=== PATIENT | female | born 1950 | race Caucasian/White ===

== ENCOUNTER 2022-01-14 11:41 | Observation (INO) | payer OTHER ==
--- OUTSIDE RECORDS SUMMARY | 2022-01-14 11:43 | XMS REPORT | Continuity of Care Document ---
:1950 Author Organization [facility] t Address [address] [place] [address] [address]. [address] [place] [address] Care Team Providers Name Role Phone Unavailable Unavailable Unavailable Payers Payer Name Policy Type Policy Number Effective Date Expiration Date S ource Problems This patient has no known problems. Allergies, Adverse Reactions, Alerts This patient has no known allergies or adverse reactions. Medications This patient has no known medications. Procedures This patient has no known procedures. Results This patient has no known results.
[2022-01-14 12:41] LABS: Absolute Lymphocytes (CBC) 2.2 K/uL (0.7-4.9); Hematocrit 35.9 % (36.0-45.0); Lymphocytes % 20.9 % (15.3-44.8); MCV 82.7 fL (80-100); MPV 7.6 fL (7.6-11.3); RBC Red Blood Cell Count 4.34 M/uL (3.86-4.86)
--- NOTE | 2022-01-14 13:06 | RAD REPORT ---
EXAM DESCRIPTION: RAD - Chest Single View - 01/14/2022 12:19 pm CLINICAL HISTORY: syncope COMPARISON: Portable 12/11/2008 TECHNIQUE: AP portable chest image was obtained 01/14/2022 12:19 pm . FINDINGS: Lung volumes are low. Mildly prominent interstitial pattern is present believed to be base line. This is not substantially different when adjusting for differences in lung volume and imaging t echnique. No peripheral mass or consolidation. No failure or volume overload findings. Trachea is in the midlin e. Heart and vasculature are normal. No hilar mass or lymphadenopathy suspected. No measurable pleural effusion and no pneumothorax. No acute bony abnormality seen. No acute aortic f indings suspected. IMPRESSION: No acute cardiopulmonary process. No worrisome change from the remote 2008 study.
--- NOTE | 2022-01-14 13:46 | EDPHYS ---
Physician Documentation [facility] Name: Lupe Anaya Age: 71 yrs Sex: Female : 1950 Arrival Date: 01/14/2022 Time: 11:45 Bed 5 Private MD: ED Physician Abiel Allen HPI: 01/14 14:58 This 71 yrs old Female presents to ER via EMS with complaints of Unresponsive. kdr 15:00 Patient's states that he found her unresponsive on the toilet. She had not been kdr there very long but nonetheless was unresponsive and diaphoretic. EMS was called and when they arrived the patient was still unresponsive. Once he laid her down on the stretcher she then regained consciousness. Currently she complains of generalized weakness but otherwise has no focal complaint. Initially in the ED she was hypotensive but slowly improved over time with fluid. Onset: The symptoms/episode began/occurred suddenly, just prior to arrival. Severity of symptoms: At their worst the symptoms were incapacitating in the emergency department the symptoms. The patient has not experienced similar symptoms in the past. It is unknown whether or not the patient has recently seen a physician. - Immunization history:: Adult Immunizations up to date. - Social history:: Smoking status: Patient denies any tobacco usage or history of. ROS: 15:00 Constitutional: Negative for fever, chills, and weight loss, Eyes: Negative for injury, kdr pain, redness, and discharge, Neck: Negative for injury, pain, and swelling, Cardiovascular: Negative for chest pain, palpitations, and edema, Respiratory: Negative for shortness of breath, cough, wheezing, and pleuritic chest pain, Abdomen/GI: Negative for abdominal pain, nausea, vomiting, diarrhea, and constipation, Back: Negative for injury and pain, : Negative for injury, bleeding, discharge, and swelling, MS/Extremity: Negative for injury and deformity, Skin: Negative for injury, rash, and discoloration, Psych: Negative for depression, anxiety, suicide ideation, homicidal ideation, and hallucinations, Allergy/Immunology: Negative for hives, rash, and allergies, Endocrine: Negative for neck swelling, polydipsia, polyuria, polyphagia, and marked weight changes, Hematologic/Lymphatic: Negative for swollen nodes, abnormal bleeding, and unusual bruising. 15:00 Neuro: Positive for loss of consciousness, syncope, weakness. Exam: 11:57 ECG was reviewed by the Attending Physician. kdr 15:00 Constitutional: This is a well developed, well nourished patient who is awake, alert, kdr and in no acute distress. Head/Face: Normocephalic, atraumatic. Eyes: Pupils equal round and reactive to light, extra-ocular motions intact. Lids and lashes normal. Conjunctiva and sclera are non-icteric and not injected. Cornea within normal limits. Periorbital areas with no swelling, redness, or edema. Neck: Trachea midline, no thyromegaly or masses palpated, and no cervical lymphadenopathy. Supple, full range of motion without nuchal rigidity, or vertebral point tenderness. No Meningismus. Chest/axilla: Normal chest wall appearance and motion. Nontender with no deformity. No lesions are appreciated. Cardiovascular: Regular rate and rhythm with a normal S1 and S2. No gallops, murmurs, or rubs. Normal PMI, no JVD. No pulse deficits. Respiratory: Lungs have equal breath sounds bilaterally, clear to auscultation and percussion. No rales, rhonchi or wheezes noted. No increased work of breathing, no retractions or nasal flaring. Abdomen/GI: Soft, non-tender, with normal bowel sounds. No distension or tympany. No guarding or rebound. No evidence of tenderness throughout. Back: No spinal tenderness. No costovertebral tenderness. Full range of motion. Skin: Warm, dry with normal turgor. Normal color with no rashes, no lesions, and no evidence of cellulitis. MS/ Extremity: Pulses equal, no cyanosis. Neurovascular intact. Full, normal range of motion. Neuro: Awake and alert, GCS 15, oriented to person, place, time, and situation. Cranial nerves II-XII grossly intact. Motor strength 5/5 in all extremities. Sensory grossly intact. Cerebellar exam normal. Normal gait. Psych: Awake, alert, with orientation to person, place and time. Behavior, mood, and affect are within normal limits. 15:00 Respiratory: the patient does not display signs of respiratory distress, Respirations: normal, Breath sounds: rales, that are mild, are located in both bases. 15:00 Abdomen/GI: Inspection: obese Palpation: soft, nontender. Vital Signs: 12:30 BP 91 / 48; Pulse 68; Resp 16; Temp 97.6(O); Pulse Ox 98% on R/A; Weight 107.05 kg; 6 Height 5 ft. 5 in. (165.10 cm); Pain 4/10; 12:45 BP 94 / 41; Pulse 68; Resp 20; Pulse Ox 98% on R/A; 6 13:00 BP 100 / 38; Pulse 67; Resp 17; Pulse Ox 98% ; [facility] 13:15 BP 90 / 46; Pulse 67; Resp 19; Pulse Ox 97% ; 6 13:30 BP 101 / 54; Pulse 68; Resp 17; Pulse Ox 97% ; 6 13:45 BP 100 / 48; Pulse 70; Resp 16; Pulse Ox 96% ; 6 14:30 BP 101 / 47; Pulse 66; Resp 17; Pulse Ox 98% ; 6 15:30 BP 115 / 43; Pulse 70; Resp 17; Pulse Ox 99% ; Pain 0/10; 6 17:00 BP 104 / 46; Pulse 69; Resp 17; Pulse Ox 98% ; Pain 2/10; 6 18:00 BP 124 / 63; Pulse 72; Resp 17; Pulse Ox 98% ; Pain 0/10; 6 19:30 BP 140 / 71; Pulse 75; Resp 18; Pulse Ox 90% ; jb4 20:30 BP 145 / 52; Pulse 79; Resp 16; Pulse Ox 92% ; 4 21:00 BP 151 / 59; Pulse 74; Resp 18; Pulse Ox 93% on R/A; jb4 12:30 Body Mass Index 39.27 (107.05 kg, 165.10 cm) [facility] MDM: 13:45 Patient medically screened. kdr 15:00 Data reviewed: vital signs, nurses notes, lab test result(s), radiologic studies. kdr Counseling: I had a detailed discussion with the patient and/or guardian regarding: the historical points, exam findings, and any diagnostic results supporting the discharge/admit diagnosis, lab results, radiology results, the need for further work-up and treatment in the hospital. 01/14 12:05 Order name: Basic Metabolic Panel; Complete Time: 15:57 iw 01/14 12:05 Order name: CBC with Diff; Complete Time: 13:44 iw 01/14 12:05 Order name: PT-INR; Complete Time: 13:44 iw 01/14 12:05 Order name: Troponin HS; Complete Time: 15:57 iw 01/14 12:05 Order name: XRAY Chest (1 view); Complete Time: 13:44 iw 01/14 14:29 Order name: SARS RAPID; Complete Time: 15:57 em1 01/14 12:05 Order name: EKG; Complete Time: 12:06 iw 01/14 12:05 Order name: Cardiac monitoring; Complete Time: 12:14 iw 01/14 12:05 Order name: EKG - Nurse/Tech; Complete Time: 12:14 iw 01/14 12:05 Order name: IV Saline Lock; Complete Time: 12:14 iw 01/14 16:26 Order name: CT Head Brain wo Cont; Complete Time: 18:05 [facility] 01/14 12:05 Order name: Labs collected and sent; Complete Time: 12:14 iw 01/14 12:05 Order name: O2 Per Protocol; Complete Time: 12:14 01/14 12:05 Order name: O2 Sat Monitoring; Complete Time: 12:14 EC:57 Rate is 70 beats/min. Rhythm is regular, Sinus Rhythm with No ectopy. QRS [place] is kdr Normal. ME interval is normal. QRS interval is normal. QT interval is normal. Clinical impression: NSR w/ Non-specific ST/T Changes. Administered Medications: 12:14 Drug: NS 0.9% 1000 ml Route: IV; Rate: 1 bolus; Site: right antecubital; 6 16:48 Drug: ZyrTEC - Cetirizine 10 mg Route: PO; 6 18:59 Follow up: Response: Pain is decreased jh6 16:48 Drug: Tylenol 650 mg Route: PO; jh6 18:59 Follow up: Response: Pain is decreased 6 Disposition Summary: 01/14/22 13:45 Hospitalization Ordered Hospitalization Status: Observation kdr Provider: Jim Noland Location: Telemetry/MedSurg (observation) kdr Condition: Fair kdr Problem: new kdr Symptoms: have improved kdr Bed/Room Type: Standard kdr Room Assignment: 426(01/14/22 20:53) cg Diagnosis - Syncope kdr Forms: - Medication Reconciliation Form kdr - SBAR form kdr Signatures: Dispatcher [employer] EDAbiel Israel MD MD kdr Williams, Lauren, RN RN iw Aneudy Mcmahan, LABORER MINE-C LABORER MINE-Cla1 Sisi Robison RN RN Kayleigh Alfonso RN RN jh6 Corrections: (The following items were deleted from the chart) 20:53 13:[address] [facility]
[2022-01-14 15:39] LABS: SARS-CoV-2 Antigen Rapid Res Negative (Negative)
[2022-01-14 15:43] LABS: Potassium 4.7 mmol/L (3.5-5.1); Troponin High Sensitivity 5.9 pg/mL (<58.9)
[2022-01-14] MEDS ORDERED: CETIRIZINE HCL 5 MG TABLET ONE (16:56)
[2022-01-14] MEDS ORDERED: ACETAMINOPHEN 325 MG TABLET ONE (16:57)
--- NOTE | 2022-01-14 17:13 | RAD REPORT ---
EXAM DESCRIPTION: CT - Head Brain Wo Cont - 01/14/2022 4:57 pm CLINICAL HISTORY: Syncope, simple, normal neuro exam COMPARISON: No comparisons TECHNIQUE: All CT scans are performed using dose optimization technique as appropriate and may inclu de automated exposure control or mA/KV adjustment according to patient size. FINDINGS: No intracranial hemorrhage, hydrocephalus or extra-axial fluid collection.No areas of brai n edema or evidence of midline shift. Mild chronic small vessel ischemic changes. The paranasal sinuses and mastoids are clear. The calvarium is intact. IMPRESSION: No acute intracranial abnormality.
--- NOTE | 2022-01-14 18:57 | P.HP ---
Certification for Inpatient Patient admitted to: Observation With expected LOS: <2 Midnights Patient will require the following post-hospital care: None Practitioner: I am a practitioner with admitting privileges, knowledge of patient current condition, hospital course, and medical plan of care. Services: Services provided to patient in accordance with Admission requirements found in Title 42 Section 412.3 of the Code of Federal Regulations Patient History Date of Service: 01/14/22 Primary Care Provider: Dr. Me[facility] Reason for admission: sycnope History of Present Illness: 71-year-old female with history of hypertension, hyperlipidemia, diabetes mellitus type [id number] presents to the emergency department after having a syncopal episode. She reports she was on the toilet earlier today having a bowel movement which she reports was loose and then woke up in the hospital. Patient was found to be hypotensive, diaphoretic by EMS at home but blood pressure did respond to IV fluids her work-up in the emergency department revealed labs significant for mild hyperglycemia. CT scan of the head was without acute findings chest x-ray negative for acute findings as well. Her blood pressure has improved currently 123/63, ED provider wishes to admit under observation for syncope. Allergies codeine Allergy (Verified 01/13/17 09:06) Nausea/Vomiting erythromycin base Allergy (Verified 01/13/17 09:06) Nausea/Vomiting/diarrhea phenytoin [From Dilantin] Allergy (Verified 01/13/17 09:06) Hives/Rash, high fever succinylcholine Allergy (Verified 01/13/17 09:06) pt states "does not wake up" Home Medications: Aspirin [Aspir-Low] 81 mg PO DAILY 12/09/16 Dicyclomine HCl 20 mg PO DAILY 12/09/16 Doxepin HCl 50 mg PO DAILY 12/09/16 Glimepiride 4 mg PO DAILY 12/09/16 Hydrocodone Bit/Acetaminophen [Otis 10-325 Tablet] 1 each PO DAILY 12/09/16 Levothyroxine Sodium 150 mcg PO DAILY 12/09/16 Losartan/Hydrochlorothiazide [Losartan-Hctz 100-12.5 mg Tab] 1 each PO DAILY 12/09/16 Metformin HCl [Glucophage] 1,000 mg PO BID 12/09/16 Ondansetron [Zofran (Odt)*] 4 mg PO Q6H PRN 12/09/16 Pravastatin Sodium 40 mg PO DAILY 12/09/16 Ranitidine [Zantac*] 150 mg PO BID 12/09/16 Venlafaxine HCl [Effexor XR] 150 mg PO DAILY 12/09/16 Zolpidem Tartrate [Ambien*] 10 mg PO BEDTIME PRN PRN 12/09/16 carvediloL [Carvedilol] 25 mg PO BID 12/09/16 Albiglutide [Tanzeum] 50 mg SQ EVERY 7TH DAY 01/13/17 - Past Medical/Surgical History -: Hypertension -: Hyperlipidemia -: Diabetes mellitus type [id number] -: Cholecystectomy -: Hysterectomy -: Back surgery x2 Psychosocial/ Personal History: Patient is retired, lives at home with her - Family History Father -: Heart disease Mother -: Heart disease - Social History Smoking Status: Never smoker Alcohol use: No CD- Drugs: No Caffeine use: Yes Place of Residence: Home Review of Systems 10-point ROS is otherwise unremarkable Cardiovascular: Other (Syncope), As per HPI Physical Examination - Physical Exam General: Alert, In no apparent distress, Oriented x3 HEENT: Atraumatic, PERRLA, Mucous membr. moist/pink, EOMI, Sclerae nonicteric Neck: Supple, 2+ carotid pulse no bruit, No LAD, Without JVD or thyroid abnormality Respiratory: Clear to auscultation bilaterally, Normal air movement Cardiovascular: Regular rate/rhythm, Normal S1 S2 Capillary refill: <2 Seconds Gastrointestinal: Normal bowel sounds, No tenderness Musculoskeletal: No tenderness Integumentary: No rashes Neurological: Normal speech, Normal strength at 5/5 x4 extr, Normal tone, Normal affect - Studies Laboratory Data (last 24 hrs) 01/14/22 15:14: Sodium 136, Potassium 4.7, BUN 23 H, Creatinine 1.22, Glucose 226 H 01/14/22 12:36: PT 11.0, INR 1.00 01/14/22 12:36: WBC 10.70, Hgb 11.6 L, Hct 35.9 L, Plt Count 410 H Assessment and Plan - Plan Assessment: Syncope Diabetes mellitus type PJagx-enkdtzg-ynrfrffnp with hyperglycemia Hypertension Hyperlipidemia Plan: Syncope: Single episode occurred until having bowel movement suspect vasovagal syncope. Orthostatic vital signs ordered and pending blood pressures improved with IV fluids. Patient reports he is currently feeling back to baseline. We will monitor on telemetry and trend troponins this evening. Diabetes mellitus type ITbmp-dntszlj-ajsqhbrhv with hyperglycemia: ACHS Accu- Cheks and sliding scale insulin. Hypertension: We will hold oral antihypertensive agents at this time given low blood this afternoon, restart improvement. Hyperlipidemia: Continue home medication once verified. DVT PPX: Lovenox Code status: Full Discharge Plan: Home Plan to discharge in: 24 Hours - Advance Directives Does patient have a Living Will: No Does patient have a Durable POA for Healthcare: No - Code Status/Comfort Care Code Status Assessed: Yes (Full code) Critical Care: No Time Spent Managing Pts Care (In Minutes): 55
--- NOTE | 2022-01-14 23:45 | ER ---
Nurse's Notes [facility] Name: Lupe Anaya Age: 71 yrs Sex: Female : 1950 Arrival Date: 01/14/2022 Time: 11:45 Bed 5 Private MD: Diagnosis: Syncope Presentation: 01/14 12:30 Chief complaint: EMS states: Spouse called EMS after finding pt unresponsive on toilet. 6 On arrival EMS states that pt was still non responsive and diaphoretic but after she was placed down on stretcher she woke up and only c/o Reynolds. Pt did not remember becoming dizzy or passing out. On arrival patient was A\T\OX4 with c/o headache. Pt still hypotensive skin moist and warm. Coronavirus screen: Vaccine status: Patient reports receiving the 2nd dose of the covid vaccine. Ebola Screen: Patient negative for fever greater than or equal to 101.5 degrees Fahrenheit, and additional compatible Ebola Virus Disease symptoms Patient denies exposure to infectious person. Patient denies travel to an Ebola-affected area in the 21 days before illness onset. 12:30 Method Of Arrival: EMS: [facility] 12:30 Initial Sepsis Screen: Does the patient meet any 2 criteria? No. Patient's initial [facility] sepsis screen is negative. Does the patient have a suspected source of infection? No. Patient's initial sepsis screen is negative. Risk Assessment: Do you want to hurt yourself or someone else? Patient reports no desire to harm self or others. Onset of symptoms was January 14, 2022. 12:30 Acuity: NADER 2 [facility] Triage Assessment: 14:39 General: Appears in no apparent distress. Behavior is calm, cooperative. Pain: [facility] Complains of pain in occipital area Pain currently is 5 out of 10 on a pain scale. Quality of pain is described as throbbing, Pain began suddenly, Is continuous, Alleviated by nothing. Aggravated by light. Neuro: Oriented to person, place, time, situation, Cordwainer are equal bilaterally Moves all extremities. Gait is steady, Speech is normal, Facial symmetry appears normal, Pupils are PERRLA, Intact Reports headache occipital area, Denies dizziness. Cardiovascular: Capillary refill < 3 seconds Clubbing of nail beds is absent JVD is absent Rhythm is regular. - Immunization history:: Adult Immunizations up to date. - Social history:: Smoking status: Patient denies any tobacco usage or history of. Screenin:44 Abuse screen: Denies threats or abuse. Denies injuries from another. Nutritional jh6 screening: No deficits noted. Tuberculosis screening: No symptoms or risk factors identified. Fall Risk IV access (20 points). Gait- Normal/Bed Rest/Wheelchair (0 pts). Assessment: 12:38 General: Appears in no apparent distress. obese, well groomed, Behavior is calm, jh6 cooperative. Pain: Complains of pain in occipital area Pain currently is 5 out of 10 on a pain scale. Quality of pain is described as aching, dull, Pain began suddenly, Is continuous. Neuro: Level of Consciousness is awake, alert, obeys commands, Oriented to person, place, time, situation, Cordwainer are equal bilaterally. 13:30 Reassessment: No changes from previously documented assessment. Patient and/or family jh6 updated on plan of care and expected duration. Pain level reassessed. Patient is alert, oriented x 3, equal unlabored respirations, skin warm/dry/pink. Patient states feeling better. 13:30 Pain: Complains of pain in occipital area Pain currently is 3 out of 10 on a pain scale.jh6 14:30 Reassessment: No changes from previously documented assessment. Patient and/or family jh6 updated on plan of care and expected duration. Pain level reassessed. Patient states feeling better. 16:00 Reassessment: No changes from previously documented assessment. Patient is alert, jh6 oriented x 3, equal unlabored respirations, skin warm/dry/pink. states that she is having a little more of a sinus Reynolds and that she normally takes Zyrtec and Tylenol. Patient states feeling better. 18:00 Reassessment: Patient and/or family updated on plan of care and expected duration. Pain jh6 level reassessed. Patient is alert, oriented x 3, equal unlabored respirations, skin warm/dry/pink. Patient denies pain at this time. Patient states feeling better. 19:00 Reassessment: Patient appears in no apparent distress at this time. Patient and/or jb4 family updated on plan of care and expected duration. Pain level reassessed. Patient is alert, oriented x 3, equal unlabored respirations, skin warm/dry/pink. 20:00 Reassessment: Patient appears in no apparent distress at this time. Patient and/or jb4 family updated on plan of care and expected duration. Pain level reassessed. Patient is alert, oriented x 3, equal unlabored respirations, skin warm/dry/pink. 21:00 Reassessment: Patient appears in no apparent distress at this time. Patient and/or jb4 family updated on plan of care and expected duration. Pain level reassessed. Patient is alert, oriented x 3, equal unlabored respirations, skin warm/dry/pink. Vital Signs: 12:30 BP 91 / 48; Pulse 68; Resp 16; Temp 97.6(O); Pulse Ox 98% on R/A; Weight 107.05 kg; 6 Height 5 ft. 5 in. (165.10 cm); Pain 4/10; 12:45 BP 94 / 41; Pulse 68; Resp 20; Pulse Ox 98% on R/A; 6 13:00 BP 100 / 38; Pulse 67; Resp 17; Pulse Ox 98% ; [facility] 13:15 BP 90 / 46; Pulse 67; Resp 19; Pulse Ox 97% ; 6 13:30 BP 101 / 54; Pulse 68; Resp 17; Pulse Ox 97% ; 6 13:45 BP 100 / 48; Pulse 70; Resp 16; Pulse Ox 96% ; 6 14:30 BP 101 / 47; Pulse 66; Resp 17; Pulse Ox 98% ; 6 15:30 BP 115 / 43; Pulse 70; Resp 17; Pulse Ox 99% ; Pain 0/10; 6 17:00 BP 104 / 46; Pulse 69; Resp 17; Pulse Ox 98% ; Pain 2/10; 6 18:00 BP 124 / 63; Pulse 72; Resp 17; Pulse Ox 98% ; Pain 0/10; 6 19:30 BP 140 / 71; Pulse 75; Resp 18; Pulse Ox 90% ; 4 20:30 BP 145 / 52; Pulse 79; Resp 16; Pulse Ox 92% ; 4 21:00 BP 151 / 59; Pulse 74; Resp 18; Pulse Ox 93% on R/A; 4 12:30 Body Mass Index 39.27 (107.05 kg, 165.10 cm) [facility] ED Course: 11:45 Patient arrived in ED. em1 11:50 Abiel Allen MD is Attending Physician. kdr 12:13 Kayleigh Alfonso, RN is Primary Nurse. jh6 12:21 XRAY Chest (1 view) In Process Unspecified. EDMS 12:30 Arm band placed on right wrist. Patient placed in the treatment room, on cardiac 6 monitor, on pulse oximetry. 12:30 Maintain EMS IV. Good blood return noted. Site clean \T\ dry. Gauge \T\ site: 20g to the 6 left hand. 13:30 Placed in gown. Bed in low position. Call light in reach. Side rails up X2. Adult w/ jh6 patient. 13:44 Jim Noland MD is Hospitalizing Provider. kdr 14:38 Triage completed. jh6 14:43 Inserted saline lock: 22 gauge in right antecubital area, using aseptic technique. jh6 Blood collected. 15:57 No provider procedures requiring assistance completed. jh6 16:59 CT Head Brain wo Cont In Process Unspecified. EDMS Administered Medications: 12:14 Drug: NS 0.9% 1000 ml Route: IV; Rate: 1 bolus; Site: right antecubital; jh6 16:48 Drug: ZyrTEC - Cetirizine 10 mg Route: PO; jh6 18:59 Follow up: Response: Pain is decreased jh6 16:48 Drug: Tylenol 650 mg Route: PO; jh6 18:59 Follow up: Response: Pain is decreased jh6 Medication: 14:49 VIS not applicable for this client. jh6 Outcome: 13:45 Decision to Hospitalize by Provider. kdr 23:43 Admitted to Tele accompanied by [facility], via wheelchair, room 426, with oxygen, with chart.jb4 23:43 Condition: stable 23:43 Discharge instructions given to patient, Instructed on the need for admit, Demonstrated understanding of instructions. 23:45 Patient left the ED. jb4 Signatures: Dispatcher [employer] EDMS Abiel Allen MD MD kdr Ravi Palmer em1 Ronak Hein, RN RN jb4 Kayleigh Alfonso, RN RN 6 Corrections: (The following items were deleted from the chart) 14:38 14:30 Chief complaint: EMS states: Spouse called EMS after finding pt unresponsive on 6 toilet. On arrival EMS states that pt was still non responsive and diaphoretic but after she was placed down on stretcher she woke up and only c/o Reynolds. Pt did not remember becoming dizzy or passing out. On arrival patient was A\T\OX4 with c/o headache. Pt still hypotensive skin moist and warm. [facility] 14:30 Coronavirus screen: Vaccine status: Patient reports receiving the 2nd dose of the [facility] covid vaccine. [facility] 14:30 Ebola Screen: Patient negative for fever greater than or equal to 101.5 degrees [facility] Fahrenheit, and additional compatible Ebola Virus Disease symptoms Patient denies exposure to infectious person. Patient denies travel to an Ebola-affected area in the 21 days before illness onset. [facility] 14:30 Method Of Arrival: EMS: [facility] [place] [id number]
[2022-01-15 00:23] VITALS: BMI 41.8
[2022-01-15] MEDS ORDERED: ONDANSETRON 4 MG/2 ML VIAL IV PRN (00:29)
[2022-01-15] MEDS: INSULIN -REGULAR HUMAN 50 UNIT/0.5 ML ML SQ SCH ×2 (00:29→07:30)
[2022-01-15] MEDS ORDERED: NA CHLORIDE 0.9% 1,000 ML IV SCH (00:29)
[2022-01-15] MEDS ORDERED: ACETAMINOPHEN 500 MG TAB PO PRN (00:29)
[2022-01-15 05:59] LABS: Absolute Lymphocytes (CBC) 3.4 K/uL (0.7-4.9); Hematocrit 32.4 % (36.0-45.0); Lymphocytes % 29.4 % (15.3-44.8); MCV 80.4 fL (80-100); MPV 7.4 fL (7.6-11.3); RBC Red Blood Cell Count 4.02 M/uL (3.86-4.86)
[2022-01-15 06:12] LABS: Bilirubin Total 0.2 mg/dL (0.2-1.0); Potassium 3.9 mmol/L (3.5-5.1); Protein, Total 6.3 g/dL (6.4-8.2)
[2022-01-15] MEDS ORDERED: LOSARTAN/HCTZ 50-12.5 PO SCH (09:00)
[2022-01-15] MEDS ORDERED: ENOXAPARIN 40 MG/0.4 ML SQ SCH (09:00)
--- NOTE | 2022-01-15 09:28 | P.DS ---
Admission Date: 01/14/22 Discharge Date: 01/15/22 Primary Care Provider: Dr. Meek [facility] Disposition: ROUTINE DISCHARGE Discharge Condition: FAIR Reason for Admission: sycnope Brief History of Present Illness: Patient is 71 years of age admitted with a brief syncopal attack while she was on the commode Hospital Course: Admitted for observation did well this is the first time she is ever blacked out apparently while she was sitting on the commode found to be hypotensive symptoms resolved quickly at the time of discharge alert oriented responsive cooperative cranial nerve deficits no weakness of extremities observed no evidence of stroke troponins are negative apart from mild anemia no oother lab abnormalities noted/patient was monitored on telemetry chest x-ray head CT normal Vital Signs/Physical Exam: Temp Pulse Resp BP Pulse Ox 97.3 F 87 14 176/65 H 95 01/15/22 08:00 01/15/22 09:15 01/15/22 08:00 01/15/22 09:15 01/15/22 08:00 Laboratory Data at Discharge: WBC 11.40 K/uL (4.3-10.9) H 01/15/22 05:36 Hgb 10.9 g/dL (12.0-15.0) L 01/15/22 05:36 Hct 32.4 % (36.0-45.0) L 01/15/22 05:36 Plt Count 369 K/uL (152-406) 01/15/22 05:36 PT 11.0 SECONDS (9.5-12.5) 01/14/22 12:36 INR 1.00 01/14/22 12:36 Sodium 136 mmol/L (136-145) 01/15/22 05:36 Potassium 3.9 mmol/L (3.5-5.1) D 01/15/22 05:36 BUN 21 mg/dL (7-18) H 01/15/22 05:36 Creatinine 0.81 mg/dL (0.55-1.3) 01/15/22 05:36 Glucose 138 mg/dL (74-106) H 01/15/22 05:36 Total Bilirubin 0.2 mg/dL (0.2-1.0) 01/15/22 05:36 AST 10 U/L (15-37) L 01/15/22 05:36 ALT 16 U/L (12-78) 01/15/22 05:36 Alkaline Phosphatase 74 U/L (45-117) 01/15/22 05:36 Home Medications: Aspirin [Aspir-Low] 81 mg PO DAILY 12/09/16 Dicyclomine HCl 20 mg PO DAILY 12/09/16 Doxepin HCl 50 mg PO DAILY 12/09/16 Glimepiride 4 mg PO DAILY 12/09/16 Hydrocodone Bit/Acetaminophen [[place] 10-325 Tablet] 1 each PO DAILY 12/09/16 Levothyroxine Sodium 150 mcg PO DAILY 12/09/16 Losartan/Hydrochlorothiazide [Losartan-Hctz 100-12.5 mg Tab] 1 each PO DAILY 12/09/16 Metformin HCl [Glucophage] 1,000 mg PO BID 12/09/16 Ondansetron [Zofran (Odt)*] 4 mg PO Q6H PRN 12/09/16 Pravastatin Sodium 40 mg PO DAILY 12/09/16 Ranitidine [Zantac*] 150 mg PO BID 12/09/16 Venlafaxine HCl [Effexor XR] 150 mg PO DAILY 12/09/16 Zolpidem Tartrate [Ambien*] 10 mg PO BEDTIME PRN PRN 12/09/16 carvediloL [Carvedilol] 25 mg PO BID 12/09/16 Albiglutide [Tanzeum] 50 mg SQ EVERY 7TH DAY 01/13/17 Physician Discharge Instructions: Follow-up with Dr. Mcintosh Diet: ADA Followup: Yogesh Mcintosh MD [Primary Care Provider] -
[2022-01-15 12:23] VITALS: TEMP 97.7
[2022-01-16 11:16] VITALS: BP 101/54; O2SAT 97
--- NOTE | 2022-01-16 15:59 | EKG ---
Test Date: 2022-01-14 Test Time: 11:52:22 [employer] Equipment Tender: BIANCA MEASUREMENT RESULTS: Intervals: Rate: 70 VT: 190 QRSD: 94 QT: 406 QTc: 438 [place]: P: 14 VT: 190 QRS: 24 T: 42 INTERPRETIVE STATEMENTS: Normal sinus rhythm Cannot rule out Anterior infarct, age undetermined Abnormal ECG Compared to ECG 12/11/2008 17:52:46 No significant changes Electronically Signed On 01-16-22 15:55:55 CDT by Teddy Rocha
== END 2022-01-15 12:35 | disposition home or self-care (01) ==
LOC: ER 11:41 → ERHOLD 18:31 → 4TH 22:25
PROVIDERS: ADMIT Internal Medicine Sleep Medicine; ATTEND Internal Medicine Sleep Medicine
DX: R55 Syncope and collapse (principal); I95.9 Hypotension, unspecified; R61 Generalized hyperhidrosis; I10 Essential (primary) hypertension; E78.5 Hyperlipidemia, unspecified; E11.9 Type 2 diabetes mellitus without complications; E11.65 Type 2 diabetes mellitus with hyperglycemia; Z82.49 Family history of ischemic heart disease and other diseases of the circulatory system; Z88.6 Allergy status to analgesic agent; Z88.8 Allergy status to other drugs, medicaments and biological substances; Z20.822 Contact with and (suspected) exposure to COVID-19
CPT/HCPCS: 93005; 85025 ×2; 80048; 36415; 85610; 82947 ×2; 84484 ×3; 80053; 70450; 71045; 99285; 87811; J1650; J7030; G0378 ×2

== ENCOUNTER 2022-06-18 11:02 | Inpatient (IN) | payer OTHER ==
--- OUTSIDE RECORDS SUMMARY | 2022-06-18 11:05 | XMS REPORT | Continuity of Care Document ---
:1950 Author Organization [facility] t Address [facility] [address] Yeager [address] [place] [id number] Care Team Providers Name Role Phone Unavailable [...]
[2022-06-18] MEDS ORDERED: NA CHLORIDE 0.9% 1,000 ML ONE ×2 (11:28→16:11)
[2022-06-18 12:11] LABS: Absolute Lymphocytes (CBC) 1.1 K/uL (0.7-4.9); Hematocrit 39.9 % (36.0-45.0); MCV 81.8 fL (80-100); MPV 7.5 fL (7.6-11.3); RBC Red Blood Cell Count 4.88 M/uL (3.86-4.86)
[2022-06-18] MEDS ORDERED: LEVALBUTEROL 0.63 MG/3 ML NEB ONE (12:15)
[2022-06-18 12:29] LABS: Albumin 3.7 g/dL (3.4-5.0); Bilirubin Total 0.3 mg/dL (0.2-1.0); Magnesium 1.6 mg/dL (1.6-2.4); Potassium 3.8 mmol/L (3.5-5.1); Protein, Total 7.9 g/dL (6.4-8.2); Troponin High Sensitivity 25.3 pg/mL (<58.9)
[2022-06-18 12:34] LABS: Thyroid Stimulating Hormone 4.17 uIU/mL (0.358-3.740)
--- NOTE | 2022-06-18 12:55 | RAD REPORT ---
EXAM DESCRIPTION: RAD - Chest Single View - 06/18/2022 12:37 pm CLINICAL HISTORY: weakness,cough COMPARISON: Chest Single View dated 01/14/2022; CHEST SINGLE VIEW dated 12/11/2008 FINDINGS: Lines: None. Lungs: No evidence of edema or pneumonia. Pleural: No significant pleural effusions or pneumothorax. Cardiac: The heart size is within normal limits. Mediastinum: Within normal limits. Bones: No acute fractures. Other: None IMPRESSION: No acute cardiopulmonary disease.
[2022-06-18 17:18] LABS: Urine Blood 2+ (Negative); Urine Glucose Negative (Negative); Urine Protein 3+ (Negative); Urine Specific Gravity 1.025 (1.005-1.030); Urine pH 5.5 (5.0-7.0)
[2022-06-18 17:41] LABS: Urine Bacteria Loaded /HPF (<20); Urine Mucus 2+ /HPF (None Seen)
--- NOTE | 2022-06-18 17:54 | ER ---
Nurse's Notes [facility] Name: Lupe Anaya Age: 72 yrs Sex: Female : 1950 Arrival Date: 06/18/2022 Time: 11:05 Bed 17 Private MD: Yogesh Mcintosh V Diagnosis: UTI/ Urinary tract infection, site not specified;Severe sepsis without septic shock Presentation: 06/18 11:17 Chief complaint: EMS states: toned out to patients home for weakness and dizziness kr3 x1day. Cough with phlegm x 2 weeks. Diarrhea and frequent urination. Coronavirus screen: Vaccine status: Patient reports being unvaccinated. Ebola Screen: Patient denies travel to an Ebola-affected area in the 21 days before illness onset. Initial Sepsis Screen: Does the patient meet any 2 criteria? No. Patient's initial sepsis screen is negative. Does the patient have a suspected source of infection? No. Patient's initial sepsis screen is negative. Risk Assessment: Do you want to hurt yourself or someone else? Patient reports no desire to harm self or others. Onset of symptoms was June 17, 2022. 11:17 Method Of Arrival: EMS kr3 11:17 Acuity: NADER 3 kr3 Triage Assessment: 11:20 General: Appears in no apparent distress. comfortable, Behavior is calm, cooperative, kr3 appropriate for age. 22:24 Pain: Denies pain. vc1 Historical: - Allergies: 11:19 No Known Allergies; kr3 - PMHx: 11:19 Hypertensive disorder; Hypercholesterolemia; Diabetes mellitus; kr3 - Immunization history:: Adult Immunizations not up to date. - Social history:: Smoking status: Patient/guardian denies using tobacco, the patient reports quitting approximately 50 years ago. Screenin:23 [facility] ED Fall Risk Assessment (Adult) History of falling in the last 3 months, vc1 including since admission No falls in past 3 months (0 pts) Confusion or Disorientation Yes (5 pts) Intoxicated or Sedated No (0 pts) Impaired Gait Yes (1 pt) Mobility Assist Device Used No (0 pt) Altered Elimination Yes (1 pt) Score/Fall Risk Level 3 or more points = High Risk Oriented to surroundings, Maintained a safe environment, Educated pt \T\ family on fall prevention, incl call for assistance when getting out of bed. Abuse screen: Denies threats or abuse. Nutritional screening: No deficits noted. Tuberculosis screening: No symptoms or risk factors identified. Assessment: 12:15 Reassessment: Patient appears in no apparent distress at this time. Patient and/or kr3 family updated on plan of care and expected duration. Pain level reassessed. 13:39 Reassessment: Patient appears in no apparent distress at this time. Patient and/or kr3 family updated on plan of care and expected duration. Pain level reassessed. 14:55 Reassessment: Patient appears in no apparent distress at this time. Patient and/or kr3 family updated on plan of care and expected duration. Pain level reassessed. 20:49 Reassessment: Patient appears in no apparent distress at this time. patient has been kr3 poked by 3 different people, twice each without successfully obtaining the second set of blood cultures, including the inside lab. 21:00 Reassessment: Assumed care of patient at 2100. vc1 22:02 Reassessment: No changes from previously documented assessment. Patient and/or family vc1 updated on plan of care and expected duration. Pain level reassessed. Patient is alert, oriented x 3, equal unlabored respirations, skin warm/dry/pink. Vital Signs: 11:17 BP 164 / 59; Pulse 110; Resp 18; Temp 98.4; Pulse Ox 98% 2 lpm ; Weight 105.23 kg; kr3 Height 5 ft. 0 in. (152.40 cm); 12:15 BP 155 / 73; Pulse 109; Resp 20; Pulse Ox 100% on 2 lpm NC; kr3 13:15 BP 155 / 61; Pulse 108; Resp 18; Pulse Ox 95% on 2 lpm NC; kr3 14:30 BP 168 / 66; Pulse 109; Resp 20; Pulse Ox 96% on 2 lpm NC; kr3 17:00 BP 145 / 99; Pulse 105; Resp 31; Pulse Ox 98% on 2 lpm NC; hb 18:00 BP 161 / 95; Pulse 104; Resp 27; Pulse Ox 96% on 2 lpm NC; hb 22:02 BP 185 / 90; Pulse 105; Resp 28; Pulse Ox 94% ; vc1 11:17 Body Mass Index 45.31 (105.23 kg, 152.40 cm) [facility] ED Course: 11:05 Patient arrived in ED. as 11:05 Yogesh Mcintosh MD is Private Physician. as 11:05 Winston Dong MD is Attending Physician. rt 11:12 Laly Foote RN is Primary Nurse. kr3 11:19 Triage completed. kr3 11:21 Arm band placed on right wrist. Patient placed in an exam room, on a stretcher. kr3 11:55 Inserted saline lock: 22 gauge in right antecubital area, using aseptic technique. kr3 Blood collected. 12:39 Chest Single View XRAY In Process Unspecified. EDMS 17:53 Yogesh Mcintosh MD is Hospitalizing Provider. rt 18:45 Straight cath inserted, using sterile technique, 14 Fr. Specimen obtained. kr3 19:06 Savage Moore MD is Hospitalizing Provider. la1 19:21 SARS RAPID Sent. kr3 19:21 Urine Culture Sent. kr3 21:15 Bed in low position. Call light in reach. Client placed on continuous cardiac and pulse vc1 oximetry monitoring. NIBP monitoring applied. 22:23 No provider procedures requiring assistance completed. Patient admitted, IV remains in vc1 place. Administered Medications: 11:57 Drug: NS 0.9% 1000 ml Route: IV; Rate: bolus; Site: left antecubital; kr3 21:04 Follow up: Response: No adverse reaction; IV Status: Completed infusion; IV Intake: kr3 1000ml 12:15 Drug: Xopenex (levalbuterol) (3) 0.63 mg Route: Inhalation; kr3 21:05 Follow up: Response: No adverse reaction kr3 16:58 Drug: NS 0.9% 1000 ml Route: IV; Rate: 1 bolus; Site: left antecubital; kr3 21:05 Follow up: Response: No adverse reaction; IV Status: Completed infusion; IV Intake: kr3 1000ml 20:56 Drug: Rocephin (cefTRIAXone) 2 grams Route: IV; Rate: calculated rate; Site: left kr3 antecubital; Medication: 22:24 VIS not applicable for this client. vc1 Intake: 21:04 IV: 1000ml; Total: 1000ml. kr3 21:05 IV: 1000ml; Total: 2000ml. kr3 Outcome: 17:53 Decision to Hospitalize by Provider. rt 22:24 Admitted to Med/surg accompanied by tech, via stretcher, room 210, Report called to vc1 Gomez, RN 22:24 Condition: good 22:24 Instructed on the need for admit. 22:25 Patient left the ED. [facility] Signatures: Dispatcher [employer] Lorie Washburn Lee, FLAT FOLDING MACHINE OPERATOR-C FLAT FOLDING MACHINE OPERATOR-Cla1 Concha Centeno, Karina Leon RN, RN RN vc1 Laly Foote RN RN kr3 Winston Dong MD MD rt Corrections: (The following items were deleted from the chart) 13:39 12:40 Inserted saline lock: 22 gauge in right antecubital area, using aseptic kr3 technique. Blood collected. kr3 13:39 12:15 Reassessment: Patient appears in no apparent distress at this time. Patient kr3 and/or family updated on plan of care and expected duration. Pain level reassessed. Patient is alert, oriented x 3, equal unlabored respirations, skin warm/dry/pink. kr3 06/19 16:00 0218 15:30 Straight cath inserted, using sterile technique, 14 Fr. Specimen obtained. kr3 kr3
--- NOTE | 2022-06-18 17:54 | EDPHYS ---
Physician Documentation [facility] Name: Lupe Anaya Age: 72 yrs Sex: Female : 1950 Arrival Date: 06/18/2022 Time: 11:05 Bed 17 Private MD: Yogesh Mcintosh V ED Physician Winston Dong HPI: 06/18 13:03 This 72 yrs old Female presents to ER via EMS with complaints of Generalized weakness. rt 13:03 Patient presents to the ED with generalized weakness, dizziness described as rt lightheadedness starting a few days ago. It had worsened today. She reports an increase in urination, as well as having episodes of diarrhea. She does have a known history of diabetes. She denies any injury. She denies chest pain, shortness of breath. She does report a cough that is productive. Denies other acute complaints at this time, symptoms are moderate in severity, no other aggravating or alleviating factors. Historical: - Allergies: 11:19 No Known Allergies; kr3 - PMHx: 11:19 Hypertensive disorder; Hypercholesterolemia; Diabetes mellitus; kr3 - Immunization history:: Adult Immunizations not up to date. - Social history:: Smoking status: Patient/guardian denies using tobacco, the patient reports quitting approximately 50 years ago. ROS: 13:03 Constitutional: Negative for fever, chills, and weight loss, Cardiovascular: Negative rt for chest pain, palpitations, and edema, Abdomen/GI: Negative for abdominal pain, nausea, vomiting, diarrhea, and constipation, MS/Extremity: Negative for injury and deformity, Skin: Negative for injury, rash, and discoloration, Psych: Negative for depression, anxiety, suicide ideation, homicidal ideation, and hallucinations. 13:03 Respiratory: Positive for cough, Negative for shortness of breath. 13:03 : Positive for urinary frequency, Negative for burning with urination. 13:03 Neuro: Positive for weakness, Negative for altered mental status. Exam: 13:03 Constitutional: This is a well developed, well nourished patient who is awake, alert, rt and in no acute distress. Head/Face: Normocephalic, atraumatic. Chest/axilla: Normal chest wall appearance and motion. Nontender with no deformity. No lesions are appreciated. Cardiovascular: Regular rate and rhythm with a normal S1 and S2. No gallops, murmurs, or rubs. Normal PMI, no JVD. No pulse deficits. Respiratory: Lungs have equal breath sounds bilaterally, clear to auscultation and percussion. No rales, rhonchi or wheezes noted. No increased work of breathing, no retractions or nasal flaring. Abdomen/GI: Soft, non-tender, with normal bowel sounds. No distension or tympany. No guarding or rebound. No evidence of tenderness throughout. Skin: Warm, dry with normal turgor. Normal color with no rashes, no lesions, and no evidence of cellulitis. MS/ Extremity: Pulses equal, no cyanosis. Neurovascular intact. Full, normal range of motion. Neuro: Awake and alert, GCS 15, oriented to person, place, time, and situation. Cranial nerves II-XII grossly intact. Motor strength 5/5 in all extremities. Sensory grossly intact. Cerebellar exam normal. Normal gait. Psych: Awake, alert, with orientation to person, place and time. Behavior, mood, and affect are within normal limits. 13:03 ECG was reviewed by the Attending Physician. Vital Signs: 11:17 BP 164 / 59; Pulse 110; Resp 18; Temp 98.4; Pulse Ox 98% 2 lpm ; Weight 105.23 kg; kr3 Height 5 ft. 0 in. (152.40 cm); 12:15 BP 155 / 73; Pulse 109; Resp 20; Pulse Ox 100% on 2 lpm NC; kr3 13:15 BP 155 / 61; Pulse 108; Resp 18; Pulse Ox 95% on 2 lpm NC; kr3 14:30 BP 168 / 66; Pulse 109; Resp 20; Pulse Ox 96% on 2 lpm NC; kr3 17:00 BP 145 / 99; Pulse 105; Resp 31; Pulse Ox 98% on 2 lpm NC; hb 18:00 BP 161 / 95; Pulse 104; Resp 27; Pulse Ox 96% on 2 lpm NC; hb 22:02 BP 185 / 90; Pulse 105; Resp 28; Pulse Ox 94% ; vc1 11:17 Body Mass Index 45.31 (105.23 kg, 152.40 cm) kr3 MDM: 11:07 Patient medically screened. rt 18:05 Differential Diagnosis Generalized weakness, dehydration, sepsis. Data reviewed: vital rt signs, nurses notes, lab test result(s), EKG, radiologic studies. Consideration of Admission/Observation Patient was admitted/placed on observation. Management of patient was discussed with the following: Primary Care Provider: Agrees to admit the patient. I considered the following discharge prescriptions or medication management in the emergency department Medications were administered in the Emergency Department. See MAR. Test considered but Not performed: MRI: No focal neurodeficits, MRI not indicated. Historians other than the Patient: Spouse/Significant Other: Discussed history with patient's . Care significantly affected by the following chronic conditions: Diabetes. Post IV fluid administration reassessment for Sepsis: Client not prescribed the 30 mL/kg IVF due to: 2 L, patient does not meet criteria for septic shock, symptomatically improving Lungs: noted to be clear bilaterally. Counseling: I had a detailed discussion with the patient and/or guardian regarding: the historical points, exam findings, and any diagnostic results supporting the discharge/admit diagnosis, lab results, radiology results, the need for further work-up and treatment in the hospital. Response to treatment: the patient's symptoms have mildly improved after treatment. ED course: Patient's presentation not initially thought to be due to infectious etiology as she was afebrile, only initial SIRS criteria with tachycardia. Once UTI was identified, antibiotics, cultures were ordered.. 06/18 11:14 Order name: CBC with Diff; Complete Time: 12:37 rt 06/18 11:14 Order name: CMP; Complete Time: 12:56 rt 06/18 11:14 Order name: Magnesium; Complete Time: 12:56 rt 06/18 11:14 Order name: Lactate w/ 2H reflex if indic.; Complete Time: 12:37 rt 06/18 11:14 Order name: Troponin High Sensitivity; Complete Time: 12:56 rt 06/18 11:14 Order name: Urine Microscopic Only; Complete Time: 19:06 rt 06/18 11:14 Order name: TSH; Complete Time: 12:56 rt 06/18 12:39 Order name: T4 Free; Complete Time: 12:56 EDMS 06/18 17:18 Order name: Lactate Sepsis 2 HR Follow-up; Complete Time: 17:32 EDMS 06/18 17:18 Order name: Urine Dipstick-Ancillary; Complete Time: 17:32 EDMS 06/18 17:52 Order name: Urine Culture rt 06/18 17:59 Order name: SARS RAPID eb 06/18 18:46 Order name: SARS-COV-2 Antigen Rapid; Complete Time: 19:06 EDMS 06/18 11:14 Order name: Chest Single View XRAY; Complete Time: 12:56 rt 06/18 11:14 Order name: EKG; Complete Time: 11:14 rt 06/18 11:14 Order name: EKG - Nurse/Tech; Complete Time: 11:58 rt 06/18 11:14 Order name: Urine Dipstick-Ancillary (obtain specimen); Complete Time: 19:21 rt 06/18 21:09 Order name: Blood Culture EDMS EC:03 Rate is 118 beats/min. Rhythm is regular, Sinus tachycardia with No ectopy. QRS [place] is rt Normal. IN interval is normal. QRS interval is normal. QT interval is normal. Clinical impression: NSR w/ Non-specific ST/T Changes. Administered Medications: 11:57 Drug: NS 0.9% 1000 ml Route: IV; Rate: bolus; Site: left antecubital; kr3 21:04 Follow up: Response: No adverse reaction; IV Status: Completed infusion; IV Intake: kr3 1000ml 12:15 Drug: Xopenex (levalbuterol) (3) 0.63 mg Route: Inhalation; kr3 21:05 Follow up: Response: No adverse reaction kr3 16:58 Drug: NS 0.9% 1000 ml Route: IV; Rate: 1 bolus; Site: left antecubital; kr3 21:05 Follow up: Response: No adverse reaction; IV Status: Completed infusion; IV Intake: kr3 1000ml 20:56 Drug: Rocephin (cefTRIAXone) 2 grams Route: IV; Rate: calculated rate; Site: left kr3 antecubital; Disposition Summary: 06/18/22 17:53 Hospitalization Ordered Hospitalization Status: Inpatient Admission rt [facility] rt Condition: Stable rt Problem: new rt Symptoms: have improved rt Bed/Room Type: Standard rt Provider: Savage Moore(06/18/22 19:06) la1 Room Assignment: 210(06/18/22 21:20) Diagnosis - UTI/ Urinary tract infection, site not specified rt - Severe sepsis without septic shock rt Forms: - Medication Reconciliation Form rt - SBAR form rt Signatures: Dispatcher [employer] EDMS Aneudy Mcmahan, DIRECTOR OF INVESTIGATIONS-C DIRECTOR OF INVESTIGATIONS-Cla1 Sisi Robison, RN RN cg Laly Foote RN RN kr3 Winston Dong MD MD rt Corrections: (The following items were deleted from the chart) 19:06 17:53 Yogesh Mcintosh rt la1 19:22 17:52 BLOOD CULTURE*+[id number].LAB.BRZ ordered. EDMS EDMS 21: 17:53 rt cg
[2022-06-18 18:45] LABS: SARS-CoV-2 Antigen Rapid Res Negative (Negative)
[2022-06-18] MEDS ORDERED: CEFTRIAXONE 2000 MG/VIAL ONE (19:33)
--- NOTE | 2022-06-18 20:44 | P.HP ---
Certification for Inpatient Patient admitted to: Inpatient With expected LOS: >2 Midnights Patient will require the following post-hospital care: None Practitioner: I am a practitioner with admitting privileges, knowledge of patient current condition, hospital course, and medical plan of care. Services: Services provided to patient in accordance with Admission requirements found in Title 42 Section 412.3 of the Code of Federal Regulations Patient History Date of Service: 06/18/22 Reason for admission: Severe sepsis, UTI, weakness History of Present Illness: 72-year-old female with history of hypertension, hyperlipidemia, diabetes mellitus type [id number] presents to the emergency department for weakness. Her reports that while walking to the restroom she was very weak, and took her approximately 1 hour urine with her walker to get there and back and was concerned for her wellbeing so brought her to the emergency departm ent. She reports feeling generally weak with chills that started in the last day or so. She was evaluated here in the emergency department her labs were significant for white blood cell count of 10.9 sodium 130 glucose 290 initial lactate 2.2 which increased to 3.5 urinalysis nitrate positive trace leuk esterase loaded bacteria on microscopic analysis chest x-ray negative for acute cardiopulmonary disease. Patient criteria for severe sepsis secondary to UTI. Will admit for further evaluation and management. Allergies codeine Allergy (Verified 01/13/17 09:06) Nausea/Vomiting erythromycin base Allergy (Verified 01/13/17 09:06) Nausea/Vomiting/diarrhea phenytoin [From Dilantin] Allergy (Verified 01/13/17 09:06) Hives/Rash, high fever succinylcholine Allergy (Verified 01/13/17 09:06) pt states "does not wake up" Home Medications: Aspirin [Aspir-Low] 81 mg PO DAILY 12/09/16 Dicyclomine HCl 20 mg PO DAILY 12/09/16 Doxepin HCl 50 mg PO DAILY 12/09/16 Glimepiride 4 mg PO DAILY 12/09/16 Hydrocodone Bit/Acetaminophen [[place] 10-325 Tablet] 1 each PO DAILY 12/09/16 Levothyroxine Sodium 150 mcg PO DAILY 12/09/16 Losartan/Hydrochlorothiazide [Losartan-Hctz 100-12.5 mg Tab] 1 each PO DAILY 12/09/16 Metformin HCl [Glucophage] 1,000 mg PO BID 12/09/16 Ondansetron [Zofran (Odt)*] 4 mg PO Q6H PRN 12/09/16 Pravastatin Sodium 40 mg PO DAILY 12/09/16 Ranitidine [Zantac*] 150 mg PO BID 12/09/16 Venlafaxine HCl [Effexor XR] 150 mg PO DAILY 12/09/16 Zolpidem Tartrate [Ambien*] 10 mg PO BEDTIME PRN PRN 12/09/16 carvediloL [Carvedilol] 25 mg PO BID 12/09/16 Albiglutide [Tanzeum] 50 mg SQ EVERY 7TH DAY 01/13/17 - Past Medical/Surgical History -: Hypertension -: Hyperlipidemia -: Diabetes mellitus type [id number] -: Cholecystectomy -: Hysterectomy -: Back surgery x2 Psychosocial/ Personal History: Patient is retired, lives at home with her - Family History Father -: Heart disease Mother -: Heart disease - Social History Alcohol use: No CD- Drugs: No Caffeine use: Yes Place of Residence: Home Review of Systems 10-point ROS is otherwise unremarkable General: Chills, Weakness, Malaise Gastrointestinal: Diarrhea Physical Examination - Physical Exam General: Alert, In no apparent distress, Oriented x3 HEENT: Atraumatic, PERRLA, Mucous membr. moist/pink, EOMI, Sclerae nonicteric Neck: Supple, 2+ carotid pulse no bruit, No LAD, Without JVD or thyroid abnormality Respiratory: Clear to auscultation bilaterally, Normal air movement Cardiovascular: Regular rate/rhythm, Normal S1 S2 Capillary refill: <2 Seconds Gastrointestinal: Normal bowel sounds, No tenderness Musculoskeletal: No tenderness Integumentary: No rashes Neurological: Normal gait, Normal speech, Normal tone, Normal affect, Other (No saddle anesthesia, changes in sensation of the lower extremities, bowel or bladder incontinence), Abnormal speech (4/5 strength lower extremities) - Studies Laboratory Data (last 24 hrs) 06/18/22 11:52: Sodium 130 L, Potassium 3.8, BUN 13, Creatinine 1.03 H, Glucose 290 H, Magnesium 1.6, Total Bilirubin 0.3, AST 23, ALT 24, Alkaline Phosphatase 91 06/18/22 11:52: WBC 10.90, Hgb 13.4, Hct 39.9, Plt Count 376 Assessment and Plan - Plan Assessment: Severe sepsis secondary to UTI Diabetes mellitus type [id number]-dnmitnxfe with hyperglycemia Hypertension Hyperlipidemia Plan: Severe sepsis secondary to UTI Patient does report history of UTIs, no cultures available for review from her facility. Started on Rocephin empirically. Follow blood cultures. Vital signs stable at this time we will need to trend lactate as it did increase initially. PT consult in place as patient was feeling generally weak. She uses a walker at home. Diabetes mellitus type 1feo-cevpcsh-efpudpbmt with hyperglycemia ACHS Accu-Chek, sliding scale insulin. A1c in the morning. Hypertension Hyperlipidemia Continue home medications. DVT PPX: Lovenox Code status: Full Discharge Plan: Home Plan to discharge in: 48 Hours - Advance Directives Does patient have a Living Will: No Does patient have a Durable POA for Healthcare: No - Code Status/Comfort Care Code Status Assessed: Yes (Full code) Time Spent Managing Pts Care (In Minutes): 70
[2022-06-18] MEDS ORDERED: HYDRALAZINE HCL 20 MG/ML VIAL IV PRN (23:46)
[2022-06-19] MEDS: NA CHLORIDE 0.9% 1,000 ML IV SCH ×2 (01:10→08:06)
[2022-06-19] MEDS: ACETAMINOPHEN 500 MG TAB PO PRN ×3 (01:36→08:38)
[2022-06-19 05:44] LABS: Absolute Lymphocytes (CBC) 1.3 K/uL (0.7-4.9); Hematocrit 37.6 % (36.0-45.0); Lymphocytes % 17.6 % (15.3-44.8); MCV 81.6 fL (80-100); MPV 7.3 fL (7.6-11.3); RBC Red Blood Cell Count 4.61 M/uL (3.86-4.86)
[2022-06-19 05:52] LABS: Albumin 3.2 g/dL (3.4-5.0); Bilirubin Total 0.3 mg/dL (0.2-1.0); Potassium 3.1 mmol/L (3.5-5.1); Protein, Total 6.9 g/dL (6.4-8.2)
--- NOTE | 2022-06-19 06:56 | P.PN ---
Date of Service: 06/19/22 Subjective: Feels a little bit better, but no significant change Has not ambulated yet Febrile overnight to 101 weakness, +cough no nausea/vomiting ROS: 10 point ROS as noted above, otherwise negative Physical exam GEN: Alert, oriented, fatigued appearing HEENT: Normal conjunctiva, sclera anicteric CV: Regular rate and rhythm, no edema Pulm: Nonlabored respirations on room air, +cough, diminished at bases bilaterally ABD: Soft, nontender, nondistended Integumentary: No rashes Neuro: Normal speech, normal affect Problem List Severe sepsis secondary to UTI with mild she mild she hyponatremia Diabetes mellitus type [id number] with hyperglycemia Hypertension Hyperlipidemia Severe sepsis secondary to UTI mild she hyponatremia reports h/o UTIs, no recent UTI in last year no leukocytosis but fever >101, lactate > 2.0 generalized weakness, dizziness at home; requiring her to use her walker more often lately reports cough for last few weeks as well continue rocephin empirically Na improving with IVF overnight. dc IVF, tolerating PO PT consulted DM2 HTN HLD accucheks, sliding scale insulin stable, confirm and resume home meds VTE: lovenox Code: full Dispo: home, ~1-2 days
[2022-06-19] MEDS ORDERED: D50W 25 GM/50 ML SYRINGE IV PRN (08:33)
[2022-06-19] MEDS ORDERED: GLUCAGON 1 MG/VIAL IM PRN (08:33)
[2022-06-19] MEDS: LEVOTHYROXINE SOD 0.075 MG TAB PO SCH (08:38)
[2022-06-19] MEDS: VENLAFAXINE HCL XR 75 MG CAP PO SCH (08:38)
[2022-06-19] MEDS: ENOXAPARIN 40 MG/0.4 ML SQ SCH (08:39)
[2022-06-19] MEDS: CEFTRIAXONE 1,000 MG in NA CHLORIDE 0.9% 50 ML IVPB SCH (08:39)
[2022-06-19] MEDS ORDERED: D10W 125 ML IV PRN (08:40)
[2022-06-19] MEDS: INSULIN -REGULAR HUMAN 50 UNIT/0.5 ML ML SQ SCH ×3 (12:41→20:25)
[2022-06-19] MEDS ORDERED: DIPHENOX/ATROP SULF 1 TAB PO PRN (15:54)
[2022-06-19] MEDS ORDERED: LOSARTAN POTASSIUM 50 MG TABLET PO ONE (16:00)
[2022-06-19] MEDS: ONDANSETRON 4 MG/2 ML VIAL IV PRN (23:03)
[2022-06-20] MEDS: MELATONIN 5 MG TABLET PO PRN (00:05)
[2022-06-20] MEDS ORDERED: ALBUTEROL 2.5 MG/3 ML NEB SOL NEB PRN (05:30)
[2022-06-20] MEDS: LEVOTHYROXINE SOD 0.075 MG TAB PO SCH (05:34)
[2022-06-20 07:29] LABS: Absolute Lymphocytes (CBC) 1.6 K/uL (0.7-4.9); Hematocrit 38.7 % (36.0-45.0); Lymphocytes % 24.9 % (15.3-44.8); MCV 83.3 fL (80-100); MPV 7.2 fL (7.6-11.3); RBC Red Blood Cell Count 4.65 M/uL (3.86-4.86)
[2022-06-20] MEDS: INSULIN -REGULAR HUMAN 50 UNIT/0.5 ML ML SQ SCH ×4 (07:30→21:00)
[2022-06-20 07:37] LABS: Magnesium 1.7 mg/dL (1.6-2.4); Potassium 3.6 mmol/L (3.5-5.1)
--- NOTE | 2022-06-20 07:48 | RAD REPORT ---
EXAM DESCRIPTION: Nina Single View06/20/2022 7:36 am CLINICAL HISTORY: Chest pain COMPARISON: 2021 FINDINGS: The lungs appear clear of acute infiltrate. The heart is mildly enlarged IMPRESSION: No acute abnormalities displayed
[2022-06-20] MEDS ORDERED: FUROSEMIDE 20 MG/ 2ML VIAL IV ONE (09:18)
[2022-06-20] MEDS: ATORVASTATIN 80 MG TAB PO SCH (09:29)
[2022-06-20] MEDS: VENLAFAXINE HCL XR 75 MG CAP PO SCH (09:29)
[2022-06-20] MEDS: MONTELUKAST 10 MG TAB PO SCH (09:29)
[2022-06-20] MEDS: LOSARTAN POTASSIUM 50 MG TABLET PO SCH (09:30)
[2022-06-20] MEDS: ENOXAPARIN 40 MG/0.4 ML SQ SCH (09:30)
[2022-06-20] MEDS: DOXEPIN HCL 25 MG CAP PO SCH (09:30)
[2022-06-20] MEDS: ASPIRIN EC 81 MG TAB PO SCH (09:30)
[2022-06-20] MEDS: CEFTRIAXONE 1,000 MG in NA CHLORIDE 0.9% 50 ML IVPB SCH (09:31)
--- NOTE | 2022-06-20 11:04 | RAD REPORT ---
EXAM DESCRIPTION: CT - Chest For Pe Angio - 06/20/2022 10:29 am CLINICAL HISTORY: Shortness COMPARISON: None. TECHNIQUE: Dynamically enhanced axial 3 mm thick images of the chest were obtained during administra tion of 70 mL Isovue 370 IV contrast. Coronal and oblique reconstruction images were generated and re viewed. Exam utilizes a protocol for optimal evaluation of pulmonary arterial tree. Maximum intensity projections 3D imaging was utilized All CT scans are performed using dose optimization technique as appropriate and may include automated exposure control or mA/KV adjustment according to patient size. FINDINGS: Evaluation pulmonary arteries is somewhat suboptimal secondary to respiratory artifact. A pulmonary embolus is not seen. A thoracic aortic aneurysm is not noted. A pleural effusion is not seen. A pericardial effusion is not seen. Mild patchy right lower lobe opacities. Minimal patchy left lung opacities IMPRESSION: No evidence of a pulmonary embolus Mild right and minimal left patchy lung opacities probably pneumonia
[2022-06-20] MEDS ORDERED: INFLUENZA VACCINE (for 6+ mo) 0.5 ML DOSE IMVAC ONE (12:00)
--- NOTE | 2022-06-20 12:41 | EKG ---
Test Date: 2022-06-18 Test Time: 11:40:06 Plate Conditioner: RAF MEASUREMENT RESULTS: Intervals: Rate: 118 SC: 172 QRSD: 96 QT: 304 QTc: 426 [place]: P: 58 SC: 172 QRS: -44 T: 33 INTERPRETIVE STATEMENTS: Sinus tachycardia Possible Left atrial enlargement Indeterminate axis Possible Anterolateral infarct, age undetermined Abnormal ECG Compared to ECG 01/14/2022 11:52:22 Indeterminate axis now present Sinus rhythm no longer present Myocardial infarct finding still present Electronically Signed On 06-20-22 12:37:07 MATERIAL CHASER by Tung Patrick
[2022-06-20] MEDS: Levofloxacin500mg IV 500 MG/100 ML BAG IV SCH (12:55)
[2022-06-20] MEDS: ALBUTEROL 2.5 MG/3 ML NEB SOL NEB SCH ×2 (14:00→19:40)
[2022-06-20] MEDS ORDERED: LOSARTAN POTASSIUM 50 MG TABLET PO ONE (15:30)
--- NOTE | 2022-06-20 21:22 | P.PN ---
Subjective Date of Service: 06/20/22 Chief Complaint: FATIGUE, SHORT OF BREATH Subjective: C/O voiced I CAME TO SEE HER TODAY. INITIALLY HOSPITAL DOCTORS WERE GOING TO CONTINUE BUT LATER THEY ASKED ME IF I WOULD AND I SAID OKAY I ALREADY SAW HER. I ASKED FOR CT CHEST ANGIO STAT SHE SEEMS SHORT OF BREATH AND HYPOXIC. CT SHOWED DIFFUSE PNEUMONIA BUT NO PE. I ASKED FOR NURSE TO START LEVAQUIN STAT AND STOP ROCEPHIN THAT WILL NOT PROVIDE ATYPICAL COVERAGE. I ALSO ASKED TO SALINE LOCK IV AND GIVE ONE DOSE OF LASIX IV AT 20 MG. Review of Systems 10-point ROS is otherwise unremarkable General: Weakness Respiratory: Shortness of Breath Physical Examination - Vital Signs Temperature: 97.8 F Blood Pressure: 130/54 Pulse: 91 Respirations: 16 Pulse Ox (%): 91 - Physical Exam General: Oriented x3, Mild distress, Obese HEENT: Atraumatic, PERRLA, EOMI Neck: Supple, JVD not distended Respiratory: Diminished, Inspiratory wheezes Cardiovascular: Regular rate/rhythm, Normal S1 S2 Gastrointestinal: Normal bowel sounds, No tenderness Musculoskeletal: No tenderness Integumentary: No rashes Neurological: Normal speech, Normal tone, Normal affect Lymphatics: No axilla or inguinal lymphadenopathy - Studies Medications List Reviewed: Yes Assessment And Plan - Current Problems (Diagnosis) (1) Atypical pneumonia Current Visit: Yes Status: Acute (2) Hypoxia Current Visit: Yes Status: Acute (3) UTI (urinary tract infection) Current Visit: Yes Status: Acute Plan: SHE HAS NO UTI SS LEVAQUIN WILL BE OKAY (4) Diabetic neuropathy Current Visit: Yes Status: Acute (5) Chronic pain Current Visit: Yes Status: Acute
[2022-06-20] MEDS: ACETAMINOPHEN 500 MG TAB PO PRN (23:37)
[2022-06-21] MEDS: ALBUTEROL 2.5 MG/3 ML NEB SOL NEB SCH ×4 (01:15→20:10)
[2022-06-21] MEDS: ACETAMINOPHEN 500 MG TAB PO PRN ×3 (05:03→22:11)
[2022-06-21] MEDS: LEVOTHYROXINE SOD 0.075 MG TAB PO SCH (05:03)
[2022-06-21] MEDS: INSULIN -REGULAR HUMAN 50 UNIT/0.5 ML ML SQ SCH ×4 (07:30→21:00)
[2022-06-21] MEDS: VENLAFAXINE HCL XR 75 MG CAP PO SCH ×2 (10:49→21:17)
[2022-06-21] MEDS: ASPIRIN EC 81 MG TAB PO SCH (10:49)
[2022-06-21] MEDS: LOSARTAN POTASSIUM 50 MG TABLET PO SCH (10:49)
[2022-06-21] MEDS: DOXEPIN HCL 25 MG CAP PO SCH (10:49)
[2022-06-21] MEDS: ATORVASTATIN 80 MG TAB PO SCH (10:49)
[2022-06-21] MEDS: MONTELUKAST 10 MG TAB PO SCH (10:49)
[2022-06-21] MEDS: ENOXAPARIN 40 MG/0.4 ML SQ SCH (10:50)
[2022-06-21] MEDS: Levofloxacin500mg IV 500 MG/100 ML BAG IV SCH (12:25)
[2022-06-21 18:19] VITALS: BMI 43.7
[2022-06-21] MEDS ORDERED: COLESEVELAM HCL 625 MG PO SCH (21:00)
[2022-06-21] MEDS ORDERED: HOME MED 1 EA UNK (Venlafaxine Hcl [Effexor Xr] 150 MG Cap.Er.24h) PO SCH (21:00)
[2022-06-21] MEDS: CHOLESTYRAMINE/ASP 4 GM/PKT PO SCH (21:17)
--- NOTE | 2022-06-21 22:03 | P.PN ---
Subjective Date of Service: 06/21/22 Chief Complaint: FATIGUE, SHORT OF BREATH Subjective: Improving I CAME TO SEE HER TODAY. INITIALLY HOSPITAL DOCTORS WERE GOING TO CONTINUE BUT LATER THEY ASKED ME IF I WOULD AND I SAID OKAY I ALREADY SAW HER. I ASKED FOR CT CHEST ANGIO STAT SHE SEEMS SHORT OF BREATH AND HYPOXIC. CT SHOWED DIFFUSE PNEUMONIA BUT NO PE. I ASKED FOR NURSE TO START LEVAQUIN STAT AND STOP ROCEPHIN THAT WILL NOT PROVIDE ATYPICAL COVERAGE. I ALSO ASKED TO SALINE LOCK I V AND GIVE ONE DOSE OF LASIX IV AT 20 MG. SHE FEELS AND LOOKS LOT BETTER TODAY. DENIES PAIN. Review of Systems 10-point ROS is otherwise unremarkable General: Weakness Physical Examination - Vital Signs Temperature: 97.8 F Blood Pressure: 103/56 Pulse: 85 Respirations: 18 Pulse Ox (%): 92 - Physical Exam General: Oriented x3, Mild distress, Obese HEENT: Atraumatic, PERRLA, EOMI Neck: Supple, JVD not distended Respiratory: Clear to auscultation bilaterally, Normal air movement Cardiovascular: Regular rate/rhythm, Normal S1 S2 Gastrointestinal: Normal bowel sounds, No tenderness Musculoskeletal: No tenderness Integumentary: No rashes Neurological: Normal speech, Normal tone, Normal affect Lymphatics: No axilla or inguinal lymphadenopathy - Studies Medications List Reviewed: Yes Assessment And Plan - Current Problems (Diagnosis) (1) Atypical pneumonia Current Visit: Yes Status: Acute Plan: IV LEVAQUIN ADD STEROIDS SHE IS STILL HYPOXIC LASIX BID FOR A DAY OR TWO. CXR PORTABLE. (2) Hypoxia Current Visit: Yes Status: Acute (3) UTI (urinary tract infection) Current Visit: Yes Status: Acute Plan: SHE HAS NO UTI SS LEVAQUIN WILL BE OKAY (4) Diabetic neuropathy Current Visit: Yes Status: Acute (5) Chronic pain Current Visit: Yes Status: Acute
[2022-06-22] MEDS: METHYLPREDNISOLONE 40 MG INJ IV SCH ×5 (00:47→23:19)
[2022-06-22] MEDS: ALBUTEROL 2.5 MG/3 ML NEB SOL NEB SCH ×4 (01:20→20:00)
[2022-06-22 04:15] LABS: Hematocrit 35.8 % (36.0-45.0); Lymphocytes % 13.2 % (15.3-44.8); MCV 82.3 fL (80-100); RBC Red Blood Cell Count 4.35 M/uL (3.86-4.86)
[2022-06-22 04:36] LABS: Magnesium 1.8 mg/dL (1.6-2.4); Potassium 3.9 mmol/L (3.5-5.1)
[2022-06-22] MEDS ORDERED: MAGNESIUM SULFATE 1 gm IVPB 1 GM/100 ML BAG IV ONE (05:38)
[2022-06-22] MEDS: LEVOTHYROXINE SOD 0.075 MG TAB PO SCH (05:47)
--- NOTE | 2022-06-22 08:59 | RAD REPORT ---
EXAM DESCRIPTION: RAD - Chest Single View - 06/21/2022 10:52 pm CLINICAL HISTORY: PNEUMONIA COMPARISON: Chest Single View dated 06/20/2022; Chest Single View dated 06/18/2022; Chest Single View dated 01/14/2022; CHEST SINGLE VIEW dated 12/11/2008; Chest For Pe Angio dated 06/20/2022 FINDINGS: Lines: None. Lungs: Mild airspace disease noted in the right lung. Decreased lung volumes. Pleural: No significant pleural effusions or pneumothorax. Cardiac: Similar size and configuration. Mediastinum: Within normal limits. Bones: No acute fractures. Other: None IMPRESSION: Mild right lung airspace disease likely reflecting pneumonia and similar to 06/20/2022.
[2022-06-22] MEDS ORDERED: VENLAFAXINE HCL 75 MG TABLET PO SCH (09:00)
[2022-06-22] MEDS ORDERED: HOME MED 1 EA UNK (Cetirizine Hcl [Zyrtec] 10 MG Tablet) PO SCH (09:00)
[2022-06-22] MEDS: CETIRIZINE HCL 5 MG TABLET PO SCH (09:00)
[2022-06-22] MEDS: DOXEPIN HCL 25 MG CAP PO SCH (09:50)
[2022-06-22] MEDS: CHOLESTYRAMINE/ASP 4 GM/PKT PO SCH ×2 (09:50→22:13)
[2022-06-22] MEDS: FUROSEMIDE 20 MG/ 2ML VIAL IV SCH ×2 (09:50→17:30)
[2022-06-22] MEDS: ASPIRIN EC 81 MG TAB PO SCH (09:50)
[2022-06-22] MEDS: ATORVASTATIN 80 MG TAB PO SCH (09:50)
[2022-06-22] MEDS: MONTELUKAST 10 MG TAB PO SCH (09:50)
[2022-06-22] MEDS: LOSARTAN POTASSIUM 50 MG TABLET PO SCH (09:50)
[2022-06-22] MEDS: Meropenem 1,000 MG in NA CHLORIDE 0.9% 100 ML IV SCH ×2 (09:51→22:12)
[2022-06-22] MEDS: VENLAFAXINE HCL XR 75 MG CAP PO SCH ×2 (09:51→21:00)
[2022-06-22] MEDS: INSULIN -REGULAR HUMAN 50 UNIT/0.5 ML ML SQ SCH ×4 (09:51→22:14)
[2022-06-22] MEDS: ENOXAPARIN 40 MG/0.4 ML SQ SCH (09:51)
[2022-06-22] MEDS: ALPRAZOLAM 0.25 MG TABLET PO PRN (18:34)
--- NOTE | 2022-06-22 21:11 | P.PN ---
Subjective Date of Service: 06/22/22 Chief Complaint: FEELS LOT BETTER Subjective: Improving I CAME TO SEE HER TODAY. INITIALLY HOSPITAL DOCTORS WERE GOING TO CONTINUE BUT LATER THEY ASKED ME IF I WOULD AND I SAID OKAY I ALREADY SAW HER. I ASKED FOR CT CHEST ANGIO STAT SHE SEEMS SHORT OF BREATH AND HYPOXIC. CT SHOWED DIFFUSE PNEUMONIA BUT NO PE. I ASKED FOR NURSE TO START LEVAQUIN STAT AND STOP ROCEPHIN THAT WILL NOT PROVIDE ATYPICAL COVERAGE. I ALSO ASKED TO SALINE LOCK IV AND GIVE ONE DOSE OF LASIX IV AT 20 MG. SHE FEELS AND LOOKS LOT BETTER TODAY. DENIES PAIN. NOHEMI IS FEELING LOT BETTER BUT HER OXYGEN SATURATION SOMEHOW IS LOWER. SHE HAS HER O2 SAT PROBE ON HER FOREHEAD. Review of Systems 10-point ROS is otherwise unremarkable General: Weakness, Malaise Respiratory: Shortness of Breath, As per HPI Physical Examination - Vital Signs Temperature: 98.0 F Blood Pressure: 170/70 Pulse: 108 Respirations: 20 Pulse Ox (%): 90 - Physical Exam General: Alert, Oriented x3, Mild distress, Obese HEENT: Atraumatic, PERRLA, EOMI Neck: Supple, JVD not distended Respiratory: Diminished, Crackles/rales (DIFFUSE MILD) Cardiovascular: Regular rate/rhythm, Normal S1 S2 Gastrointestinal: Normal bowel sounds, No tenderness Musculoskeletal: No tenderness Integumentary: No rashes Neurological: Normal speech, Normal tone, Normal affect Lymphatics: No axilla or inguinal lymphadenopathy - Studies Medications List Reviewed: Yes Assessment And Plan - Current Problems (Diagnosis) (1) Atypical pneumonia Current Visit: Yes Status: Acute Plan: IV LEVAQUIN ADD STEROIDS SHE IS STILL HYPOXIC LASIX BID FOR A DAY OR TWO. CXR PORTABLE. X RAY IS THE SAME HYPOXIA IS WORSE I WILL DO ABG ON RA TO CONFIRM SAT. CHANGE TO MERRREM IV SOLUMEDROL FOR SHORT TERM. (2) Hypoxia Current Visit: Yes Status: Acute (3) UTI (urinary tract infection) Current Visit: Yes Status: Acute Plan: SHE HAS NO UTI SS LEVAQUIN WILL BE OKAY (4) Diabetic neuropathy Current Visit: Yes Status: Acute (5) Chronic pain Current Visit: Yes Status: Acute
[2022-06-22 21:56] LABS: Arterial Blood Carboxyhemoglob 0.8 % (0-1.5); Blood Gas Oxyhemoglobin 84.1 % (94-97); Blood O2 Saturation 85.8 % (92-98.5)
[2022-06-22] MEDS: ACETAMINOPHEN 500 MG TAB PO PRN (23:19)
[2022-06-23] MEDS: ALBUTEROL 2.5 MG/3 ML NEB SOL NEB SCH ×4 (01:55→19:20)
[2022-06-23] MEDS: LEVOTHYROXINE SOD 0.075 MG TAB PO SCH (05:58)
[2022-06-23] MEDS: METHYLPREDNISOLONE 40 MG INJ IV SCH ×3 (05:58→17:26)
[2022-06-23 06:32] LABS: Absolute Lymphocytes (CBC) 1.2 K/uL (0.7-4.9); Hematocrit 35.1 % (36.0-45.0); Lymphocytes % 20.2 % (15.3-44.8); MCV 81.6 fL (80-100); MPV 7.2 fL (7.6-11.3)
[2022-06-23 06:46] LABS: Potassium 3.6 mmol/L (3.5-5.1)
[2022-06-23] MEDS: MONTELUKAST 10 MG TAB PO SCH (08:31)
[2022-06-23] MEDS: VENLAFAXINE HCL XR 75 MG CAP PO SCH ×2 (08:32→21:00)
[2022-06-23] MEDS: CHOLESTYRAMINE/ASP 4 GM/PKT PO SCH ×2 (08:32→21:00)
[2022-06-23] MEDS: ENOXAPARIN 40 MG/0.4 ML SQ SCH (08:32)
[2022-06-23] MEDS: ASPIRIN EC 81 MG TAB PO SCH (08:32)
[2022-06-23] MEDS: ATORVASTATIN 80 MG TAB PO SCH (08:32)
[2022-06-23] MEDS: FUROSEMIDE 20 MG/ 2ML VIAL IV SCH ×2 (08:32→17:26)
[2022-06-23] MEDS: LOSARTAN POTASSIUM 50 MG TABLET PO SCH (08:32)
[2022-06-23] MEDS: DOXEPIN HCL 25 MG CAP PO SCH (08:32)
[2022-06-23] MEDS: CETIRIZINE HCL 5 MG TABLET PO SCH (08:32)
[2022-06-23] MEDS: Meropenem 1,000 MG in NA CHLORIDE 0.9% 100 ML IV SCH ×2 (08:33→21:00)
[2022-06-23] MEDS: INSULIN -REGULAR HUMAN 50 UNIT/0.5 ML ML SQ SCH ×5 (08:33→21:00)
[2022-06-23] MEDS ORDERED: INSULIN -REGULAR HUMAN 50 UNIT/0.5 ML ML SQ SCH (16:33)
[2022-06-23] MEDS: ACETAMINOPHEN 500 MG TAB PO PRN (21:07)
--- NOTE | 2022-06-23 21:09 | P.PN ---
Subjective Date of Service: 06/23/22 Chief Complaint: FEELS LOT BETTER Subjective: Improving SHE IS FEELING A LOT BETTER. DENIES CHEST PAIN, HAS SOME ANXIETY. Review of Systems 10-point ROS is otherwise unremarkable General: Weakness Physical Examination - Vital Signs Temperature: 98.4 F Blood Pressure: 171/75 Pulse: 97 Respirations: 19 Pulse Ox (%): 91 - Physical Exam General: Alert, In no apparent distress HEENT: Atraumatic, PERRLA, EOMI Neck: Supple, JVD not distended Respiratory: Clear to auscultation bilaterally, Normal air movement Cardiovascular: Regular rate/rhythm, Normal S1 S2 Gastrointestinal: Normal bowel sounds, No tenderness Musculoskeletal: No tenderness Integumentary: No rashes Neurological: Normal speech, Normal tone, Normal affect Lymphatics: No axilla or inguinal lymphadenopathy - Studies Medications List Reviewed: Yes Assessment And Plan - Current Problems (Diagnosis) (1) Atypical pneumonia Current Visit: Yes Status: Acute Plan: IV LEVAQUIN ADD STEROIDS SHE IS STILL HYPOXIC LASIX BID FOR A DAY OR TWO. CXR PORTABLE. X RAY IS THE SAME HYPOXIA IS WORSE I WILL DO ABG ON RA TO CONFIRM SAT. CHANGE TO MERRREM IV SOLUMEDROL FOR SHORT TERM. (2) Hypoxia Current Visit: Yes Status: Acute Plan: SHE IS DOWN TO 4LT NOW. O2 SAT ABOUT 90% IS OKAY SHE ALREADY HAS HYPERCAPNEA FROM [facility]. (3) UTI (urinary tract infection) Current Visit: Yes Status: Acute Plan: SHE HAS NO UTI SS LEVAQUIN WILL BE OKAY (4) Diabetic neuropathy Current Visit: Yes Status: Acute (5) Chronic pain Current Visit: Yes Status: Acute
[2022-06-24] MEDS: ACETAMINOPHEN 500 MG TAB PO PRN ×2 (00:22→13:52)
[2022-06-24] MEDS: MELATONIN 5 MG TABLET PO PRN ×2 (00:23→20:38)
[2022-06-24] MEDS: ALPRAZOLAM 0.25 MG TABLET PO PRN (00:23)
[2022-06-24] MEDS: ALBUTEROL 2.5 MG/3 ML NEB SOL NEB SCH ×4 (01:15→20:25)
[2022-06-24 05:46] LABS: Absolute Lymphocytes (CBC) 1.3 K/uL (0.7-4.9); Hematocrit 34.3 % (36.0-45.0); MCV 82.3 fL (80-100); MPV 7.3 fL (7.6-11.3); RBC Red Blood Cell Count 4.16 M/uL (3.86-4.86)
[2022-06-24 05:49] LABS: Potassium 3.5 mmol/L (3.5-5.1)
[2022-06-24] MEDS: LEVOTHYROXINE SOD 0.075 MG TAB PO SCH (07:27)
[2022-06-24] MEDS: CETIRIZINE HCL 5 MG TABLET PO SCH (08:51)
[2022-06-24] MEDS: DOXEPIN HCL 25 MG CAP PO SCH (08:51)
[2022-06-24] MEDS: ASPIRIN EC 81 MG TAB PO SCH (08:51)
[2022-06-24] MEDS: ATORVASTATIN 80 MG TAB PO SCH (08:51)
[2022-06-24] MEDS: MONTELUKAST 10 MG TAB PO SCH (08:51)
[2022-06-24] MEDS: ENOXAPARIN 40 MG/0.4 ML SQ SCH (08:52)
[2022-06-24] MEDS: FUROSEMIDE 20 MG/ 2ML VIAL IV SCH ×2 (08:52→16:49)
[2022-06-24] MEDS: VENLAFAXINE HCL XR 75 MG CAP PO SCH ×2 (08:52→20:27)
[2022-06-24] MEDS: LOSARTAN POTASSIUM 50 MG TABLET PO SCH (08:52)
[2022-06-24] MEDS: Meropenem 1,000 MG in NA CHLORIDE 0.9% 100 ML IV SCH ×2 (08:53→20:27)
[2022-06-24] MEDS: INSULIN GLARGINE 100 UNIT/ML SQ SCH (08:53)
[2022-06-24] MEDS: CHOLESTYRAMINE/ASP 4 GM/PKT PO SCH ×2 (08:53→20:27)
[2022-06-24] MEDS: INSULIN -REGULAR HUMAN 50 UNIT/0.5 ML ML SQ SCH ×4 (08:54→20:27)
[2022-06-24] MEDS ORDERED: AMLODIPINE 5 MG TAB PO SCH (09:00)
[2022-06-24] MEDS ORDERED: LOSARTAN/HCTZ 50-12.5 PO SCH (09:00)
[2022-06-24] MEDS: carvediloL 25 MG TAB PO SCH (18:15)
--- NOTE | 2022-06-24 21:24 | P.PN ---
Subjective Date of Service: 06/24/22 Chief Complaint: FEELS LOT BETTER Subjective: Improving SHE IS FEELING A LOT BETTER. DENIES CHEST PAIN, HAS SOME ANXIETY. FAMILY HAS DECIDED TO TAKE HER HOME AND NOT NH. SHE IS STABLE TO GO HOME ON ORAL LEVAQUIN AND SYMBICORT INHALER THAT I CALLED IN FROM OFFICE. DR. FLORIAN IS AWARE. HE WILL SEE HER IN AM. Review of Systems 10-point ROS is otherwise unremarkable General: Weakness Physical Examination - Vital Signs Temperature: 97.2 F Blood Pressure: 137/64 Pulse: 85 Respirations: 16 Pulse Ox (%): 91 - Physical Exam General: Mild distress HEENT: Atraumatic, PERRLA, EOMI Neck: Supple, JVD not distended Respiratory: Clear to auscultation bilaterally, Normal air movement Cardiovascular: Regular rate/rhythm, Normal S1 S2 Gastrointestinal: Normal bowel sounds, No tenderness Musculoskeletal: No tenderness Integumentary: No rashes Neurological: Normal speech, Normal tone, Normal affect Lymphatics: No axilla or inguinal lymphadenopathy - Studies Medications List Reviewed: Yes Assessment And Plan - Current Problems (Diagnosis) (1) Atypical pneumonia Current Visit: Yes Status: Acute Plan: IV LEVAQUIN ADD STEROIDS SHE IS STILL HYPOXIC LASIX BID FOR A DAY OR TWO. CXR PORTABLE. X RAY IS THE SAME HYPOXIA IS WORSE I WILL DO ABG ON RA TO CONFIRM SAT. CHANGE TO MERRREM IV SOLUMEDROL FOR SHORT TERM. NO CHANGED ON X. RAY CONTINUE LEVAQUIN DC LASIX IV IT WAS FOR SHORT TERM. HYPOXIA HAS IMPROVED. (2) Hypoxia Current Visit: Yes Status: Acute Plan: SHE IS DOWN TO 4LT NOW. O2 SAT ABOUT 90% IS OKAY SHE ALREADY HAS HYPERCAPNEA FROM [facility]. (3) UTI (urinary tract infection) Current Visit: Yes Status: Acute Plan: SHE HAS NO UTI SS LEVAQUIN WILL BE OKAY (4) Diabetic neuropathy Current Visit: Yes Status: Acute (5) Chronic pain Current Visit: Yes Status: Acute
[2022-06-24] MEDS: ONDANSETRON 4 MG/2 ML VIAL IV PRN (22:08)
[2022-06-25] MEDS: ALBUTEROL 2.5 MG/3 ML NEB SOL NEB SCH ×3 (02:25→13:15)
[2022-06-25] MEDS: carvediloL 25 MG TAB PO SCH ×2 (05:39→17:12)
[2022-06-25] MEDS: LEVOTHYROXINE SOD 0.075 MG TAB PO SCH (05:40)
[2022-06-25 06:43] LABS: Absolute Lymphocytes (CBC) 3.1 K/uL (0.7-4.9); Hematocrit 40.2 % (36.0-45.0); Lymphocytes % 29.9 % (15.3-44.8); MCV 83.6 fL (80-100); MPV 7.6 fL (7.6-11.3); Magnesium 2.1 mg/dL (1.6-2.4); RBC Red Blood Cell Count 4.81 M/uL (3.86-4.86)
[2022-06-25] MEDS: DOXEPIN HCL 25 MG CAP PO SCH (08:42)
[2022-06-25] MEDS: VENLAFAXINE HCL XR 75 MG CAP PO SCH (08:42)
[2022-06-25] MEDS: CETIRIZINE HCL 5 MG TABLET PO SCH (08:42)
[2022-06-25] MEDS: MONTELUKAST 10 MG TAB PO SCH (08:42)
[2022-06-25] MEDS: ASPIRIN EC 81 MG TAB PO SCH (08:42)
[2022-06-25] MEDS: ATORVASTATIN 80 MG TAB PO SCH (08:42)
[2022-06-25] MEDS: Meropenem 1,000 MG in NA CHLORIDE 0.9% 100 ML IV SCH (08:43)
[2022-06-25] MEDS: ENOXAPARIN 40 MG/0.4 ML SQ SCH (08:43)
[2022-06-25] MEDS: CHOLESTYRAMINE/ASP 4 GM/PKT PO SCH (08:43)
[2022-06-25] MEDS: INSULIN GLARGINE 100 UNIT/ML SQ SCH (08:45)
[2022-06-25] MEDS: INSULIN -REGULAR HUMAN 50 UNIT/0.5 ML ML SQ SCH ×3 (08:46→17:13)
[2022-06-25] MEDS: LOSARTAN POTASSIUM 50 MG TABLET PO SCH (09:00)
[2022-06-25 13:48] VITALS: O2SAT 94
--- NOTE | 2022-06-25 15:22 | P.PN ---
Subjective Date of Service: 06/25/22 Subjective: No new changes, No C/O voiced, Improving Review of Systems 10-point ROS is otherwise unremarkable Physical Examination - Vital Signs Temperature: 97.1 F Blood Pressure: 107/54 Pulse: 67 Respirations: 18 Pulse Ox (%): 94 - Physical Exam General: Alert, In no apparent distress HEENT: Atraumatic, PERRLA, EOMI Neck: Supple, JVD not distended Respiratory: Clear to auscultation bilaterally, Normal air movement Cardiovascular: Regular rate/rhythm, Normal S1 S2 Gastrointestinal: Normal bowel sounds, No tenderness Musculoskeletal: No tenderness Integumentary: No rashes Neurological: Normal speech, Normal tone, Normal affect Lymphatics: No axilla or inguinal lymphadenopathy - Studies Medications List Reviewed: Yes Assessment & Plan - Problems (Diagnosis) (1) Acute and chronic respiratory failure with hypoxia Current Visit: Yes Status: Acute (2) Atypical pneumonia Current Visit: Yes Status: Acute (3) Hypoxia Current Visit: Yes Status: Acute (4) HTN (hypertension) Current Visit: Yes Status: Acute (5) DM type 2 (diabetes mellitus, type 2) Current Visit: Yes Status: Acute - Plan Plan: 1. Continue with nebs, steroids, antibiotics 2. O2 per protocol 3. Continue with home health with physical therapy 4. GI/DVT prophylaxis Discharge Plan: Home Plan to discharge in: Greater than 2 days - Advance Directives Does patient have a Living Will: No Does patient have a Durable POA for Healthcare: No - Code Status/Comfort Care Code Status Assessed: Yes Code Status: Full Code Critical Care: No Time Spent Managing PTS Care (In Minutes): 35
[2022-06-25 16:34] VITALS: BP 121/61; TEMP 97
== END 2022-06-25 19:30 | disposition home health service (06) | DRG 871 ==
LOC: ER 11:02 → ERHOLD 17:54 → 2ND 21:58
PROVIDERS: ADMIT Hospitalist; ATTEND Hospitalist
DX: A41.9 Sepsis, unspecified organism (principal); J18.9 Pneumonia, unspecified organism; J96.21 Acute and chronic respiratory failure with hypoxia; N39.0 Urinary tract infection, site not specified; N17.9 Acute kidney failure, unspecified; E87.1 Hypo-osmolality and hyponatremia; Z68.41 Body mass index [BMI] 40.0-44.9, adult; R65.20 Severe sepsis without septic shock; E11.65 Type 2 diabetes mellitus with hyperglycemia; E11.40 Type 2 diabetes mellitus with diabetic neuropathy, unspecified; I10 Essential (primary) hypertension; G89.29 Other chronic pain; F41.9 Anxiety disorder, unspecified; E78.5 Hyperlipidemia, unspecified; E66.9 Obesity, unspecified; Z88.5 Allergy status to narcotic agent; Z88.1 Allergy status to other antibiotic agents; Z88.8 Allergy status to other drugs, medicaments and biological substances; Z79.82 Long term (current) use of aspirin; Z79.84 Long term (current) use of oral hypoglycemic drugs; Z90.49 Acquired absence of other specified parts of digestive tract; Z79.890 Hormone replacement therapy; Z79.899 Other long term (current) drug therapy; Z90.710 Acquired absence of both cervix and uterus; Z87.891 Personal history of nicotine dependence; Z20.822 Contact with and (suspected) exposure to COVID-19
CPT/HCPCS: 36415; 51702; 71045; 71275; 80048; 80053; 81003; 81015; 82805; 82947; 83605; 83735; 83880; 84145; 84439; 84443; 84484; 85025; 87040; 87811; 93005; 96361; 96374; 97116; 97161; 97530; 99285; J0360; J0696; J1650; J1815; J1940; J2185; J2405; J2920; J3475; J7030; J7613; J7614; Q9967

== ENCOUNTER 2022-06-30 06:47 | Emergency (ER) | payer OTHER ==
--- OUTSIDE RECORDS SUMMARY | 2022-06-30 06:50 | XMS REPORT | Continuity of Care Document ---
:1950 Author Organization [facility] t Address [address] [facility] [address] [place] [id number] Care Team Providers Name Role Phone Unavailable [...]
--- NOTE | 2022-06-30 07:56 | RAD REPORT ---
EXAM DESCRIPTION: RAD - Chest Single View - 06/30/2022 7:28 am CLINICAL HISTORY: recent hosp for pneumonia COMPARISON: Chest Single View dated 06/21/2022; Chest Single View dated 06/20/2022; Chest Single View dated 06/18/2022; Chest Single View dated 01/14/2022; Chest For Pe Angio dated 06/20/2022 FINDINGS: Lines: None. Lungs: Mild ill-defined nodularity present bilaterally similar to 06/21/2022 Pleural: No significant pleural effusions or pneumothorax. Cardiac: The heart size is within normal limits. Mediastinum: Within normal limits. Bones: No acute fractures. Other: None IMPRESSION: Very mild residual nodularity bilaterally likely sequela of recent pneumonia. No new acu te findings.
[2022-06-30] MEDS ORDERED: LEVALBUTEROL 1.25 MG/3 ML NEB ONE (08:16)
[2022-06-30 08:21] LABS: Hematocrit 40.3 % (36.0-45.0); Lymphocytes % 29.3 % (15.3-44.8); MCV 83.1 fL (80-100); MPV 7.8 fL (7.6-11.3); RBC Red Blood Cell Count 4.84 M/uL (3.86-4.86)
[2022-06-30 08:28] LABS: Protime INR 0.98
[2022-06-30 08:35] LABS: SARS-CoV-2 Antigen Rapid Res Negative (Negative)
[2022-06-30 08:42] LABS: Albumin 3.8 g/dL (3.4-5.0); Bilirubin Total 0.4 mg/dL (0.2-1.0); Potassium 3.7 mmol/L (3.5-5.1); Protein, Total 7.6 g/dL (6.4-8.2)
[2022-06-30 09:02] LABS: Urine Blood Trace-intact (Negative); Urine Glucose Trace (Negative); Urine Protein 2+ (Negative); Urine Specific Gravity 1.015 (1.005-1.030)
[2022-06-30 09:10] LABS: Urine Bacteria None Seen /HPF (<20); Urine Mucus Slight /HPF (None Seen); Urine RBC <5 /HPF (None Seen)
--- NOTE | 2022-06-30 09:49 | RAD REPORT ---
EXAM DESCRIPTION: CT - Chest For Pe Angio - 06/30/2022 9:30 am CLINICAL HISTORY: DYSPNEA COMPARISON: Chest For Pe Angio dated 06/20/2022 TECHNIQUE: Dynamically enhanced axial 3 mm thick images of the chest were obtained during administra tion of <100> mL Isovue 370 IV contrast. Coronal and oblique reconstruction images were generated and reviewed. Exam utilizes a protocol for optimal evaluation of pulmonary arterial tree. Maximum intensity projections 3D imaging was utilized All CT scans are performed using dose optimization technique as appropriate and may include automated exposure control or mA/KV adjustment according to patient size. FINDINGS: Chest Wall: 18 mm left thyroid nodule. Lungs: Improved aeration of the lungs compared with the chest CT from 06/20/2022. A few residual nodu lar opacities are noted, particularly in the right upper lobe. Pleura: No significant effusions or pneumothorax. Mediastinum/alfred: No pathologic lymphadenopathy. Mild circumferential thickened distal esophagus. Pulmonary arteries/Aorta: No filling defect identified. No aortic aneurysm. Heart: No significant pericardial effusion. Normal heart size. Upper abdomen: Cholecystectomy. Bones: No acute abnormality. Multilevel degenerative changes are present in the spine. IMPRESSION: 1. Negative for pulmonary embolism. Improved but not completely resolved nodularity in the right lung. This presumably represents the sequela of recent pneumonia. Suggest six-month follow- up chest CT or chest radiograph to ensure resolution. 2. Indeterminate left adrenal nodule measuring 18 millimeters. Nonemergent ultrasound is recommended.
--- NOTE | 2022-06-30 09:53 | EDPHYS ---
Physician Documentation [facility] Name: Lupe Anaya Age: 72 yrs Sex: Female : 1950 Arrival Date: 06/30/2022 Time: 06:50 Bed 4 Private MD: ED Physician Miguel Angel Moore HPI: 06/30 07:58 This 72 yrs old Female presents to ER via Wheelchair with complaints of weakness. rn 07:58 Pt reports generalized weakness that got worse after recent admission to this hospital. rn Was admitted for UTI and severe sepsis. Sent home on abx. Reports was weak but weakness got worse since has been home. On 2L oxygen at home. No chest pain/fever/vomiting/diarrhea. . Onset: The symptoms/episode began/occurred 1 week(s) ago. Severity of symptoms: At their worst the symptoms were moderate in the emergency department the symptoms are unchanged. The patient has not experienced similar symptoms in the past. The patient has been recently seen at the [facility] Emergency Department, The patient has been recently been admitted at [facility]. Historical: - Allergies: 07:21 Dilantin; pf1 07:21 Erythromycin; pf1 - Immunization history:: Adult Immunizations unknown. - Family history:: not pertinent. - Social history:: Smoking status: Patient denies any tobacco usage or history of. - Hospitalizations: : The patient was recently seen at [facility]. ROS: 07:58 Constitutional: Negative for fever, chills, and weight loss, Eyes: Negative for injury, rn pain, redness, and discharge, Cardiovascular: Negative for chest pain, palpitations, and edema, Respiratory: + cough and sob Abdomen/GI: Negative for abdominal pain, nausea, vomiting, diarrhea, and constipation, Back: Negative for injury and pain, MS/Extremity: Negative for injury and deformity, Skin: Negative for injury, rash, and discoloration, Neuro: Negative for headache, numbness, tingling, and seizure. Exam: 08:00 Constitutional: This is a well developed, well nourished patient who is awake, alert, rn and in no acute distress. Head/Face: Normocephalic, atraumatic. ENT: dry MM, no stridor Cardiovascular: Regular rate and rhythm. No pulse deficits. Respiratory: Mild tachypnea, no retractions, speaking full sentences Abdomen/GI: Soft, non-tender Skin: Warm, dry MS/ Extremity: Pulses equal, no cyanosis. Equal circumference. Neuro: Awake and alert, GCS 15, oriented to person, place, time, and situation. Cranial nerves II-XII grossly intact. Motor strength 4/5 in all extremities. Sensory grossly intact. 09:44 ECG was reviewed by the Attending Physician. rn Vital Signs: 06:53 BP 178 / 84; Pulse 96; Resp 20; Temp 98(O); Pulse Ox 100% on 2 lpm NC; Weight 99.79 kg; pf1 Height 5 ft. 4 in. (162.56 cm); Pain 0/10; 08:08 BP 173 / 85; Pulse 98; Resp 17; Pulse Ox 98% ; hb 09:00 BP 169 / 78; Pulse 92; Resp 18; Temp 97.8; Pulse Ox 98% on 2 lpm NC; ph 10:30 BP 171 / 89; Pulse 89; Resp 18; Temp 97.9; Pulse Ox 99% on 2 lpm NC; ph 06:53 Body Mass Index 37.76 (99.79 kg, 162.56 cm) pf1 MDM: 06:59 Patient medically screened. rn 08:00 External Records Reviewed: Inpatient record: Inpatient record from recent rn hospitalization reviewed as well as labs to compare to today's labs. 09:16 Differential Diagnosis sepsis, COVID, dehydration, deconditioning from recent international trade specialist, worsening infection, PE. Data reviewed: vital signs, nurses notes, lab test result(s), EKG, radiologic studies, plain films. ED course: Pt feels better, more energy after fluids, got up to go to bathroom. Will rule out PE given recent admission and improved CXR, then anticipate dc home.. 09:49 Consideration of Admission/Observation Escalation of care including international trade specialist/observation considered. CT PE neg for PE, improved images compared to previous hospitalization. Pt feels better, No indication for emergent admission or transfer. . Independent interpretation of the following test(s) in the Emergency Department X-Ray: My interpretation is CXR images negative for pneumothorax or worsening pneumonia. Counseling: I had a detailed discussion with the patient and/or guardian regarding: the historical points, exam findings, and any diagnostic results supporting the discharge/admit diagnosis, lab results, radiology results, the need for outpatient follow up, to return to the emergency department if symptoms worsen or persist or if there are any questions or concerns that arise at home. Special discussion: I discussed with the patient/guardian in detail that at this point there is no indication for admission to the hospital. It is understood, however, that if the symptoms persist or worsen the patient needs to return immediately for re-evaluation. 06/30 07:11 Order name: Blood Culture Adult (2) rn 06/30 07:11 Order name: CBC with Diff; Complete Time: 08:27 rn 06/30 07:11 Order name: CMP; Complete Time: 09:03 rn 06/30 07:11 Order name: Lactate w/ 2H reflex if indic.; Complete Time: 09:04 rn 06/30 07:11 Order name: Protime (+inr); Complete Time: 09:04 rn 06/30 07:11 Order name: Ptt, Activated; Complete Time: 09:04 rn 06/30 07:11 Order name: Urine Culture rn 06/30 07:11 Order name: Urine Microscopic Only; Complete Time: 09:16 rn 06/30 07:11 Order name: Chest Single View XRAY; Complete Time: 07:58 rn 06/30 07:11 Order name: EKG; Complete Time: 07:12 rn 06/30 07:11 Order name: Accucheck; Complete Time: 09:03 rn 06/30 07:11 Order name: Cardiac monitoring; Complete Time: 07:43 rn 06/30 07:11 Order name: EKG - Nurse/Tech; Complete Time: 09:04 rn 06/30 07:11 Order name: IV Saline Lock - Large Bore; Complete Time: 08:15 rn 06/30 07:11 Order name: Labs collected and sent; Complete Time: 08:15 rn 06/30 07:11 Order name: O2 Per Protocol; Complete Time: 07:35 rn 06/30 07:11 Order name: O2 Sat Monitoring; Complete Time: 07:35 rn 06/30 07:11 Order name: Urine Dipstick-Ancillary (obtain specimen); Complete Time: 10:31 rn 06/30 07:11 Order name: Vital Signs; Complete Time: 07:35 rn 06/30 07:11 Order name: SARS RAPID; Complete Time: 09:04 rn 06/30 07:11 Order name: BNP; Complete Time: 09:04 rn 06/30 09:03 Order name: Urine Dipstick-Ancillary; Complete Time: 09:04 EDMS 06/30 09:04 Order name: CT Chest For PE Angio; Complete Time: 09:49 rn EC:44 Rate is 95 beats/min. Rhythm is regular. QRS Miles is Normal. WA interval is normal. QRS rn interval is normal. QT interval is normal. No Q waves. T waves are Normal. No ST changes noted. Clinical impression: NSR w/ Non-specific ST/T Changes. Interpreted by me. Reviewed by me. Administered Medications: 08:14 Drug: Xopenex (levalbuterol) 1.25 mg Route: Inhalation; 10:53 Follow up: Response: No adverse reaction ph Disposition Summary: 06/30/22 09:53 Discharge Ordered Location: Home rn Problem: new rn Symptoms: have improved rn Condition: Stable rn Diagnosis - Muscle weakness (generalized) rn - Dehydration rn Followup: rn - With: Private Physician - When: As needed - Reason: Recheck today's complaints, Re-evaluation by your physician Discharge Instructions: - Discharge Summary Sheet rn - Dehydration, Adult rn - Weakness rn Forms: - Medication Reconciliation Form rn - Thank You Letter rn - Antibiotic rn stars - Prescription Opioid Use rn Signatures: Dispatcher [employer] [facility] Miguel Angel Moore MD MD rn Hall, Patricia RN RN Concha Foster, RN RN Ashleigh vu, RN RN pf1
--- NOTE | 2022-06-30 09:53 | ER ---
Nurse's Notes [facility] Name: Lupe Anaya Age: 72 yrs Sex: Female : 1950 Arrival Date: 06/30/2022 Time: 06:50 Bed 4 Private MD: Diagnosis: Muscle weakness (generalized);Dehydration Presentation: 06/30 06:53 Chief complaint: Patient states: C/O SOB with weakness that started 1 week ago with pf1 confusion,onset 2 weeks and dizziness,onset yesterday. Patient stated was diagnosed with pneumonia and UTI here, was hospitalized and discharged from here on Monday. Patient denies any pain. Patient stated has been on 2LNC PRN at home since discharged from the hospital. 06:53 Coronavirus screen: Client denies travel out of the [place] in the last 14 days. Client pf1 presents with at least one sign or symptom that may indicate coronavirus-19. Standard/surgical mask placed on the client. Ebola Screen: Patient negative for fever greater than or equal to 101.5 degrees Fahrenheit, and additional compatible Ebola Virus Disease symptoms. Initial Sepsis Screen: Does the patient meet any 2 criteria? No. Patient's initial sepsis screen is negative. Does the patient have a suspected source of infection? No. Patient's initial sepsis screen is negative. Risk Assessment: Do you want to hurt yourself or someone else? Patient reports no desire to harm self or others. 06:53 Method Of Arrival: Wheelchair pf1 06:53 Acuity: NADER 3 pf1 10:53 Onset of symptoms was June 30, 2022. ph Triage Assessment: 07:30 General: Appears in no apparent distress. Respiratory: the patient has mild shortness ph of breath. Respiratory: Airway is patent Respiratory effort is even, unlabored, Onset: The symptoms/episode began/occurred gradually. Historical: - Allergies: 07:21 Dilantin; pf1 07:21 Erythromycin; pf1 - Immunization history:: Adult Immunizations unknown. - Family history:: not pertinent. - Social history:: Smoking status: Patient denies any tobacco usage or history of. - Hospitalizations: : The patient was recently seen at [facility]. Screenin:36 [facility] ED Fall Risk Assessment (Adult) Score/Fall Risk Level 3 or more points = High hb Risk Oriented to surroundings, Maintained a safe environment, Educated pt \T\ family on fall prevention, incl call for assistance when getting out of bed, Assessed \T\ reinforced patient's understanding of fall precautions, Hourly rounding (assess needs \T\ fall precautionary measures) done. Abuse screen: Denies threats or abuse. Denies injuries from another. Nutritional screening: No deficits noted. Tuberculosis screening: No symptoms or risk factors identified. Assessment: 07:30 General: Appears in no apparent distress. comfortable, Behavior is calm, cooperative, ph appropriate for age, Reports fatigue for >3 days, Denies fever, feeling ill. Pain: Denies pain. Neuro: Level of Consciousness is awake, alert, obeys commands, Oriented to person, place, time, situation, Reports dizziness, weakness generalized. Cardiovascular: Reports lightheadedness, shortness of breath, Capillary refill < 3 seconds in bilateral fingers Patient's skin is warm and dry. Rhythm is regular. Respiratory: Reports shortness of breath on exertion Airway is patent Respiratory effort is even, unlabored, Respiratory pattern is regular, symmetrical, Breath sounds are coarse in mediastinum. GI: No signs and/or symptoms were reported involving the gastrointestinal system. Derm: Skin is pink, warm \T\ dry. 10:51 Reassessment: Patient appears in no apparent distress at this time. Patient and/or ph family updated on plan of care and expected duration. Pain level reassessed. Patient is alert, oriented x 3, equal unlabored respirations, skin warm/dry/pink. Pt d/c home. Vital Signs: 06:53 BP 178 / 84; Pulse 96; Resp 20; Temp 98(O); Pulse Ox 100% on 2 lpm NC; Weight 99.79 kg; pf1 Height 5 ft. 4 in. (162.56 cm); Pain 0/10; 08:08 BP 173 / 85; Pulse 98; Resp 17; Pulse Ox 98% ; hb 09:00 BP 169 / 78; Pulse 92; Resp 18; Temp 97.8; Pulse Ox 98% on 2 lpm NC; ph 10:30 BP 171 / 89; Pulse 89; Resp 18; Temp 97.9; Pulse Ox 99% on 2 lpm NC; ph 06:53 Body Mass Index 37.76 (99.79 kg, 162.56 cm) pf1 ED Course: 06:50 Patient arrived in ED. ja2 06:59 Miguel Angel Moore MD is Attending Physician. rn 07:21 Triage completed. pf1 07:30 Chest Single View XRAY In Process Unspecified. EDMS 07:36 Patient has correct armband on for positive identification. hb 07:43 Giovana Saenz, RN is Primary Nurse. ph 08:00 Arm band placed on Patient placed in an exam room. ph 08:00 Inserted saline lock: 22 gauge in right antecubital area, using aseptic technique. hb 09:32 CT Chest For PE Angio In Process Unspecified. EDMS 10:52 No provider procedures requiring assistance completed. IV discontinued, intact, ph bleeding controlled, No redness/swelling at site. Pressure dressing applied. Administered Medications: 08:14 Drug: Xopenex (levalbuterol) 1.25 mg Route: Inhalation; 10:53 Follow up: Response: No adverse reaction ph Medication: 10:53 VIS not applicable for this client. ph Outcome: 09:53 Discharge ordered by MD. rn 10:53 Discharged to home via wheelchair, with significant other. ph 10:53 Condition: good 10:53 Discharge instructions given to patient, significant other, Instructed on discharge instructions, follow up and referral plans. Demonstrated understanding of instructions, follow-up care. 10:53 Patient left the ED. ph Signatures: Dispatcher [employer] [facility] Miguel Angel Moore MD MD rn Hall, Patricia, RN RN Concha Centeno RN RN Gay Herron Pamala, RN RN pf1
[2022-06-30 11:20] VITALS: BP 171/89; TEMP 97.9; O2SAT 99
--- NOTE | 2022-07-01 14:33 | EKG ---
Test Date: 2022-06-30 Test Time: 09:19:58 Drip Pumper: MAKI MEASUREMENT RESULTS: Intervals: Rate: 95 CO: 166 QRSD: 92 QT: 364 QTc: 457 [place]: P: 50 CO: 166 QRS: 111 T: 20 INTERPRETIVE STATEMENTS: Normal sinus rhythm Anterolateral infarct, age undetermined Abnormal ECG Compared to ECG 06/18/2022 11:40:06 Sinus tachycardia no longer present Indeterminate axis no longer present Myocardial infarct finding still present Electronically Signed On 07-01-22 14:29:35 [employer] by Tung Patrick
== END 2022-06-30 10:53 | disposition home or self-care (01) ==
LOC: ER 06:47
DX: M62.81 Muscle weakness (generalized) (principal); E86.0 Dehydration; Z20.822 Contact with and (suspected) exposure to COVID-19; Z88.3 Allergy status to other anti-infective agents; Z88.8 Allergy status to other drugs, medicaments and biological substances
CPT/HCPCS: 93005; 87040 ×2; 87088; 85025; 87086; 36415; 85610; 83605; 85730; 80053; 83880; 71275; 71045; 99284; 87811; Q9967; J7614; 81003; 81015

== ENCOUNTER 2023-08-25 21:34 | Emergency (ER) | payer OTHER ==
[2023-08-25 22:25] LABS: Absolute Eosinophils 0.3 K/uL (0-0.5); Absolute Lymphocytes (CBC) 2.1 K/uL (0.7-4.9); Absolute Monocytes 0.8 K/uL (0.1-1.3); Absolute Neutrophil 7.4 K/uL (1.8-8.0); Basophils % 0.4 % (0-1.3); Eosinophils % 2.9 % (0-4.4); Hematocrit 39.1 % (36.0-45.0); Lymphocytes % 19.4 % (15.3-44.8); MCH 28.7 pg (27.0-35.0); MCHC 33.3 g/dL (32.0-36.0); MCV 86.2 fL (80-100); MPV 7.9 fL (7.6-11.3); Monocytes % 7.7 % (3.3-12.3); Neutrophils % 69.6 % (41.7-73.7); Nucleated Red Blood Cells % 0.2 % (0-0); Platelets 332 thou/uL (152-406); RBC Red Blood Cell Count 4.53 M/uL (3.86-4.86); Red Cell Distribution Width 13.6 % (12.1-15.2)
[2023-08-25 22:26] LABS: PT Prothrombin Time 10.8 SECONDS (9.5-12.5); Protime INR 0.98
--- NOTE | 2023-08-25 22:34 | RAD REPORT ---
EXAM DESCRIPTION: Nina Single View08/25/2023 10:27 pm CLINICAL HISTORY: Cough COMPARISON: 2022 FINDINGS: The lungs appear clear of acute infiltrate. The heart is mildly enlarged IMPRESSION: No acute abnormalities displayed
[2023-08-25 22:49] LABS: ALT/SGPT 25 U/L (13-56); AST/SGOT 17 U/L (15-37); Albumin 3.1 g/dL (3.4-5.0); Alkaline Phosphatase 85 U/L (45-117); Anion Gap 11.3 mEq/L (5.0-15.0); BUN Blood Urea Nitrogen 26 mg/dL (7-18); Bicarbonate 27 mEq/L (21-32); Bilirubin Direct < 0.1 mg/dL (0-0.2); Bilirubin Indirect, Calculated ND mg/dL (0.2-0.8); Bilirubin Total 0.2 mg/dL (0.2-1.0); Globulin 3.1 g/dL (2.3-3.5); Glomerular Filtration Rate 40 ml/min (=/>90); Glucose Level 295 mg/dL (74-106); Lipase 31 U/L (13-75); Magnesium 1.7 mg/dL (1.6-2.4); NT PRO-BNP 46 pg/mL (<125); Potassium 4.3 mEq/L (3.5-5.1); Protein, Total 6.2 g/dL (6.4-8.2); Sodium Level 135 mEq/L (136-145); Troponin High Sensitivity 6.7 pg/mL (<58.9)
--- NOTE | 2023-08-25 23:27 | ER ---
Nurse's Notes [facility] Name: Lupe Anaya Age: 73 yrs Sex: Female : 1950 Arrival Date: 08/25/2023 Time: 21:34 Bed 5 Private MD: Diagnosis: Syncope Near;Diarrhea, unspecified;Dehydration;Type 2 diabetes mellitus with hyperglycemia Presentation: 08/24 21:41 Chief complaint: EMS states: passed out while in the toilet. hypotensive initially with rv systolic of 70s and 60 hr. denies chest pain/sob. aox4 upon arrival. ongoing iv fluids 1L NS to the left forearm. bgl of over 300. Coronavirus screen: At this time, the client does not indicate any symptoms associated with coronavirus-19. Ebola Screen: No symptoms or risks identified at this time. Initial Sepsis Screen: Does the patient meet any 2 criteria? No. Patient's initial sepsis screen is negative. Does the patient have a suspected source of infection? No. Patient's initial sepsis screen is negative. Risk Assessment: Do you want to hurt yourself or someone else? Patient reports no desire to harm self or others. Onset of symptoms was August 25, 2023. 21:41 Method Of Arrival: EMS: [facility] rv 21:41 Acuity: NADER 2 rv Triage Assessment: 21:43 General: Appears comfortable, Behavior is calm, cooperative. Pain: Denies pain. Neuro: rv Level of Consciousness is awake, alert, obeys commands, Oriented to person, place, time, situation. Cardiovascular: Capillary refill < 3 seconds Patient's skin is warm and dry. Respiratory: Airway is patent Respiratory effort is even, unlabored. Derm: Skin is intact. Historical: - Allergies: 21:43 Dilantin; rv 21:43 Erythromycin; rv - PMHx: 21:43 diabetes mellitus; Hypercholesterolemia; Hypertensive disorder; rv - Immunization history:: Adult Immunizations up to date. - Infectious Disease History:: Denies. - Social history:: Smoking status: Patient denies any tobacco usage or history of. - Family history:: not pertinent. Screenin:44 [facility] ED Fall Risk Assessment (Adult) History of falling in the last 3 months, rv including since admission No falls in past 3 months (0 pts) Score/Fall Risk Level 0 - 2 = Low Risk Oriented to surroundings, Maintained a safe environment, Educated pt \T\ family on fall prevention, incl call for assistance when getting out of bed, Assessed \T\ reinforced patient's understanding of fall precautions. Abuse screen: Denies threats or abuse. Denies injuries from another. Nutritional screening: No deficits noted. Tuberculosis screening: No symptoms or risk factors identified. Vital Signs: 21:41 BP 125 / 54; Pulse 66; Resp 16; Temp 98; Pulse Ox 99% ; Weight 99.79 kg; Height 5 ft. 3 rv in. ; 23:20 BP 140 / 61 Supine; Pulse 75; Resp 15; Pulse Ox 99% ; jb4 23:30 BP 138 / 60 Sitting; Pulse 72; Resp 16; Pulse Ox 99% ; jb4 23:40 BP 162 / 79; Pulse 78; Resp 17; Pulse Ox 100% on R/A; jb4 21:41 Body Mass Index 38.97 (99.79 kg, 160.02 cm) rv [place] Coma Score: 23:40 Eye Response: spontaneous(4). Motor Response: obeys commands(6). Verbal Response: jb4 oriented(5). Total: 15. ED Course: 21:41 Patient arrived in ED. rv 21:41 Akhil Roa MD is Attending Physician. [facility] 21:43 Triage completed. rv 21:43 Arm band placed on right wrist. rv 21:44 Patient has correct armband on for positive identification. Client placed on continuous rv cardiac and pulse oximetry monitoring. NIBP monitoring applied. traffic monitor specialist on. 21:44 No provider procedures requiring assistance completed. rv 21:44 Maintain EMS IV. Dressing intact. Good blood return noted. Site clean \T\ dry. Gauge \T\ rv site: g18 left forearm. 22:16 Kar Michelle, RN is Primary Nurse. rv 22:16 Basic Metabolic Panel Sent. rv 22:16 CBC with Diff Sent. rv 22:16 LFT's Sent. rv 22:16 Magnesium Sent. rv 22:16 NT PRO-BNP Sent. rv 22:16 PT-INR Sent. rv 22:16 Troponin HS Sent. rv 22:16 Initial lab(s) drawn, by me, sent to lab. EKG done, by ED staff, reviewed by Akhil Roa MD. 22:29 XRAY Chest (1 view) In Process Unspecified. EDMS 22:35 Basic Metabolic Panel Sent. rv 22:36 LFT's Sent. rv 22:36 Magnesium Sent. rv 22:36 NT PRO-BNP Sent. rv 22:36 Troponin HS Sent. rv 22:50 CT Head C Spine In Process Unspecified. EDMS 23:45 IV discontinued, intact, bleeding controlled, No redness/swelling at site. Pressure jb4 dressing applied. Administered Medications: 22:17 Drug: NS 0.9% IV 1000 ml IV at 1 bolus Per protocol; 1000 mL bolus Route: IV; Rate: 1 rv bolus; Site: left forearm; 23:42 Follow up: IV Status: Completed infusion; IV Intake: 1000ml rv 23:42 Not Given (Physician Discretion): ns 0.9% 1000 ml IV at 1 bolus Per protocol; 1000 mL rv bolus Medication: 21:44 VIS not applicable for this client. rv Intake: 23:42 IV: 1000ml; Total: 1000ml. rv Outcome: 23:27 Discharge ordered by . marina 23:45 Discharged to home ambulatory, with family, 4 23:45 Condition: good 23:45 Discharge instructions given to patient, family, Instructed on discharge instructions, follow up and referral plans. Demonstrated understanding of instructions, follow-up care, 23:45 Patient left the ED. jb4 Signatures: Dispatcher [employer] Akhil Angel MD MD cha Bryson, James, RN RN jb4 Kar Michelle, RN RN rv
--- NOTE | 2023-08-25 23:27 | EDPHYS ---
Physician Documentation [facility] Name: Lupe Anaya Age: 73 yrs Sex: Female : 1950 Arrival Date: 08/25/2023 Time: 21:34 Bed 5 Private MD: ED Physician Akhil Roa HPI: 08/24 22:40 This 73 yrs old Female presents to ER via EMS with complaints of Syncope. marina 22:40 The patient has experienced near-syncope, almost passed out, felt dizzy. Onset: The marina symptoms/episode began/occurred just prior to arrival. Duration: This was a single episode, that lasted 20 second(s). Context: the episode(s) was witnessed, by family, . Associated injury: The patient did not suffer any apparent associated injury. Associated signs and symptoms: Pertinent positives: abdominal pain. Historical: - Allergies: 21:43 Dilantin; rv 21:43 Erythromycin; rv - PMHx: 21:43 diabetes mellitus; Hypercholesterolemia; Hypertensive disorder; rv - Immunization history:: Adult Immunizations up to date. - Infectious Disease History:: Denies. - Social history:: Smoking status: Patient denies any tobacco usage or history of. - Family history:: not pertinent. ROS: 22:40 Constitutional: Negative for fever, chills, and weight loss, Eyes: Negative for injury, marina pain, redness, and discharge, ENT: Negative for injury, pain, and discharge, Neck: Negative for injury, pain, and swelling, Cardiovascular: Negative for chest pain, palpitations, and edema, Respiratory: Negative for shortness of breath, cough, wheezing, and pleuritic chest pain, Back: Negative for injury and pain, : Negative for injury, bleeding, discharge, and swelling, MS/Extremity: Negative for injury and deformity, Skin: Negative for injury, rash, and discoloration, Psych: Negative for depression, anxiety, suicide ideation, homicidal ideation, and hallucinations, Allergy/Immunology: Negative for hives, rash, and allergies, Endocrine: Negative for neck swelling, polydipsia, polyuria, polyphagia, and marked weight changes, Hematologic/Lymphatic: Negative for swollen nodes, abnormal bleeding, and unusual bruising, 22:40 Abdomen/GI: Positive for abdominal pain, diarrhea, 22:40 Neuro: Positive for near syncope, weakness, Exam: 22:40 Constitutional: This is a well developed, well nourished patient who is awake, alert, marina and in no acute distress. Head/Face: Normocephalic, atraumatic. Eyes: Pupils equal round and reactive to light, extra-ocular motions intact. Lids and lashes normal. Conjunctiva and sclera are non-icteric and not injected. Cornea within normal limits. Periorbital areas with no swelling, redness, or edema. ENT: Nares patent. No nasal discharge, no septal abnormalities noted. Tympanic membranes are normal and external auditory canals are clear. Oropharynx with no redness, swelling, or masses, exudates, or evidence of obstruction, uvula midline. Mucous membranes moist. Neck: Trachea midline, no thyromegaly or masses palpated, and no cervical lymphadenopathy. Supple, full range of motion without nuchal rigidity, or vertebral point tenderness. No Meningismus. Chest/axilla: Normal chest wall appearance and motion. Nontender with no deformity. No lesions are appreciated. Cardiovascular: Regular rate and rhythm with a normal S1 and S2. No gallops, murmurs, or rubs. Normal PMI, no JVD. No pulse deficits. Respiratory: Lungs have equal breath sounds bilaterally, clear to auscultation and percussion. No rales, rhonchi or wheezes noted. No increased work of breathing, no retractions or nasal flaring. Abdomen/GI: Soft, non-tender, with normal bowel sounds. No distension or tympany. No guarding or rebound. No evidence of tenderness throughout. Back: No spinal tenderness. No costovertebral tenderness. Full range of motion. Female : Normal external genitalia. Skin: Warm, dry with normal turgor. Normal color with no rashes, no lesions, and no evidence of cellulitis. MS/ Extremity: Pulses equal, no cyanosis. Neurovascular intact. Full, normal range of motion. Neuro: Awake and alert, GCS 15, oriented to person, place, time, and situation. Cranial nerves II-XII grossly intact. Motor strength 5/5 in all extremities. Sensory grossly intact. Cerebellar exam normal. Normal gait. Psych: Awake, alert, with orientation to person, place and time. Behavior, mood, and affect are within normal limits. 22:40 ECG was reviewed by the Attending Physician. 22:43 Abdomen/GI: Inspection: abdomen appears normal, Bowel sounds: normal, Palpation: [facility] abdomen is soft and non-tender, Liver: no appreciated palpable abnormalities, Hernia: not appreciated, 22:43 Constitutional: The patient appears in no acute distress, Vital Signs: 21:41 BP 125 / 54; Pulse 66; Resp 16; Temp 98; Pulse Ox 99% ; Weight 99.79 kg; Height 5 ft. 3 rv in. ; 23:20 BP 140 / 61 Supine; Pulse 75; Resp 15; Pulse Ox 99% ; jb4 23:30 BP 138 / 60 Sitting; Pulse 72; Resp 16; Pulse Ox 99% ; jb4 23:40 BP 162 / 79; Pulse 78; Resp 17; Pulse Ox 100% on R/A; jb4 21:41 Body Mass Index 38.97 (99.79 kg, 160.02 cm) rv [place] Coma Score: 23:40 Eye Response: spontaneous(4). Motor Response: obeys commands(6). Verbal Response: jb4 oriented(5). Total: 15. MDM: 21:41 Patient medically screened. [facility] 22:43 Data reviewed: vital signs, nurses notes, lab test result(s), EKG, radiologic studies, [facility] plain films. 22:44 Differential Diagnosis: cardiac arrhythmia, cerebrovascular accident, GI bleed, pseudo marina seizure, seizure, sepsis, vasovagal episode. Consideration of Admission/Observation Patient was admitted/placed on observation. Escalation of care including admission/observation considered. I considered the following discharge prescriptions or medication management in the emergency department Medications were administered in the Emergency Department. See MAR. Independent interpretation of the following test(s) in the Emergency Department EKG: See my EKG interpretation above. Test considered but Not performed: CT: no ct abd/pelvis. Historians other than the Patient: EMS: ems well informed. Family Member: well informed. Care significantly affected by the following chronic conditions: Diabetes, Hypertension, Obesity, high cholesterol. Counseling: I had a detailed discussion with the patient and/or guardian regarding the historical points, exam findings, and any diagnostic results supporting the discharge/admit diagnosis, lab results, radiology results, the need for outpatient follow up, for definitive care, a family practitioner. 08/24 21:52 Order name: Basic Metabolic Panel; Complete Time: 23:06 [facility] 08/24 21:52 Order name: CBC with Diff; Complete Time: 23:06 08/24 21:52 Order name: LFT's; Complete Time: 23:06 08/24 21:52 Order name: Magnesium; Complete Time: 23:06 08/24 21:52 Order name: NT PRO-BNP; Complete Time: 23:06 08/24 21:52 Order name: PT-INR; Complete Time: 23:06 [facility] 08/24 21:52 Order name: Troponin HS; Complete Time: 23:06 08/24 21:52 Order name: Lipase; Complete Time: 23:06 08/24 21:52 Order name: Urinalysis w/ reflexes 08/24 21:52 Order name: XRAY Chest (1 view); Complete Time: 23:06 08/24 21:52 Order name: CT Head C Spine 08/24 21:52 Order name: Cardiac monitoring; Complete Time: 22:16 08/24 21:52 Order name: EKG - Nurse/Tech; Complete Time: 22:16 08/24 21:52 Order name: IV Saline Lock; Complete Time: 22:16 08/24 21:52 Order name: Labs collected and sent; Complete Time: 22:16 08/24 21:52 Order name: O2 Per Protocol; Complete Time: 22:16 08/24 21:52 Order name: O2 Sat Monitoring; Complete Time: 22:16 08/24 23:07 Order name: PO challenge; Complete Time: 23:20 08/24 23:23 Order name: Orthostatics; Complete Time: 23:42 [facility] EC:40 Rate is 70 beats/min. Rhythm is regular. QRS [place] is Normal. [place] interval is normal. QRS marina interval is normal. QT interval is normal. No Q waves. T waves are Normal. No ST changes noted. Clinical impression: NSR w/ Non-specific ST/T Changes and No evidence of ischemia. Interpreted by me. Reviewed by me. Administered Medications: 22:17 Drug: NS 0.9% IV 1000 ml IV at 1 bolus Per protocol; 1000 mL bolus Route: IV; Rate: 1 rv bolus; Site: left forearm; 23:42 Follow up: IV Status: Completed infusion; IV Intake: 1000ml rv 23:42 Not Given (Physician Discretion): ns 0.9% 1000 ml IV at 1 bolus Per protocol; 1000 mL rv bolus Disposition Summary: 08/25/23 23:27 Discharge Ordered Notes: Location: Home marina Problem: new marina Symptoms: have improved marina Condition: Stable marina Diagnosis - Syncope Near marina - Diarrhea, unspecified marina - Dehydration marina - Type 2 diabetes mellitus with hyperglycemia marina Followup: marina - With: Private Physician - When: 2 - 3 days - Reason: Recheck today's complaints, Continuance of care, Re-evaluation by your physician Discharge Instructions: - Discharge Summary Sheet marina - Food Choices to Help Relieve Diarrhea, Adult marina - Dehydration, Adult marina - Chronic Diarrhea marina - Diarrhea, Adult marina - Near-Syncope marina - Syncope marina - Weakness marina - Diabetes Mellitus and Nutrition, Adult marina - Acute Kidney Injury, Adult marina - Weakness, [id number] marina - Dehydration, Adult, [id number] marina Forms: - Medication Reconciliation Form marina - Antibiotic Education marina - Prescription Opioid Use marina - Patient Portal Instructions marina - Leadership Thank You Letter marina Signatures: Dispatcher [employer] EDMS Akhil Roa MD MD cha Vicente, Ronaldo, RN RN rv Corrections: (The following items were deleted from the chart) 21:52 21:52 BASIC METABOLIC PANEL+C.LAB.BRZ ordered. EDMS EDMS 21: 21:52 CBC+H.LAB.BRZ ordered. EDMS EDMS 21:52 21:52 HEPATIC FUNCTION+C.LAB.BRZ ordered. EDMS EDMS 21:52 21:52 MAGNESIUM+C.LAB.BRZ ordered. EDMS EDMS 21:52 21:52 PROBNP+C.LAB.BRZ ordered. EDMS EDMS 21:53 21:52 PROTIME (+INR)+COAG.LAB.BRZ ordered. EDMS EDMS 21:53 21:52 Troponin High Sensitivity+C.LAB.BRZ ordered. EDMS EDMS 21:53 21:52 LIPASE+C.LAB.BRZ ordered. EDMS EDMS :53 21:52 Urinalysis+U.LAB.BRZ ordered. EDMS EDMS 21:53 21:53 Head C Spine MPR Wo Con+CT.RAD.BRZ ordered. EDMS EDMS
[2023-08-26 00:16] VITALS: BP 162/79; TEMP 98; O2SAT 100
--- NOTE | 2023-08-27 11:00 | RAD REPORT ---
EXAM DESCRIPTION: CT C [place] NOR WO Contrast CLINICAL HISTORY: SYNCOPE. TECHNIQUE: Noncontrast CT through the head was performed. Axial, coronal, and sagittal reconstructio ns were created and sent to PACS. This exam was performed according to our departmental dose-optimiza tion program which includes use of Automated Exposure Control, adjustment of the mA and/or kV accordi ng to patient size and/or use of iterative reconstruction technique. COMPARISON: CT head from January 14, 2022. FINDINGS: There is diffuse atrophy throughout the brain parenchyma. Mild periventricular white matte r changes. Mild ex vacuo dilatation of the ventricular system. There is no intra-axial or extra-axial bleed. There is no mass or mass effect. The visualized paranasal sinuses and mastoid air cells are patent. No acute fracture is identified. IMPRESSION: No acute intracranial abnormality identified. Electronically signed by: Amarilis Edge MD 08/25/2023 11:06 PM CDT Due to temporary technical issues with the PACS/Fluency reporting system, reports are being signed by the in house radiologists without review as a courtesy to insure prompt reporting. The interpreting radiologist is fully responsible for the content of the report.
--- NOTE | 2023-08-28 13:02 | EKG ---
Test Date: 2023-08-25 Test Time: 22:21:01 Traveling Passenger Agent: QUINN MEASUREMENT RESULTS: Intervals: Rate: 70 VA: 208 QRSD: 100 QT: 398 QTc: 429 Russell: P: 8 VA: 208 QRS: -13 T: 24 INTERPRETIVE STATEMENTS: Normal sinus rhythm Anterolateral infarct, age undetermined Abnormal ECG Compared to ECG 06/30/2022 09:19:58 No significant changes Electronically Signed On 08-28-23 12:56:06 CDT by Tung Patrick
== END 2023-08-25 23:45 | disposition home or self-care (01) ==
LOC: ER 21:34
DX: E86.0 Dehydration (principal); E11.65 Type 2 diabetes mellitus with hyperglycemia; R19.7 Diarrhea, unspecified; I10 Essential (primary) hypertension; Z88.3 Allergy status to other anti-infective agents; Z88.8 Allergy status to other drugs, medicaments and biological substances
CPT/HCPCS: 36415; 70450; 71045; 72125; 80048; 80076; 83690; 83735; 83880; 84484; 85025; 85610; 93005

== ENCOUNTER 2023-10-28 14:32 | Emergency (ER) | payer OTHER ==
[2023-10-28] MEDS ORDERED: ACETAMINOPHEN 325 MG TABLET ONE (15:37)
[2023-10-28] MEDS ORDERED: NA CHLORIDE 0.9% 500 ML ONE (15:40)
[2023-10-28 15:46] LABS: Absolute Basophils 0.1 K/uL (0-0.5); Absolute Eosinophils 0.3 K/uL (0-0.5); Absolute Lymphocytes (CBC) 2.4 K/uL (0.7-4.9); Absolute Monocytes 0.7 K/uL (0.1-1.3); Absolute Neutrophil 5.7 K/uL (1.8-8.0); Eosinophils % 3.6 % (0-4.4); Hematocrit 39.5 % (36.0-45.0); Hemoglobin 13.3 g/dL (12.0-15.0); MCH 29.4 pg (27.0-35.0); MCHC 33.7 g/dL (32.0-36.0); MCV 87.2 fL (80-100); MPV 8.1 fL (7.6-11.3); Neutrophils % 61.4 % (41.7-73.7); Nucleated Red Blood Cells % 0.2 % (0-0); Platelets 313 thou/uL (152-406); RBC Red Blood Cell Count 4.53 M/uL (3.86-4.86); Red Cell Distribution Width 13.8 % (12.1-15.2)
[2023-10-28 15:50] LABS: PT Prothrombin Time 11.2 SECONDS (9.4-12.5); PTT, Activated Partial Thromb 27.2 SECONDS (24.3-36.9); Protime INR 1.02
--- NOTE | 2023-10-28 15:54 | RAD REPORT ---
EXAM DESCRIPTION: RADChest Single View10/28/2023 3:39 pm CLINICAL HISTORY: syncope COMPARISON: Chest Single View dated 08/25/2023; Chest Single View dated 06/30/2022; Chest Single View d ated 06/21/2022; Chest Single View dated 06/20/2022 TECHNIQUE: Portable AP view of the chest. FINDINGS: The lungs are clear. No pneumothorax or effusion. The cardiomediastinal contours are unre markable. IMPRESSION: No acute cardiopulmonary process.
[2023-10-28 16:00] LABS: ALT/SGPT 18 U/L (13-56); AST/SGOT 12 U/L (15-37); Albumin 3.5 g/dL (3.4-5.0); Albumin/Globulin Ratio 1.2 (1.1-1.8); Alkaline Phosphatase 61 U/L (45-117); Anion Gap 10.4 mEq/L (5.0-15.0); BUN Blood Urea Nitrogen 34 mg/dL (7-18); Bicarbonate 27 mEq/L (21-32); Bilirubin Total 0.3 mg/dL (0.2-1.0); Globulin 2.9 g/dL (2.3-3.5); Glomerular Filtration Rate 47 ml/min (=/>90); Glucose Level 200 mg/dL (74-106); Magnesium 2.1 mg/dL (1.6-2.4); Potassium 3.4 mEq/L (3.5-5.1); Protein, Total 6.4 g/dL (6.4-8.2); Sodium Level 138 mEq/L (136-145); Troponin High Sensitivity 12.9 pg/mL (<58.9)
[2023-10-28 16:07] LABS: Bilirubin Direct < 0.2 mg/dL (0-0.2); Bilirubin Indirect, Calculated 0.1 mg/dL (0.2-0.8)
--- NOTE | 2023-10-28 17:27 | ER ---
Nurse's Notes [facility] Name: Lupe Anaya Age: 73 yrs Sex: Female : 1950 Arrival Date: 10/28/2023 Time: 14:32 Bed 19 Private MD: Diagnosis: Syncope;Dehydration;Hypokalemia Presentation: 10/27 14:40 Chief complaint: EMS states: toned out for syncopal episode while using the bathroom. me1 States she had abdominal pain, went to bathroom and had diarrhea (which is her normal) and passed out, did not fall. Hypotensive 80s/50s. 20 g to RFA and administered NS 500 ml by EMS. Coronavirus screen: Vaccine status: Patient reports being unvaccinated. Ebola Screen: No symptoms or risks identified at this time. Initial Sepsis Screen: Does the patient meet any 2 criteria? No. Patient's initial sepsis screen is negative. Does the patient have a suspected source of infection? No. Patient's initial sepsis screen is negative. Risk Assessment: Do you want to hurt yourself or someone else? Patient reports no desire to harm self or others. Onset of symptoms was October 28, 2023. Care prior to arrival: Medication(s) given: Normal saline infusion, 500 mL, IV initiated. 20 GA, in the right forearm. 14:40 Method Of Arrival: EMS: [place] [id number] 14:40 Acuity: NADER 3 me1 Triage Assessment: 14:47 General: Appears uncomfortable, obese, well groomed, well developed, well nourished, me1 Behavior is calm, cooperative, appropriate for age, Reports sitting on toilet and passed out. Pain: Denies pain. EENT: No signs and/or symptoms were reported regarding the EENT system. Neuro: Level of Consciousness is awake, alert, obeys commands, Oriented to person, place, time, situation, Appropriate for age Reports a syncopal episode. Cardiovascular: Patient's skin is warm and dry. Respiratory: Airway is patent Respiratory effort is even, unlabored, Respiratory pattern is regular, symmetrical. GI: Reports diarrhea. : No signs and/or symptoms were reported regarding the genitourinary system. Derm: Skin is intact, is healthy with good turgor, Skin is pink, warm \T\ dry. Musculoskeletal: No signs and/or symptoms reported regarding the musculoskeletal system. Historical: - Allergies: 14:47 Dilantin; me1 14:47 Erythromycin; me1 - PMHx: 14:47 diabetes mellitus; Hypertensive disorder; Hypercholesterolemia; me1 - Immunization history:: Adult Immunizations up to date. - Infectious Disease History:: Denies. - Social history:: Smoking status: Patient denies any tobacco usage or history of. - Family history:: not pertinent. - Hospitalizations: : No recent hospitalization is reported. Screenin:51 [facility] ED Fall Risk Assessment (Adult) History of falling in the last 3 months, me1 including since admission No falls in past 3 months (0 pts) Confusion or Disorientation No (0 pts) Intoxicated or Sedated No (0 pts) Impaired Gait No (0 pts) Mobility Assist Device Used No (0 pt) Altered Elimination No (0 pt) Score/Fall Risk Level 0 - 2 = Low Risk Maintained a safe environment, Provided non-skid footwear, Hourly rounding (assess needs \T\ fall precautionary measures) done. Abuse screen: Denies threats or abuse. Nutritional screening: No deficits noted. Tuberculosis screening: No symptoms or risk factors identified. Assessment: 14:51 General: see triage assessment. . me1 16:35 General: Patient refused CT head and abdomen and EKG. Dr Moore informed. . me1 Vital Signs: 14:40 BP 102 / 51; Pulse 58; Resp 17; Temp 97.8; Pulse Ox 98% ; Weight 96.16 kg; Height 5 ft. me1 2 in. ; Pain 0/10; 15:00 BP 105 / 46; Pulse 59; Resp 15; Pulse Ox 96% on R/A; me1 16:00 BP 106 / 54; Pulse 62; Resp 14; Pulse Ox 99% on R/A; me1 17:00 BP 108 / 53; Pulse 57; Resp 16; Pulse Ox 97% on R/A; me1 17:00 BP 108 / 48; Pulse 58; Resp 14; Temp 98.4; Pulse Ox 97% ; me1 14:40 Body Mass Index 38.77 (96.16 kg, 157.48 cm) me1 14:40 Pain Scale: Adult vt1 ED Course: 14:36 Patient arrived in ED. eb 14:39 Rosie Harry, RN is Primary Nurse. me1 14:40 Miguel Angel Moore MD is Attending Physician. rn 14:47 Triage completed. me1 14:47 Arm band placed on Patient placed in an exam room. me1 14:51 Patient has correct armband on for positive identification. Bed in low position. Call me1 light in reach. Side rails up X2. Provided Education on: POC. Verbalized understanding. . Client placed on continuous cardiac and pulse oximetry monitoring. NIBP monitoring applied. property assessment monitor on. Pulse ox on. NIBP on. 14:51 No provider procedures requiring assistance completed. me1 15:33 Initial lab(s) drawn, by me, sent to lab. Maintain EMS IV. Dressing intact. Good blood me1 return noted. Site clean \T\ dry. Gauge \T\ site: 20g RFA. 15:34 Basic Metabolic Panel Sent. me1 15:34 CBC with Diff Sent. me1 15:34 Hepatic Function Sent. me1 15:34 Magnesium Sent. me1 15:34 Protime (+inr) Sent. me1 15:34 Ptt, Activated Sent. me1 15:34 Troponin High Sensitivity Sent. me1 15:41 Chest Single View XRAY In Process Unspecified. EDMS 17:58 Patient did not have IV access during this emergency room visit. intact, bleeding me1 controlled, No redness/swelling at site. Pressure dressing applied. Administered Medications: 15:33 Drug: NS 0.9% IV 500 ml IV at bolus once Route: IV; Rate: bolus; Site: right forearm; me1 16:41 Follow up: Response: No adverse reaction; IV Status: Completed infusion; IV Intake: me1 500ml 15:43 Drug: Acetaminophen PO 325 mg PO once Route: PO; me1 16:17 Follow up: Response: No adverse reaction; Pain is decreased me1 Medication: 17:59 VIS not applicable for this client. me1 Intake: 16:41 IV: 500ml; Total: 500ml. me1 Outcome: 17:26 Discharge ordered by . rn 17:58 Discharged to home via wheelchair, with family, me1 17:58 Condition: stable 17:58 Discharge instructions given to patient, family, Instructed on discharge instructions, follow up and referral plans. Demonstrated understanding of instructions, follow-up care, 17:59 Patient left the ED. me1 Signatures: Dispatcher [employer] EDMS Miguel Angel Moore MD MD rn Josee Sepulveda Michelle, RN RN me1
--- NOTE | 2023-10-28 17:27 | EDPHYS ---
Physician Documentation [facility] Name: Lupe Anaya Age: 73 yrs Sex: Female : 1950 Arrival Date: 10/28/2023 Time: 14:32 Bed 19 Private MD: ED Physician Miguel Angel Moore HPI: 10/27 15:22 This 73 yrs old Female presents to ER via EMS with complaints of syncope. rn 15:22 The patient has experienced syncope. Onset: The symptoms/episode began/occurred just rn prior to arrival. Duration: This was a single episode. Associated injury: The patient did not suffer any apparent associated injury. Current symptoms: Currently, the patient is not experiencing any symptoms. The patient has not experienced similar symptoms in the past. Patient reports had abdominal pain, went to use the bathroom and thinks passed out. No trauma or fall. Reports feeling little lightheaded. Feels much better now. Reports has daily loose stool and has not changed from her normal. No blood in stool. No fever. States abdominal pain resolved. No chest pain or shortness of breath. No focal neurological deficit.. Historical: - Allergies: 14:47 Dilantin; me1 14:47 Erythromycin; me1 - PMHx: 14:47 diabetes mellitus; Hypertensive disorder; Hypercholesterolemia; me1 - Immunization history:: Adult Immunizations up to date. - Infectious Disease History:: Denies. - Social history:: Smoking status: Patient denies any tobacco usage or history of. - Family history:: not pertinent. - Hospitalizations: : No recent hospitalization is reported. ROS: 15:22 Constitutional: Negative for fever, chills, and weight loss, Neck: Negative for injury, rn pain, and swelling, Cardiovascular: Negative for chest pain, palpitations, and edema, Respiratory: Negative for shortness of breath, cough, wheezing, and pleuritic chest pain, Abdomen/GI: Negative for abdominal pain, nausea, vomiting, diarrhea, and constipation, MS/Extremity: Negative for injury and deformity, Skin: Negative for injury, rash, and discoloration, Neuro: Negative for headache, numbness, tingling, and seizure, Exam: 15:22 Constitutional: This is a well developed, well nourished patient who is awake, alert, rn and in no acute distress. Head/Face: Normocephalic, atraumatic. ENT: Dry mucous membranes Cardiovascular: Regular rate and rhythm. No pulse deficits. Respiratory: No increased work of breathing, no retractions or nasal flaring. Abdomen/GI: Soft, non-tender MS/ Extremity: Pulses equal, no cyanosis. Neurovascular intact. Full, normal range of motion. Equal circumference. Neuro: Awake and alert, GCS 15, oriented to person, place, time, and situation. Cranial nerves II-XII grossly intact. Motor strength 5/5 in all extremities. Sensory grossly intact. Vital Signs: 14:40 BP 102 / 51; Pulse 58; Resp 17; Temp 97.8; Pulse Ox 98% ; Weight 96.16 kg; Height 5 ft. me1 2 in. ; Pain 0/10; 15:00 BP 105 / 46; Pulse 59; Resp 15; Pulse Ox 96% on R/A; me1 16:00 BP 106 / 54; Pulse 62; Resp 14; Pulse Ox 99% on R/A; me1 17:00 BP 108 / 53; Pulse 57; Resp 16; Pulse Ox 97% on R/A; me1 17:00 BP 108 / 48; Pulse 58; Resp 14; Temp 98.4; Pulse Ox 97% ; me1 14:40 Body Mass Index 38.77 (96.16 kg, 157.48 cm) me1 14:40 Pain Scale: Adult me1 MDM: 14:40 Patient medically screened. rn 17:21 Differential Diagnosis: aortic aneurysm, cardiac arrhythmia, GI bleed, idiopathic rn syncope, transient ischemic attack, vasovagal episode, . Data reviewed: vital signs, nurses notes, lab test result(s), and as a result, I will discharge patient. Counseling: I had a detailed discussion with the patient and/or guardian regarding the historical points, exam findings, and any diagnostic results supporting the discharge/admit diagnosis, lab results, the need for outpatient follow up, to return to the emergency department if symptoms worsen or persist or if there are any questions or concerns that arise at home. Response to treatment: the patient's symptoms have resolved after treatment, the patient's condition has returned to base line, the patient is now symptom free, and as a result, I will discharge patient. Refusal of service: The patient/guardian displays adequate decision making capability and despite a detailed discussion of alternatives, benefits, risks, and consequences refuses: CT Scan. ED course: Patient refuses CT and EKG. Wants to go home. States feels back to baseline. Advised her to not take her blood pressure medication unless she is checking her blood pressure and is elevated because it is borderline hypotensive. Patient understands and insistent that she wants to go home. here at bedside and agrees with her. He wants to take her home as well. Understands risks of leaving without complete workup.. 10/27 14:47 Order name: Basic Metabolic Panel; Complete Time: 16:08 rn 10/27 14:47 Order name: CBC with Diff; Complete Time: 16:08 rn 10/27 14:47 Order name: Hepatic Function; Complete Time: 16: rn 10/27 14:47 Order name: Magnesium; Complete Time: 16: 10/27 14:47 Order name: Protime (+inr); Complete Time: 16: rn 10/27 14:47 Order name: Ptt, Activated; Complete Time: 16: rn 10/27 14:47 Order name: Troponin High Sensitivity; Complete Time: 16: rn 10/27 14:47 Order name: Chest Single View XRAY; Complete Time: 16:09 rn 10/27 14:47 Order name: Cardiac monitoring rn 10/27 14:47 Order name: EKG - Nurse/Tech rn 10/27 14:47 Order name: IV Saline Lock; Complete Time: 15:33 rn 10/27 14:47 Order name: Labs collected and sent; Complete Time: 15:33 rn 10/27 14:47 Order name: NPO; Complete Time: 15:34 rn 10/27 14:47 Order name: O2 Per Protocol; Complete Time: 15:34 rn 10/27 14:47 Order name: O2 Sat Monitoring; Complete Time: 15:34 rn Administered Medications: 15:33 Drug: NS 0.9% IV 500 ml IV at bolus once Route: IV; Rate: bolus; Site: right forearm; me1 16:41 Follow up: Response: No adverse reaction; IV Status: Completed infusion; IV Intake: me1 500ml 15:43 Drug: Acetaminophen PO 325 mg PO once Route: PO; me1 16:17 Follow up: Response: No adverse reaction; Pain is decreased me1 Disposition Summary: 10/28/23 17:26 Discharge Ordered Notes: Location: Home rn Problem: new rn Symptoms: have improved rn Condition: Stable rn Diagnosis - Syncope rn - Dehydration rn - Hypokalemia rn Followup: rn - With: Private Physician - When: As needed - Reason: Recheck today's complaints, Re-evaluation by your physician Forms: - Medication Reconciliation Form rn - Antibiotic video editing internship - Prescription Opioid Use rn - Patient Portal Instructions rn - Leadership Thank You Letter rn Signatures: Dispatcher [employer] EDMS Miguel Angel Moore MD MD rn Eddleman, Michelle, RN RN me1 Corrections: (The following items were deleted from the chart) 14:48 14:48 Chest Single View+RAD.RAD.BRZ ordered. EDMS EDMS 14:48 14:48 Abdomen Pelvis W Con+CT.RAD.BRZ ordered. EDMS EDMS 16:40 14:48 Head Brain Wo Cont+CT.RAD.BRZ ordered. EDMS EDMS
[2023-10-28 18:29] VITALS: BP 108/48; TEMP 98.4; O2SAT 97
== END 2023-10-28 17:59 | disposition home or self-care (01) ==
LOC: ER 14:32
DX: E86.0 Dehydration (principal); E87.6 Hypokalemia; Z88.3 Allergy status to other anti-infective agents; Z88.8 Allergy status to other drugs, medicaments and biological substances
CPT/HCPCS: 85025; 80048; 36415; 83735; 85610; 80076; 85730; 84484; 71045; J7040; 96360; 99285

== ENCOUNTER 2024-06-05 05:34 | Day surgery (SDC) | payer OTHER ==
[2024-06-04 14:09] LABS: Absolute Basophils 0.1 K/uL (0-0.5); Absolute Eosinophils 0.3 K/uL (0-0.5); Absolute Lymphocytes (CBC) 2.6 K/uL (0.7-4.9); Absolute Monocytes 0.6 K/uL (0.1-1.3); Absolute Neutrophil 4.8 K/uL (1.8-8.0); Basophils % 1.1 % (0-1.3); Hematocrit 43.9 % (36.0-45.0); Lymphocytes % 30.8 % (15.3-44.8); MCH 30.5 pg (27.0-35.0); MCHC 34.1 g/dL (32.0-36.0); MCV 89.5 fL (80-100); MPV 8.3 fL (7.6-11.3); Monocytes % 7.7 % (3.3-12.3); Neutrophils % 57.4 % (41.7-73.7); Nucleated Red Blood Cells % 0.1 % (0-0); Platelets 308 thou/uL (152-406); Red Cell Distribution Width 13.5 % (12.1-15.2)
--- NOTE | 2024-06-04 14:46 | RAD REPORT ---
EXAM: Chest Pa And Lat (2 Views) HISTORY: 74 years Female pre-op pending mastectomy bilateral COMPARISON: 10/28/2023 FINDINGS: LUNGS/PLEURA: The lungs are clear. No pleural effusions or pneumothorax. No pulmonary edema. MEDIASTINUM: The mediastinal silhouette is within normal limits CARDIAC: The cardiac silhouette is within normal limits. UPPER ABDOMEN: No significant abnormality. BONES: No acute abnormality. LINES/TUBES/OTHER: N/A IMPRESSION: No evidence of acute cardiopulmonary disease.
[2024-06-05] MEDS: NA CHLORIDE 0.9% 1,000 ML ONE ×2 (06:00→12:30)
[2024-06-05] MEDS ORDERED: LIDOCAINE 1% MPF 5 ML VIAL ONE (06:02)
[2024-06-05] MEDS ORDERED: EPINEPHRINE 1 MG/ML VIAL ONE ×2 (06:02→06:19)
[2024-06-05] MEDS ORDERED: FENTANYL CITR 100 MCG/2 ML ONE (06:02)
[2024-06-05] MEDS ORDERED: BUPIVACAINE 0.25% PF 10 ML VIAL ONE ×2 (06:02→06:20)
[2024-06-05] MEDS ORDERED: dexAMETHasone 10 MG/ML VIAL ONE ×2 (06:02→06:19)
[2024-06-05] MEDS ORDERED: MIDAZOLAM HCL 2 MG/2 ML INJ ONE (06:03)
[2024-06-05] MEDS ORDERED: BUPIVACAINE 0.5% PF 10 ML VIAL ONE ×3 (06:03→09:27)
[2024-06-05] MEDS ORDERED: MAGNESIUM SULFATE 1 gm IVPB 1 GM/100 ML BAG IV ONE (06:03)
[2024-06-05] MEDS ORDERED: DEXMEDETOMIDINE HCL 200 MCG/2 ML VIAL ONE (06:03)
--- NOTE | 2024-06-05 07:55 | RAD REPORT ---
PROCEDURE: Lymphoscintigraphy of the left breast HISTORY: C50.912 AGENT: 261 uCi of Lymphoseek. TECHNIQUE: The breast was prepped with alcohol in the periareolar region. The radiopharmaceutical was injected i ntradermally periareolar lateral medial aspect left breast. Immediate imaging shows good radiopharmaceutical localization. IMPRESSION: Technically successful left lymphoscintigraphy injections as detailed.
[2024-06-05] MEDS ORDERED: ONDANSETRON 4 MG/2 ML VIAL ONE (09:18)
[2024-06-05] MEDS ORDERED: LIDOCAINE 2% MPF 5 ML VIAL ONE ×3 (09:18→09:59)
[2024-06-05] MEDS ORDERED: propofoL 200 MG/20 ML VIAL IV ONE (09:18)
[2024-06-05] MEDS ORDERED: ROCURONIUM 50 MG/5 ML VIAL IV ONE (09:24)
[2024-06-05] MEDS: CEFAZOLIN SODIUM 2 GM/VIAL ONE (09:50)
[2024-06-05] MEDS ORDERED: KETAMINE HCL IN 0.9 % NACL 50 MG/5 ML SYRINGE IV ONE (09:59)
[2024-06-05] MEDS: METHYLENE BLUE 1% 10 ML VIAL ONE (10:10)
[2024-06-05] MEDS ORDERED: GLYCOPYRROLATE 0.2 MG/ML SYR ONE (11:13)
--- NOTE | 2024-06-05 11:30 | EKG ---
Test Date: 2024-06-04 Test Time: 14:43:56 Psych Social Worker: BERNABE MEASUREMENT RESULTS: Intervals: Rate: 80 IL: 182 QRSD: 84 QT: 368 QTc: 424 [place]: P: 18 IL: 182 QRS: -33 T: 9 INTERPRETIVE STATEMENTS: Normal sinus rhythm Possible Left atrial enlargement Left axis deviation Anterolateral infarct, age undetermined Abnormal ECG Compared to ECG 08/25/2023 22:21:01 Left-axis deviation now present Myocardial infarct finding still present Electronically Signed On 06-05-24 11:28:03 [employer]ICAL TECHNOLOGIST [employer] by Armando Govea
[2024-06-05] MEDS ORDERED: EPHEDRINE SULF 50 MG/ML VIAL ONE (11:33)
--- NOTE | 2024-06-05 12:54 | P.OP ---
Date of Service: 06/05/24 Preop diagnosis: Left breast cancer Postop diagnosis: Same Procedure performed: Needle localization and left breast mastectomy, left breast sentinel node biopsy, right breast simple mastectomy Surgeon: Glynn Alvarado MD Nurse Aide Evaluator: Ellie PEREYRA Estimated blood loss: Minimal Specimen: Left breastmargin free, left-sided sentinel lymph nodenegative for metastatic disease, right breast Findings: As above Anesthesia: General Complications: None Drains: JORJE #10 flat one on each side Fluids and blood products: Nonapplicable Disposition: Recovery room Operative note: Patient brought to the OR and placed in supine position. General anesthesia began. Then under sterile condition methylene blue injected around the left nipple areolar complex. Breast massaged. Then patient prepped and draped in the usual sterile fashion. A counter device used to isolate the sentinel node in the left axilla. All counts were recorded in the medical records. A 3 cm incision made in the left axilla. Deep to the subcutaneous tissue to blue lymph nodes identified and excised. Bleeding controlled with cautery, clips and 3-0 silk ties. Frozen section revealed no evidence of metastatic disease. A standard mastectomy was performed. Ellipse of skin was made from the medial to the lateral aspect encompassing the entire breast. The incision itself was approximately 25 x 10 cm. Subcutaneous tissue divided. Flaps created. Dissection proceeded to the clavicle superiorly, border of the sternum medially, insertion of the rectus abdominis muscle inferiorly and latissimus dorsi laterally. All breast tissue was removed off of the pectoralis fascia. The breast was appropriately labeled and sent to pathology. The margins were free. Entire wound irrigated. Bleeding controlled with cautery and 3-0 silk ties. #10 flat JORJE drain placed and secured with 3-0 nylon. 2-0 chromic and 3-0 chromic used to reapproximate the subcutaneous tissue and close skin. Sterile dressing applied. Exact same operation occurred on the right side. After both sides were closed, sterile dressing was applied. Patient was awakened and taken to recovery room in good general condition. CC: Dr. Mcintosh's office
[2024-06-05] MEDS: Mastisol Adhesive Liq ONE ×2 (12:57)
[2024-06-05] MEDS: HYDROMORPHONE HCL 1 MG/ML INJ ONE (14:03)
[2024-06-05] MEDS ORDERED: TRAMADOL HCL 50 MG TAB PO ONE (14:50)
[2024-06-05] MEDS: TRAMADOL 37.5mg/APAP 325mg PER TAB PO ONE (14:54)
[2024-06-05] MEDS: TRAMADOL 37.5mg/APAP 325mg PER TAB ONE (14:55)
[2024-06-05 16:01] VITALS: BP 117/54; TEMP 97.8; O2SAT 95
== END 2024-06-05 15:45 | disposition home or self-care (01) ==
LOC: OR 05:34
PROVIDERS: ATTEND Surgery
PROC: 0HTU0ZZ Resection of Left Breast, Open Approach (ICD-10-PCS; principal; 2024-06-05 09:00)
PROC: 0HTT0ZZ Resection of Right Breast, Open Approach (ICD-10-PCS; 2024-06-05 09:00)
DX: C50.912 Malignant neoplasm of unspecified site of left female breast (principal)
CPT/HCPCS: 19307; 19303; 93005; 85025; 80048; 36415; 82947 ×2; 88307; 71046; 78195; J3475; J2704; J2003 ×4; J2250; J3010; J1100 ×2; J0171 ×2; J1171; J2405; J7030 ×2; A9520; A4314

== ENCOUNTER 2024-06-06 13:58 | Inpatient (IN) | payer OTHER ==
[2024-06-06 14:53] LABS: Sqamous Epithelial <5 /HPF (None Seen); Urine Bacteria <20 /HPF (<20); Urine Culture Reflex Order NOT NEEDED; Urine Micro Reflex YN NO BILL MICROSCOPIC; Urine Mucus Slight /HPF (None Seen); Urine RBC <5 /HPF (None Seen); Urine WBC <5 /HPF (<5); Urine Yeast (Budding) Trace /HPF (None Seen)
[2024-06-06] MEDS ORDERED: NA CHLORIDE 0.9% 3,000 ML ONE (15:32)
[2024-06-06 15:57] LABS: Absolute Lymphocytes (CBC) 1.4 K/uL (0.7-4.9); Absolute Monocytes 1.7 K/uL (0.1-1.3); Absolute Neutrophil 14.7 K/uL (1.8-8.0); Basophils % 0.2 % (0-1.3); Eosinophils % 0.1 % (0-4.4); Hematocrit 25.6 % (36.0-45.0); Hemoglobin 8.7 g/dL (12.0-15.0); Lymphocytes % 7.6 % (15.3-44.8); MCH 30.8 pg (27.0-35.0); MCV 90.3 fL (80-100); MPV 9.2 fL (7.6-11.3); Monocytes % 9.5 % (3.3-12.3); Neutrophils % 82.6 % (41.7-73.7); Nucleated Red Blood Cells % 0.1 % (0-0); Platelets 270 thou/uL (152-406); RBC Red Blood Cell Count 2.83 M/uL (3.86-4.86); Red Cell Distribution Width 13.5 % (12.1-15.2)
[2024-06-06 16:08] LABS: PT Prothrombin Time 11.2 SECONDS (9.4-12.5); Protime INR 1.07
[2024-06-06 16:16] LABS: ALT/SGPT 16 U/L (13-56); AST/SGOT 15 U/L (15-37); Albumin 2.6 g/dL (3.4-5.0); Albumin/Globulin Ratio 1.1 (1.1-1.8); Alkaline Phosphatase 51 U/L (45-117); Anion Gap 14.2 mEq/L (5.0-15.0); BUN Blood Urea Nitrogen 38 mg/dL (7-18); Bicarbonate 20 mEq/L (21-32); Bilirubin Total 0.2 mg/dL (0.2-1.0); Globulin 2.4 g/dL (2.3-3.5); Glomerular Filtration Rate 22 ml/min (=/>90); Glucose Level 319 mg/dL (74-106); Lipase 39 U/L (13-75); NT PRO-BNP 137 pg/mL (<125); Potassium 4.2 mEq/L (3.5-5.1); Sodium Level 138 mEq/L (136-145); Troponin High Sensitivity 18.3 pg/mL (<58.9)
[2024-06-06 16:20] LABS: Bilirubin Direct < 0.2 mg/dL (0-0.2)
--- NOTE | 2024-06-06 16:23 | ER ---
Nurse's Notes [facility] Name: Lupe Anaya Age: 74 yrs Sex: Female : 1950 Arrival Date: 06/06/2024 Time: 13:58 Bed 3 Private MD: Diagnosis: Acute posthemorrhagic anemia;Syncope Near;Postprocedural hemorrhage of skin and subcutaneous tissue following other procedure-MASTECTOMY;Hypotension, unspecified;Obesity, unspecified;Acute kidney failure, unspecified;Elevated white blood cell count;Type 2 diabetes mellitus with hyperglycemia;Nontraumatic hematoma of soft tissue-POST SURGICAL 21 CM X 17 CM RIGHT CHEST WALL Presentation: 06/06 14:11 Chief complaint: EMS states: toned out for fall - no injury. Pt reports double ld1 mastectomy yesterday, EMS reports low BP upon arrival to home, diaphoretic, AMS. Coronavirus screen: At this time, the client does not indicate any symptoms associated with coronavirus-19. Ebola Screen: No symptoms or risks identified at this time. Initial Sepsis Screen:. Risk Assessment: Do you want to hurt yourself or someone else? Patient reports no desire to harm self or others. Onset of symptoms was June 06, 2024. 14:11 Method Of Arrival: EMS: [facility] ld1 14:11 Acuity: NADER 2 ld1 14:15 Initial Sepsis Screen: Does the patient meet any 2 criteria? No. Patient's initial ld1 sepsis screen is negative. Does the patient have a suspected source of infection? No. Patient's initial sepsis screen is negative. Triage Assessment: 14:13 General: Appears in no apparent distress. comfortable, Behavior is calm, cooperative. ld1 Pain: Complains of pain in chest Pain does not radiate. Pain currently is 7 out of 10 on a pain scale. Quality of pain is described as burning, Pain began 30 min ago. Is continuous. EENT: No signs and/or symptoms were reported regarding the EENT system. Neuro: Level of Consciousness is awake, alert, obeys commands, Oriented to person, place, time, situation, Appropriate for age. Cardiovascular: Capillary refill < 3 seconds Patient's skin is warm and dry. Respiratory: Reports shortness of breath at rest Airway is patent Respiratory effort is even, unlabored. GI: Abdomen is round obese. : No signs and/or symptoms were reported regarding the genitourinary system. Derm: Skin is diaphoretic, Skin is pale. Musculoskeletal: No signs and/or symptoms reported regarding the musculoskeletal system. Historical: - Allergies: 14:12 Dilantin; ld1 14:12 Erythromycin; ld1 - PMHx: 14:12 diabetes mellitus; Hypercholesterolemia; Hypertensive disorder; ld1 14:13 Breast cancer; ld1 - PSHx: 14:13 Double mastectomy; ld1 - Immunization history:: Adult Immunizations up to date. - Infectious Disease History:: Denies. - Social history:: Smoking status: Patient denies any tobacco usage or history of. - Family history:: not pertinent. Screenin:17 [facility] ED Fall Risk Assessment (Adult) History of falling in the last 3 months, ld1 including since admission No falls in past 3 months (0 pts) Confusion or Disorientation No (0 pts) Intoxicated or Sedated No (0 pts) Impaired Gait No (0 pts) Mobility Assist Device Used No (0 pt) Altered Elimination No (0 pt) Score/Fall Risk Level 0 - 2 = Low Risk Oriented to surroundings, Hourly rounding (assess needs \T\ fall precautionary measures) done. Abuse screen: Denies threats or abuse. Denies injuries from another. Nutritional screening: No deficits noted. Tuberculosis screening: No symptoms or risk factors identified. Assessment: 14:17 Reassessment: See triage assessment. ld1 Vital Signs: 14:10 BP 187 / 52; Pulse 92; Resp 12; Temp 97.3(O); Pulse Ox 98% on R/A; Weight 104.33 kg; ld1 Height 5 ft. 4 in. ; 14:57 BP 104 / 43; Pulse 90; Resp 10; Pulse Ox 99% on R/A; ld1 15:48 BP 132 / 53; Pulse 78; Resp 18; Pulse Ox 96% on R/A; ld1 15:56 BP 121 / 56; Pulse 83; Resp 13; Pulse Ox 97% on R/A; ld1 14:10 Body Mass Index 39.48 (104.33 kg, 162.56 cm) ld1 ED Course: 14:08 Patient arrived in ED. ko1 14:12 Akhil Roa MD is Attending Physician. [facility] 14:12 Triage completed. ld1 14:13 Arm band placed on right wrist. EKG completed in triage. Results shown to MD. ld1 14:17 Patient has correct armband on for positive identification. Placed in gown. Bed in low ld1 position. Call light in reach. Side rails up X2. court recording monitor on. Pulse ox on. NIBP on. Door closed. Noise minimized. Warm blanket given. 14:17 No provider procedures requiring assistance completed. Maintain EMS IV. Dressing ld1 intact. Good blood return noted. Site clean \T\ dry. Gauge \T\ site: 20G RFA. 14:40 Missed attempt(s): 22 gauge in right forearm. ld1 14:43 Radiology exam delayed due to IV insertion attempt and/or patient not having jc4 appropriate IV at this time. 14:45 Missed attempt(s): 20 gauge in left antecubital area. ld1 14:48 Missed attempt(s): 22 gauge in right antecubital area. ld1 14:53 Madisyn Mccullough RN is Primary Nurse. ld1 15:48 Type And Screen Sent. ld1 15:55 Assisted provider with central line placement. Set up central line tray. Triple lumen ld1 line placed in right femoral. Line placed by Akhil Roa MD Placement verified by blood return, Dressed with Tegaderm, Blood was collected. Patient tolerated well. Before procedure, did Practitioner(s) obtain informed consent? Yes. Patient \T\ family education about procedure, CLABSI prevention and S/S of infection? Yes. Time-out/Briefing performed prior to start of procedure? Yes. Was handwashing/sanitizing done immediately prior to procedure? Yes. Was patient positioned to in a way to prevent air embolism? Yes. Was procedure site sterilized? Yes, with chlorhexidine. Was the site allowed to dry? Yes. Was local anesthetic and/or sedation utilized? Yes. During the procedure, did the Practitioner(s) maintain a sterile field? Yes. Were unused ports clamped during insertion? Yes. Was a 2nd qualified MD obtained after 3 unsuccessful insertion attempts? No. Was blood aspirated from each lumen? Yes. After the procedure, did the Practitioner(s) clean the site and apply a sterile dressing? Yes. 16:20 Radha Salas MD is Hospitalizing Provider. marina 16:30 XRAY Chest (1 view) In Process Unspecified. EDMS 17:18 CT Chest For PE Angio In Process Unspecified. EDMS 18:30 Bb Add On Sent. ko1 06/07 02:12 Patient admitted, IV remains in place. lg3 Administered Medications: 06/06 15:47 Drug: NS 0.9% IV (30 ml/kg) 30 ml/kg IV at bolus once; Sepsis Protocol; to be given as ld1 a bolus over 90 minutes Route: IV; Rate: bolus; Site: PICC; 15:48 Drug: Famotidine IVP 20 mg IVP once; dilute with 10 mL 0.9% NaCl; give over 2 minutes ld1 Route: IVP; Site: right femoral; 16:03 Follow up: Response: No adverse reaction ko1 18:41 Drug: Mucomyst - Acetylcysteine PO 600 mg PO once Route: PO; ld1 20:15 Follow up: Response: No adverse reaction lg3 20:12 Drug: Piperacillin-Tazobactam IVPB 3.375 grams IVPB once over 60 mins; (mix in NS 100 lg3 mL) Route: IVPB; Infused Over: 60 mins; Site: right forearm; 20:15 Follow up: IV Status: Infusion continued upon admission lg3 Medication: 14:17 VIS not applicable for this client. ld1 Outcome: 16:23 Decision to Hospitalize by Provider. marina 06/07 02:12 Patient left the ED. lg3 02:12 Admitted to ICU accompanied by nurse, via stretcher, room 1, lg3 02:12 Condition: stable 02:12 Instructed on the need for admit, Signatures: Dispatcher [employer] Akhil Angel MD MD cha Able, Lacie, RN RN lg3 Madisyn Mccullough, KEE RN ld1 Sonya Tucker, KEE RN ko1 Hema Razo [id number]
--- NOTE | 2024-06-06 16:23 | EDPHYS ---
Physician Documentation [facility] Name: Lupe Anaya Age: 74 yrs Sex: Female : 1950 Arrival Date: 06/06/2024 Time: 13:58 Bed 3 Private MD: ED Physician Akhil Roa HPI: 06/06 14:36 This 74 yrs old Female presents to ER via EMS with complaints of syncope , sp marina double mastectomy. 14:36 weak, syncope, blood loss. The patient has experienced syncope, became unresponsive, marina collapsed. Onset: The symptoms/episode began/occurred just prior to arrival. Duration: This was a single episode, that lasted an unknown period of time. Context: occurred at home. Associated injury: The patient did not suffer any apparent associated injury. Associated signs and symptoms: The patient has no apparent associated signs or symptoms. Current symptoms: Currently, the patient is not experiencing any symptoms, the patient feels back to baseline. Severity of symptoms: At their worst the symptoms were moderate in the emergency department the symptoms have improved moderately. Historical: - Allergies: 14:12 Dilantin; ld1 14:12 Erythromycin; ld1 - PMHx: 14:12 diabetes mellitus; Hypercholesterolemia; Hypertensive disorder; ld1 14:13 Breast cancer; ld1 - PSHx: 14:13 Double mastectomy; ld1 - Immunization history:: Adult Immunizations up to date. - Infectious Disease History:: Denies. - Social history:: Smoking status: Patient denies any tobacco usage or history of. - Family history:: not pertinent. ROS: 14:36 Constitutional: Negative for fever, chills, and weight loss, Eyes: Negative for injury, marina pain, redness, and discharge, ENT: Negative for injury, pain, and discharge, Neck: Negative for injury, pain, and swelling, Cardiovascular: Negative for chest pain, palpitations, and edema, Respiratory: Negative for shortness of breath, cough, wheezing, and pleuritic chest pain, Abdomen/GI: Negative for abdominal pain, nausea, vomiting, diarrhea, and constipation, Back: Negative for injury and pain, : Negative for injury, bleeding, discharge, and swelling, MS/Extremity: Negative for injury and deformity, Neuro: Negative for headache, weakness, numbness, tingling, and seizure, Psych: Negative for depression, anxiety, suicide ideation, homicidal ideation, and hallucinations, Allergy/Immunology: Negative for hives, rash, and allergies, Endocrine: Negative for neck swelling, polydipsia, polyuria, polyphagia, and marked weight changes, 14:36 Skin: Positive for pallor, Exam: 14:36 Constitutional: This is a well developed, well nourished patient who is awake, alert, marina and in no acute distress. Head/Face: Normocephalic, atraumatic. Eyes: Pupils equal round and reactive to light, extra-ocular motions intact. Lids and lashes normal. Conjunctiva and sclera are non-icteric and not injected. Cornea within normal limits. Periorbital areas with no swelling, redness, or edema. Neck: Trachea midline, no thyromegaly or masses palpated, and no cervical lymphadenopathy. Supple, full range of motion without nuchal rigidity, or vertebral point tenderness. No Meningismus. Chest/axilla: Normal chest wall appearance and motion. Nontender with no deformity. No lesions are appreciated. Cardiovascular: Regular rate and rhythm with a normal S1 and S2. No gallops, murmurs, or rubs. Normal PMI, no JVD. No pulse deficits. Respiratory: Lungs have equal breath sounds bilaterally, clear to auscultation and percussion. No rales, rhonchi or wheezes noted. No increased work of breathing, no retractions or nasal flaring. Abdomen/GI: Soft, non-tender, with normal bowel sounds. No distension or tympany. No guarding or rebound. No evidence of tenderness throughout. Back: No spinal tenderness. No costovertebral tenderness. Full range of motion. MS/ Extremity: Pulses equal, no cyanosis. Neurovascular intact. Full, normal range of motion., bilateral aka Neuro: Awake and alert, GCS 15, oriented to person, place, time, and situation. Cranial nerves II-XII grossly intact. Motor strength 5/5 in all extremities. Sensory grossly intact. Cerebellar exam normal. Normal gait. Psych: Awake, alert, with orientation to person, place and time. Behavior, mood, and affect are within normal limits. 14:36 ENT: Posterior pharynx: is normal, no acute changes, Airway: normal, no evidence of obstruction, Tonsils: are normal in appearance, Uvula: normal, midline, non-edematous, no erythema, Vital Signs: 14:10 BP 187 / 52; Pulse 92; Resp 12; Temp 97.3(O); Pulse Ox 98% on R/A; Weight 104.33 kg; ld1 Height 5 ft. 4 in. ; 14:57 BP 104 / 43; Pulse 90; Resp 10; Pulse Ox 99% on R/A; ld1 15:48 BP 132 / 53; Pulse 78; Resp 18; Pulse Ox 96% on R/A; ld1 15:56 BP 121 / 56; Pulse 83; Resp 13; Pulse Ox 97% on R/A; ld1 14:10 Body Mass Index 39.48 (104.33 kg, 162.56 cm) ld1 Procedures: 15:54 Central Line: the site was prepped with Betadine, in sterile fashion, a triple lumen marina catheter was inserted, in the right femoral vein, in 2 attempts. placement was verified, by blood return, the site was dressed with using sterile technique, the patient tolerated the procedure, well. MDM: 14:12 Medical Screening Exam initiated marina 14:42 Differential Diagnosis altered mental status, sepsis, flu. Differential Diagnosis: marina aortic aneurysm, cardiac arrhythmia, cerebrovascular accident, drug effect, emotional response, GI bleed, sepsis, vasovagal episode. Data reviewed: vital signs, nurses notes, EMS record, lab test result(s), EKG, radiologic studies, CT scan, plain films. Consideration of Admission/Observation Patient was admitted/placed on observation. Escalation of care including admission/observation considered. I considered the following discharge prescriptions or medication management in the emergency department Medications were administered in the Emergency Department. See MAR. Independent interpretation of the following test(s) in the Emergency Department EKG: See my EKG interpretation above. Test considered but Not performed: Ultrasound no chest usg. Care significantly affected by the following chronic conditions: Diabetes, Hypertension, Obesity, Cancer. Counseling: I had a detailed discussion with the patient and/or guardian regarding the historical points, exam findings, and any diagnostic results supporting the discharge/admit diagnosis, lab results, radiology results, the need for further work-up and treatment in the hospital. 06/06 14:14 Order name: Basic Metabolic Panel; Complete Time: 17:32 [facility] 06/06 14:14 Order name: CBC with Diff; Complete Time: 17:32 [facility] 06/06 14:14 Order name: LFT's; Complete Time: 17:32 [facility]ina 06/06 14:14 Order name: Magnesium; Complete Time: 17:32 [facility]ina 06/06 14:14 Order name: NT PRO-BNP; Complete Time: 17:32 marina 06/06 14:14 Order name: PT-INR; Complete Time: 17:32 [facility]ina 06/06 14:14 Order name: Troponin HS; Complete Time: 17:32 [facility]ina 06/06 14:14 Order name: Lipase; Complete Time: 17:32 marina 06/06 14:14 Order name: Type And Screen [facility] 06/06 14:39 Order name: Bb Add On iw 06/06 14:45 Order name: Urine Microscopic Only; Complete Time: 14:59 [facility] 06/06 16:17 Order name: PRBC [facility] 06/06 16:19 Order name: ABO/RH typing ED[facility] 06/06 16:19 Order name: Antibody Screen [facility] 06/06 16:48 Order name: Packed RBCs (Additional Unit) ED[facility] 06/06 18:15 Order name: Urinalysis w/ reflexes ED[facility] 06/06 18:15 Order name: Basic Metabolic Panel [facility] 06/06 18:15 Order name: Basic Metabolic Panel [facility] 06/06 18:15 Order name: Basic Metabolic Panel EDMS 06/06 18:15 Order name: Basic Metabolic Panel EDMS 06/06 18:15 Order name: CBC with Automated Diff EDMS 06/06 18:15 Order name: CBC with Automated Diff EDMS 06/06 18:15 Order name: CBC with Automated Diff EDMS 06/06 18:15 Order name: CBC with Automated Diff EDMS 06/06 18:15 Order name: Magnesium EDMS 06/06 18:15 Order name: Magnesium EDMS 06/06 18:15 Order name: Magnesium EDMS 06/06 18:15 Order name: Magnesium [facility]MS 06/06 18:15 Order name: NT PRO-BNP [facility] 06/06 18:15 Order name: NT PRO-BNP EDMS 06/06 18:15 Order name: NT PRO-BNP EDMS 06/06 18:15 Order name: T4 Free EDMS 06/06 18:15 Order name: T4 Free EDMS 06/06 18:15 Order name: Thyroid Stimulating Hormone EDMS 06/06 18:15 Order name: Thyroid Stimulating Hormone EDMS 06/06 18:22 Order name: ABO/RH no charge; Complete Time: 01:12 [facility] 06/06 18:34 Order name: Hematocrit [facility] 06/06 18:34 Order name: Hematocrit [facility] 06/06 18:34 Order name: Hematocrit [facility] 06/06 18:34 Order name: Hematocrit [facility] 06/06 18:34 Order name: Hemoglobin [facility] 06/06 18:34 Order name: Hemoglobin [facility] 06/06 18:34 Order name: Hemoglobin [facility] 06/06 18:34 Order name: Hemoglobin [facility] 06/06 18:36 Order name: Protime (+INR) [facility] 06/06 18:36 Order name: Protime (+INR) [facility] 06/06 20:03 Order name: Hemoglobin; Complete Time: 01:12 [facility] 06/06 20:03 Order name: Hematocrit; Complete Time: 01:12 [facility] 06/06 20:36 Order name: Glucose, Ancillary Testing; Complete Time: 01:12 [facility] 06/06 14:14 Order name: XRAY Chest (1 view); Complete Time: 17:50 [facility] 06/06 14:14 Order name: CT Chest For PE Angio; Complete Time: 18:17 [facility] 06/06 14:14 Order name: EKG; Complete Time: 14:15 [facility] 06/06 18:13 Order name: CONS Physician Consult [facility] 06/06 14:14 Order name: Cardiac monitoring; Complete Time: 14:19 [facility] 06/06 14:14 Order name: EKG - Nurse/Tech; Complete Time: 14:19 [facility] 06/06 14:14 Order name: IV Saline Lock; Complete Time: 14:19 [facility] 06/06 14:14 Order name: Labs collected and sent; Complete Time: 15:48 [facility] 06/06 14:14 Order name: O2 Per Protocol; Complete Time: 14:19 [facility] 06/06 14:14 Order name: O2 Sat Monitoring; Complete Time: 14:19 [facility] 06/06 14:14 Order name: IV Saline Lock - Large Bore; Complete Time: 15:48 [facility] 06/06 15:52 Order name: Central Line Kit; Complete Time: 15:55 [facility] 06/06 16:17 Order name: Transfuse; Complete Time: 18:30 [facility] 06/06 17:01 Order name: Misc. Order: STOP LEVOPHED; Complete Time: 18:30 marina Administered Medications: 15:47 Drug: NS 0.9% IV (30 ml/kg) 30 ml/kg IV at bolus once; Sepsis Protocol; to be given as ld1 a bolus over 90 minutes Route: IV; Rate: bolus; Site: PICC; 15:48 Drug: Famotidine IVP 20 mg IVP once; dilute with 10 mL 0.9% NaCl; give over 2 minutes ld1 Route: IVP; Site: right femoral; 16:03 Follow up: Response: No adverse reaction ko1 18:41 Drug: Mucomyst - Acetylcysteine PO 600 mg PO once Route: PO; ld1 20:15 Follow up: Response: No adverse reaction lg3 20:12 Drug: Piperacillin-Tazobactam IVPB 3.375 grams IVPB once over 60 mins; (mix in NS 100 lg3 mL) Route: IVPB; Infused Over: 60 mins; Site: right forearm; 20:15 Follow up: IV Status: Infusion continued upon admission lg3 Disposition Summary: 06/06/24 16:23 Hospitalization Ordered Notes: Hospitalization Status: Inpatient Admission marina Provider: Radha Salas cha Condition: Stable marina Problem: new marina Symptoms: have improved marina Bed/Room Type: Standard marina Location: Intensive Care Unit(06/07/24 00:21) Room Assignment: 1-(06/07/24 00:21) Diagnosis - Acute posthemorrhagic anemia marina - Syncope Near marina - Postprocedural hemorrhage of skin and subcutaneous tissue following other procedure marina - MASTECTOMY - Hypotension, unspecified marina - Obesity, unspecified marina - Acute kidney failure, unspecified marina - Elevated white blood cell count marina - Type 2 diabetes mellitus with hyperglycemia marina - Nontraumatic hematoma of soft tissue - POST SURGICAL 21 CM X 17 CM RIGHT CHEST WALL marina Forms: - Medication Reconciliation Form marina - SBAR form marina - Leadership Thank You Letter marina Critical care time excluding procedures: 18:18 Critical care time: Bedside Care: 40 minutes, Consultation: 20 minutes, Family marina Intervention: 10 minutes. Total time: 70 minutes Signatures: Dispatcher [employer] Alberta Brandon RN RN kl Anderson, Corey, MD MD cha Able, Lacie, RN RN lg3 Madisyn Mccullough RN RN ld1 Winston Dong MD MD rt Ellie Palma FNP [employer]PER[employer] cm12 Sonya Tucker RN ko1 Corrections: (The following items were deleted from the chart) 14:15 14:14 BASIC METABOLIC PANEL+C.LAB.BRZ ordered. EDMS EDMS 14:15 14:14 CBC+H.LAB.BRZ ordered. EDMS EDMS 14:15 14:14 HEPATIC FUNCTION+C.LAB.BRZ ordered. EDMS EDMS 14:15 14:14 MAGNESIUM+C.LAB.BRZ ordered. EDMS EDMS 14:15 14:14 PROBNP+C.LAB.BRZ ordered. EDMS EDMS 14:15 14:14 PROTIME (+INR)+COAG.LAB.BRZ ordered. EDMS EDMS 14:15 14:14 Troponin High Sensitivity+C.LAB.BRZ ordered. EDMS EDMS 14:15 14:14 LIPASE+C.LAB.BRZ ordered. EDMS EDMS 14:15 14:14 TYPE AND SCREEN+BB.LAB.BRZ ordered. EDMS EDMS 14:15 14:15 Chest For PE Angio+CT.RAD.BRZ ordered. EDMS EDMS 14:45 14:14 Urinalysis+U.LAB.BRZ ordered. EDMS EDMS 17:53 17:29 Thorax Wo Con+CT.RAD.BRZ ordered. EDMS EDMS 06/07 00:21 06/06 16:23 Telemetry/MedSurg (Inpatient) marina delgado 06/07 00:21 06/06 16:23 [facility] sandy
[2024-06-06] MEDS ORDERED: NA CHLORIDE 0.9% 250 ML ONE ×3 (17:14→21:42)
--- NOTE | 2024-06-06 17:33 | RAD REPORT ---
EXAMINATION: ONE VIEW CHEST XR CLINICAL INDICATION: Female, 74 years old.,DYSPNEA TECHNIQUE: Frontal chest projection is submitted. Examination is limited by patient positioning and t echnique. COMPARISON: 06/04/2024. FINDINGS: The lungs are grossly clear although mildly suboptimal inspiratory effort somewhat limits evaluation. No pneumothorax or sizable effusion. The heart is normal in size. Mediastinal contours are unremarkable. Surgical drains along the lower chest wall, and surgical clips seen in the left axilla. IMPRESSION: No acute intrathoracic abnormalities.
--- NOTE | 2024-06-06 18:09 | RAD REPORT ---
EXAM: CT Chest For Pe Angio TECHNIQUE: CT angiogram of the chest was performed following intravenous contrast administration, inc luding sagittal and coronal as well as maximum intensity projection reformats. One or more of the following dose reduction techniques were used: Automated exposure control, adjustment of the mA and k V according to patient size, and iterative reconstruction. Unless otherwise specified, incidental findings do not require dedicated imaging follow-up. INDICATION: [facility] DYSPNEA Bed Name: 3 N COMPARISON: 06/30/2022. FINDINGS: LINES/TUBES: None. PULMONARY ARTERIES: Main pulmonary arteries are normal in caliber. No filling defects within the pul monary arteries to suggest pulmonary embolus. LUNGS AND AIRWAYS: The lungs and central airways are normal without focal abnormality. PLEURA: No effusion or pneumothorax. HEART AND MEDIASTINUM: The visualized thyroid gland is normal. No mediastinal, hilar, or axillary lym phadenopathy. Heart is unremarkable. No pericardial effusion. SOFT TISSUES AND BONES: Postsurgical changes with surgical drains along the anterior chest wall bilat erally. Large crescentic hematoma along the right chest wall, measuring 21 x 17.1 cm in greatest transverse and CC dimensions, and 4.2 cm in greatest thickness. Cutaneous asymmetric edema along the right chest wall extending into the right axilla and right upper flank soft tissues. UPPER ABDOMEN: Unremarkable. IMPRESSION: No evidence of acute central pulmonary emboli. No suspicious intrathoracic findings. Large crescentic right chest wall hematoma, measuring 21 x 17.1 x 4.2 cm, in the right mastectomy bed . The surgical drain is present within the inferior aspect of this hematoma. No acute osseous abnormality.
[2024-06-06] MEDS ORDERED: NA CHLORIDE 0.9% 100 ML ONE (18:32)
[2024-06-06] MEDS ORDERED: ACETYLCYST 6,000 MG/30 ML VIAL ONE (18:32)
[2024-06-06] MEDS ORDERED: PIPERACIL/TAZO 3.375 GM VIAL IV ONE (18:34)
[2024-06-06] MEDS ORDERED: Levofloxacin 750mg IV 750 MG/150 ML BAG IV SCH (19:00)
[2024-06-06] MEDS: NA CHLORIDE 0.9% 1,000 ML IV SCH ×2 (19:00→21:22)
[2024-06-06] MEDS: levoFLOXacin 750 MG TAB PO SCH (20:00)
[2024-06-06] MEDS ORDERED: NA CHLORIDE 0.9% 1,000 ML ONE (20:01)
[2024-06-06 20:02] LABS: Hematocrit 28.4 % (36.0-45.0); Hemoglobin 9.6 g/dL (12.0-15.0)
--- NOTE | 2024-06-06 20:50 | P.HP ---
Certification for Inpatient Patient admitted to: Inpatient <Ellie Palma - Last Filed: 06/06/24 21:09> Patient History Date of Service: 06/06/24 Reason for admission: B) masectomy post op bleeding History of Present Illness: 74 yrs old Female with past medical history of diabetes mellitus; Hypercholesterolemia; Hypertensive disorder; Breast cancer presents to the emergency room after a fall She reports recent bilateral mastectomy by Dr. Alvarado 06/05. She was discharged home with , they refused home health at discharge. She reports walking to the bathroom, feeling lightheaded, fall. she report not remembering all the details of the fall. She reports unsteady gait. She is alert and oriented x 2, forgetful at times. No reported Extremity pain x 4 extremity, she reports B) chest pain from post surgical sites. She has surgical dressing in place that has not been changed. B) JORJE drains, right JORJE drain was not to suction. when suction replaced moderate bleeding 300cc. Dr Alvarado was notifed, She denies fever, NVD, cough, shortness of breath. CT reveals Large crescentic right chest wall hematoma, measuring 21 x 17.1 x 4.2 cm, Left JORJE drain serosanguineous drainage 150 cc. Preop HH 15.0/43.9 on arrival to ED HH 8.7/25.6, she 1 unit packed red blood cells, H&H after 1 unit 9.6, 28 point. Surgery coming to eval chest wall. VS stable 107/50 HR 84, after 1 unit 114/54, HR 85, acute kidney injury, BUN 38/Cr 2.30, IVF, 1 u PRBC given, neph consulted. Leukocytosis WBC 17.80, with left shift, started on cefepime, Levaquin. Plan to admit for acute posthemorrhagic anemia, near syncopal episode, possible pr ocedural hemorrhage bilateral mastectomy, hypotension, acute kidney injury obesity, with surgery and nephrology to consult ER evaluation CT of chest No evidence of acute central pulmonary emboli. No suspicious intrathoracic findings.Large crescentic right chest wall hematoma, measuring 21 x 17.1 x 4.2 cm, in the right mastectomy bed. The surgical drain is present within the inferior aspect of this hematoma.No acute osseous abnormality - Past Medical/Surgical History Has patient received pneumonia vaccine in the past: Yes Diabetic: Yes -: Hypertension -: Hyperlipidemia -: Diabetes mellitus type [id number] -: Cholecystectomy -: Hysterectomy -: Back surgery x2 -: Bilateral mastectomy 06/05/24 Psychosocial/ Personal History: Patient is retired, lives at home with her - Family History Father -: Heart disease Mother -: Heart disease - Social History Alcohol use: No CD- Drugs: No Caffeine use: Yes <Ellie Palma - Last Filed: 06/06/24 21:09> Date of Service: 06/06/24 <Radha Salas - Last Filed: 06/10/24 03:25> Allergies codeine Allergy (Verified 06/04/24 13:25) Nausea/Vomiting erythromycin base Allergy (Verified 06/04/24 13:25) Nausea/Vomiting/diarrhea phenytoin [From Dilantin] Allergy (Verified 06/04/24 13:25) Hives/Rash, high fever succinylcholine Allergy (Verified 06/04/24 13:25) Stopped Breathing Home Medications: Doxepin HCl 50 mg PO DAILY 12/09/16 Levothyroxine Sodium 150 mcg PO DAILY 12/09/16 Venlafaxine HCl [Effexor XR] 150 mg PO BEDTIME 12/09/16 Dulaglutide [Trulicity] 1.5 mg IM SEECOM 06/19/22 Montelukast Sodium [Singulair] 1 tab PO DAILY 06/19/22 Venlafaxine HCl 75 mg PO DAILY 06/19/22 ARIPiprazole [Abilify] 5 mg PO DAILY 06/04/24 Carbidopa/Levodopa [Carbidopa-Levodopa 25-100 Tab] 1 each PO TID 06/04/24 Celecoxib [Celebrex] 200 mg PO DAILY 06/04/24 Colesevelam HCl 1 tab PO DAILY 06/04/24 Hyoscyamine Sulfate 0.125 mg PO DAILY 06/04/24 Losartan/Hydrochlorothiazide [Losartan-Hctz 100-12.5 mg Tab] 1 each PO DAILY 06/04/24 Pravastatin [Pravachol] 40 mg PO DAILY 06/04/24 Propranolol HCl [Propranolol HCl ER] 80 mg PO DAILY 06/04/24 Tizanidine HCl [Zanaflex] 2 mg PO BEDTIME 06/04/24 Zolpidem Tartrate [Ambien] 10 mg PO BEDTIME 06/04/24 Review of Systems 10-point ROS is otherwise unremarkable <Ellie Palma - Last Filed: 06/06/24 21:09> Physical Examination - Physical Exam General: Alert, Oriented x3, Other (Forgetful) HEENT: Atraumatic, Normocephalic Neck: 2+ carotid pulse no bruit, JVD not distended Respiratory: Clear to auscultation bilaterally, Normal air movement Cardiovascular: Normal pulses, Regular rate/rhythm, Normal S1 S2 Capillary refill: <2 Seconds Gastrointestinal: Normal bowel sounds, Soft and benign, Non-distended Musculoskeletal: Other (Generalized weakness, unsteady gait) Integumentary: Other (Bilateral mastectomy, surgical dressing, bilateral JORJE drain with bloody drainage) Neurological: Normal speech, Sensation intact, Other (Forgetful, oriented x 2-3, no focal deficit) - Studies Laboratory Data (last 24 hrs) 06/06/24 06/06/24 06/06/24 15:45 15:45 15:45 WBC 17.80 H Hgb 8.7 L Hct 25.6 L Plt Count 270 PT 11.2 INR 1.07 Sodium 138 Potassium 4.2 BUN 38 H Creatinine 2.30 H Glucose 319 H Magnesium 2.0 Total Bilirubin 0.2 AST 15 ALT 16 Alkaline Phosphatase 51 Lipase 39 <Ellie Palma - Last Filed: 06/06/24 21:09> Assessment and Plan - Problems (Diagnosis) (1) Acute posthemorrhagic anemia Current Visit: Yes Status: Acute (2) Syncope, near Current Visit: Yes Status: Acute (3) Postprocedural hemorrhage of skin and subcutaneous tissue after dermatologic procedure Current Visit: Yes Status: Acute (4) S/P bilateral mastectomy Current Visit: Yes Status: Acute (5) Hypotension, unspecified Current Visit: Yes Status: Acute Qualifiers: (6) Fall Current Visit: Yes Status: Acute Qualifiers: - Plan Assessment - Acute posthemorrhagic anemia - Syncope Near marina - Postprocedural hemorrhage of skin and subcutaneous tissue following other procedure marina - MASTECTOMY - Hypotension, unspecified Admit to ICU, Surgery consult (Jenny/Spencer) notified in ED Central line placed in the ER by ED physician IV fluids, IV antibiotics, Levaquin, cefepime, Type and cross packed red blood cells, Serial H&H, hourly vital signs, Chest x-ray No acute intrathoracic abnormalities. CTA of chest No evidence of acute central pulmonary emboli. No suspicious intrathoracic findings.Large crescentic right chest wall hematoma, measuring 21 x 17.1 x 4.2 cm, in the right mastectomy bed. The surgical drain is present within the inferior aspect of this hematoma. Surgical dressing, Wound care, bilateral JORJE drains, strict I&O Fall PT eval, and treat fall precautions Acute kidney injury likely secondary to prerenal hypotension Renal dose meds IV fluids, unit of packed red blood cells given, Avoid nephrotoxic medications Trend kidney function Diabetes Accu-Cheks, sliding scale insulin, Diabetic diet when tolerating p.o. Hypercholesterolemia Hypertensive disorder Resume appropriate home meds Full code DVT SCDs Diet n.p.o. Disposition Home with home health, pending hospital course Discharge Plan: Home - Advance Directives Does patient have a Living Will: No Does patient have a Durable POA for Healthcare: No - Code Status/Comfort Care Code Status: Full Code Critical Care: Yes Time Spent Managing Pts Care (In Minutes): 65 <Ellie Palma - Last Filed: 06/06/24 21:09> Date of Service: 06/06/24 Patient was seen and examined. Events of the last 24 hours have been noted. Spoke with with ALDO regarding patient's clinical picture after evaluating and examining the patient independently. I performed a substantial part of the MDM during this patient's care today. I personally made or approved the documented management plan and acknowledge its risk of complications. I agree with the findings and documentation provided in the ALDO's notes. patient was postop bleeding status post mastectomy. Dressing change per General surgery. A. She ate their assistance. We will get patient out of bed and ambulated possible discharge home over the next 24-48 hours. <Radha Salas - Last Filed: 06/10/24 03:25>
[2024-06-06] MEDS: INSULIN REGULAR (HUMAN) 100 UNIT/ML SQ SCH (21:00)
[2024-06-06] MEDS ORDERED: levoFLOXacin 750 MG TAB ONE (21:08)
[2024-06-06] MEDS ORDERED: TRAMADOL HCL 50 MG TAB ONE (21:09)
--- NOTE | 2024-06-06 21:10 | P.CNS ---
Date of Consult: 06/06/24 Reason for Consult: TORIE/ CKD Requesting Physician: Radha Salas Chief Complaint: B) masectomy post op bleeding History of Present Illness: 74 yrs old Female with past medical history of diabetes mellitus; Hypercholesterolemia; Hypertensive disorder; Breast cancer presents to the emergency room after a fall She reports recent bilateral mastectomy by Dr. Alvarado 06/05. She was discharged home with , they refused home health at discharge. She reports walking to the bathroom, feeling lightheaded, fall. she report not remembering all the details of the fall. She reports unsteady gait. She is alert and oriented x 2, forgetful at times. No reported Extremity pain x 4 extremity, she reports B) chest pain from post surgical sites. She has surgical dressing in place that has not been changed. B) JORJE drains, right JOREJ drain was not to suction. when suction replaced moderate bleeding 300cc. Dr Alvarado was notifed, She denies fever, NVD, cough, shortness of breath. CT reveals Large crescentic right chest wall hematoma, measuring 21 x 17.1 x 4.2 cm, Left JORJE drain serosanguineous drainage 150 cc. Preop HH 15.0/43.9 on arrival to ED HH 8.7/25.6, she 1 unit packed red blood cells, H&H after 1 unit 9.6, 28 point. Burger rgery coming to eval chest wall. VS stable 107/50 HR 84, after 1 unit 114/54, HR 85, acute kidney injury, BUN 38/Cr 2.30, IVF, 1 u PRBC given, neph consulted. Leukocytosis WBC 17.80, with left shift, started on cefepime, Levaquin. Plan to admit for acute posthemorrhagic anemia, near syncopal episode, possible procedural hemorrhage bilateral mastectomy, hypotension, acute kidney injury obesity, with surgery and nephrology to consult ER evaluation CT of chest No evidence of acute central pulmonary emboli. No suspicious intrathoracic findings.Large crescentic right chest wall hematoma, measuring 21 x 17.1 x 4.2 cm, in the right mastectomy bed. The surgical drain is present within the inferior aspect of this hematoma.No acute osseous abnormality [id number] 14:36 This 74 yrs old Female presents to ER via EMS with complaints of syncope , sp marina double mastectomy. 14:36 weak, syncope, blood loss. The patient has experienced syncope, became unresponsive, marina collapsed. Onset: The symptoms/episode began/occurred just prior to arrival. Duration: This was a single episode, that lasted an unknown period of time. Context: occurred at home. Associated injury: The patient did not suffer any apparent associated injury. Associated signs and symptoms: The patient has no apparent associated signs or symptoms. Current symptoms: Currently, the patient is not experiencing any symptoms, the patient feels back to baseline. Severity of symptoms: At their worst the symptoms were moderate in the emergency department the symptoms have improved moderately. She reports taking 3 advil daily for her back pain. No difficulty with urination. Denies hx of CKD. Allergies codeine Allergy (Verified 06/04/24 13:25) Nausea/Vomiting erythromycin base Allergy (Verified 06/04/24 13:25) Nausea/Vomiting/diarrhea phenytoin [From Dilantin] Allergy (Verified 06/04/24 13:25) Hives/Rash, high fever succinylcholine Allergy (Verified 06/04/24 13:25) Stopped Breathing Home medications list reviewed: Yes Home Medications: Doxepin HCl 50 mg PO DAILY 12/09/16 Levothyroxine Sodium 150 mcg PO DAILY 12/09/16 Venlafaxine HCl [Effexor XR] 150 mg PO BEDTIME 12/09/16 Diphenox/Atropine [Lomotil*] 1 tab PO DAILY 06/19/22 Dulaglutide [Trulicity] 1.5 mg IM SEECOM 06/19/22 Montelukast Sodium [Singulair] 1 tab PO DAILY 06/19/22 Venlafaxine HCl 75 mg PO DAILY 06/19/22 ARIPiprazole [Abilify] 5 mg PO DAILY 06/04/24 Carbidopa/Levodopa [Carbidopa-Levodopa 25-100 Tab] 1 each PO TID 06/04/24 Celecoxib [Celebrex] 200 mg PO DAILY 06/04/24 Colesevelam HCl 1 tab PO DAILY 06/04/24 Hyoscyamine Sulfate 0.125 mg PO DAILY 06/04/24 Losartan/Hydrochlorothiazide [Losartan-Hctz 100-12.5 mg Tab] 1 each PO DAILY 06/04/24 Pravastatin [Pravachol] 40 mg PO DAILY 06/04/24 Propranolol HCl [Propranolol HCl ER] 80 mg PO DAILY 06/04/24 Tizanidine HCl [Zanaflex] 2 mg PO BEDTIME 06/04/24 Zolpidem Tartrate [Ambien] 10 mg PO BEDTIME 06/04/24 - Past Medical/Surgical History Diabetic: Yes -: HTN -: HLD -: DM II -: Cholecystectomy -: Hysterectomy -: Back surgery x2 -: Bilateral mastectomy 06/05/24 Psychosocial/ Personal History: Patient is retired, lives at home with her - Family History Father Medical History: Heart disease Mother Medical History: Heart disease - Social History Alcohol use: No CD- Drugs: No Caffeine use: Yes Review of Systems 10-point ROS is otherwise unremarkable General: Weakness, Malaise Musculoskeletal: Back Pain Neurological: Confusion Physical Examination General: In no apparent distress, Cooperative, Obese HEENT: Atraumatic Neck: Supple Respiratory: Clear to auscultation bilaterally Cardiovascular: No edema, Regular rate/rhythm Gastrointestinal: Soft and benign, Non-distended Musculoskeletal: No clubbing, No contractures Integumentary: No rashes, No cyanosis Neurological: Normal speech Laboratory Data (last 24 hrs) 06/06/24 06/06/24 06/06/24 15:45 15:45 15:45 WBC 17.80 H Hgb 8.7 L Hct 25.6 L Plt Count 270 PT 11.2 INR 1.07 Sodium 138 Potassium 4.2 BUN 38 H Creatinine 2.30 H Glucose 319 H Magnesium 2.0 Total Bilirubin 0.2 AST 15 ALT 16 Alkaline Phosphatase 51 Lipase 39 Imagings Data: EXAM: CT Chest For Pe Angio TECHNIQUE: CT angiogram of the chest was performed following intravenous contrast administration, including sagittal and coronal as well as maximum intensity projection reformats. One or more of the following dose reduction techniques were used: Automated exposure control, adjustment of the mA and kV according to patient size, and iterative reconstruction. Unless otherwise specified, incidental findings do not require dedicated imaging follow-up. INDICATION: [facility]IN DYSPNEA COMPARISON: 06/30/2022. FINDINGS: LINES/TUBES: None. PULMONARY ARTERIES: Main pulmonary arteries are normal in caliber. No filling defects within the pulmonary arteries to suggest pulmonary embolus. LUNGS AND AIRWAYS: The lungs and central airways are normal without focal abnormality. PLEURA: No effusion or pneumothorax. HEART AND MEDIASTINUM: The visualized thyroid gland is normal. No mediastinal, hilar, or axillary lymphadenopathy. Heart is unremarkable. No pericardial effusion. SOFT TISSUES AND BONES: Postsurgical changes with surgical drains along the anterior chest wall bilaterally. Large crescentic hematoma along the right chest wall, measuring 21 x 17.1 cm in greatest transverse and CC dimensions, and 4.2 cm in greatest thickness. Cutaneous asymmetric edema along the right chest wall extending into the right axilla and right upper flank soft tissues. UPPER ABDOMEN: Unremarkable. IMPRESSION: No evidence of acute central pulmonary emboli. No suspicious intrathoracic findings. Large crescentic right chest wall hematoma, measuring 21 x 17.1 x 4.2 cm, in the right mastectomy bed. The surgical drain is present within the inferior aspect of this hematoma. No acute osseous abnormality. EXAMINATION: ONE VIEW CHEST XR CLINICAL INDICATION: Female, 74 years old.,DYSPNEA TECHNIQUE: Frontal chest projection is submitted. Examination is limited by patient positioning and technique. COMPARISON: 06/04/2024. FINDINGS: The lungs are grossly clear although mildly suboptimal inspiratory effort somewhat limits evaluation. No pneumothorax or sizable effusion. The heart is normal in size. Mediastinal contours are unremarkable. Surgical drains along the lower chest wall, and surgical clips seen in the left axilla. IMPRESSION: No acute intrathoracic abnormalities. Conclusions/Impression: Stage II TORIE in the setting of Celebrex and Advil CKD III -No NSAIDs -Change IVF to LR Metabolic Acidosis -Continue IVF with LR HTN with CKD -Restart home medications as indicated DM II with CKD -RISS Hypoalbuminemia -Recommend protein supplementation Anemia in chonic illness -Monitor H&H Case reviewed with the hospitalist team Hospitalist and ER notes reviewed Thank you kindly for the consultation
[2024-06-06] MEDS: TRAMADOL HCL 50 MG TAB PO PRN (21:22)
[2024-06-06] MEDS ORDERED: Ringers Lactate 1,000 ML IV SCH (22:00)
[2024-06-07 01:36] LABS: Hematocrit 30.5 % (36.0-45.0); Hemoglobin 10.5 g/dL (12.0-15.0)
[2024-06-07 01:47] LABS: Specific Gravity > 1.030 (1.005-1.030); Sqamous Epithelial <5 /HPF (None Seen); Urine Bacteria None Seen /HPF (<20); Urine Bilirubin NEGATIVE (Negative); Urine Blood Negative (Negative); Urine Clarity Extremely Turbid (Clear); Urine Color Colorless (Yellow); Urine Culture Reflex Order NOT NEEDED; Urine Glucose NEGATIVE (Negative); Urine Ketones NEGATIVE (Negative); Urine Microscopic Reflex YN ORDER UMIC; Urine Mucus Slight /HPF (None Seen); Urine Nitrite NEGATIVE (Negative); Urine Protein TRACE (Negative); Urine RBC <5 /HPF (None Seen); Urine Urobilinogen Normal (Normal); Urine WBC <5 /HPF (<5)
--- NOTE | 2024-06-07 02:06 | CON ---
Date of Consultation: 06/06/2024 Reason For Service: Check postoperative sites. History Of Present Illness: This is the case of a 74-year-old patient with history of breast cancer, status post bilateral breast mastectomy with sentinel lymph node on the left side. The patient did have surgery yesterday. I discussed the case with Dr. Alvarado, everything went uneventful. At home, s he felt dizzy and she was brought to the OR. She was discharged home with an Ted wrap and also a pos tsurgical bra. Did notice the JORJE drain having some discharge, so they asked me to come and evaluate the patient. She is awake, alert, in no distress. She is very communicative. She is no distress. No shortness of breath. No chest pain. Oriented x3. Morbidly obese. Apparently, she lobato d syncopal episode, but she denies any big falls or hitting something with her head. I had noted lian t the dressings on the chest area are below, just touching the incision, and the upper chest region h ad the Ted wrap and the postmastectomy bra is not on. She stated that they came off right away after the surgery. She has 2 JORJE drains, 1 left, 1 right side. It is mainly venous blood. There is no ac tive red blood. Obviously there are some postoperative surgical changes by the upper flaps not havin g pressure at this moment. Obviously, there is some fluid accumulation expecting that kind of situat ion. Allergies: CODEINE, ERYTHROMYCIN, DILANTIN, SUCCINYLCHOLINE. Medications: Include Effexor, Lomotil, Singulair, carbidopa, Celebrex, losartan, Pravachol, proprano lol, Zanaflex, and Ambien. Past Medical History: Includes hypertension, hyperlipidemia, morbid obesity, diabetes. Past Surgical History: Surgeries include cholecystectomy, hysterectomy, back surgery, and now a day ago bilateral mastectomy with sentinel lymph node on one side. Family History: Heart disease. Social History: She does not smoke. She does not drink alcohol. Review of Systems: See HPI, otherwise unremarkable. Physical Examination: Vital Signs: 109/47, pulse 86, respirations 16. General: The patient is awake and alert. There is no distress. She is helping us to put dressings on her. She sat by the side of the bed obviously with support from us. She has no dizziness and no complaints. She does not even have much pain at this moment. HEENT: Pupils are equal and reactive. Anicteric. Neck: Supple. Chest: Clear bilateral breath sounds. Skin: Flaps are intact. We took a look at the incisions. There is no bleeding. There is once agai n some puffiness on the upper side where the Ted wrap is not covering. swelling and infla mmation. The JORJE drains obviously are not draining all the way and will accumulate in that area, but I did not see any active bleeding or bright red blood. We did check the area of the axilla. No puls atile bleeding neither. Abdomen: Soft and depressible. No guarding or rebound. Extremities: Good capillary refill. Radial pulses present. Full range of motion in the upper extre mities and lower extremities. Neurologic: Oriented x3. Blood Work: She has a hemoglobin of 9.6 after 1 blood transfusion. She is going for the second unit already. We are going to repeat 1 hour after the second, CBC. Assessment And Plan: Incentive spirometry. SCD. We are going to keep her n.p.o. except medications with a sip of water just to be in the safe side overnight. We are going to continue with bedrest. Tomorrow morning, we will just once again change the dressings and continue supportive care. We are going to bring the fluid up a little bit. The urine output is a little bit low. Once again, she may be a little bit dehydrated, at the same time obviously medical issues, I am going to cons ult with Dr. Michelle to make sure he agrees with the fluid resuscitation. I discussed the case also w omid Alvarado. He is aware and he is helping us also to manage the patient remotely. LAMAR/MODL Voice ID: [id number] Report ID: [id number]
[2024-06-07 02:40] VITALS: BMI 36.6
[2024-06-07 06:13] LABS: Absolute Lymphocytes (CBC) 1.8 K/uL (0.7-4.9); Absolute Monocytes 1.6 K/uL (0.1-1.3); Absolute Neutrophil 10.4 K/uL (1.8-8.0); Basophils % 0.1 % (0-1.3); Hematocrit 30.2 % (36.0-45.0); Hemoglobin 10.3 g/dL (12.0-15.0); Lymphocytes % 12.7 % (15.3-44.8); MCH 31.1 pg (27.0-35.0); MCHC 34.3 g/dL (32.0-36.0); MCV 90.8 fL (80-100); MPV 8.5 fL (7.6-11.3); Monocytes % 11.7 % (3.3-12.3); Neutrophils % 75.5 % (41.7-73.7); Nucleated Red Blood Cells % 0.1 % (0-0); PT Prothrombin Time 11.7 SECONDS (9.4-12.5); Platelets 214 thou/uL (152-406); Protime INR 1.12; RBC Red Blood Cell Count 3.33 M/uL (3.86-4.86); Red Cell Distribution Width 14.2 % (12.1-15.2)
[2024-06-07 06:46] LABS: Anion Gap 7.7 mEq/L (5.0-15.0); Magnesium 1.9 mg/dL (1.6-2.4); Potassium 3.7 mEq/L (3.5-5.1); Thyroid Stimulating Hormone 2.78 uIU/mL (0.358-3.740)
[2024-06-07] MEDS: KCL 20 MEQ/100 mL IVPB 20 MEQ/100 ML BAG IV SCH (08:46)
--- NOTE | 2024-06-07 11:15 | P.PN ---
Nephrology note (S) Pt remains in the ICU, mostly stable vitals, denies CP, acute dyspnea, N/V (O) vitals reviewed in the EMR General: NAD HEENT: Atraumatic, sclera anicteric, not needing O2 Neck: Supple Respiratory: non tachypnec, b/l air entry Cardiovascular: mild tachy, regular Chest extensively wrapped, drains present Gastrointestinal: obese, NT Musculoskeletal: No sig edema, SCDs b/l Integumentary: No rashes noted Neurological: Normal speech, awake, alert, no tremors Laboratory Data (last 24 hrs) Reviewed in the EMR Conclusions/Impression: Stage II TORIE episode in the setting of use of NSAIDs, anti hypertensives including NATHAN inhibitors/diuretics -Prompt renal recovery, improvement in Cr level post hydration, lower rate of IVF -Avoid NSAIDs HTN, chronic, essential -Cont to trend for now, off scheduled agents.
--- NOTE | 2024-06-07 13:41 | EKG ---
Test Date: 2024-06-06 Test Time: 14:15:58 Machine Heel Seat Laster: DIANE MEASUREMENT RESULTS: Intervals: Rate: 90 SD: 170 QRSD: 84 QT: 376 QTc: 459 [place]: P: 47 SD: 170 QRS: -15 T: 11 INTERPRETIVE STATEMENTS: Normal sinus rhythm Inferior infarct, age undetermined Abnormal ECG Compared to ECG 06/04/2024 14:43:56 Left-axis deviation no longer present Myocardial infarct finding still present Electronically Signed On 06-07-24 13:38:32 [employer]IOR ENGINEERING [employer]IATE by Tung Patrick
[2024-06-07] MEDS: NA CHLORIDE 0.9% 1,000 ML IV SCH (13:50)
[2024-06-07] MEDS: MORPHINE 2 MG/ML SYR IV PRN (16:49)
[2024-06-07] MEDS: CEFEPIME 1 GM in NA CHLORIDE 0.9% 100 ML IV SCH (16:49)
--- NOTE | 2024-06-07 16:53 | P.PN ---
Subjective Date of Service: 06/07/24 Chief Complaint: syncope Subjective: Tolerating diet, Improving Review of Systems 10-point ROS is otherwise unremarkable () General: Unremarkable Eyes: Unremarkable ENT: Unremarkable Respiratory: Unremarkable Cardiovascular: Unremarkable Genitourinary: Unremarkable Musculoskeletal: Unremarkable Neurological: Unremarkable Physical Examination - Vital Signs Temperature: 97.6 F Blood Pressure: 121/32 Pulse: 89 Respirations: 23 Pulse Ox (%): 100 - Physical Exam General: Alert, In no apparent distress, Oriented x3, Cooperative HEENT: Normocephalic, EOMI Neck: Supple Cardiovascular: Normal pulses Gastrointestinal: Soft and benign Musculoskeletal: No erythema, No tenderness, No warmth Integumentary: No rashes, No breakdown, No erythema, No warmth, No cyanosis Neurological: Normal speech - Studies reviewed Assessment And Plan - Plan no active bleeding other than expected JORJE postsurgical ouput OOB to ambulated with assistance JORJE to bulf suction diet incentive spirometry F/U H/H
[2024-06-07] MEDS: HYDROCODONE/APAP 5/325 MG TAB PO PRN (19:43)
[2024-06-08] MEDS: ONDANSETRON 4 MG/2 ML VIAL IV PRN (00:38)
[2024-06-08] MEDS: HYDRALAZINE HCL 20 MG/ML VIAL IV PRN (04:20)
[2024-06-08 05:02] LABS: Absolute Lymphocytes (CBC) 1.5 K/uL (0.7-4.9); Absolute Monocytes 1.3 K/uL (0.1-1.3); Absolute Neutrophil 10.3 K/uL (1.8-8.0); Basophils % 0.2 % (0-1.3); Eosinophils % 0.1 % (0-4.4); Hematocrit 27.4 % (36.0-45.0); Hemoglobin 9.5 g/dL (12.0-15.0); Lymphocytes % 11.6 % (15.3-44.8); MCHC 34.7 g/dL (32.0-36.0); MCV 89.4 fL (80-100); MPV 8.6 fL (7.6-11.3); Monocytes % 9.8 % (3.3-12.3); Neutrophils % 78.3 % (41.7-73.7); Platelets 196 thou/uL (152-406); RBC Red Blood Cell Count 3.07 M/uL (3.86-4.86); Red Cell Distribution Width 14.6 % (12.1-15.2)
[2024-06-08 05:29] LABS: Anion Gap 8.8 mEq/L (5.0-15.0); Magnesium 1.9 mg/dL (1.6-2.4); Potassium 3.8 mEq/L (3.5-5.1)
[2024-06-08] MEDS: CALCIUM GLUCONATE 1 GM IVPB 1 GM/50 ML BAG IV ONE ×2 (07:45→08:54)
[2024-06-08] MEDS: carvediloL 25 MG TAB PO SCH (08:54)
[2024-06-08] MEDS: PROPRANOLOL HCL 80 MG SA CAP PO SCH (10:00)
[2024-06-08] MEDS: LOSARTAN POTASSIUM 50 MG TABLET PO SCH ×2 (10:00→18:15)
[2024-06-08] MEDS: LOSARTAN/HCTZ 50-12.5 PO SCH ×2 (10:00→18:15)
[2024-06-08] MEDS: CARBIDOPA/LEVODOPA 25/100 TAB PO SCH (15:34)
[2024-06-08] MEDS ORDERED: LOSARTAN/HCTZ 50-12.5 PO SCH (18:00)
[2024-06-08] MEDS ORDERED: LOSARTAN POTASSIUM 50 MG TABLET PO SCH (19:00)
--- NOTE | 2024-06-08 19:59 | P.PN ---
Date of Service: 06/08/24 subjective recent fall, reports moderate generalized weakness, PT eval Review of Systems 10-point ROS is otherwise unremarkable Physical Examination - Physical Exam General: Alert, Oriented x3, Other (Forgetful) HEENT: Atraumatic, Normocephalic Neck: 2+ carotid pulse no bruit, JVD not distended Respiratory: Clear to auscultation bilaterally, Normal air movement Cardiovascular: Normal pulses, Regular rate/rhythm, Normal S1 S2 Capillary refill: <2 Seconds Gastrointestinal: Normal bowel sounds, Soft and benign, Non-distended Musculoskeletal: Other (Generalized weakness, unsteady gait) Integumentary: Other (Bilateral mastectomy, surgic Assessment and Plan - Problems (Diagnosis) (1) Acute posthemorrhagic anemia Current Visit: Yes Status: Acute (2) Syncope, near Current Visit: Yes Status: Acute (3) Postprocedural hemorrhage of skin and subcutaneous tissue after dermatologic procedure Current Visit: Yes Status: Acute (4) S/P bilateral mastectomy Current Visit: Yes Status: Acute (5) Hypotension, unspecified Current Visit: Yes Status: Acute Qualifiers: Qualified Code(s): E86.1 - Hypovolemia (6) Fall Current Visit: Yes Status: Acute Qualifiers: Qualified Code(s): W19.XXXA - Unspecified fall, initial encounter - Plan Assessment Acute posthemorrhagic anemia result Syncope Near likely secondary to postop bleeding Postprocedural hemorrhage of skin and subcutaneous tissue following other procedure marina B) MASTECTOMY Hypotension, resolved Admit to ICU,transferred to floor when medically stable Surgery consult (Jenny/Spencer) notified in ED (Dr Palmer is following) Central line placed in the ER by ED physician IV fluids, IV antibiotics, Levaquin, cefepime, Type and cross packed red blood cells, Serial H&H, hourly vital signs, Chest x-ray No acute intrathoracic abnormalities. CTA of chest No evidence of acute central pulmonary emboli. No suspicious intrathoracic findings.Large crescentic right chest wall hematoma, measuring 21 x 17.1 x 4.2 cm, in the right mastectomy bed. The surgical drain is present within the inferior aspect of this hematoma. Surgical dressing, pressure dressing, from under arms to her chest, Wound care, bilateral JORJE drains, strict I&O Fall PT eval, and treat fall precautions Acute kidney injury likely secondary to prerenal hypotension-improving Renal dose meds IV fluids, unit of packed red blood cells given, Avoid nephrotoxic medications Trend kidney function Diabetes with hyperglycemia Accu-Cheks, sliding scale insulin, Diabetic diet when tolerating p.o. Hypercholesterolemia Hypertensive disorder Resume appropriate home meds Full code DVT SCDs Diet n.p.o. Disposition Home with home health, pending hospital course Discharge Plan: Home - Advance Directives Does patient have a Living Will: No Does patient have a Durable POA for Healthcare: No - Code Status/Comfort Care Code Status: Full Code Critical Care: Yes Time Spent Managing Pts Care (In Minutes): 30 <Ellie aPlma - Last Filed: 06/08/24 19:59> Patient was seen and examined. Events of the last 24 hours have been noted. Spoke with with ALDO regarding patient's clinical picture after evaluating and examining the patient independently. I performed a substantial part of the MDM during this patient's care today. I personally made or approved the documented management plan and acknowledge its risk of complications. I agree with the findings and documentation provided in the ALDO's notes. patient was postop bleeding status post mastectomy. Dressing change per General surgery. We will get patient out of bed and ambulate; patient with significant weakness. Will need placement <Radha Salas - Last Filed: 06/10/24 03:30>
[2024-06-08] MEDS: ATORVASTATIN 10 MG TAB PO SCH (20:33)
[2024-06-08] MEDS: DOXEPIN HCL 25 MG CAP PO SCH (20:33)
--- NOTE | 2024-06-08 20:59 | P.PN ---
Date of Service: 06/08/24 Vital Signs Temp Pulse Resp BP Pulse Ox 97.8 F 76 14 174/67 H 94 06/08/24 16:32 06/08/24 18:15 06/08/24 16:32 06/08/24 18:15 06/08/24 16:32 Medications Acetaminophen (Acetaminophen 500 Mg Tab) 500 mg PO Q4HP PRN PRN Reason: Pain scale 2-4 (Mild) Hydrocodone Bitart/Acetaminophen (Hydrocodone/Apap 5/325 Mg Tab) 1 tab PO Q6H PRN PRN Reason: Pain scale 5-7 (Moderate) Last Admin: 06/08/24 18:07 Dose: 1 tab Atorvastatin Calcium (Atorvastatin 10 Mg Tab) 10 mg PO BEDTIME [facility] Last Admin: 06/08/24 20:33 Dose: 10 mg Carbidopa/Levodopa (Carbidopa/Levodopa 25/100 Tab) 1 tab PO TID [facility] Last Admin: 06/08/24 20:33 Dose: 1 tab Doxepin HCl (Doxepin Hcl 25 Mg Cap) 50 mg PO BEDTIME [facility] Last Admin: 06/08/24 20:33 Dose: 50 mg HCTZ/Losartan Potassium (Losartan/Hctz 50-12.5) 1 tab PO DAILY [facility] Last Admin: 06/08/24 18:15 Dose: 1 tab Hydralazine HCl (Hydralazine Hcl 20 Mg/Ml Vial) 10 mg IV Q6HP PRN PRN Reason: FOR SBP>160 OR DBP>100 MMHG Last Admin: 06/08/24 04:20 Dose: 10 mg Cefepime HCl 1 gm/ Sodium (Chloride) 100 mls @ 200 mls/hr IV DAILY [facility]; Protocol Last Admin: 06/08/24 10:23 Dose: 100 mls Sodium Chloride (Ns 1000 Ml Ivbag) 1,000 mls @ 75 mls/hr IV .[id number] [facility] Last Admin: 06/08/24 15:35 Dose: 1,000 mls Insulin Human Regular (Insulin Regular (Human) 100 Unit/Ml) 0 unit SQ ACHS [facility]; Protocol Last Admin: 06/08/24 20:33 Dose: 2 unit Levofloxacin (Levofloxacin 750 Mg Tab) 750 mg PO Q24H [facility] Last Admin: 06/08/24 20:33 Dose: 750 mg Levothyroxine Sodium (Levothyroxine Sod 0.075 Mg Tab) 0.15 mg PO DAILYAC [facility] Losartan Potassium (Losartan Potassium 50 Mg Tablet) 50 mg PO DAILY [facility] Last Admin: 06/08/24 18:15 Dose: 50 mg Morphine Sulfate (Morphine 4 Mg/Ml Syr) 2 mg IV Q4H PRN PRN Reason: Pain scale 8-10 (Severe) Ondansetron HCl (Ondansetron 4 Mg/2 Ml Vial) 4 mg IV Q6HP PRN PRN Reason: NAUSEA / VOMITING Last Admin: 06/08/24 00:38 Dose: 4 mg Propranolol HCl (Propranolol Hcl 80 Mg Sa Cap) 80 mg PO DAILY [facility] Last Admin: 06/08/24 10:00 Dose: Not Given Lab Results (last 24 hrs) 06/06/24 15:45: ABO/Rh A POSITIVE, Solid Phase Ab Screen Negative, Crossmatch See Detail Assessment/ Plan: Nephrology No dyspnea No chest pain Feeling better No acute events overnight Vitals, medications, blood work and imaging reviewed in the chart Physical Examination General: In no apparent distress, Cooperative, Obese HEENT: Atraumatic Neck: Neck brace Respiratory: Clear to auscultation bilaterally Cardiovascular: No edema, Regular rate/rhythm Gastrointestinal: Soft and benign, Non-distended Musculoskeletal: No clubbing, No contractures Integumentary: No rashes, No cyanosis Neurological: Normal speech Laboratory Data (last 24 hrs) 06/06/24 06/06/24 06/06/24 15:45 15:45 15:45 WBC 17.80 H Hgb 8.7 L Hct 25.6 L Plt Count 270 PT 11.2 INR 1.07 Sodium 138 Potassium 4.2 BUN 38 H Creatinine 2.30 H Glucose 319 H Magnesium 2.0 Total Bilirubin 0.2 AST 15 ALT 16 Alkaline Phosphatase 51 Lipase 39 Imagings Data: EXAM: CT Chest For Pe Angio TECHNIQUE: CT angiogram of the chest was performed following intravenous contrast administration, including sagittal and coronal as well as maximum intensity projection reformats. One or more of the following dose reduction techniques were used: Automated exposure control, adjustment of the mA and kV according to patient size, and iterative reconstruction. Unless otherwise specified, incidental findings do not require dedicated imaging follow-up. INDICATION: [facility] MAIN DYSPNEA COMPARISON: 06/30/2022. FINDINGS: LINES/TUBES: None. PULMONARY ARTERIES: Main pulmonary arteries are normal in caliber. No filling defects within the pulmonary arteries to suggest pulmonary embolus. LUNGS AND AIRWAYS: The lungs and central airways are normal without focal abnormality. PLEURA: No effusion or pneumothorax. HEART AND MEDIASTINUM: The visualized thyroid gland is normal. No mediastinal, hilar, or axillary lymphadenopathy. Heart is unremarkable. No pericardial effusion. SOFT TISSUES AND BONES: Postsurgical changes with surgical drains along the anterior chest wall bilaterally. Large crescentic hematoma along the right chest wall, measuring 21 x 17.1 cm in greatest transverse and CC dimensions, and 4.2 cm in greatest thickness. Cutaneous asymmetric edema along the right chest wall extending into the right axilla and right upper flank soft tissues. UPPER ABDOMEN: Unremarkable. IMPRESSION: No evidence of acute central pulmonary emboli. No suspicious intrathoracic findings. Large crescentic right chest wall hematoma, measuring 21 x 17.1 x 4.2 cm, in the right mastectomy bed. The surgical drain is present within the inferior aspect of this hematoma. No acute osseous abnormality. EXAMINATION: ONE VIEW CHEST XR CLINICAL INDICATION: Female, 74 years old.,DYSPNEA TECHNIQUE: Frontal chest projection is submitted. Examination is limited by patient positioning and technique. COMPARISON: 06/04/2024. FINDINGS: The lungs are grossly clear although mildly suboptimal inspiratory effort somewhat limits evaluation. No pneumothorax or sizable effusion. The heart is normal in size. Mediastinal contours are unremarkable. Surgical drains along the lower chest wall, and surgical clips seen in the left axilla. IMPRESSION: No acute intrathoracic abnormalities. Conclusions/Impression: Stage II TORIE in the setting of Celebrex and Advil CKD III -No NSAIDs -Continue IVF Metabolic Acidosis -Resolved HTN with CKD -Continue Losartan DM II with CKD -RISS Hypoalbuminemia -Recommend protein supplementation Anemia in chonic illness -Monitor H&H Case reviewed with the hospitalist team
--- NOTE | 2024-06-09 01:53 | PN ---
Date of Progress Note: 06/08/2024 Diagnosis: Status post mastectomy, doing well. No complaint. No nausea. No vomiting. No fever. Objective: Vital Signs: Stable with temperature 98.4, pulse 71, respirations 18, blood pressure 142 /62. Chest: Clear. Flaps intact. No bleeding. Bilateral breath sounds a present. Abdomen: Soft and depressible. JORJE drained serosanguineous dark blood. No bright red blood. Today, JORJE drained at least in the last 8 hours about 60 cc. Laboratory Data: Blood work shows WBC count of 13, hemoglobin of 9.5, and platelets of 196. Creatin ine is 0.64. Plan: Continue diet, out of bed, incentive spirometry, and leave the dressings intact. Record JORJE ou tput. LAMAR/ANDREW Voice ID: [id number] Report ID: [id number]
[2024-06-09] MEDS: LEVOTHYROXINE SOD 0.075 MG TAB PO SCH (05:56)
[2024-06-09 05:57] LABS: Absolute Eosinophils 0.1 K/uL (0-0.5); Absolute Lymphocytes (CBC) 2.3 K/uL (0.7-4.9); Absolute Neutrophil 9.5 K/uL (1.8-8.0); Basophils % 0.3 % (0-1.3); Eosinophils % 1.1 % (0-4.4); Hematocrit 27.6 % (36.0-45.0); Hemoglobin 9.7 g/dL (12.0-15.0); Lymphocytes % 17.9 % (15.3-44.8); MCH 31.4 pg (27.0-35.0); MCHC 35.1 g/dL (32.0-36.0); MCV 89.5 fL (80-100); MPV 8.7 fL (7.6-11.3); Monocytes % 7.5 % (3.3-12.3); Neutrophils % 73.2 % (41.7-73.7); Platelets 203 thou/uL (152-406); RBC Red Blood Cell Count 3.09 M/uL (3.86-4.86); Red Cell Distribution Width 14.8 % (12.1-15.2)
[2024-06-09 06:01] LABS: Anion Gap 8.6 mEq/L (5.0-15.0); Magnesium 1.8 mg/dL (1.6-2.4); Potassium 3.6 mEq/L (3.5-5.1)
[2024-06-09] MEDS ORDERED: HOME MED 1 EA UNK (Pravastatin [Pravachol*] 40 MG/TAB Tab) PO SCH (09:00)
[2024-06-09] MEDS ORDERED: HOME MED 1 EA UNK (Losartan/Hydrochlorothiazide [Losartan-Hctz 100-12.5 Mg Tab] 1 EACH Tab PO SCH (09:00)
[2024-06-09] MEDS ORDERED: LOSARTAN/HCTZ 50-12.5 PO SCH (09:00)
[2024-06-09] MEDS: POTASSIUM 25 MEQ EFFERV TAB PO ONE (10:29)
[2024-06-09] MEDS: MAGNESIUM SULFATE 1 gm IVPB 1 GM/100 ML BAG IV ONE (10:30)
[2024-06-09] MEDS: ACETAMINOPHEN 500 MG TAB PO PRN (11:29)
--- NOTE | 2024-06-09 12:47 | P.PN ---
Date of Service: 06/09/24 subjective Intermittent confusion, no reported pain, Review of Systems 10-point ROS is otherwise unremarkable Physical Examination - Physical Exam General: Alert, Oriented x3, Other (Forgetful) HEENT: Atraumatic, Normocephalic Neck: 2+ carotid pulse no bruit, JVD not distended Respiratory: Clear to auscultation bilaterally, Normal air movement Cardiovascular: Normal pulses, Regular rate/rhythm, Normal S1 S2 Capillary refill: <2 Seconds Gastrointestinal: Normal bowel sounds, Soft and benign, Non-distended Musculoskeletal: Other (Generalized weakness, unsteady gait) Integumentary: Other (Bilateral mastectomy, surgical dressing) Assessment and Plan - Problems (Diagnosis) (1) Acute posthemorrhagic anemia Current Visit: Yes Status: Acute (2) Syncope, near Current Visit: Yes Status: Acute (3) Postprocedural hemorrhage of skin and subcutaneous tissue after dermatologic procedure Current Visit: Yes Status: Acute (4) S/P bilateral mastectomy Current Visit: Yes Status: Acute (5) Hypotension, unspecified Current Visit: Yes Status: Acute Qualifiers: Qualified Code(s): E86.1 - Hypovolemia (6) Fall Current Visit: Yes Status: Acute Qualifiers: Qualified Code(s): W19.XXXA - Unspecified fall, initial encounter - Plan Assessment Acute posthemorrhagic anemia result Syncope Near likely secondary to postop bleeding Postprocedural hemorrhage of skin and subcutaneous tissue following other procedure marina B) MASTECTOMY Hypotension, resolved Surgery consult (Jenny/Spencer) notified in ED (Dr Palmer is following) Central line placed in the ER by ED physician IV fluids, IV antibiotics, Levaquin, cefepime, Type and cross packed red blood cells, Serial H&H, transfuse less than Chest x-ray No reviewed CTA of chest No evidence of acute central pulmonary emboli. Surgical hematoma Surgical dressing, pressure dressing, Wound care, bilateral JORJE drains, Fall PT eval, and treat fall precautions Acute kidney injury likely secondary to prerenal hypotension-improving Renal dose meds IV fluids, Avoid nephrotoxic medications Trend kidney function Diabetes with hyperglycemia Accu-Cheks, sliding scale insulin, Diabetic diet when tolerating p.o. Hypercholesterolemia Hypertensive disorder Resume appropriate home meds Full code DVT SCDs Diet n.p.o. Disposition Home with home health, pending hospital course Discharge Plan: Home - Advance Directives Does patient have a Living Will: No Does patient have a Durable POA for Healthcare: No - Code Status/Comfort Care Code Status: Full Code Critical Care: Yes Time Spent Managing Pts Care (In Minutes): 30 <Ellie Palma - Last Filed: 06/09/24 12:44> Patient was seen and examined. Events of the last 24 hours have been noted. Spoke with with ALDO regarding patient's clinical picture after evaluating and examining the patient independently. I performed a substantial part of the MDM during this patient's care today. I personally made or approved the documented management plan and acknowledge its risk of complications. I agree with the findings and documentation provided in the ALDO's notes. Patient was postop bleeding status post mastectomy. Dressing change per General surgery. Out of bed and ambulate; patient with significant weakness. Will need placement <Radha Salas - Last Filed: 06/10/24 03:31>
--- NOTE | 2024-06-09 14:42 | P.PN ---
Date of Service: 06/09/24 Vital Signs Temp Pulse Resp BP Pulse Ox 98.4 F 80 16 131/52 L 99 06/09/24 12:00 06/09/24 12:00 06/09/24 12:00 06/09/24 12:00 06/09/24 12:00 Medications Acetaminophen (Acetaminophen 500 Mg Tab) 500 mg PO Q4HP PRN PRN Reason: Pain scale 2-4 (Mild) Last Admin: 06/09/24 11:29 Dose: 500 mg Hydrocodone Bitart/Acetaminophen (Hydrocodone/Apap 5/325 Mg Tab) 1 tab PO Q6H PRN PRN Reason: Pain scale 5-7 (Moderate) Last Admin: 06/08/24 18:07 Dose: 1 tab Atorvastatin Calcium (Atorvastatin 10 Mg Tab) 10 mg PO BEDTIME [facility] Last Admin: 06/08/24 20:33 Dose: 10 mg Carbidopa/Levodopa (Carbidopa/Levodopa 25/100 Tab) 1 tab PO TID [facility] Last Admin: 06/09/24 10:31 Dose: 1 tab Doxepin HCl (Doxepin Hcl 25 Mg Cap) 50 mg PO BEDTIME [facility] Last Admin: 06/08/24 20:33 Dose: 50 mg HCTZ/Losartan Potassium (Losartan/Hctz 50-12.5) 1 tab PO DAILY [facility] Last Admin: 06/09/24 10:30 Dose: 1 tab Hydralazine HCl (Hydralazine Hcl 20 Mg/Ml Vial) 10 mg IV Q6HP PRN PRN Reason: FOR SBP>160 OR DBP>100 MM[facility] Last Admin: 06/09/24 04:24 Dose: 10 mg Cefepime HCl 1 gm/ Sodium (Chloride) 100 mls @ 200 mls/hr IV DAILY [facility]; Protocol Last Admin: 06/09/24 10:29 Dose: 100 mls Sodium Chloride (Ns 1000 Ml Ivbag) 1,000 mls @ 75 mls/hr IV .[id number] [facility] Last Admin: 06/09/24 04:26 Dose: 1,000 mls Insulin Human Regular (Insulin Regular (Human) 100 Unit/Ml) 0 unit SQ ACHS [facility]; Protocol Last Admin: 06/09/24 12:36 Dose: 2 unit Levofloxacin (Levofloxacin 750 Mg Tab) 750 mg PO Q24H [facility] Last Admin: 06/08/24 20:33 Dose: 750 mg Levothyroxine Sodium (Levothyroxine Sod 0.075 Mg Tab) 0.15 mg PO DAILYAC [facility] Last Admin: 06/09/24 05:56 Dose: 0.15 mg Losartan Potassium (Losartan Potassium 50 Mg Tablet) 50 mg PO DAILY [facility] Last Admin: 06/09/24 10:30 Dose: 50 mg Morphine Sulfate (Morphine 4 Mg/Ml Syr) 2 mg IV Q4H PRN PRN Reason: Pain scale 8-10 (Severe) Ondansetron HCl (Ondansetron 4 Mg/2 Ml Vial) 4 mg IV Q6HP PRN PRN Reason: NAUSEA / VOMITING Last Admin: 06/08/24 00:38 Dose: 4 mg Assessment/ Plan: Nephrology No dyspnea No chest pain Feeling better No acute events overnight Vitals, medications, blood work and imaging reviewed in the chart Physical Examination General: In no apparent distress, Cooperative, Obese HEENT: Atraumatic Neck: Neck brace Respiratory: Clear to auscultation bilaterally Cardiovascular: No edema, Regular rate/rhythm Gastrointestinal: Soft and benign, Non-distended Musculoskeletal: No clubbing, No contractures Integumentary: No rashes, No cyanosis Neurological: Normal speech Laboratory Data (last 24 hrs) 06/06/24 06/06/24 06/06/24 15:45 15:45 15:45 WBC 17.80 H Hgb 8.7 L Hct 25.6 L Plt Count 270 PT 11.2 INR 1.07 Sodium 138 Potassium 4.2 BUN 38 H Creatinine 2.30 H Glucose 319 H Magnesium 2.0 Total Bilirubin 0.2 AST 15 ALT 16 Alkaline Phosphatase 51 Lipase 39 Imagings Data: EXAM: CT Chest For Pe Angio TECHNIQUE: CT angiogram of the chest was performed following intravenous contrast administration, including sagittal and coronal as well as maximum intensity projection reformats. One or more of the following dose reduction techniques were used: Automated exposure control, adjustment of the mA and kV according to patient size, and iterative reconstruction. Unless otherwise specified, incidental findings do not require dedicated imaging follow-up. INDICATION: [facility] MA[facility] DYSPNEA COMPARISON: 06/30/2022. FINDINGS: LINES/TUBES: None. PULMONARY ARTERIES: Main pulmonary arteries are normal in caliber. No filling defects within the pulmonary arteries to suggest pulmonary embolus. LUNGS AND AIRWAYS: The lungs and central airways are normal without focal abnormality. PLEURA: No effusion or pneumothorax. HEART AND MEDIASTINUM: The visualized thyroid gland is normal. No mediastinal, hilar, or axillary lymphadenopathy. Heart is unremarkable. No pericardial effus ion. SOFT TISSUES AND BONES: Postsurgical changes with surgical drains along the anterior chest wall bilaterally. Large crescentic hematoma along the right chest wall, measuring 21 x 17.1 cm in greatest transverse and CC dimensions, and 4.2 cm in greatest thickness. Cutaneous asymmetric edema along the right chest wall extending into the right axilla and right upper flank soft tissues. UPPER ABDOMEN: Unremarkable. IMPRESSION: No evidence of acute central pulmonary emboli. No suspicious intrathoracic findings. Large crescentic right chest wall hematoma, measuring 21 x 17.1 x 4.2 cm, in the right mastectomy bed. The surgical drain is present within the inferior aspect of this hematoma. No acute osseous abnormality. EXAMINATION: ONE VIEW CHEST XR CLINICAL INDICATION: Female, 74 years old.,DYSPNEA TECHNIQUE: Frontal chest projection is submitted. Examination is limited by patient positioning and technique. COMPARISON: 06/04/2024. FINDINGS: The lungs are grossly clear although mildly suboptimal inspiratory effort somewhat limits evaluation. No pneumothorax or sizable effusion. The heart is normal in size. Mediastinal contours are unremarkable. Surgical drains along the lower chest wall, and surgical clips seen in the left axilla. IMPRESSION: No acute intrathoracic abnormalities. Conclusions/Impression: Stage II TORIE in the setting of Celebrex and Advil CKD III -No NSAIDs -Discontinue IVF Hypokalemia -Replete as ordered Metabolic Acidosis -Resolved HTN with CKD -Continue Losartan DM II with CKD -RISS Hypoalbuminemia -Recommend protein supplementation Anemia in chonic illness -Monitor H&H Case reviewed with the hospitalist team
[2024-06-10] MEDS: MORPHINE 4 MG/ML SYR IV PRN (00:08)
--- NOTE | 2024-06-10 03:28 | P.PN ---
Subjective Date of Service: 06/07/24 Patient continues to do well with no new complaints. Clinical symptoms are much better. However, she is really weak and she may need SNF placement per . Review of Systems 10-point ROS is otherwise unremarkable Physical Examination - Vital Signs Temperature: 97.5 F Blood Pressure: 167/53 Pulse: 76 Respirations: 16 Pulse Ox (%): 97 - Physical Exam General: Alert, In no apparent distress, Oriented x3 HEENT: Atraumatic, PERRLA, EOMI Neck: Supple, JVD not distended Respiratory: Clear to auscultation bilaterally, Normal air movement Cardiovascular: Regular rate/rhythm, Normal S1 S2 Gastrointestinal: Normal bowel sounds, No tenderness Musculoskeletal: No tenderness Integumentary: No rashes Neurological: Normal speech, Normal tone, Normal affect Lymphatics: No axilla or inguinal lymphadenopathy Other Physical/Emotional Findings: Bilateral mastectomies; dressing intact; minimal drainage & bleeding. - Studies Medications List Reviewed: Yes Assessment & Plan - Problems (Diagnosis) (1) Acute posthemorrhagic anemia Current Visit: Yes Status: Acute (2) Postprocedural hemorrhage of skin and subcutaneous tissue after dermatologic procedure Current Visit: Yes Status: Acute (3) S/P bilateral mastectomy Current Visit: Yes Status: Acute (4) Syncope, near Current Visit: Yes Status: Acute (5) DM type 2 (diabetes mellitus, type 2) Current Visit: No Status: Acute (6) HTN (hypertension) Current Visit: No Status: Acute - Plan Plan: 1. Patient status post bilateral mastectomy secondary to breast cancer; status post dressing with minimal drainage at this time. JORJE drains in place 2. Generalized weakness; awaiting for placement at shelter facility placement Discharge Plan: Home Plan to discharge in: Greater than 2 days - Advance Directives Does patient have a Living Will: No Does patient have a Durable POA for Healthcare: No - Code Status/Comfort Care Code Status: Full Code Critical Care: No Time Spent Managing PTS Care (In Minutes): 35
[2024-06-10] MEDS: carvediloL 12.5 MG TAB PO SCH (08:08)
[2024-06-10] MEDS: CEFEPIME 2 GM in NA CHLORIDE 0.9% 100 ML IV SCH (10:12)
--- NOTE | 2024-06-10 10:36 | P.PN ---
Subjective Date of Service: 06/10/24 Chief Complaint: B) masectomy post op bleeding Subjective: No new changes Blood patient states that she is doing fine, able to get out of bed and walk around in the room without any dizziness or shortness of breath. No more bleeding from mastectomy site, dressing has not been changed by surgeon. She is complaining of low back pain as she had a multiple back surgeries in the past. Review of Systems Other: Consitutional; fever(-), chills (-), rigor(-), night sweat(-), unintentional weight loss(-), malaise (-) HEENT; diplopia (-), rhinorrhea (-), epistaxis (-), otorrhea (-), otalgia (-) Respiratory; shortness of breath (-), wheezing (-), cough (-), sputum (-), pleuritic chest pain (-) Cardiovascular; chest pain (-), peripheral edema (-), paroxysmal nocturnal dyspnea (-), orthopnea (-) Gastrointestinal; nausea (-), vomiting (-), abdominal pain (-), diarrhea (-), constipation (-), melena (-), hematochezia (-) Genitourinary; urinary frequency (-), dysuria (-), urgency (-), flank pain (-), gross hematuria (-), incontinence (-) Skin; rash (-), pruritus (-) Musculoskeletal; lower back pain (+) [employer]; headache (-), paresthesia (-), numbness (-), paralysis (-) Physical Examination - Vital Signs Temperature: 97.9 F Blood Pressure: 131/58 Pulse: 91 Respirations: 16 Pulse Ox (%): 95 - Physical Exam Other Physical/Emotional Findings: - Physical Exam. General: Obese, not acutely ill looking, in no apparent distress,. HEENT: Normocephalic, atraumatic, nonicteric sclera, nonanemic conjunctive. Neck: Supple, without JVD or goiter or thyroid mass. Respiratory: Chest wall in dressing, small old blood on the dressing, normal breathing effort, clear to auscultation bilaterally, no crackles no wheezing or rhonchi. Cardiovascular: Regular rate and rhythm, S1, S2 normal, no murmur no gallop. Gastrointestinal: Normal bowel sounds, nondistended, nontender, No ascites, , No masses, no hepatosplenomegaly. Extremities : No clubbing, No peripheral edema,. Integumentary: No rashes, petechia, suspected lesions. Lymphatics: No axilla or cervical lymphadenopathy. Neurology; alert awake oriented x3, no focal neurologic deficit, normal affection . mood and behavior. . - Studies Medications List Reviewed: Yes Assessment And Plan - Plan This is 74 years old female patient with past medical history notable for recent bilateral mastectomy for breast cancer on June 05, 2023, chronic back pain status post lumbosacral surgery, type 2 diabetes who presented to emergency room for presyncopal attack due to postoperative bleeding from mastectomy site and admitted on general medical floor. Presyncope secondary to #2 Anemia of acute blood loss related to postoperative bleeding status post bilateral mastectomy acute posthemorrhagic anemia result Hemoglobin stable around 9-10 after 2 unit packed RBC, no transfusion indicated today IV antibiotics, Levaquin, cefepime, wound dressing and care by surgeon CTA of chest No evidence of acute central pulmonary emboli but post surgical hematoma Surgical dressing, pressure dressing, No thrombocytopenia or coagulopathy, I will order follow-up CBC tomorrow morning. Acute kidney injury likely due to #2 Resolved Type II diabetes with hyperglycemia Good glycemic control on sliding scale insulin, I will obtain hemoglobin A1c Diabetic diet Hypertensive disorder Blood pressure and heart rate reasonably controlled on home losartan and carvedi lol DVT SCDs
--- NOTE | 2024-06-10 17:32 | PN ---
Dr. Alvarado is out of town and I am covering for him. Subjective: The patient is doing great. Tolerating diet. No shortness of breath. No chest pain. No fever. Objective: Chest: Clear. Dressings were changed today. Flaps were intact. Abdomen: Soft and depressible. Extremities: Good capillary refill. No calf tenderness. Laboratory Data: Blood work shows a hemoglobin of 9.7 with hematocrit of 27.6. JORJE drain serosanguin eous about 100 cc. Plan: Continue medical service from the surgical standpoint. We are going to leave the dressings in tact. Follow up in Dr. Alvarado's office when she gets discharged. LAMAR/ANDREW Voice ID: [id number] Report ID: [id number]
[2024-06-10 17:56] VITALS: O2SAT 96
--- NOTE | 2024-06-10 18:04 | P.PN ---
Subjective Date of Service: 06/10/24 Chief Complaint: WEAKNESS, NEAR SYNCOPE Subjective: Improving NOHEMI IS DECONDITIONED SHE DOES NOT DO MUCH EXCEPT FOR TAKING MEDS AT HOME. SHE IS ON PAIN MEDS AND MULTIPLE OTHER MEDS RELATED TO DM, HTN, OBESITY, DJD ETC. SHE HAD VIOLET MASTECTOMY AND HAD NEAR SYNCOPE AFTER SHE HAD HYDROCODON AT HOME. THERE IS NO ACUTE BLEEDING. Review of Systems 10-point ROS is otherwise unremarkable General: Weakness Physical Examination - Vital Signs Temperature: 97.3 F Blood Pressure: 138/63 Pulse: 73 Respirations: 16 Pulse Ox (%): 96 - Physical Exam General: Oriented x3, Mild distress, Obese HEENT: Atraumatic, PERRLA, EOMI Neck: Supple, JVD not distended Respiratory: Clear to auscultation bilaterally, Normal air movement Cardiovascular: Regular rate/rhythm, Normal S1 S2 Gastrointestinal: Normal bowel sounds, No tenderness Musculoskeletal: No tenderness Integumentary: No rashes Neurological: Normal speech, Normal tone, Normal affect Lymphatics: No axilla or inguinal lymphadenopathy Other Physical/Emotional Findings: - Physical Exam. General: Obese, not acutely ill looking, in no apparent distress,. HEENT: Normocephalic, atraumatic, nonicteric sclera, nonanemic conjunctive. Neck: Supple, without JVD or goiter or thyroid mass. Respiratory: Chest wall in dressing, small old blood on the dressing, normal breathing effort, clear to auscultation bilaterally, no crackles no wheezing or rhonchi. Cardiovascular: Regular rate and rhythm, S1, S2 normal, no murmur no gallop. Gastrointestinal: Normal bowel sounds, nondistended, nontender, No ascites, , No masses, no hepatosplenomegaly. Extremities : No clubbing, No peripheral edema,. Integumentary: No rashes, petechia, suspected lesions. Lymphatics: No axilla or cervical lymphadenopathy. Neurology; alert awake oriented x3, no focal neurologic deficit, normal affection . mood and behavior. . - Studies Medications List Reviewed: Yes Assessment And Plan - Current Problems (Diagnosis) (1) S/P bilateral mastectomy Current Visit: Yes Status: Acute Plan: SHE DOES NOT HAVE ANY COMPLICATION OF SURGERY. MILD ANEMIA IS POSSIBLE AFTER BILAT MASTECTOMY FOR VERY LARGE BREASTS. I RAVEN RICHARDSON. (2) Syncope, near Current Visit: Yes Status: Acute Plan: THERE IS NO SIGN OF INFECTION. I WILL STOP LEVAQUIN AND CEFEPIME THAT SHE IS ON FROM [facility]OSP[facility] [place]. 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 AGREE WITH SNF.
--- NOTE | 2024-06-10 20:04 | P.PN ---
Date of Service: 06/10/24 Vital Signs Temp Pulse Resp BP Pulse Ox 97.3 F 73 16 138/63 96 06/10/24 18:03 06/10/24 18:27 06/10/24 18:03 06/10/24 18:27 06/10/24 18:03 Medications Acetaminophen (Acetaminophen 500 Mg Tab) 500 mg PO Q4HP PRN PRN Reason: Pain scale 2-4 (Mild) Last Admin: 06/09/24 11:29 Dose: 500 mg Hydrocodone Bitart/Acetaminophen (Hydrocodone/Apap 5/325 Mg Tab) 1 tab PO Q6H PRN PRN Reason: Pain scale 5-7 (Moderate) Last Admin: 06/10/24 09:59 Dose: 1 tab Aripiprazole (Aripiprazole 5 Mg Tab) 5 mg PO DAILY [facility] Atorvastatin Calcium (Atorvastatin 10 Mg Tab) 10 mg PO BEDTIME [facility] Last Admin: 06/09/24 20:19 Dose: 10 mg Carbidopa/Levodopa (Carbidopa/Levodopa 25/100 Tab) 1 tab PO TID [facility] Last Admin: 06/10/24 17:05 Dose: 1 tab Carvedilol (Carvedilol 12.5 Mg Tab) 12.5 mg PO BID 6AM 6PM [facility] Last Admin: 06/10/24 18:27 Dose: 12.5 mg Doxepin HCl (Doxepin Hcl 25 Mg Cap) 50 mg PO BEDTIME [facility] Last Admin: 06/09/24 20:18 Dose: 50 mg Home Med (Colesevelam Hcl [Colesevelam Hcl]) 1 tab PO DAILY [facility] Home Med (Dulaglutide [Trulicity]) 1.5 mg IM Q7D [facility] Home Med (Hyoscyamine Sulfate [Hyoscyamine Sulfate]) 0.125 mg PO DAILY [facility] Hydralazine HCl (Hydralazine Hcl 20 Mg/Ml Vial) 10 mg IV Q6HP PRN PRN Reason: FOR SBP>160 OR DBP>100 [facility] Last Admin: 06/10/24 04:34 Dose: 10 mg Insulin Human Regular (Insulin Regular (Human) 100 Unit/Ml) 0 unit SQ ACHS [facility]; Protocol Last Admin: 06/10/24 16:30 Dose: Not Given Levothyroxine Sodium (Levothyroxine Sod 0.075 Mg Tab) 0.15 mg PO DAILYAC [facility] Last Admin: 06/10/24 04:34 Dose: 0.15 mg Lidocaine (Lidocaine 4% Patch) 1 patch TOP DAILY [facility] Losartan Potassium (Losartan Potassium 50 Mg Tablet) 50 mg PO DAILY [facility] Last Admin: 06/10/24 09:59 Dose: 50 mg Montelukast Sodium (Montelukast 10 Mg Tab) 10 mg PO DAILY [facility] Morphine Sulfate (Morphine 4 Mg/Ml Syr) 2 mg IV Q4H PRN PRN Reason: Pain scale 8-10 (Severe) Last Admin: 06/10/24 00:08 Dose: 2 mg Ondansetron HCl (Ondansetron 4 Mg/2 Ml Vial) 4 mg IV Q6HP PRN PRN Reason: NAUSEA / VOMITING Last Admin: 06/09/24 21:12 Dose: 4 mg Tizanidine HCl (Tizanidine 4 Mg Tablet) 2 mg PO BEDTIME [facility] Venlafaxine HCl (Venlafaxine Hcl Xr 75 Mg Cap) 150 mg PO BEDTIME [facility] Venlafaxine HCl (Venlafaxine Hcl 75 Mg Tablet) 75 mg PO DAILY [facility] Zolpidem Tartrate (Zolpidem Tartrate 10 Mg Tablet) 10 mg PO BEDTIME [facility] Assessment/ Plan: Nephrology No dyspnea No chest pain No acute events overnight Vitals, medications, blood work and imaging reviewed in the chart Physical Examination General: In no apparent distress, Cooperative, Obese HEENT: Atraumatic Neck: Neck brace Respiratory: Clear to auscultation bilaterally Cardiovascular: No edema, Regular rate/rhythm Gastrointestinal: Soft and benign, Non-distended Musculoskeletal: No clubbing, No contractures Integumentary: No rashes, No cyanosis Neurological: Normal speech Laboratory Data (last 24 hrs) 06/06/24 06/06/24 06/06/24 15:45 15:45 15:45 WBC 17.80 H Hgb 8.7 L Hct 25.6 L Plt Count 270 PT 11.2 INR 1.07 Sodium 138 Potassium 4.2 BUN 38 H Creatinine 2.30 H Glucose 319 H Magnesium 2.0 Total Bilirubin 0.2 AST 15 ALT 16 Alkaline Phosphatase 51 Lipase 39 Imagings Data: EXAM: CT Chest For Pe Angio TECHNIQUE: CT angiogram of the chest was performed following intravenous contrast administration, including sagittal and coronal as well as maximum intensity projection reformats. One or more of the following dose reduction techniques were used: Automated exposure control, adjustment of the mA and kV according to patient size, and iterative reconstruction. Unless otherwise specified, incidental findings do not require dedicated imaging follow-up. INDICATION: [facility] MAIN DYSPNEA COMPARISON: 06/30/2022. FINDINGS: LINES/TUBES: None. PULMONARY ARTERIES: Main pulmonary arteries are normal in caliber. No filling defects within the pulmonary arteries to suggest pulmonary embolus. LUNGS AND AIRWAYS: The lungs and central airways are normal without focal abnormality. PLEURA: No effusion or pneumothorax. HEART AND MEDIASTINUM: The visualized thyroid gland is normal. No mediastinal, hilar, or axillary lymphadenopathy. Heart is unremarkable. No pericardial effusion. SOFT TISSUES AND BONES: Postsurgical changes with surgical drains along the ant erior chest wall bilaterally. Large crescentic hematoma along the right chest wall, measuring 21 x 17.1 cm in greatest transverse and CC dimensions, and 4.2 cm in greatest thickness. Cutaneous asymme tric edema along the right chest wall extending into the right axilla and right upper flank soft tissues. UPPER ABDOMEN: Unremarkable. IMPRESSION: No evidence of acute central pulmonary emboli. No suspicious intrathoracic findings. Large crescentic right chest wall hematoma, measuring 21 x 17.1 x 4.2 cm, in the right mastectomy bed. The surgical drain is present within the inferior aspect of this hematoma. No acute osseous abnormality. EXAMINATION: ONE VIEW CHEST XR CLINICAL INDICATION: Female, 74 years old.,DYSPNEA TECHNIQUE: Frontal chest projection is submitted. Examination is limited by patient positioning and technique. COMPARISON: 06/04/2024. FINDINGS: The lungs are grossly clear although mildly suboptimal inspiratory effort somewhat limits evaluation. No pneumothorax or sizable effusion. The heart is normal in size. Mediastinal contours are unremarkable. Surgical drains along the lower chest wall, and surgical clips seen in the left axilla. IMPRESSION: No acute intrathoracic abnormalities. Conclusions/Impression: Stage II TORIE in the setting of Celebrex and Advil, resolved -No NSAIDs Hypokalemia -Replete prn Metabolic Acidosis -Resolved HTN with CKD -Continue Losartan -Continue Coreg DM II with CKD -RISS Hypoalbuminemia -Recommend protein supplementation Anemia in chonic illness -Monitor H&H Case reviewed with Dr. Gong
[2024-06-10] MEDS: VENLAFAXINE HCL XR 75 MG CAP PO SCH (21:32)
[2024-06-10] MEDS: TIZANIDINE 4 MG TABLET PO SCH (21:32)
[2024-06-10] MEDS: ZOLPIDEM TARTRATE 10 MG TABLET PO SCH (21:32)
[2024-06-11 05:40] LABS: Absolute Eosinophils 0.6 K/uL (0-0.5); Absolute Lymphocytes (CBC) 2.9 K/uL (0.7-4.9); Absolute Monocytes 1.1 K/uL (0.1-1.3); Absolute Neutrophil 6.3 K/uL (1.8-8.0); Basophils % 0.3 % (0-1.3); Eosinophils % 5.6 % (0-4.4); Hematocrit 26.1 % (36.0-45.0); Hemoglobin 8.9 g/dL (12.0-15.0); Lymphocytes % 26.1 % (15.3-44.8); MCH 30.6 pg (27.0-35.0); MCHC 34.1 g/dL (32.0-36.0); MCV 89.9 fL (80-100); MPV 7.7 fL (7.6-11.3); Monocytes % 10.3 % (3.3-12.3); Neutrophils % 57.7 % (41.7-73.7); Nucleated Red Blood Cells % 0.1 % (0-0); Platelets 277 thou/uL (152-406); RBC Red Blood Cell Count 2.91 M/uL (3.86-4.86)
[2024-06-11 05:58] LABS: Anion Gap 9.6 mEq/L (5.0-15.0); Magnesium 1.8 mg/dL (1.6-2.4); Potassium 3.6 mEq/L (3.5-5.1)
[2024-06-11] MEDS ORDERED: LEVOTHYROXINE SOD 0.075 MG TAB PO SCH (06:30)
[2024-06-11] MEDS: MAGNESIUM SULFATE 1 gm IVPB 1 GM/100 ML BAG IV ONE (06:52)
[2024-06-11] MEDS: VENLAFAXINE HCL 75 MG TABLET PO SCH (08:10)
[2024-06-11] MEDS: MONTELUKAST 10 MG TAB PO SCH (08:10)
[2024-06-11] MEDS: POTASSIUM CL SA 10 MEQ TAB PO ONE (08:10)
[2024-06-11] MEDS: ARIPiprazole 5 MG TAB PO SCH (08:10)
[2024-06-11] MEDS: LIDOCAINE 4% PATCH TOP SCH (08:14)
[2024-06-11] MEDS: COLESEVELAM HCL 625 MG PO SCH (08:19)
[2024-06-11] MEDS: HYOSCYAMINE SULFATE 0.125 MG PO SCH (08:19)
[2024-06-11] MEDS ORDERED: DOXEPIN HCL 25 MG CAP PO SCH (09:00)
[2024-06-11] MEDS ORDERED: DOXEPIN HCL 50 MG PO SCH (09:00)
[2024-06-11 10:46] LABS: Differential Total Cells Count 100; Eosinophils 5 % (0-3); Lymphocytes 26 % (15-42); Monocytes 7 % (0-10); Myelocytes 1 % (0-0); Platelet Estimate ADEQ; Segmented Neutrophils 61 % (40-80)
[2024-06-11 10:47] LABS: Blood Morphology Comment NOTED (NOT SEEN); Polychromasia SLIGHT
[2024-06-11] MEDS: ENOXAPARIN 40 MG/0.4 ML SQ SCH (16:25)
[2024-06-11] MEDS ORDERED: TRAMADOL HCL 50 MG TAB PO PRN (18:07)
--- NOTE | 2024-06-11 18:10 | P.PN ---
Subjective Date of Service: 06/11/24 Chief Complaint: WEAKNESS, NEAR SYNCOPE Subjective: Improving NOHEMI IS DECONDITIONED SHE DOES NOT DO MUCH EXCEPT FOR TAKING MEDS AT HOME. SHE IS ON PAIN MEDS AND MULTIPLE OTHER MEDS RELATED TO DM, HTN, OBESITY, DJD ETC. SHE HAD VIOLET MASTECTOMY AND HAD NEAR SYNCOPE AFTER SHE HAD HYDROCODON AT HOME. THERE IS NO ACUTE BLEEDING. SHE DO[place] NOT WANT TO GO TO [place]. SHE WILL NEED HOME HEALTH. I TALKED TO CHARGE NURSE. Review of Systems 10-point ROS is otherwise unremarkable General: Weakness Physical Examination - Vital Signs Temperature: 97.5 F Blood Pressure: 153/67 Pulse: 64 Respirations: 16 Pulse Ox (%): 98 - Physical Exam General: Alert, Mild distress, Obese HEENT: Atraumatic, PERRLA, EOMI Neck: Supple, JVD not distended Respiratory: Clear to auscultation bilaterally, Normal air movement Cardiovascular: Regular rate/rhythm, Normal S1 S2 Gastrointestinal: Normal bowel sounds, No tenderness Musculoskeletal: No tenderness Integumentary: No rashes Neurological: Normal speech, Normal tone, Normal affect Lymphatics: No axilla or inguinal lymphadenopathy Other Physical/Emotional Findings: - Physical Exam. General: Obese, not acutely ill looking, in no apparent distress,. HEENT: Normocephalic, atraumatic, nonicteric sclera, nonanemic conjunctive. Neck: Supple, without JVD or goiter or thyroid mass. Respiratory: Chest wall in dressing, small old blood on the dressing, normal breathing effort, clear to auscultation bilaterally, no crackles no wheezing or rhonchi. Cardiovascular: Regular rate and rhythm, S1, S2 normal, no murmur no gallop. Gastrointestinal: Normal bowel sounds, nondistended, nontender, No ascites, , No masses, no hepatosplenomegaly. Extremities : No clubbing, No peripheral edema,. Integumentary: No rashes, petechia, suspected lesions. Lymphatics: No axilla or cervical lymphadenopathy. Neurology; alert awake oriented x3, no focal neurologic deficit, normal affection . mood and behavior. . - Studies Medications List Reviewed: Yes Assessment And Plan - Current Problems (Diagnosis) (1) S/P bilateral mastectomy Current Visit: Yes Status: Acute Plan: SHE DOES NOT HAVE ANY COMPLICATION OF SURGERY. MILD ANEMIA IS POSSIBLE AFTER BILAT MASTECTOMY FOR VERY LARGE BREASTS. I DW DR. RICHARDSON. (2) Syncope, near Current Visit: Yes Status: Acute Plan: THERE IS NO SIGN OF INFECTION. I WILL STOP LEVAQUIN AND CEFEPIME THAT SHE IS ON FROM [place] [place]. 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 AGREE WITH SNF. (6) Acute renal failure Current Visit: Yes Status: Acute Plan: RESOLVED AFTER STOPPING CELEBREX AND HCTZ SHE IS NOT TO TAKE ADVIL BUT SHE WAS TAKING WITHOUT MY KNOWLEDGE.
--- NOTE | 2024-06-11 21:20 | P.PN ---
Date of Service: 06/11/24 Vital Signs Temp Pulse Resp BP Pulse Ox 97.5 F 66 16 135/59 L 96 06/11/24 20:00 06/11/24 20:00 06/11/24 20:00 06/11/24 20:00 06/11/24 20:00 Medications Acetaminophen (Acetaminophen 500 Mg Tab) 500 mg PO Q4HP PRN PRN Reason: Pain scale 2-4 (Mild) Last Admin: 06/11/24 08:08 Dose: 500 mg Hydrocodone Bitart/Acetaminophen (Hydrocodone/Apap 5/325 Mg Tab) 1 tab PO Q6H PRN PRN Reason: Pain scale 8-10 (Severe) Last Admin: 06/11/24 17:23 Dose: 1 tab Aripiprazole (Aripiprazole 5 Mg Tab) 5 mg PO DAILY [facility] Last Admin: 06/11/24 08:10 Dose: 5 mg Atorvastatin Calcium (Atorvastatin 10 Mg Tab) 10 mg PO BEDTIME [facility] Last Admin: 06/11/24 20:16 Dose: 10 mg Carbidopa/Levodopa (Carbidopa/Levodopa 25/100 Tab) 1 tab PO TID [facility] Last Admin: 06/11/24 20:18 Dose: 1 tab Carvedilol (Carvedilol 12.5 Mg Tab) 12.5 mg PO BID 6AM 6PM [facility] Last Admin: 06/11/24 16:25 Dose: 12.5 mg Cholestyramine Resin (Cholestyramine/Asp 4 Gm/Pkt) 4 gm PO DAILY [facility] Doxepin HCl (Doxepin Hcl 25 Mg Cap) 50 mg PO BEDTIME [facility] Last Admin: 06/11/24 20:16 Dose: 50 mg Enoxaparin Sodium (Enoxaparin 40 Mg/0.4 Ml) 40 mg SQ DAILY 5 PM [facility] Last Admin: 06/11/24 16:25 Dose: 40 mg Home Med (Dulaglutide [Trulicity]) 1.5 mg IM Q7D [facility] Hydralazine HCl (Hydralazine Hcl 20 Mg/Ml Vial) 10 mg IV Q6HP PRN PRN Reason: FOR SBP>160 OR DBP>100 [facility] Last Admin: 06/10/24 04:34 Dose: 10 mg Hyoscyamine Sulfate (Hyoscyamine Sulf 0.125 Mg Tab) 0.125 mg PO DAILY [facility] Insulin Human Regular (Insulin Regular (Human) 100 Unit/Ml) 0 unit SQ ACHS [facility]; Protocol Last Admin: 06/11/24 15:54 Dose: Not Given Levothyroxine Sodium (Levothyroxine Sod 0.075 Mg Tab) 0.15 mg PO DAILYAC [facility] Last Admin: 06/11/24 05:06 Dose: 0.15 mg Lidocaine (Lidocaine 4% Patch) 1 patch TOP DAILY [facility] Last Admin: 06/11/24 08:17 Dose: Not Given Losartan Potassium (Losartan Potassium 50 Mg Tablet) 50 mg PO DAILY [facility] Last Admin: 06/11/24 08:54 Dose: 50 mg Montelukast Sodium (Montelukast 10 Mg Tab) 10 mg PO DAILY [facility] Last Admin: 06/11/24 08:10 Dose: 10 mg Ondansetron HCl (Ondansetron 4 Mg/2 Ml Vial) 4 mg IV Q6HP PRN PRN Reason: NAUSEA / VOMITING Last Admin: 06/09/24 21:12 Dose: 4 mg Tizanidine HCl (Tizanidine 4 Mg Tablet) 2 mg PO BEDTIME [facility] Last Admin: 06/11/24 20:17 Dose: 2 mg Tramadol HCl (Tramadol Hcl 50 Mg Tab) 50 mg PO Q6H PRN PRN Reason: Pain scale 5-7 (Moderate) Venlafaxine HCl (Venlafaxine Hcl Xr 75 Mg Cap) 150 mg PO BEDTIME [facility] Last Admin: 06/11/24 20:16 Dose: 150 mg Venlafaxine HCl (Venlafaxine Hcl 75 Mg Tablet) 75 mg PO DAILY [facility] Last Admin: 06/11/24 08:10 Dose: 75 mg Zolpidem Tartrate (Zolpidem Tartrate 10 Mg Tablet) 10 mg PO BEDTIME [facility] Last Admin: 06/11/24 20:15 Dose: 10 mg Assessment/ Plan: Nephrology No dyspnea No chest pain Weakness and fatigue No acute events overnight Vitals, medications, blood work and imaging reviewed in the chart Physical Examination General: In no apparent distress, Cooperative, Obese HEENT: Atraumatic Neck: Neck brace Respiratory: Clear to auscultation bilaterally Cardiovascular: No edema, Regular rate/rhythm Gastrointestinal: Soft and benign, Non-distended Musculoskeletal: No clubbing, No contractures Integumentary: No rashes, No cyanosis Neurological: Normal speech Laboratory Data (last 24 hrs) 06/06/24 06/06/24 06/06/24 15:45 15:45 15:45 WBC 17.80 H Hgb 8.7 L Hct 25.6 L Plt Count 270 PT 11.2 INR 1.07 Sodium 138 Potassium 4.2 BUN 38 H Creatinine 2.30 H Glucose 319 H Magnesium 2.0 Total Bilirubin 0.2 AST 15 ALT 16 Alkaline Phosphatase 51 Lipase 39 Imagings Data: EXAM: CT Chest For Pe Angio TECHNIQUE: CT angiogram of the chest was performed following intravenous contrast administration, including sagittal and coronal as well as maximum intensity projection reformats. One or more of the following dose reduction techniques were used: Automated exposure control, adjustment of the mA and kV according to patient size, and iterative reconstruction. Unless otherwise specified, incidental findings do not require dedicated imaging follow-up. INDICATION: [facility] MAIN DYSPNEA COMPARISON: 06/30/2022. FINDINGS: LINES/TUBES: None. PULMONARY ARTERIES: Main pulmonary arteries are normal in caliber. No filling defects within the pulmonary arteries to suggest pulmonary embolus. LUNGS AND AIRWAYS: The lungs and central airways are normal without focal abnormality. PLEURA: No effusion or pneumothorax. HEART AND MEDIASTINUM: The visualized thyroid gland is normal. No mediastinal, hilar, or axillary lymphadenopathy. Heart is unremarkable. No pericardial effusion. SOFT TISSUES AND BONES: Postsurgical changes with surgical drains along the ante rior chest wall bilaterally. Large crescentic hematoma along the right chest wall, measuring 21 x 17.1 cm in greatest transverse and CC dimensions, and 4.2 cm in greatest thickness. Cutaneous asymmetric edema along the right chest wall extending into the right axilla and right upper flank soft tissues. UPPER ABDOMEN: Unremarkable. IMPRESSION: No evidence of acute central pulmonary emboli. No suspicious intrathoracic findings. Large crescentic right chest wall hematoma, measuring 21 x 17.1 x 4.2 cm, in the right mastectomy bed. The surgical drain is present within the inferior aspect of this hematoma. No acute osseous abnormality. EXAMINATION: ONE VIEW CHEST XR CLINICAL INDICATION: Female, 74 years old.,DYSPNEA TECHNIQUE: Frontal chest projection is submitted. Examination is limited by patient positioning and technique. COMPARISON: 06/04/2024. FINDINGS: The lungs are grossly clear although mildly suboptimal inspiratory effort somewhat limits evaluation. No pneumothorax or sizable effusion. The heart is normal in size. Mediastinal contours are unremarkable. Surgical drains along the lower chest wall, and surgical clips seen in the left axilla. IMPRESSION: No acute intrathoracic abnormalities. Conclusions/Impression: Stage II TORIE in the setting of Celebrex and Advil, resolved -No NSAIDs Hypokalemia -Replete prn Metabolic Acidosis -Resolved HTN with CKD -Continue Losartan -Continue Coreg DM II with CKD -RISS Hypoalbuminemia -Recommend protein supplementation Anemia in chonic illness -Monitor H&H -PRBC prn Attending note reviewed
[2024-06-12 05:20] LABS: Absolute Eosinophils 0.6 K/uL (0-0.5); Absolute Lymphocytes (CBC) 2.9 K/uL (0.7-4.9); Absolute Monocytes 1.1 K/uL (0.1-1.3); Absolute Neutrophil 5.7 K/uL (1.8-8.0); Basophils % 0.4 % (0-1.3); Eosinophils % 6.1 % (0-4.4); Hematocrit 27.4 % (36.0-45.0); Hemoglobin 9.5 g/dL (12.0-15.0); Lymphocytes % 27.8 % (15.3-44.8); MCH 30.4 pg (27.0-35.0); MCHC 34.6 g/dL (32.0-36.0); MCV 87.9 fL (80-100); MPV 7.8 fL (7.6-11.3); Monocytes % 10.2 % (3.3-12.3); Nucleated Red Blood Cells % 0.1 % (0-0); Platelets 302 thou/uL (152-406); RBC Red Blood Cell Count 3.12 M/uL (3.86-4.86); Red Cell Distribution Width 14.1 % (12.1-15.2)
[2024-06-12 05:23] LABS: Neutrophils % 55.5 % (41.7-73.7)
[2024-06-12 05:52] LABS: Albumin 2.1 g/dL (3.4-5.0); Anion Gap 7.8 mEq/L (5.0-15.0); Magnesium 1.8 mg/dL (1.6-2.4); Potassium 3.8 mEq/L (3.5-5.1); Uric Acid 3.4 mg/dL (2.6-6.0)
[2024-06-12] MEDS: MAGNESIUM SULFATE 1 gm IVPB 1 GM/100 ML BAG IV ONE (06:28)
[2024-06-12] MEDS: POTASSIUM CL SA 10 MEQ TAB PO ONE (06:28)
[2024-06-12] MEDS: HYOSCYAMINE SULF 0.125 MG TAB PO SCH (08:54)
[2024-06-12] MEDS: CHOLESTYRAMINE/ASP 4 GM/PKT PO SCH (08:54)
--- NOTE | 2024-06-12 12:20 | P.DS ---
Admission Date: 06/06/24 Discharge Date: 06/12/24 Disposition: DC HOME/HOME HEALTH CARE Discharge Condition: FAIR Reason for Admission: WEAKNESS, NEAR SYNCOPE - Problems (1) S/P bilateral mastectomy Current Visit: Yes Status: Acute (2) Syncope, near Current Visit: Yes Status: Acute (3) Anxious depression Current Visit: Yes Status: Acute (4) Debility Current Visit: Yes Status: Chronic (5) General weakness Current Visit: Yes Status: Acute (6) Acute renal failure Current Visit: Yes Status: Acute Hospital Course: NOHEMI CAME IN WITH WEAKNESS, NEAR SYNCOPE, ARF FROM CELEBREX AND ADVIL WITHOUT MY KNOWLEDGE. SHE IMPROVED WITH IVF. SHE HAD LARGE BREASTS AND BOTH HAD BEEN REMOVED. THIS WILL GIVE SOME ANEMIA. SHE I STABLE FOR HOME. SHE WILL GET HOME HEALTH WITH PT. FU WITH DR. ALVARADO. SHE WILL STOP CELBREX AND ADVIL BOTH. FU IN OFFICE ONE WEEK. Vital Signs/Physical Exam: Temp Pulse Resp BP Pulse Ox 98.0 F 81 20 194/88 H 95 06/12/24 08:00 06/12/24 08:00 06/12/24 08:00 06/12/24 08:00 06/12/24 08:00 Other Physical/Emotional Findings: - Physical Exam. General: Obese, not acutely ill looking, in no apparent distress,. HEENT: Normocephalic, atraumatic, nonicteric sclera, nonanemic conjunctive. Neck: Supple, without JVD or goiter or thyroid mass. Respiratory: Chest wall in dressing, small old blood on the dressing, normal breathing effort, clear to auscultation bilaterally, no crackles no wheezing or rhonchi. Cardiovascular: Regular rate and rhythm, S1, S2 normal, no murmur no gallop. Gastrointestinal: Normal bowel sounds, nondistended, nontender, No ascites, , No masses, no hepatosplenomegaly. Extremities : No clubbing, No peripheral edema,. Integumentary: No rashes, petechia, suspected lesions. Lymphatics: No axilla or cervical lymphadenopathy. Neurology; alert awake oriented x3, no focal neurologic deficit, normal affection . mood and behavior. . Laboratory Data at Discharge: WBC 10.40 thou/uL (4.3-10.9) 06/12/24 05:02 Hgb 9.5 g/dL (12.0-15.0) L 06/12/24 05:02 Hct 27.4 % (36.0-45.0) L 06/12/24 05:02 Plt Count 302 thou/uL (152-406) 06/12/24 05:02 PT 11.7 SECONDS (9.4-12.5) 06/07/24 05:25 INR 1.12 06/07/24 05:25 Sodium 135 mEq/L (136-145) L 06/12/24 05:02 Potassium 3.8 mEq/L (3.5-5.1) 06/12/24 05:02 BUN 13 mg/dL (7-18) 06/12/24 05:02 Creatinine 0.49 mg/dL (0.55-1.02) L 06/12/24 05:02 Glucose 126 mg/dL (74-106) H 06/12/24 05:02 Uric Acid 3.4 mg/dL (2.6-6.0) 06/12/24 05:02 Phosphorus 3.0 mg/dL (2.5-4.9) 06/12/24 05:02 Magnesium 1.8 mg/dL (1.6-2.4) 06/12/24 05:02 Total Bilirubin 0.2 mg/dL (0.2-1.0) 06/06/24 15:45 AST 15 U/L (15-37) 06/06/24 15:45 ALT 16 U/L (13-56) 06/06/24 15:45 Alkaline Phosphatase 51 U/L (45-117) 06/06/24 15:45 Lipase 39 U/L (13-75) 06/06/24 15:45 Home Medications: Doxepin HCl 50 mg PO DAILY 12/09/16 Levothyroxine Sodium 150 mcg PO DAILY 12/09/16 Venlafaxine HCl [Effexor XR] 150 mg PO BEDTIME 12/09/16 Dulaglutide [Trulicity] 1.5 mg IM [facility] 06/19/22 Montelukast Sodium [Singulair] 1 tab PO DAILY 06/19/22 Venlafaxine HCl 75 mg PO DAILY 06/19/22 ARIPiprazole [Abilify*] 5 mg PO DAILY 06/04/24 Carbidopa/Levodopa [Carbidopa-Levodopa 25-100 Tab] 1 each PO TID 06/04/24 Colesevelam HCl 1 tab PO DAILY 06/04/24 Hyoscyamine Sulfate 0.125 mg PO DAILY 06/04/24 Losartan/Hydrochlorothiazide [Losartan-Hctz 100-12.5 mg Tab] 1 each PO DAILY 06/04/24 Pravastatin [Pravachol*] 40 mg PO DAILY 06/04/24 Propranolol HCl [Propranolol HCl ER] 80 mg PO DAILY 06/04/24 Tizanidine HCl [Zanaflex] 2 mg PO BEDTIME 06/04/24 Zolpidem Tartrate [Ambien*] 10 mg PO BEDTIME 06/04/24 Followup: Yogesh Mcintosh MD [Primary Care Provider] - Glynn Alvarado MD [ACTIVE - CAN ADMIT] -
[2024-06-12 17:18] VITALS: BP 175/74; TEMP 98
--- NOTE | 2024-06-12 20:32 | P.PN ---
Date of Service: 06/12/24 Vital Signs Temp Pulse Resp BP Pulse Ox 98.0 F 72 20 175/74 H 94 06/12/24 16:00 06/12/24 16:00 06/12/24 16:00 06/12/24 16:00 06/12/24 16:00 Assessment/ Plan: Nephrology No dyspnea No chest pain Weakness and fatigue No acute events overnight Vitals, medications, blood work and imaging reviewed in the chart Physical Examination General: In no apparent distress, Cooperative, Obese HEENT: Atraumatic Neck: Neck brace Respiratory: Clear to auscultation bilaterally Cardiovascular: No edema, Regular rate/rhythm Gastrointestinal: Soft and benign, Non-distended Musculoskeletal: No clubbing, No contractures Integumentary: No rashes, No cyanosis Neurological: Normal speech Laboratory Data (last 24 hrs) 06/06/24 06/06/24 06/06/24 15:45 15:45 15:45 WBC 17.80 H Hgb 8.7 L Hct 25.6 L Plt Count 270 PT 11.2 INR 1.07 Sodium 138 Potassium 4.2 BUN 38 H Creatinine 2.30 H Glucose 319 H Magnesium 2.0 Total Bilirubin 0.2 AST 15 ALT 16 Alkaline Phosphatase 51 Lipase 39 Imagings Data: EXAM: CT Chest For Pe Angio TECHNIQUE: CT angiogram of the chest was performed following intravenous contrast administration, including sagittal and coronal as well as maximum intensity projection reformats. One or more of the following dose reduction techniques were used: Automated exposure control, adjustment of the mA and kV according to patient size, and iterative reconstruction. Unless otherwise specified, incidental findings do not require dedicated imaging follow-up. INDICATION: [facility] DYSPNEA COMPARISON: 06/30/2022. FINDINGS: LINES/TUBES: None. PULMONARY ARTERIES: Main pulmonary arteries are normal in caliber. No filling defects within the pulmonary arteries to suggest pulmonary embolus. LUNGS AND AIRWAYS: The lungs and central airways are normal without focal abnormality. PLEURA: No effusion or pneumothorax. HEART AND MEDIASTINUM: The visualized thyroid gland is normal. No mediastinal, hilar, or axillary lymphadenopathy. Heart is unremarkable. No pericardial effusion. SOFT TISSUES AND BONES: Postsurgical changes with surgical drains along the anterior chest wall bilaterally. Large crescentic hematoma along the right chest wall, measuring 21 x 17.1 cm in greatest transverse and CC dimensions, and 4.2 cm in greatest thickness. Cutaneous asymmetric edema along the right chest wall extending into the right axilla and right upper flank soft tissues. UPPER ABDOMEN: Unremarkable. IMPRESSION: No evidence of acute central pulmonary emboli. No suspicious intrathoracic findings. Large crescentic right chest wall hematoma, measuring 21 x 17.1 x 4.2 cm, in the right mastectomy bed. The surgical drain is present within the inferior aspect of this hematoma. No acute osseous abnormality. EXAMINATION: ONE VIEW CHEST XR CLINICAL INDICATION: Female, 74 years old.,DYSPNEA TECHNIQUE: Frontal chest projection is submitted. Examination is limited by patient positioning and technique. COMPARISON: 06/04/2024. FINDINGS: The lungs are grossly clear although mildly suboptimal inspiratory effort somewhat limits evaluation. No pneumothorax or sizable effusion. The heart is normal in size. Mediastinal contours are unremarkable. Surgical drains along the lower chest wall, and surgical clips seen in the left axilla. IMPRESSION: No acute intrathoracic abnormalities. Conclusions/Impression: Stage II TROIE in the setting of Celebrex and Advil, resolved -No NSAIDs Hypokalemia -Replete prn Metabolic Acidosis -Resolved HTN with CKD -Continue Losartan -Continue Coreg DM II with CKD -RISS Hypoalbuminemia -Recommend protein supplementation Anemia in chonic illness -Monitor H&H -PRBC prn Attending note reviewed
[2024-06-14] MEDS ORDERED: DULAGLUTIDE 1.5 MG/0.5 ML IM SCH (12:30)
== END 2024-06-12 17:27 | disposition home health service (06) | DRG 920 ==
LOC: ER 13:58 → ERHOLD 18:09 → 3RD-ICU 06-07 02:37 → 2ND 06-07 18:14
PROVIDERS: ADMIT Hospitalist; ATTEND Internal Medicine
PROC: 30233N1 Transfusion of Nonautologous Red Blood Cells into Peripheral Vein, Percutaneous Approach (ICD-10-PCS; principal; 2024-06-06)
PROC: 02HV33Z Insertion of Infusion Device into Superior Vena Cava, Percutaneous Approach (ICD-10-PCS; 2024-06-06)
DX: L76.22 Postprocedural hemorrhage of skin and subcutaneous tissue following other procedure (principal); D62 Acute posthemorrhagic anemia; N17.9 Acute kidney failure, unspecified; E87.20 Acidosis, unspecified; E78.00 Pure hypercholesterolemia, unspecified; I95.9 Hypotension, unspecified; E87.6 Hypokalemia; E88.09 Other disorders of plasma-protein metabolism, not elsewhere classified; I12.9 Hypertensive chronic kidney disease with stage 1 through stage 4 chronic kidney disease, or unspecified chronic kidney disease; N18.30 Chronic kidney disease, stage 3 unspecified; E11.22 Type 2 diabetes mellitus with diabetic chronic kidney disease; E11.65 Type 2 diabetes mellitus with hyperglycemia; D63.1 Anemia in chronic kidney disease; F32.A Depression, unspecified; F41.9 Anxiety disorder, unspecified; E66.01 Morbid (severe) obesity due to excess calories; D72.829 Elevated white blood cell count, unspecified; L76.32 Postprocedural hematoma of skin and subcutaneous tissue following other procedure; R55 Syncope and collapse; Z88.1 Allergy status to other antibiotic agents; Z85.3 Personal history of malignant neoplasm of breast; Z90.13 Acquired absence of bilateral breasts and nipples; Z68.36 Body mass index [BMI] 36.0-36.9, adult; Z88.5 Allergy status to narcotic agent; Z79.890 Hormone replacement therapy; Z79.899 Other long term (current) drug therapy
CPT/HCPCS: 36415; 36556; 71045; 71275; 80048; 80069; 80076; 81001; 81015; 82947; 83036; 83690; 83735; 83880; 84439; 84443; 84484; 84550; 85014; 85018; 85025; 85610; 86850; 86900; 86901; 86920; 93005; 94010; 97110; 97116; 97161; 97530; 99285; J0360; J0612; J0692; J1650; J2003; J2270; J2405; J2543; J3475; J3480; J7030; J7050; J7608; P9016; Q9967

== ENCOUNTER 2024-06-18 08:24 | Inpatient (IN) | payer OTHER ==
[2024-06-18 09:13] LABS: Absolute Basophils 0.1 K/uL (0-0.5); Absolute Lymphocytes (CBC) 1.6 K/uL (0.7-4.9); Absolute Monocytes 1.7 K/uL (0.1-1.3); Absolute Neutrophil 19.9 K/uL (1.8-8.0); Basophils % 0.4 % (0-1.3); Hematocrit 34.3 % (36.0-45.0); Hemoglobin 11.3 g/dL (12.0-15.0); Lymphocytes % 6.8 % (15.3-44.8); MCH 29.5 pg (27.0-35.0); MCV 89.3 fL (80-100); MPV 7.4 fL (7.6-11.3); Monocytes % 7.3 % (3.3-12.3); Neutrophils % 85.5 % (41.7-73.7); Platelets 433 thou/uL (152-406); RBC Red Blood Cell Count 3.85 M/uL (3.86-4.86); Red Cell Distribution Width 14.7 % (12.1-15.2)
--- NOTE | 2024-06-18 09:14 | RAD REPORT ---
EXAMINATION: US bilateral LOWER EXTREMITY VENOUS DOPPLER CLINICAL INDICATION: Leg pain TECHNIQUE: Sonographic evaluation of the veins of the lower extremity bilaterally formed.Grayscale, c olor and spectral analysis performed on all vessels COMPARISON: 2008. FINDINGS: The common femoral, superficial femoral, greater saphenous, popliteal and posterior tibial veins bila terally are compressible and demonstrate augmentation. Doppler demonstrates good flow. 1.6 cm right Herron's cyst IMPRESSION: No evidence of deep venous thrombosis involving either lower extremity 1.6 cm right Herron's cyst
[2024-06-18 09:19] LABS: PT Prothrombin Time 13.4 SECONDS (9.4-12.5); PTT, Activated Partial Thromb 29.7 SECONDS (24.3-36.9); Protime INR 1.28
[2024-06-18 09:31] LABS: Albumin 2.9 g/dL (3.4-5.0); Albumin/Globulin Ratio 0.8 (1.1-1.8); Anion Gap 11.7 mEq/L (5.0-15.0); Globulin 3.6 g/dL (2.3-3.5); Potassium 3.7 mEq/L (3.5-5.1); Protein, Total 6.5 g/dL (6.4-8.2)
[2024-06-18 09:40] LABS: Specific Gravity 1.016 (1.005-1.030); Sqamous Epithelial <5 /HPF (None Seen); Transitional Epithelial <5 /HPF (None Seen); Urine Bacteria None Seen /HPF (<20); Urine Bilirubin NEGATIVE (Negative); Urine Blood Negative (Negative); Urine Clarity Clear (Clear); Urine Color Light-Yellow (Yellow); Urine Culture Reflex Order NOT NEEDED; Urine Glucose NEGATIVE (Negative); Urine Ketones 1+ (Negative); Urine Microscopic Reflex YN ORDER UMIC; Urine Mucus Slight /HPF (None Seen); Urine Nitrite NEGATIVE (Negative); Urine Protein 1+ (Negative); Urine RBC <5 /HPF (None Seen); Urine Urobilinogen Normal (Normal); Urine WBC <5 /HPF (<5)
[2024-06-18 09:42] LABS: SARS-CoV-2 Antigen CONTROL BLUE LINE VIS/BG OK; SARS-CoV-2 Antigen Rapid Res Negative (Negative)
[2024-06-18 10:11] LABS: Blood Morphology Comment NOT SEEN (NOT SEEN); Platelet Estimate ADEQ; White Blood Cell Scan OK (OK)
--- NOTE | 2024-06-18 10:59 | RAD REPORT ---
EXAMINATION: CTA CHEST PE CLINICAL INDICATION: Chest pain. Tachypnea TECHNIQUE: 100 cc 370 Isovue administered intravenously. This examination was performed according to an angiographic protocol with 3D post-processing. This involves 3D reconstructions, MIPs, volume rendered images and/or shaded surface rendering. One or more of the following dose reduction techniqu es were used: Automated exposure control, adjustment of the mA and/or kV according to patient size, and/or iterative reconstruction. Unless otherwise specified, incidental findings do not require dedic ated imaging follow-up. [id number]. COMPARISON: June 06, 2024. FINDINGS: A pulmonary embolus is not seen. An aortic aneurysm not noted. No pleural effusion. No pericardial effusion. Lungs are clear. 1.5 cm left thyroid nodule. Nonemergent thyroid ultrasound recommended Right chest wall hematoma has mildly decreased in size. The amount of subcutaneous air has diminished . IMPRESSION: No evidence of a pulmonary embolism
--- NOTE | 2024-06-18 11:06 | RAD REPORT ---
Procedure: Chest Single View HISTORY: Cough COMPARISON: June 06, 2024 FINDINGS: The lungs appear clear of acute infiltrate. No significant pleural effusion noted. The heart is borderline enlarged. . IMPRESSION: No acute abnormality is displayed.
[2024-06-18] MEDS ORDERED: NA CHLORIDE 0.9% 100 ML ONE (11:19)
[2024-06-18] MEDS ORDERED: PIPERACIL/TAZO 3.375 GM VIAL IV ONE (11:19)
--- NOTE | 2024-06-18 11:32 | EDPHYS ---
Physician Documentation [facility] Name: Lupe Anaya Age: 74 yrs Sex: Female : 1950 Arrival Date: 06/18/2024 Time: 08:24 Bed 7 Private MD: ED Physician Miguel Angel Moore HPI: 06/18 09:20 This 74 yrs old Female presents to ER via EMS with complaints of General Weakness, rn Altered Mental Status. 09:20 The patient presents with decreased responsiveness. Onset: The symptoms/episode rn began/occurred at an unknown time. Possible causes: unknown. Current symptoms: In the emergency department the patient's symptoms have improved. It is unknown whether or not the patient has had similar symptoms in the past. Per EMS report patient was exhibiting altered mental status, generalized weakness, unknown onset. Patient with somewhat recent bilateral mastectomy a few weeks ago and recently admitted for fluid collection. Patient denies focal pain. Has been using wraparound chest. Found to be laying in urine, tachycardic and temperature of 100 degrees. Denies shortness of breath or abdominal pain. No vomiting.. Historical: - Allergies: 08:28 Dilantin; ph 08:28 Erythromycin; ph - PMHx: 08:28 breast cancer; diabetes mellitus; Hypercholesterolemia; Hypertensive disorder; ph - PSHx: 08:28 double mastectomy; ph - Immunization history:: Adult Immunizations unknown. - Infectious Disease History:: Denies. - Social history:: Smoking status: unknown. - Family history:: not pertinent. - Hospitalizations: : No recent hospitalization is reported. ROS: 09:20 Constitutional: Positive for reported fever Neck: Negative for injury, pain, and rn swelling, Cardiovascular: Negative for chest pain, palpitations, and edema, Respiratory: Negative for shortness of breath, cough, wheezing, and pleuritic chest pain, Abdomen/GI: Negative for abdominal pain, nausea, vomiting, diarrhea, and constipation, Back: Negative for injury and pain, : Negative for injury, bleeding, discharge, and swelling, MS/Extremity: Negative for injury and deformity, Neuro: Positive for generalized weakness Exam: 09:20 Constitutional: This is a well developed, well nourished patient who is awake, alert, rn and in no acute distress. Head/Face: Normocephalic, atraumatic. Chest/axilla: Mastectomy wounds are clean dry and intact. Cardiovascular: Tachycardic, regular Respiratory: Mild tachypnea, diminished at bases Abdomen/GI: Soft, nontender Skin: Healing puncture wound right inguinal region, likely from previous central line, no evidence of infection or cellulitis MS/ Extremity: Pulses equal, no cyanosis. Neurovascular intact. Full, normal range of motion. Equal circumference. Neuro: Awake and alert, GCS 15, oriented to person but not time. Vital Signs: 08:25 BP 147 / 73; Pulse 105; Resp 24; Temp 98.4(O); Weight 90.72 kg; ph 10:47 BP 146 / 56; Pulse 91; Resp 19 S; Pulse Ox 100% on R/A; kc6 11:28 BP 140 / 65; Pulse 92; Resp 22 S; Temp 99.3(O); Pulse Ox 98% on R/A; kc6 MDM: 08:28 Medical Screening Exam initiated rn 11:30 Differential Diagnosis: electrolyte abnormality, hypoglycemia, pneumonia, UTI, volume rn depletion, Atelectasis, DVT, PE. Data reviewed: vital signs, nurses notes, lab test result(s), radiologic studies, CT scan, plain films, and as a result, I will admit patient. Consideration of Admission/Observation Patient was admitted/placed on observation. Escalation of care including admission/observation considered. Independent interpretation of the following test(s) in the Emergency Department X-Ray: My interpretation is Chest x-ray images negative for pneumonia per my interpretation. Counseling: I had a detailed discussion with the patient and/or guardian regarding the historical points, exam findings, and any diagnostic results supporting the discharge/admit diagnosis, lab results, radiology results, the need for further work-up and treatment in the hospital. ED course: Patient with worsening WBC, now febrile and altered. Will admit to Dr. Mcintosh. Discussed case with Dr. Alvarado who will see in consult on patient. 11:54 ED course: Dr. Mcintosh requests CT chest/abd/pelvis. CT chest was performed earlier and rn patient already received contrast, will add ct abdomen/pelvis. . 06/18 08:28 Order name: Blood Culture Adult (2) rn 06/18 08:28 Order name: CBC with Diff; Complete Time: 10:16 rn 06/18 08:28 Order name: CMP; Complete Time: 09:42 rn 06/18 08:28 Order name: Lactate w/ 2H reflex if indic.; Complete Time: 09:42 rn 06/18 08:28 Order name: Protime (+inr); Complete Time: 09:20 rn 06/18 08:28 Order name: Ptt, Activated; Complete Time: 09:20 rn 06/18 08:28 Order name: Urinalysis w/ reflexes; Complete Time: 09:42 rn 06/18 08:28 Order name: Flu; Complete Time: 09:42 rn 06/18 08:28 Order name: SARS-COV-2 Antigen Rapid; Complete Time: 09:42 rn 06/18 10:12 Order name: CBC Smear Scan; Complete Time: 10:16 EDMS 06/18 08:28 Order name: Chest Single View XRAY; Complete Time: 11:10 rn 06/18 08:28 Order name: Extrem Venous W Compression Ori US; Complete Time: 09:20 rn 06/18 10:09 Order name: CT Chest For PE Angio; Complete Time: 11:10 rn 06/18 11:54 Order name: CT Abd/Pelvis - Without Contrast rn 06/18 12:41 Order name: CT; Complete Time: 15:56 EDMS 06/18 08:28 Order name: Accucheck; Complete Time: 09:22 rn 06/18 08:28 Order name: Cardiac monitoring; Complete Time: 08:29 rn 06/18 08:28 Order name: EKG - Nurse/Tech; Complete Time: 09:22 rn 06/18 08:28 Order name: IV Saline Lock - Large Bore; Complete Time: 09:22 rn 06/18 08:28 Order name: Labs collected and sent; Complete Time: 09:22 rn 06/18 08:28 Order name: O2 Per Protocol; Complete Time: 08:29 rn 06/18 08:28 Order name: O2 Sat Monitoring; Complete Time: 08:29 rn 06/18 08:28 Order name: Vital Signs; Complete Time: 08:29 rn Administered Medications: 11:28 Drug: Piperacillin-Tazobactam IVPB 3.375 grams IVPB once over 60 mins; (mix in NS 100 kc6 mL) Route: IVPB; Infused Over: 60 mins; Site: left antecubital; 12:28 Follow up: Response: No adverse reaction; IV Status: Completed infusion; IV Intake: kc6 100ml Disposition Summary: 06/18/24 11:31 Hospitalization Ordered Notes: Hospitalization Status: Inpatient Admission rn Provider: Yogesh Mcintosh rn [facility] rn Condition: Stable rn Problem: new rn Symptoms: have improved rn Bed/Room Type: Standard rn Room Assignment: 232(06/18/24 12:49) bd Diagnosis - Fever, unspecified rn - Altered mental status, unspecified rn Forms: - Medication Reconciliation Form rn - SBAR form rn - Leadership Thank You Letter rn Signatures: Dispatcher [employer] EDMS Rain Cooney Roman, MD MD rn Giovana Saenz RN RN Hill, Aurora, RN RN kc6 Corrections: (The following items were deleted from the chart) 08:29 08:29 Influenza Screen (A \T\ B)+BA.LAB.BRZ ordered. EDAZ EDMS 08:29 08:29 SARS-COV-2 Antigen Rapid+I.LAB.BRZ ordered. EDAZ EDMS 12:49 11:31 rn bd
--- NOTE | 2024-06-18 11:32 | ER ---
Nurse's Notes [facility] Name: Lupe Anaya Age: 74 yrs Sex: Female : 1950 Arrival Date: 06/18/2024 Time: 08:24 Bed 7 Private MD: Diagnosis: Fever, unspecified;Altered mental status, unspecified Presentation: 06/18 08:25 Chief complaint: EMS states: C/O general weakness and AMS, recent double mastectomy, HR ph 110's and temp 100.0, pt also found w/ urinary incontinence. Coronavirus screen: Vaccine status: Patient reports receiving the 2nd dose of the covid vaccine. Ebola Screen: No symptoms or risks identified at this time. Initial Sepsis Screen: Does the patient meet any 2 criteria? No. Patient's initial sepsis screen is negative. Does the patient have a suspected source of infection? No. Patient's initial sepsis screen is negative. Risk Assessment: Do you want to hurt yourself or someone else? Patient reports no desire to harm self or others. Onset of symptoms was June 18, 2024. 08:25 Method Of Arrival: EMS: [facility] ph 08:25 Acuity: NADER 2 ph Historical: - Allergies: 08:28 Dilantin; ph 08:28 Erythromycin; ph - PMHx: 08:28 breast cancer; diabetes mellitus; Hypercholesterolemia; Hypertensive disorder; ph - PSHx: 08:28 double mastectomy; ph - Immunization history:: Adult Immunizations unknown. - Infectious Disease History:: Denies. - Social history:: Smoking status: unknown. - Family history:: not pertinent. - Hospitalizations: : No recent hospitalization is reported. Screenin:24 [facility] ED Fall Risk Assessment (Adult) History of falling in the last 3 months, kc6 including since admission No falls in past 3 months (0 pts) Confusion or Disorientation Yes (5 pts) Intoxicated or Sedated No (0 pts) Impaired Gait No (0 pts) Mobility Assist Device Used No (0 pt) Altered Elimination No (0 pt) Score/Fall Risk Level 3 or more points = High Risk Oriented to surroundings, Maintained a safe environment, Educated pt \T\ family on fall prevention, incl call for assistance when getting out of bed. Abuse screen: Denies threats or abuse. Denies injuries from another. Nutritional screening: No deficits noted. Tuberculosis screening: No symptoms or risk factors identified. Assessment: 08:24 General: Appears in no apparent distress. comfortable, obese, well groomed, well kc6 developed, Behavior is calm, cooperative, drowsy. Pain: Unable to use pain scale. Patient is disoriented. Neuro: Level of Consciousness is awake, obeys commands, confused, lethargic, Oriented to person. Cardiovascular: Capillary refill < 3 seconds Rhythm is sinus tachycardia. Respiratory: Airway is patent Trachea midline Respiratory effort is even, unlabored, Respiratory pattern is regular, tachypnea. GI: No signs and/or symptoms were reported involving the gastrointestinal system. : Parent/caregiver report the patient having incontinence. EENT: No signs and/or symptoms were reported regarding the EENT system. Derm: Skin is healthy with good turgor, Skin is pink, warm \T\ dry. Wound noted chest and right femoral area. Musculoskeletal: No signs and/or symptoms reported regarding the musculoskeletal system. Circulation, motion, and sensation intact. Range of motion: intact in all extremities. 09:24 Reassessment: Patient appears in no apparent distress at this time. No changes from kc6 previously documented assessment. Patient and/or family updated on plan of care and expected duration. Pain level reassessed. 10:22 Reassessment: Patient appears in no apparent distress at this time. No changes from kc6 previously documented assessment. Patient and/or family updated on plan of care and expected duration. Pain level reassessed. 11:28 Reassessment: Patient appears in no apparent distress at this time. No changes from kc6 previously documented assessment. Patient and/or family updated on plan of care and expected duration. Pain level reassessed. Patient is alert, oriented x 3, equal unlabored respirations, skin warm/dry/pink. 12:28 Reassessment: Patient appears in no apparent distress at this time. No changes from kc6 previously documented assessment. Patient and/or family updated on plan of care and expected duration. Pain level reassessed. Patient is alert, oriented x 3, equal unlabored respirations, skin warm/dry/pink. 13:28 Reassessment: Patient appears in no apparent distress at this time. No changes from kc6 previously documented assessment. Patient and/or family updated on plan of care and expected duration. Pain level reassessed. Patient is alert, oriented x 3, equal unlabored respirations, skin warm/dry/pink. 14:58 Reassessment: Patient appears in no apparent distress at this time. No changes from kc6 previously documented assessment. Patient and/or family updated on plan of care and expected duration. Pain level reassessed. Patient is alert, oriented x 3, equal unlabored respirations, skin warm/dry/pink. Vital Signs: 08:25 BP 147 / 73; Pulse 105; Resp 24; Temp 98.4(O); Weight 90.72 kg; ph 10:47 BP 146 / 56; Pulse 91; Resp 19 S; Pulse Ox 100% on R/A; kc6 11:28 BP 140 / 65; Pulse 92; Resp 22 S; Temp 99.3(O); Pulse Ox 98% on R/A; kc6 ED Course: 08:25 Patient arrived in ED. ph 08:27 Miguel Angel Moore MD is Attending Physician. rn 08:28 Triage completed. ph 08:30 Arm band placed on Patient placed in an exam room, in the treatment room, on cardiac ph monitor, on pulse oximetry. 08:30 Patient has correct armband on for positive identification. Bed in low position. Call [facility] light in reach. Side rails up X2. Adult w/ patient. residential monitor on. Pulse ox on. NIBP on. Door closed. Noise minimized. Lights dimmed. Warm blanket given. Pillow given. Verbal reassurance given. 09:04 Extrem Venous W Compression Ori US In Process Unspecified. EDMS 09:22 Aurora Hill, RN is Primary Nurse. kc6 09:24 Straight cath inserted, using sterile technique, 14 Fr. Specimen obtained. Returned [facility] clear yellow urine. Patient tolerated well. Missed attempt(s): 20 gauge in right antecubital area. Inserted saline lock: 22 gauge in left antecubital area, using aseptic technique. Blood collected. Flushed with 10 mL NS. 09:25 Cleaned of incontinence. Linen changed. kc6 10:37 CT Chest For PE Angio In Process Unspecified. EDMS 10:53 Chest Single View XRAY In Process Unspecified. EDMS 11:31 Yogesh Mcintosh MD is Hospitalizing Provider. rn 14:58 No provider procedures requiring assistance completed. Patient admitted, IV remains in [facility] place. 14:58 Patient maintains SpO2 saturation greater than 95% on room air. kc6 Administered Medications: 11:28 Drug: Piperacillin-Tazobactam IVPB 3.375 grams IVPB once over 60 mins; (mix in NS 100 kc6 mL) Route: IVPB; Infused Over: 60 mins; Site: left antecubital; 12:28 Follow up: Response: No adverse reaction; IV Status: Completed infusion; IV Intake: kc6 100ml Medication: 14:58 VIS not applicable for this client. kc6 Intake: 12:28 IV: 100ml; Total: 100ml. kc6 Outcome: 11:31 Decision to Hospitalize by Provider. rn 14:58 Patient left the ED. ph 14:58 Admitted to Med/surg accompanied by tech, via stretcher, with chart, kc6 14:58 Condition: stable 14:58 Instructed on the need for admit, Signatures: Dispatcher [employer] Miguel Angel Clark MD MD rn Hall, Patricia, RN RN Aurora Hill RN RN kc
--- NOTE | 2024-06-18 12:40 | RAD REPORT ---
EXAMINATION: CT ABDOMEN AND PELVIS WITHOUT CONTRAST CLINICAL INDICATION: Abdominal pain. Fever TECHNIQUE: CT abdomen and pelvis was performed, as per department protocol. IV contrast and oral was not administered.Axial, sagittal and coronal reconstructions were obtained. One or more of the following dose reduction techniques were used: Automated exposure control, adjustment of the mA and/o r kV according to the patient size, and/or iterative reconstruction. Unless otherwise specified, incidental findings do not require dedicated imaging follow-up. [id number]. COMPARISON: CT chest June 18, 2024. FINDINGS: The lack of intravenous and oral contrast limits evaluation of solid organs, vessels and bowel. Patient's known right chest wall hematoma has diminished in size since prior imaging. 9 x 1 cm collec tion of air within the subcutaneous tissue left anterior lower chest/upper abdomen. No associated fluid. Contrast is present within the genitourinary system. The liver, spleen, pancreas, adrenals and kidneys appear grossly normal. Cholecystectomy. Hysterectomy. No adnexal mass. Small umbilical hernia. No evidence of diverticulitis. An abnormal appendix is not present. Spondylosis lumbar spine results in spinal stenosis IMPRESSION: 9 x 1 cm collection of air within the anterior subcutaneous tissue of the left lower chest/upper abdo men appears to have developed since CT chest earlier on the same date. It is not felt to be infectious. No associated fluid noted. Patient's known hematoma along the right lower chest subcutaneous tissue anteriorly has diminished si nce prior imaging. No acute intra-abdominal process seen
[2024-06-18 16:24] VITALS: BMI 36.6
--- NOTE | 2024-06-18 17:48 | P.HP ---
Patient History Date of Service: 06/18/24 Reason for admission: CONFUSED, WEAK History of Present Illness: SHE CAN'T TELL ME WHY SHE IS HERE BUT BROUGHT HER HERE FOR CONFUSION. SHE HAS WBC COUNT OF 23K AND POSSIBLE CELLULITIS WITH SEROMA OF POST SURGICAL SITE. SHE HAS MANY MEDICAL ISSUES. SHE RECENTLY HAD BILATERAL MASTECTOMY FOR UNILATERAL CANCER. Allergies codeine Allergy (Verified 06/04/24 13:25) Nausea/Vomiting erythromycin base Allergy (Verified 06/04/24 13:25) Nausea/Vomiting/diarrhea phenytoin [From Dilantin] Allergy (Verified 06/04/24 13:25) Hives/Rash, high fever succinylcholine Allergy (Verified 06/04/24 13:25) Stopped Breathing Home Medications: Doxepin HCl 50 mg PO DAILY 12/09/16 Levothyroxine Sodium 150 mcg PO DAILY 12/09/16 Venlafaxine HCl [Effexor XR] 150 mg PO BEDTIME 12/09/16 Dulaglutide [Trulicity] 1.5 mg IM SEECOM 06/19/22 Montelukast Sodium [Singulair] 1 tab PO DAILY 06/19/22 Venlafaxine HCl 75 mg PO DAILY 06/19/22 ARIPiprazole [Abilify*] 5 mg PO DAILY 06/04/24 Carbidopa/Levodopa [Carbidopa-Levodopa 25-100 Tab] 1 each PO TID 06/04/24 Colesevelam HCl 1 tab PO DAILY 06/04/24 Hyoscyamine Sulfate 0.125 mg PO DAILY 06/04/24 Losartan/Hydrochlorothiazide [Losartan-Hctz 100-12.5 mg Tab] 1 each PO DAILY 06/04/24 Pravastatin [Pravachol*] 40 mg PO DAILY 06/04/24 Propranolol HCl [Propranolol HCl ER] 80 mg PO DAILY 06/04/24 Tizanidine HCl [Zanaflex] 2 mg PO BEDTIME 06/04/24 Zolpidem Tartrate [Ambien*] 10 mg PO BEDTIME 06/04/24 - Past Medical/Surgical History Diabetic: Yes -: HTN -: HLD -: DM II -: Cholecystectomy -: Hysterectomy -: Back surgery x2 -: Bilateral mastectomy 06/05/24 Psychosocial/ Personal History: Patient is retired, lives at home with her - Family History Father -: Heart disease Mother -: Heart disease - Social History Smoking Status: Never smoker Alcohol use: No CD- Drugs: No Caffeine use: Yes Place of Residence: Home Review of Systems 10-point ROS is otherwise unremarkable General: Weakness Physical Examination - Vital Signs Temperature: 100.2 F Blood Pressure: 171/77 Pulse: 102 Respirations: 16 Pulse Ox (%): 93 - Physical Exam General: Oriented x1, Mild distress, Obese HEENT: Atraumatic, PERRLA, Mucous membr. moist/pink, EOMI, Sclerae nonicteric Neck: Supple, 2+ carotid pulse no bruit, No LAD, Without JVD or thyroid abnormality Respiratory: Clear to auscultation bilaterally, Normal air movement, Other (POST OP CHEST EXAM BY DR HUYNH) Cardiovascular: Regular rate/rhythm, Normal S1 S2 Gastrointestinal: Normal bowel sounds, No tenderness Musculoskeletal: No tenderness Integumentary: No rashes Neurological: Normal gait, Normal speech, Normal strength at 5/5 x4 extr, Normal tone, Normal affect Lymphatics: No axilla or inguinal lymphadenopathy - Studies Laboratory Data (last 24 hrs) 06/18/24 06/18/24 06/18/24 08:55 08:55 08:55 WBC 23.20 H Hgb 11.3 L Hct 34.3 L Plt Count 433 H PT 13.4 H INR 1.28 APTT 29.7 Sodium 132 L Potassium 3.7 BUN 10 Creatinine 0.73 Glucose 201 H Total Bilirubin 1.0 AST 13 L ALT 20 Alkaline Phosphatase 86 Microbiology Data (last 24 hrs): 06/18/24 08:40 Nasopharnyx Influenza Type A Antigen Screen - Final 06/18/24 08:40 Nasopharnyx Influenza Type B Antigen Screen - Final Assessment and Plan - Problems (Diagnosis) (1) Septic encephalopathy Current Visit: Yes Status: Acute Plan: WBC OF 23K MOST LIKELY FROM POST OP INFECTION OF SKIN AND SC TISSUE DR. HUYNH CONCURS. IV ZOSYN ADD IV VANCOMYCIN IT IS IN HOSPITAL SETTING. DAILY LAB (2) Cellulitis of skin Current Visit: Yes Status: Acute (3) Seroma of breast Current Visit: Yes Status: Acute (4) DM type 2 (diabetes mellitus, type 2) Current Visit: No Status: Chronic Qualifiers: Diabetes mellitus halfway insulin use: without predatory animal exterminator use (5) Diabetic neuropathy Current Visit: No Status: Acute (6) HTN (hypertension) Current Visit: No Status: Acute - Advance Directives Does patient have a Living Will: No Does patient have a Durable POA for Healthcare: No
[2024-06-18] MEDS: VANCOMYCIN 2.5 GM in NA CHLORIDE 0.9% 500 ML IVPB ONE (18:54)
--- NOTE | 2024-06-18 19:06 | CON ---
Date of Consultation: 06/18/2024 Reason For Consultation: Leukocytosis, recent mastectomy. History Of Present Illness: The patient is a 74-year-old female who underwent bilateral mastectomy a nd left chest sentinel node biopsy for breast cancer on 06/05. Postoperatively, she was in stable co ndition and was discharged. At home, she became dizzy and fell and then had a hematoma on the right chest wall. She was brought to the ER where she was admitted and observed. She was transfused blood at that time and she did have a hematoma. The drains were working and in place and she was managed with antibiotics. Following several days in the hospital, she was discharged home last week and she was in her usual state of health until today where she felt dizzy and had a fever and weak and she wa s brought to the ER, found to have leukocytosis. I saw her at my office yesterday on followup and sh clayton had her bulb not attached to the right JORJE drain. It was just the tubing was coming out of the woun d. Upon questioning, it has been stated that the bulb came off and she did not think there was a big issue and did not report to home health or call me. The drains were pulled in the office yesterday. The wound itself had minimal erythema around the edges and there was one small area approximately 2 cm of ecchymosis in the middle of the right mastectomy scar inferiorly. There was no purulent disch arge. There was some old blood that came out of the JORJE drain site and that was evacuated in the offi ce. There was no pus seen in the office. She is currently awake, alert, in no acute distress. No s ore throat, runny nose, cough, headaches, or dizziness. No chest pain. No dysuria or hematuria. No diarrhea, constipation, blood per rectum. Review of Systems: Otherwise, unremarkable. Past Medical History: Hypertension, hyperlipidemia, diabetes. Past Surgical History: Cholecystectomy, hysterectomy, back surgery x2, and bilateral mastectomy rece ntly. Allergies: REVIEWED INCLUDE CODEINE, ERYTHROMYCIN, PHENYTOIN, AND SUCCINYLCHOLINE. Social History: The patient does not smoke or drink alcohol. Family History: Significant for heart disease. Physical Examination: Vital Signs: Currently are stable. Temperature is 99.3, on admission to the ER. General: She is awake, alert, oriented. Head and Neck: No masses. Chest: Clear. Heart: S1, S2. Abdomen: Soft. Extremities: Neurovascularly intact. Neuro: Nonfocal. Wounds: Examination of the wounds on both chest reveals to be mostly clean, dry, and intact. There is mild erythema on the right chest around incision approximately 0.5 cm. There is an area of ecchym osis in the center of the right inferior flap approximately 2 x 2 cm. There is no purulent discharge . There is no fluctuance. Remainder of the wound appears healthy. Laboratory Data: Reviewed. Her white count is 23.2, with a left shift. H and H 11.3 and 34.3. INR is 1.28. Chemistry reviewed. Her lactic acid is 1.9, CO2 is 27, glucose is 201. She had a chest x -ray which did not show any acute findings. Venous study and CTA were negative. Abdomen and pelvis CT was negative, and on the chest CT, the hematoma that was present last week had gotten smaller. Th ere was a little bit of air where the drain was, but no drainable fluid was seen. Assessment: 74-year-old female with recent breast cancer surgery, bilateral mastectomy with leukocyt osis and fever, likely infected hematoma on the right chest with cellulitis. Recommendation: Admit. IV antibiotics. If she has drainage, we will check the drain for the fluid for culture, but at this time she does not have any drainage. We will treat it as cellulitis. There is no need for any urgent intervention at this time. We will follow the patient while in the hospital. Plan of care discussed in detail with the patient, the , and Shayy Mcintosh. DARLEEN/ANDREW Voice ID: [id number] Report ID: [id number]
[2024-06-18] MEDS: PIPER TAZO 3.375 GM in NA CHLORIDE 0.9% 100 ML IV SCH (20:03)
[2024-06-19 05:18] LABS: Absolute Basophils 0.1 K/uL (0-0.5); Absolute Lymphocytes (CBC) 1.5 K/uL (0.7-4.9); Absolute Monocytes 1.3 K/uL (0.1-1.3); Absolute Neutrophil 14.9 K/uL (1.8-8.0); Basophils % 0.4 % (0-1.3); Eosinophils % 0.1 % (0-4.4); Hematocrit 29.4 % (36.0-45.0); Hemoglobin 9.8 g/dL (12.0-15.0); Lymphocytes % 8.4 % (15.3-44.8); MCH 29.9 pg (27.0-35.0); MCHC 33.5 g/dL (32.0-36.0); MCV 89.2 fL (80-100); MPV 7.5 fL (7.6-11.3); Monocytes % 7.2 % (3.3-12.3); Neutrophils % 83.9 % (41.7-73.7); Nucleated Red Blood Cells % 0.1 % (0-0); Platelets 330 thou/uL (152-406); Red Cell Distribution Width 14.7 % (12.1-15.2)
[2024-06-19 05:41] LABS: Anion Gap 11.5 mEq/L (5.0-15.0); Potassium 3.5 mEq/L (3.5-5.1)
[2024-06-19] MEDS: LOSARTAN POTASSIUM 50 MG TABLET PO SCH (08:44)
[2024-06-19] MEDS ORDERED: VANCOMYCIN 1.75 GM in NA CHLORIDE 0.9% 500 ML IVPB SCH (12:00)
--- NOTE | 2024-06-19 12:49 | PN ---
Date of Progress Note: 06/19/2024 Subjective: The patient is awake, alert. No new complaints. She is still confused. Objective: Vital Signs: Stable. Her T-max is 99.1, this morning. Wounds: Examination of the wound reveals no significant change. There is very little erythema aroun d the incision site. There is no purulence. There is no fluctuance, nothing that is clinically drai nable. Laboratory Data: Reviewed. Her white count is down to 17.7. The left shift has improved as well. Assessment: Cellulitis, likely right chest, status post bilateral mastectomy. Recommendations: Continue IV antibiotics. Clinically monitor this patient's response. Hopefully, w hen the white count normalizes and she has no fever, we will be able to send her home on oral antibio tics, broad spectrum in nature. If she does not improve, then she may need short-term IV antibiotics . I will discuss that with Dr. Mcintosh based on patient's clinical response. /MODL Voice ID: [id number] Report ID: [id number]
--- NOTE | 2024-06-19 15:09 | P.PN ---
Subjective Date of Service: 06/19/24 Chief Complaint: CONFUSED, WEAK Subjective: Improving SHE IS LOT BETTER. TALKING WELL NOW. HUS AT BEDSIDE. Review of Systems 10-point ROS is otherwise unremarkable Physical Examination - Vital Signs Temperature: 98.8 F Blood Pressure: 181/74 Pulse: 90 Respirations: 16 Pulse Ox (%): 93 - Physical Exam General: Mild distress, Obese HEENT: Atraumatic, PERRLA, EOMI Neck: Supple, JVD not distended Respiratory: Clear to auscultation bilaterally, Normal air movement Cardiovascular: Regular rate/rhythm, Normal S1 S2 Gastrointestinal: Normal bowel sounds, No tenderness Musculoskeletal: No tenderness Integumentary: No rashes Neurological: Normal speech, Normal tone, Normal affect Lymphatics: No axilla or inguinal lymphadenopathy - Studies Microbiology Data (last 24 hrs): 06/18/24 08:40 Nasopharnyx Influenza Type A Antigen Screen - Final 06/18/24 08:40 Nasopharnyx Influenza Type B Antigen Screen - Final Medications List Reviewed: Yes Assessment And Plan - Current Problems (Diagnosis) (1) Septic encephalopathy Current Visit: Yes Status: Acute Plan: WBC OF 23K MOST LIKELY FROM POST OP INFECTION OF SKIN AND SC TISSUE DR. LINO DESAI. IV ZOSYN ADD IV VANCOMYCIN IT IS IN HOSPITAL SETTING. DAILY LAB (2) Cellulitis of skin Current Visit: Yes Status: Acute Plan: CONT MEDS IV ORAL SOON WHEN ABLE. MAY HAVE TO GIVE ORAL BACTRIM AT DC. (3) Seroma of breast Current Visit: Yes Status: Acute (4) DM type 2 (diabetes mellitus, type 2) Current Visit: No Status: Chronic Qualifiers: Diabetes mellitus extermination inspector insulin use: without extermination inspector use (5) Diabetic neuropathy Current Visit: No Status: Acute (6) HTN (hypertension) Current Visit: No Status: Acute
[2024-06-19] MEDS: CARBIDOPA/LEVODOPA 25/100 TAB PO SCH (18:37)
[2024-06-19] MEDS: ENOXAPARIN 40 MG/0.4 ML SQ SCH (18:37)
[2024-06-19] MEDS: VANCOMYCIN 1.75 GM in NA CHLORIDE 0.9% 500 ML IVPB SCH (18:39)
[2024-06-19] MEDS: VENLAFAXINE HCL XR 75 MG CAP PO SCH (21:00)
[2024-06-19] MEDS ORDERED: HOME MED 1 EA UNK (Venlafaxine Hcl [Effexor Xr] 150 MG Cap.Er.24h) PO SCH (21:00)
[2024-06-20] MEDS: ACETAMINOPHEN 500 MG TAB PO PRN (04:25)
[2024-06-20] MEDS: LEVOTHYROXINE SOD 0.075 MG TAB PO SCH (05:49)
[2024-06-20] MEDS ORDERED: HOME MED 1 EA UNK (Doxepin Hcl [Doxepin Hcl] 50 MG Capsule) PO SCH (09:00)
[2024-06-20] MEDS ORDERED: HOME MED 1 EA UNK (Levothyroxine Sodium [Levothyroxine Sodium] 150 MCG Tablet) PO SCH (09:00)
[2024-06-20] MEDS: DOXEPIN HCL 25 MG CAP PO SCH (09:32)
[2024-06-20] MEDS: ARIPiprazole 5 MG TAB PO SCH (09:34)
[2024-06-20] MEDS: PROPRANOLOL HCL 80 MG SA CAP PO SCH (09:38)
--- NOTE | 2024-06-20 12:12 | P.PN ---
Subjective Date of Service: 06/20/24 Chief Complaint: LOT BETTER, STILL HAS FEVER. Subjective: Improving SHE IS LOT BETTER. TALKING WELL NOW. HUS AT BEDSIDE. AT BEDSIDE AND AGREES. CHR PAIN. Review of Systems 10-point ROS is otherwise unremarkable General: Weakness, Malaise Physical Examination - Vital Signs Temperature: 100.5 F Blood Pressure: 126/61 Pulse: 76 Respirations: 16 Pulse Ox (%): 94 - Physical Exam General: Oriented x3, Mild distress, Obese HEENT: Atraumatic, PERRLA, EOMI Neck: Supple, JVD not distended Respiratory: Clear to auscultation bilaterally, Normal air movement Cardiovascular: Regular rate/rhythm, Normal S1 S2 Gastrointestinal: Normal bowel sounds, No tenderness Musculoskeletal: No tenderness Integumentary: No rashes Neurological: Normal speech, Normal tone, Normal affect Lymphatics: No axilla or inguinal lymphadenopathy - Studies Medications List Reviewed: Yes Assessment And Plan - Current Problems (Diagnosis) (1) Septic encephalopathy Current Visit: Yes Status: Acute Plan: WBC OF 23K MOST LIKELY FROM POST OP INFECTION OF SKIN AND SC TISSUE DR. LINO DESAI. IV ZOSYN ADD IV VANCOMYCIN IT IS IN HOSPITAL SETTING. DAILY LAB (2) Cellulitis of skin Current Visit: Yes Status: Acute Plan: CONT MEDS IV ORAL SOON WHEN ABLE. MAY HAVE TO GIVE ORAL BACTRIM AT DC. CBC IN AM CONT IV ABX FEVER CONTINUES NO SIGNS OF FLU BUT WILL SEE HOW IT THE TEST IS. (3) Seroma of breast Current Visit: Yes Status: Acute (4) DM type 2 (diabetes mellitus, type 2) Current Visit: No Status: Chronic Qualifiers: Diabetes mellitus care home insulin use: without local company intermodal truck driver use (5) Diabetic neuropathy Current Visit: No Status: Acute (6) HTN (hypertension) Current Visit: No Status: Acute
--- NOTE | 2024-06-20 19:36 | PN ---
Date of Progress Note: 06/20/2024 Subjective: Patient is awake, alert. Still having low-grade temperatures. Objective: Vital Signs: Stable, otherwise. Chest: Examination of the wound revealed some drainage from the wound in the center. There is no surrounding erythema, warmth, or edema. There is an area of ecchymosis and possible tissue necrosis in the middle of the right chest wound in the inferior flap. Assessment: Status post bilateral mastectomy with fever, leukocytosis, cellulitis. Recommendations: The patient is still having fever on broad-spectrum antibiotics. I discussed the case with Dr. Mcintosh and we will get a flu test on the patient and make sure the patient does not have a flu accounting for the fever. If there is a drainage, I will ask the nursing staff to culture the fluid to see if it is infected. We will continue to follow this patient while in the hospital. DARLEEN/ANDREW Voice ID: [id number] Report ID: [id number] GIFTY
[2024-06-20] MEDS: INSULIN REGULAR (HUMAN) 100 UNIT/ML SQ SCH (23:35)
[2024-06-21 05:16] LABS: Absolute Eosinophils 0.1 K/uL (0-0.5); Absolute Monocytes 1.1 K/uL (0.1-1.3); Basophils % 0.4 % (0-1.3); Eosinophils % 1.7 % (0-4.4); Hematocrit 26.4 % (36.0-45.0); Lymphocytes % 14.4 % (15.3-44.8); MCH 29.9 pg (27.0-35.0); MCV 88.1 fL (80-100); MPV 8.1 fL (7.6-11.3); Monocytes % 15.1 % (3.3-12.3); Neutrophils % 68.4 % (41.7-73.7); Platelets 329 thou/uL (152-406); Red Cell Distribution Width 14.2 % (12.1-15.2)
[2024-06-21 05:28] LABS: Anion Gap 8.3 mEq/L (5.0-15.0); Potassium 3.3 mEq/L (3.5-5.1)
[2024-06-21 05:37] LABS: Influenza A Ag Negative; Influenza B Ag Negative; SARS-CoV-2 Antigen Rapid Res Negative (Negative)
--- NOTE | 2024-06-21 12:22 | PN ---
Date of Progress Note: 06/21/2024 Subjective: Patient is awake, alert. No complaint. She is still having low-grade temperature 99.5 early this morning. Objective: Vital Signs: Otherwise stable. Wounds: On physical exam, the patient's hematoma has liquefied somewhat and there appears to be more fluid and there is still that necrotic area on the inferior flap. Laboratory Data: Her white count is normal and her need for percentage has improved. Her cultures a re pending. The Gram stain on the wound drainage reveals it to be 4+ Staph coag positive. Assessment: Status post bilateral mastectomy with infected wound, right chest. Recommendations: We will debride the wound more, evacuate the old blood, likely place a new drain in there and revise the scar. Risks, benefits, and alternatives were explained to the patient and mansoor ly. They understand and agree. The plan of care was discussed with Dr. Mcintosh as well. /MODL Voice ID: [id number] Report ID: [id number]
[2024-06-21] MEDS ORDERED: INSULIN REGULAR (HUMAN) 100 UNIT/ML SQ SCH (23:11)
[2024-06-22 05:53] LABS: Absolute Eosinophils 0.2 K/uL (0-0.5); Absolute Lymphocytes (CBC) 1.4 K/uL (0.7-4.9); Absolute Neutrophil 3.9 K/uL (1.8-8.0); Basophils % 0.5 % (0-1.3); Eosinophils % 3.8 % (0-4.4); Hematocrit 25.4 % (36.0-45.0); Hemoglobin 8.5 g/dL (12.0-15.0); Lymphocytes % 21.2 % (15.3-44.8); MCH 29.6 pg (27.0-35.0); MCHC 33.6 g/dL (32.0-36.0); MCV 88.2 fL (80-100); MPV 7.9 fL (7.6-11.3); Monocytes % 14.8 % (3.3-12.3); Neutrophils % 59.7 % (41.7-73.7); Platelets 368 thou/uL (152-406); RBC Red Blood Cell Count 2.88 M/uL (3.86-4.86); Red Cell Distribution Width 14.9 % (12.1-15.2)
[2024-06-22 05:58] LABS: Anion Gap 8.4 mEq/L (5.0-15.0); Potassium 3.4 mEq/L (3.5-5.1)
[2024-06-22] MEDS: NA CHLORIDE 0.9% 1,000 ML ONE (07:15)
[2024-06-22] MEDS: BUPIVACAINE 0.5% PF 10 ML VIAL ONE (07:22)
[2024-06-22] MEDS ORDERED: propofoL 200 MG/20 ML VIAL IV ONE (07:31)
[2024-06-22] MEDS ORDERED: LIDOCAINE 2% MPF 5 ML VIAL ONE (07:31)
[2024-06-22] MEDS ORDERED: FENTANYL CITR 100 MCG/2 ML ONE (07:32)
[2024-06-22] MEDS ORDERED: ONDANSETRON 4 MG/2 ML VIAL ONE (07:34)
[2024-06-22] MEDS ORDERED: EPHEDRINE SULF 50 MG/ML VIAL ONE (08:43)
[2024-06-22] MEDS ORDERED: Phenylephrine HCl 10 MG/ML 1 ML VIAL ONE (09:04)
[2024-06-22] MEDS ORDERED: Mastisol Adhesive Liq ONE (09:07)
[2024-06-22] MEDS: COLLAGENASE 30 GM OINTMENT TOP ONE (09:20)
--- NOTE | 2024-06-22 09:24 | P.OP ---
Date of Service: 06/22/24 Preop diagnosis: Right chest wound with hematoma Postop diagnosis: Same Procedure performed: Excisional debridement of right chest wound 5 x 3 cm, evacuation of hematoma and pulse irrigation of the right chest wound. Debridement of the left chest wound 2 x 1 cm to subcutaneous tissue Surgeon: Glynn Alvarado MD Airplane Cleaner: lElie PEREYRA Estimated blood loss: Minimal Specimen: Hematoma for culture and sensitivity and necrotic wound Findings: As above Anesthesia: General Complications: None Drains: JORJE #10 flat Fluids and blood products: Nonapplicable Disposition: Recovery room Operative note: Patient brought to the OR placed supine position. General anesthesia began. Patient prepped and draped in the usual sterile fashion. Marcaine 0.5% infiltrated around the necrotic wound on the right chest. 15 blade used to excise the necrotic wound. The area excised was approximately 5 x 3 cm. There was large amount of hematoma present on the chest wall. The incision was opened laterally to allow for complete evacuation of all the chest wall hematoma. Cultures were done. Entire wound was irrigated with pulse ir rigation. Bleeding was controlled with cautery. There was oozing from the inflammatory tissue. This was controlled with cautery. Evan was utilized as well. Complete hemostasis was obtained. Sukhjinder-Aden drain #10 flat was placed and secured with 3-0 nylon. 2-0 chromic and 3-0 chromic was used to reapproximate subcutaneous tissue and close skin. On the left chest patient had a 2 x 1 cm of ecchymosis and necrosis. Sharp scissors were used to excise this down to the subcutaneous tissue. Bleeding controlled cautery. Santyl dressing applied. Sterile dressing applied over both wounds. Patient awakened and taken to recovery room in good general condition. CC: Dr. Mcintosh's office
[2024-06-22] MEDS ORDERED: HYDROMORPHONE HCL 1 MG/ML INJ IV PRN (09:55)
--- NOTE | 2024-06-22 10:15 | P.PN ---
Subjective Date of Service: 06/22/24 Chief Complaint: SP SURGERY BY DR. HUYNH Subjective: Improving SHE IS LOT BETTER. TALKING WELL NOW. HUS AT BEDSIDE. AT BEDSIDE AND AGREES. CHR PAIN. DR. HUYNH HAD TO DEBRIDE SEROMA AND REMOVE POSSIBLY INFECTED AREA. Review of Systems 10-point ROS is otherwise unremarkable General: Weakness Physical Examination - Vital Signs Temperature: 97.2 F Blood Pressure: 105/45 Pulse: 68 Respirations: 18 Pulse Ox (%): 95 - Physical Exam General: Oriented x3, Mild distress, Obese HEENT: Atraumatic, PERRLA, EOMI Neck: Supple, JVD not distended Respiratory: Clear to auscultation bilaterally, Normal air movement Cardiovascular: Regular rate/rhythm, Normal S1 S2 Gastrointestinal: Normal bowel sounds, No tenderness Musculoskeletal: No tenderness Integumentary: No rashes Neurological: Normal speech, Normal tone, Normal affect Lymphatics: No axilla or inguinal lymphadenopathy - Studies Medications List Reviewed: Yes Assessment And Plan - Current Problems (Diagnosis) (1) Septic encephalopathy Current Visit: Yes Status: Acute Plan: WBC OF 23K MOST LIKELY FROM POST OP INFECTION OF SKIN AND SC TISSUE DR. HUYNH CONCURS. IV ZOSYN ADD IV VANCOMYCIN IT IS IN HOSPITAL SETTING. DAILY LAB (2) Cellulitis of skin Current Visit: Yes Status: Acute Plan: CONT MEDS IV ORAL SOON WHEN ABLE. MAY HAVE TO GIVE ORAL BACTRIM AT DC. SP DEBRIDEMENT. IV VANCOMYCIN. STOP ZOSYN. (3) Seroma of breast Current Visit: Yes Status: Acute (4) DM type 2 (diabetes mellitus, type 2) Current Visit: No Status: Chronic Qualifiers: Diabetes mellitus long chain quiller tender insulin use: without long chain quiller tender use (5) Diabetic neuropathy Current Visit: No Status: Acute (6) HTN (hypertension) Current Visit: No Status: Acute
[2024-06-22] MEDS: ONDANSETRON 4 MG/2 ML VIAL IV PRN (13:28)
[2024-06-23 06:01] LABS: Absolute Basophils 0.1 K/uL (0-0.5); Absolute Eosinophils 0.4 K/uL (0-0.5); Absolute Lymphocytes (CBC) 0.9 K/uL (0.7-4.9); Absolute Neutrophil 4.2 K/uL (1.8-8.0); Basophils % 0.8 % (0-1.3); Eosinophils % 5.6 % (0-4.4); Hematocrit 27.1 % (36.0-45.0); Lymphocytes % 13.6 % (15.3-44.8); MCH 29.4 pg (27.0-35.0); MCHC 33.2 g/dL (32.0-36.0); MCV 88.3 fL (80-100); MPV 7.8 fL (7.6-11.3); Monocytes % 15.1 % (3.3-12.3); Neutrophils % 64.9 % (41.7-73.7); Nucleated Red Blood Cells % 0.1 % (0-0); Platelets 406 thou/uL (152-406); RBC Red Blood Cell Count 3.07 M/uL (3.86-4.86); Red Cell Distribution Width 14.2 % (12.1-15.2)
[2024-06-23 06:12] LABS: Anion Gap 11.7 mEq/L (5.0-15.0); Potassium 3.7 mEq/L (3.5-5.1)
[2024-06-23] MEDS: VENLAFAXINE HCL 75 MG TABLET PO SCH (09:37)
--- NOTE | 2024-06-23 11:19 | PN ---
Date of Progress Note: 06/23/2024 Subjective: The patient is awake, alert. No complaint. Vitals are stable. She does have a low-gra de temperature at 100.3. Her white count is normal. Her H and H are stable. Her OR cultures are gr owing out 2+ Staph coag positive probably with the same as the Staphylococcus schleiferi that was on the previous culture and sensitivity. Her dressing is clean, dry, intact. JORJE drain has minimal outp ut with serosanguineous in nature. Assessment: Status post debridement of wound on the right chest following bilateral mastectomy. Recommendation: Continue antibiotics as ordered. I will discuss the case with Dr. Mcintosh regarding p otential for discharge later today. However, since she is having fever, we need to make sure she horvath s not have other sources of infection at this time. I encouraged the patient to use incentive spirom etry and advised the nursing staff to help ambulate the patient more and after discussion with Dr. Llamas, we will make the appropriate recommendations. DARLEEN/ANDREW Voice ID: [id number] Report ID: [id number]
--- NOTE | 2024-06-23 19:54 | P.PN ---
Subjective Date of Service: 06/23/24 Chief Complaint: SP SURGERY BY DR. HUYNH Subjective: Improving SHE IS LOT BETTER. TALKING WELL NOW. HUS AT BEDSIDE. AT BEDSIDE AND AGREES. CHR PAIN. DR. HUYNH HAD TO DEBRIDE SEROMA AND REMOVE POSSIBLY INFECTED AREA. DEBRIED BY DR HUYNH DID WELL VERY FATIGUED. Review of Systems 10-point ROS is otherwise unremarkable General: Weakness Physical Examination - Vital Signs Temperature: 98.0 F Blood Pressure: 146/65 Pulse: 65 Respirations: 16 Pulse Ox (%): 92 - Physical Exam General: Alert, Mild distress, Obese HEENT: Atraumatic, PERRLA, EOMI Neck: Supple, JVD not distended Respiratory: Clear to auscultation bilaterally, Normal air movement Cardiovascular: Regular rate/rhythm, Normal S1 S2 Gastrointestinal: Normal bowel sounds, No tenderness Musculoskeletal: No tenderness Integumentary: No rashes Neurological: Normal speech, Normal tone, Normal affect Lymphatics: No axilla or inguinal lymphadenopathy - Studies Microbiology Data (last 24 hrs): 06/18/24 08:55 Blood - Blood Aerobic Blood Culture - Final No growth in 5 days. 06/18/24 08:55 Blood - Blood Anaerobic Blood Culture - Final No growth in 5 days. 06/18/24 08:40 Blood - Blood Aerobic Blood Culture - Final No growth in 5 days. 06/18/24 08:40 Blood - Blood Anaerobic Blood Culture - Final No growth in 5 days. Medications List Reviewed: Yes Assessment And Plan - Current Problems (Diagnosis) (1) Septic encephalopathy Current Visit: Yes Status: Acute Plan: WBC OF 23K MOST LIKELY FROM POST OP INFECTION OF SKIN AND SC TISSUE DR. HUYNH CONCURS. IV ZOSYN ADD IV VANCOMYCIN IT IS IN HOSPITAL SETTING. DAILY LAB (2) Cellulitis of skin Current Visit: Yes Status: Acute Plan: CONT MEDS IV ORAL SOON WHEN ABLE. MAY HAVE TO GIVE ORAL BACTRIM AT DC. SP DEBRIDEMENT. IV VANCOMYCIN. STOP ZOSYN. (3) Seroma of breast Current Visit: Yes Status: Acute Plan: TONGH STLEBENJY CS POS S TO VANCO AND BACTRIM' (4) DM type 2 (diabetes mellitus, type 2) Current Visit: No Status: Chronic Qualifiers: Diabetes mellitus correction insulin use: without terminal superintendent use (5) Diabetic neuropathy Current Visit: No Status: Acute (6) HTN (hypertension) Current Visit: No Status: Acute
[2024-06-23] MEDS: VANCOMYCIN 1.5 GM in NA CHLORIDE 0.9% 500 ML IVPB SCH (21:54)
[2024-06-24 05:20] LABS: Absolute Basophils 0.1 K/uL (0-0.5); Absolute Eosinophils 0.1 K/uL (0-0.5); Absolute Lymphocytes (CBC) 0.7 K/uL (0.7-4.9); Absolute Monocytes 1.1 K/uL (0.1-1.3); Absolute Neutrophil 3.8 K/uL (1.8-8.0); Eosinophils % 1.6 % (0-4.4); Hemoglobin 9.5 g/dL (12.0-15.0); Lymphocytes % 12.1 % (15.3-44.8); MCH 29.5 pg (27.0-35.0); MCHC 33.8 g/dL (32.0-36.0); MCV 87.4 fL (80-100); MPV 7.6 fL (7.6-11.3); Monocytes % 18.7 % (3.3-12.3); Neutrophils % 66.6 % (41.7-73.7); Nucleated Red Blood Cells % 0.1 % (0-0); Platelets 483 thou/uL (152-406); Red Cell Distribution Width 14.6 % (12.1-15.2)
[2024-06-24 05:47] LABS: Anion Gap 13.8 mEq/L (5.0-15.0); Potassium 3.8 mEq/L (3.5-5.1)
--- NOTE | 2024-06-24 12:30 | EKG ---
Test Date: 2024-06-18 Test Time: 08:35:06 Still Operator Helper: JOSR MEASUREMENT RESULTS: Intervals: Rate: 103 VT: 162 QRSD: 88 QT: 340 QTc: 445 [place]: P: 20 VT: 162 QRS: 130 T: 3 INTERPRETIVE STATEMENTS: Sinus tachycardia Anterolateral infarct, age undetermined Abnormal ECG Compared to ECG 06/06/2024 14:15:58 Sinus rhythm no longer present Myocardial infarct finding still present Electronically Signed On 06-24-24 12:17:57 PROFESSOR OF SPECIAL EDUCATION by Armando Govea
--- NOTE | 2024-06-24 13:47 | RAD REPORT ---
EXAMINATION: CTA CHEST AORTA CLINICAL INDICATION: Female, 74 years old [facility] MAIN hypoxia TECHNIQUE: This examination was performed according to an angiographic protocol with 3D post-processi ng. This involves 3D reconstructions, MIPs, volume rendered images and/or shaded surface rendering. One or more of the following dose reduction techniques were used: Automated exposure control, adjustm ent of the mA and/or kV according to patient size, and/or iterative reconstruction. Unless otherwise specified, incidental findings do not require dedicated imaging follow-up. [id number]. COMPARISON: 06/18/2024 FINDINGS: LOWER NECK: Unchanged 2.4 cm left thyroid nodule. LUNGS AND AIRWAYS: Motion artifact which limits evaluation. Some debris or secretions are present wit hin the trachea. There are a few scattered nodular opacities that are new from prior. There is likely some mild atelectasis also noted.Motion artifact limits evaluation for pulmonary nodule detect ion. PLEURA: No pleural effusion. No pneumothorax. Hemidiaphragms are normally positioned. MEDIASTINUM AND LYMPH NODES: No mediastinal mass or fluid collection. Normal size mediastinal, hilar, and axillary lymph nodes. Mild diffuse esophageal wall thickening. THORACIC AORTA: No thoracic aortic aneurysm. PULMONARY ARTERIES: No central pulmonary embolus. The segmental and subsegmental pulmonary arteries c annot be assessed due to motion. HEART: Mild cardiomegaly. No coronary calcifications.No significant pericardial effusion. Aortic valv e calcifications are present. OSSEOUS STRUCTURES AND CHEST WALL: Multilevel degenerative changes. No acute fracture. A surgical gerardo in has been placed into the right chest wall fluid collection which is now mostly decompressed. Some gas within the chest wall is likely related to presence of the drain. UPPER ABDOMEN: Mild nodular liver configuration.Cholecystectomy IMPRESSION: No aortic aneurysm or dissection. No central pulmonary embolus. Evaluation of the segmental and subse gmental pulmonary arteries not possible due to motion. Some scattered nonspecific nodular opacities are present bilaterally. These are new from prior could be secondary to mild pneumonia or pneumonitis. There are some secretions or aspirated material within the trachea.
--- NOTE | 2024-06-24 17:28 | P.PN ---
Subjective Date of Service: 06/24/24 Chief Complaint: SP SURGERY BY DR. HUYNH Subjective: Ambulating SHE IS LOT BETTER. TALKING WELL NOW. HUS AT BEDSIDE. AT BEDSIDE AND AGREES. CHR PAIN. DR. HUYNH HAD TO DEBRIDE SEROMA AND REMOVE POSSIBLY INFECTED AREA. DEBRIED BY DR HUYNH DID WELL VERY FATIGUED. SHE HAD LOW OXYGEN LAST NIGHT. SOME FEVER. Review of Systems 10-point ROS is otherwise unremarkable General: Weakness, As per HPI Physical Examination - Vital Signs Temperature: 98.8 F Blood Pressure: 174/77 Pulse: 65 Respirations: 24 Pulse Ox (%): 95 - Physical Exam General: Alert, In no apparent distress HEENT: Atraumatic, PERRLA, EOMI Neck: Supple, JVD not distended Respiratory: Diminished, Crackles/rales Cardiovascular: Regular rate/rhythm, Normal S1 S2 Gastrointestinal: Normal bowel sounds, No tenderness Musculoskeletal: No tenderness Integumentary: No rashes Neurological: Normal speech, Normal tone, Normal affect Lymphatics: No axilla or inguinal lymphadenopathy - Studies Medications List Reviewed: Yes Assessment And Plan - Current Problems (Diagnosis) (1) Septic encephalopathy Current Visit: Yes Status: Acute Plan: WBC OF 23K MOST LIKELY FROM POST OP INFECTION OF SKIN AND SC TISSUE DR. HUYNH CONCURS. IV ZOSYN ADD IV VANCOMYCIN IT IS IN HOSPITAL SETTING. DAILY LAB (2) Cellulitis of skin Current Visit: Yes Status: Acute Plan: CONT MEDS IV ORAL SOON WHEN ABLE. MAY HAVE TO GIVE ORAL BACTRIM AT DC. SP DEBRIDEMENT. IV VANCOMYCIN. STOP ZOSYN. 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
[2024-06-24] MEDS: Meropenem 1,000 MG in NA CHLORIDE 0.9% 100 ML IV SCH (21:30)
[2024-06-25 04:55] LABS: Absolute Eosinophils 0.1 K/uL (0-0.5); Absolute Lymphocytes (CBC) 1.1 K/uL (0.7-4.9); Absolute Monocytes 1.2 K/uL (0.1-1.3); Absolute Neutrophil 4.1 K/uL (1.8-8.0); Basophils % 0.8 % (0-1.3); Eosinophils % 2.2 % (0-4.4); Hematocrit 30.1 % (36.0-45.0); Lymphocytes % 16.6 % (15.3-44.8); MCH 29.1 pg (27.0-35.0); MCHC 33.1 g/dL (32.0-36.0); MCV 87.8 fL (80-100); MPV 7.3 fL (7.6-11.3); Monocytes % 18.1 % (3.3-12.3); Neutrophils % 62.3 % (41.7-73.7); Nucleated Red Blood Cells % 0.2 % (0-0); Platelets 506 thou/uL (152-406); RBC Red Blood Cell Count 3.43 M/uL (3.86-4.86); Red Cell Distribution Width 14.9 % (12.1-15.2)
[2024-06-25 05:18] LABS: Anion Gap 11.1 mEq/L (5.0-15.0); Potassium 4.1 mEq/L (3.5-5.1)
[2024-06-25] MEDS: AMLODIPINE 5 MG TAB PO SCH (08:12)
--- NOTE | 2024-06-25 11:05 | PN ---
Date of Progress Note: 06/25/2024 Subjective: The patient is awake, a little confused. Objective: Vital Signs: Stable. She is afebrile. She is putting out approximately 20 cc of serosa nguineous fluid from the JORJE drain in the last shift. Diagnostic Data: She had a CTA of the chest and thorax, which showed no PE; however, some secretions or aspartame material was seen within the trachea and she could have pneumonia or pneumonitis, so francy dela cruz is getting a swallowing study today. Her wound is clean, dry, and intact. Assessment: Status post bilateral mastectomy with debridement of right chest wound. Recommendations: Continue antibiotics as ordered. Await swallowing test results. From a surgical s [facility], her wound looks good, so she can go home. She can follow up with me in a week. We will a wait medical clearance prior to discharge. Plan of care discussed with Dr. Mcintosh. DARLEEN/ANDREW Voice ID: [id number] Report ID: [id number]
--- NOTE | 2024-06-25 17:15 | P.PN ---
Subjective Date of Service: 06/25/24 Chief Complaint: SP SURGERY BY DR. HUYNH Subjective: Improving SHE IS LOT BETTER. TALKING WELL NOW. HUS AT BEDSIDE. AT BEDSIDE AND AGREES. CHR PAIN. DR. HUYNH HAD TO DEBRIDE SEROMA AND REMOVE POSSIBLY INFECTED AREA. DEBRIED BY DR HUYNH DID WELL VERY FATIGUED. SHE HAD LOW OXYGEN LAST NIGHT. SOME FEVER. SHE IS GIVEN IV MERREM FOR ASPIRATION PNEUMONIA FEELS LOT BETTER TODAY. Review of Systems 10-point ROS is otherwise unremarkable General: Weakness Physical Examination - Vital Signs Temperature: 97.9 F Blood Pressure: 141/67 Pulse: 61 Respirations: 23 Pulse Ox (%): 94 - Physical Exam General: Obese HEENT: Atraumatic, PERRLA, EOMI Neck: Supple, JVD not distended Respiratory: Clear to auscultation bilaterally, Normal air movement Cardiovascular: Regular rate/rhythm, Normal S1 S2 Gastrointestinal: Normal bowel sounds, No tenderness Musculoskeletal: No tenderness Integumentary: No rashes Neurological: Normal speech, Normal tone, Normal affect Lymphatics: No axilla or inguinal lymphadenopathy - Studies Medications List Reviewed: Yes Assessment And Plan - Current Problems (Diagnosis) (1) Septic encephalopathy Current Visit: Yes Status: Acute Plan: WBC OF 23K MOST LIKELY FROM POST OP INFECTION OF SKIN AND SC TISSUE DR. HUYNH CONCURS. IV ZOSYN ADD IV VANCOMYCIN IT IS IN HOSPITAL SETTING. DAILY LAB (2) Cellulitis of skin Current Visit: Yes Status: Acute Plan: CONT MEDS IV ORAL SOON WHEN ABLE. MAY HAVE TO GIVE ORAL BACTRIM AT DC. SP DEBRIDEMENT. IV VANCOMYCIN. STOP ZOSYN. (3) Seroma of breast Current Visit: Yes Status: Acute Plan: STAPH STLEBENJY CS POS S TO VANCO AND BACTRIM' (4) DM type 2 (diabetes mellitus, type 2) Current Visit: No Status: Chronic Qualifiers: Diabetes mellitus detention insulin use: without terminal make up operator use (5) Diabetic neuropathy Current Visit: No Status: Acute (6) HTN (hypertension) Current Visit: No Status: Acute (7) Aspiration pneumonia Current Visit: Yes Status: Acute Plan: IV MERREM STARTED SPEECH THERAPY. MBS PENDING. DC IN A DAY OR TWO.
[2024-06-26 04:49] LABS: Absolute Eosinophils 0.2 K/uL (0-0.5); Absolute Lymphocytes (CBC) 1.2 K/uL (0.7-4.9); Absolute Monocytes 0.8 K/uL (0.1-1.3); Absolute Neutrophil 3.4 K/uL (1.8-8.0); Basophils % 0.7 % (0-1.3); Eosinophils % 2.7 % (0-4.4); Hematocrit 26.4 % (36.0-45.0); Hemoglobin 9.3 g/dL (12.0-15.0); Lymphocytes % 20.5 % (15.3-44.8); MCH 30.5 pg (27.0-35.0); MCHC 35.2 g/dL (32.0-36.0); MCV 86.7 fL (80-100); MPV 7.1 fL (7.6-11.3); Monocytes % 14.7 % (3.3-12.3); Neutrophils % 61.4 % (41.7-73.7); Nucleated Red Blood Cells % 0.2 % (0-0); Platelets 499 thou/uL (152-406); RBC Red Blood Cell Count 3.04 M/uL (3.86-4.86); Red Cell Distribution Width 14.8 % (12.1-15.2)
[2024-06-26 05:00] LABS: Anion Gap 8.8 mEq/L (5.0-15.0); Potassium 3.8 mEq/L (3.5-5.1)
[2024-06-26] MEDS: VANCOMYCIN 1 GM in NA CHLORIDE 0.9% 250 ML IV SCH ×2 (09:00→21:09)
--- NOTE | 2024-06-26 12:01 | PN ---
Date of Progress Note: 06/26/2024 Subjective: The patient is awake, alert. No new complaints. Objective: Vital Signs: Stable. Afebrile. General: She appears to be more awake than yesterday. Laboratory Data: Reviewed. White count is normal. Dressing is clean, dry, and intact. JORJE has sero sanguineous drainage. Assessment: Status post incision and drainage and debridement of right chest wound and evacuation of infected hematoma. Recommendations: From a surgical point, the patient is stable for discharge. Awaiting medical clear ance. She was getting a barium swallow following which Dr. Mcintosh will decide appropriate discharge p kasia. /MODL Voice ID: [id number] Report ID: [id number]
--- NOTE | 2024-06-26 14:51 | RAD REPORT ---
Modified barium swallow exam with speech pathology service HISTORY: aspiration Fluoroscopy Time: 3 minutes and 4 seconds IMPRESSION: Please see the speech pathology service report for details. Barium contrast of multiple consistencies was provided the patient orally by the speech pathology dep artment. Fluoroscopic observation was performed during swallowing. The radiologist was not present for the examination. Provided images demonstrate no evidence for armand subglottic tracheal aspiration .
--- NOTE | 2024-06-26 17:23 | P.PN ---
Subjective Date of Service: 06/26/24 Chief Complaint: SP SURGERY BY DR. HUYNH Subjective: No C/O voiced SHE IS LOT BETTER. TALKING WELL NOW. HUS AT BEDSIDE. AT BEDSIDE AND AGREES. CHR PAIN. DR. HUYNH HAD TO DEBRIDE SEROMA AND REMOVE POSSIBLY INFECTED AREA. DEBRIED BY DR HUYNH DID WELL VERY FATIGUED. SHE HAD LOW OXYGEN LAST NIGHT. SOME FEVER. SHE IS GIVEN IV MERREM FOR ASPIRATION PNEUMONIA FEELS LOT BETTER TODAY. I SEE HER LAYING DOWN TRYING TO DRINK WATER. AT BEDSIDE. HE WAS EXPLAINED THAT WE NEED TO TRY TO AVOID ASPIRATION AND NEED TO ELEVAT TO CLOSE TO 90 DEG BEFORE WE EAT OR DRINK. Review of Systems 10-point ROS is otherwise unremarkable General: Weakness Physical Examination - Vital Signs Temperature: 98.3 F Blood Pressure: 154/65 Pulse: 63 Respirations: 18 Pulse Ox (%): 90 - Physical Exam General: Mild distress, Obese HEENT: Atraumatic, PERRLA, EOMI Neck: Supple, JVD not distended Respiratory: Clear to auscultation bilaterally, Normal air movement Cardiovascular: Regular rate/rhythm, Normal S1 S2 Gastrointestinal: Normal bowel sounds, No tenderness Musculoskeletal: No tenderness Integumentary: No rashes Neurological: Normal speech, Normal tone, Normal affect Lymphatics: No axilla or inguinal lymphadenopathy - Studies Medications List Reviewed: Yes Assessment And Plan - Current Problems (Diagnosis) (1) Septic encephalopathy Current Visit: Yes Status: Acute Plan: WBC OF 23K MOST LIKELY FROM POST OP INFECTION OF SKIN AND SC TISSUE DR. HUYNH CONCURS. IV ZOSYN ADD IV VANCOMYCIN IT IS IN HOSPITAL SETTING. DAILY LAB (2) Cellulitis of skin Current Visit: Yes Status: Acute Plan: CONT MEDS IV ORAL SOON WHEN ABLE. MAY HAVE TO GIVE ORAL BACTRIM AT DC. SP DEBRIDEMENT. IV VANCOMYCIN. STOP ZOSYN. (3) Seroma of breast Current Visit: Yes Status: Acute Plan: STAPH STLEFIERI CS POS S TO VANCO AND BACTRIM' (4) DM type 2 (diabetes mellitus, type 2) Current Visit: No Status: Chronic Qualifiers: Diabetes mellitus nursing home insulin use: without nursing home use (5) Diabetic neuropathy Current Visit: No Status: Acute (6) HTN (hypertension) Current Visit: No Status: Acute (7) Aspiration pneumonia Current Visit: Yes Status: Acute Plan: IV MERREM STARTED SPEECH THERAPY. MBS POS REFER TO REHAB SHE MAY BE ACCEPTED.
[2024-06-27 05:51] LABS: Absolute Basophils 0.1 K/uL (0-0.5); Absolute Eosinophils 0.2 K/uL (0-0.5); Absolute Lymphocytes (CBC) 1.3 K/uL (0.7-4.9); Absolute Monocytes 0.8 K/uL (0.1-1.3); Absolute Neutrophil 4.1 K/uL (1.8-8.0); Basophils % 0.9 % (0-1.3); Eosinophils % 2.7 % (0-4.4); Hematocrit 29.1 % (36.0-45.0); MCH 29.5 pg (27.0-35.0); MCHC 34.4 g/dL (32.0-36.0); MCV 85.8 fL (80-100); Neutrophils % 63.4 % (41.7-73.7); Nucleated Red Blood Cells % 0.2 % (0-0); Platelets 506 thou/uL (152-406); RBC Red Blood Cell Count 3.39 M/uL (3.86-4.86); Red Cell Distribution Width 14.8 % (12.1-15.2)
[2024-06-27 06:04] LABS: Anion Gap 8.6 mEq/L (5.0-15.0); Potassium 3.6 mEq/L (3.5-5.1)
[2024-06-27] MEDS: TIZANIDINE 4 MG TABLET PO ONE (21:59)
--- NOTE | 2024-06-28 12:07 | PN ---
Date of Progress Note: 06/28/2024 Subjective: The patient is awake, alert. No new complaints. Objective: Vital Signs: Stable. Afebrile. JORJE is putting out 30 to 40 cc every 12 hours recently. Her wound is clean, dry, intact. Assessment: Status post incision and drainage and debridement, right chest hematoma, following a frank ateral mastectomy. Recommendations: The patient cleared from surgery for discharge, to follow up in the office next hiram REIS Voice ID: [id number] Report ID: [id number]
--- NOTE | 2024-06-28 14:45 | P.PN ---
Subjective Date of Service: 06/28/24 Chief Complaint: SP SURGERY BY DR. HUYNH Subjective: Improving SHE IS SLOW TO RECOVER. WEAK PT HAS WORKED DAILY WITH HER. JUST ABLE TO TAKE FEW STEPS WITH A LOT OF ASSISTANCE. Review of Systems 10-point ROS is otherwise unremarkable General: Weakness Physical Examination - Vital Signs Temperature: 97.4 F Blood Pressure: 136/65 Pulse: 65 Respirations: 18 Pulse Ox (%): 91 - Physical Exam General: Oriented x3, Mild distress, Obese HEENT: Atraumatic, PERRLA, EOMI Neck: Supple, JVD not distended Respiratory: Clear to auscultation bilaterally, Normal air movement Cardiovascular: Regular rate/rhythm, Normal S1 S2 Gastrointestinal: Normal bowel sounds, No tenderness Musculoskeletal: No tenderness Integumentary: No rashes Neurological: Normal speech, Normal tone, Normal affect, Other (GEN WEAK, D ECONDITIONED.) Lymphatics: No axilla or inguinal lymphadenopathy - Studies Medications List Reviewed: Yes Assessment And Plan - Current Problems (Diagnosis) (1) Septic encephalopathy Current Visit: Yes Status: Acute Plan: WBC OF 23K MOST LIKELY FROM POST OP INFECTION OF SKIN AND SC TISSUE DR. HUYNH CONCURS. IV ZOSYN ADD IV VANCOMYCIN IT IS IN HOSPITAL SETTING. DAILY LAB (2) Cellulitis of skin Current Visit: Yes Status: Acute Plan: CONT MEDS IV ORAL SOON WHEN ABLE. MAY HAVE TO GIVE ORAL BACTRIM AT DC. SP DEBRIDEMENT. IV VANCOMYCIN. STOP ZOSYN. (3) Seroma of breast Current Visit: Yes Status: Acute Plan: STAPH STLEFIERI CS POS S TO VANCO AND BACTRIM' (4) DM type 2 (diabetes mellitus, type 2) Current Visit: No Status: Chronic Qualifiers: Diabetes mellitus long wall mining machine tender insulin use: without long wall mining machine tender use (5) Diabetic neuropathy Current Visit: No Status: Acute (6) HTN (hypertension) Current Visit: No Status: Acute (7) Aspiration pneumonia Current Visit: Yes Status: Acute Plan: IV MERREM STARTED SPEECH THERAPY. MBS POS REFER TO REHAB SHE MAY BE ACCEPTED. THICKENED LIQUIDS WANTS TO TAKE HER HOME. HE WILL WAIT ONE MORE DAY SHE IS NOT ABLE TO TEND FOR HERSELF.
[2024-06-28] MEDS: VANCOMYCIN 1 GM in NA CHLORIDE 0.9% 250 ML IV SCH (17:08)
[2024-06-29] MEDS: AMLODIPINE 5 MG TAB PO SCH (09:34)
--- NOTE | 2024-06-29 11:49 | P.PN ---
Subjective Date of Service: 06/29/24 Chief Complaint: SP SURGERY BY DR. HUYNH Subjective: Improving SHE IS SLOW TO RECOVER. WEAK PT HAS WORKED DAILY WITH HER. JUST ABLE TO TAKE FEW STEPS WITH A LOT OF ASSISTANCE. SHE IS FEELING BETTER BUT IS DECONDITIONED. WANTS TO TAKE HER HOME BUT I AM NOT SURE IF HE CAN HANDLE IT, BEING AN OLD MAN WITH SEVERE ARTHRITIS. I TALKED TO SULEIMAN TO SEE IF WE CAN WALK HER TO DECIDE. Review of Systems 10-point ROS is otherwise unremarkable General: Weakness Physical Examination - Vital Signs Temperature: 97.3 F Blood Pressure: 197/88 Pulse: 64 Respirations: 20 Pulse Ox (%): 96 - Physical Exam General: Oriented x3, Mild distress, Obese HEENT: Atraumatic, PERRLA, EOMI Neck: Supple, JVD not distended Respiratory: Clear to auscultation bilaterally, Normal air movement Cardiovascular: Regular rate/rhythm, Normal S1 S2 Gastrointestinal: Normal bowel sounds, No tenderness Musculoskeletal: No tenderness Integumentary: No rashes Neurological: Normal speech, Normal tone, Normal affect Lymphatics: No axilla or inguinal lymphadenopathy - Studies Medications List Reviewed: Yes Assessment And Plan - Current Problems (Diagnosis) (1) Septic encephalopathy Current Visit: Yes Status: Acute Plan: WBC OF 23K MOST LIKELY FROM POST OP INFECTION OF SKIN AND SC TISSUE DR. LINO DESAI. IV ZOSYN ADD IV VANCOMYCIN IT IS IN HOSPITAL SETTING. DAILY LAB (2) Cellulitis of skin Current Visit: Yes Status: Acute Plan: CONT MEDS IV ORAL SOON WHEN ABLE. MAY HAVE TO GIVE ORAL BACTRIM AT DC. SP DEBRIDEMENT. IV VANCOMYCIN. STOP ZOSYN. (3) Seroma of breast Current Visit: Yes Status: Acute Plan: STAPH STLEBENJY CS POS S TO VANCO AND BACTRIM' (4) DM type 2 (diabetes mellitus, type 2) Current Visit: No Status: Chronic Qualifiers: Diabetes mellitus watermelon inspector insulin use: without assisted use (5) Diabetic neuropathy Current Visit: No Status: Acute (6) HTN (hypertension) Current Visit: No Status: Acute (7) Aspiration pneumonia Current Visit: Yes Status: Acute Plan: IV MERREM STARTED SPEECH THERAPY. MBS POS REFER TO REHAB SHE MAY BE ACCEPTED. THICKENED LIQUIDS WANTS TO TAKE HER HOME. HE WILL WAIT ONE MORE DAY SHE IS NOT ABLE TO TEND FOR HERSELF. (8) Debility Current Visit: No Status: Chronic Plan: NOT WALKING MUCH YET PER HPI SHE COULD GO HOME IFSHE IS SAFE AT HOME.
[2024-06-29] MEDS ORDERED: TIZANIDINE 4 MG TABLET PO PRN (22:07)
--- NOTE | 2024-06-30 12:51 | P.PN ---
Subjective Date of Service: 06/30/24 Chief Complaint: SP SURGERY BY DR. HUYNH Subjective: Improving SHE IS SLOW TO RECOVER. WEAK PT HAS WORKED DAILY WITH HER. JUST ABLE TO TAKE FEW STEPS WITH A LOT OF ASSISTANCE. SHE IS FEELING BETTER BUT IS DECONDITIONED. WANTS TO TAKE HER HOME BUT I AM NOT SURE IF HE CAN HANDLE IT, BEING AN OLD MAN WITH SEVERE ARTHRITIS. I TALKED TO SULEIMAN TO SEE IF WE CAN WALK HER TO DECIDE. GEN WEAK NOT ABLE TO WALK MORE THAN 2 STEPS NO PT TODAY. Physical Examination - Vital Signs Temperature: 97.4 F Blood Pressure: 194/84 Pulse: 63 Respirations: 18 Pulse Ox (%): 94 - Physical Exam General: Mild distress, Confused, Obese HEENT: Atraumatic, PERRLA, EOMI Neck: Supple, JVD not distended Respiratory: Clear to auscultation bilaterally, Normal air movement Cardiovascular: Regular rate/rhythm, Normal S1 S2 Gastrointestinal: Normal bowel sounds, No tenderness Musculoskeletal: No tenderness Integumentary: No rashes Neurological: Normal speech, Normal tone, Normal affect Lymphatics: No axilla or inguinal lymphadenopathy - Studies Medications List Reviewed: Yes Assessment And Plan - Current Problems (Diagnosis) (1) Septic encephalopathy Current Visit: Yes Status: Acute Plan: WBC OF 23K MOST LIKELY FROM POST OP INFECTION OF SKIN AND SC TISSUE DR. HUYNH CONCURS. IV ZOSYN ADD IV VANCOMYCIN IT IS IN HOSPITAL SETTING. DAILY LAB NEED PT AT NOT ABLE TO TAKE CARE (2) Cellulitis of skin Current Visit: Yes Status: Acute Plan: CONT MEDS IV ORAL SOON WHEN ABLE. MAY HAVE TO GIVE ORAL BACTRIM AT [place]. SP DEBRIDEMENT. IV VANCOMYCIN. STOP ZOSYN. (3) Seroma of breast Current Visit: Yes Status: Acute Plan: STAPH STLEFIERI CS POS S TO VANCO AND BACTRIM' (4) DM type 2 (diabetes mellitus, type 2) Current Visit: No Status: Chronic Qualifiers: Diabetes mellitus assistant terminal manager insulin use: without snf use (5) Diabetic neuropathy Current Visit: No Status: Acute (6) HTN (hypertension) Current Visit: No Status: Acute (7) Aspiration pneumonia Current Visit: Yes Status: Acute Plan: IV MERREM STARTED SPEECH THERAPY. MBS POS REFER TO REHAB SHE MAY BE ACCEPTED. THICKENED LIQUIDS WANTS TO TAKE HER HOME. HE WILL WAIT ONE MORE DAY SHE IS NOT ABLE TO TEND FOR HERSELF. (8) Debility Current Visit: No Status: Chronic Plan: NOT WALKING MUCH YET PER HPI SHE COULD GO HOME IFSHE IS SAFE AT HOME.
[2024-06-30] MEDS: cloNIDine HCL 0.1 MG TAB PO SCH (14:31)
[2024-06-30 17:31] VITALS: O2SAT 93
[2024-06-30] MEDS ORDERED: cloNIDine HCL 0.1 MG TAB PO SCH (21:00)
[2024-07-01 08:48] VITALS: BP 164/71; TEMP 98.1
--- NOTE | 2024-07-01 12:17 | P.DS ---
Admission Date: 06/18/24 Discharge Date: 07/01/24 Disposition: DC HOME/HOME HEALTH CARE Discharge Condition: FAIR Reason for Admission: SP SURGERY BY DR. ALVARADO - Problems (1) Septic encephalopathy Current Visit: Yes Status: Acute (2) Cellulitis of skin Current Visit: Yes Status: Acute (3) Seroma of breast Current Visit: Yes Status: Acute (4) DM type 2 (diabetes mellitus, type 2) Current Visit: No Status: Chronic Qualifiers: Diabetes mellitus residential worker insulin use: without detention use (5) Diabetic neuropathy Current Visit: No Status: Acute (6) HTN (hypertension) Current Visit: No Status: Acute (7) Aspiration pneumonia Current Visit: Yes Status: Acute (8) Debility Current Visit: No Status: Chronic Brief History of Present Illness: SHE CAN'T TELL ME WHY SHE IS HERE BUT BROUGHT HER HERE FOR CONFUSION. SHE HAS WBC COUNT OF 23K AND POSSIBLE CELLULITIS WITH SEROMA OF POST SURGICAL SITE. SHE HAS MANY MEDICAL ISSUES. SHE RECENTLY HAD BILATERAL MASTECTOMY FOR UNILATERAL CANCER. Hospital Course: NOHEMI HAS HAD INFECTED SEROMA POST OP, TREATED WITH SURGERY AND IV VANCOMYCIN. LATER SHE DEVELOPED ASPIRATION PNEUMONIA A SHE EATS AND DRINKS IN SEMI RECUMBANANT POSITION AND HAD TO GO FOR MBS AND SPT EVAL. [facility]. WANTS TO TAKE HER HOME WITH HELP HE CAN HIRE. HE SAYS [place] HELP [place]. SHE IS NOT ABLE TO WALK MORE THAN A FEW STEPS. HE IS AWARE. Vital Signs/Physical Exam: Temp Pulse Resp BP Pulse Ox 98.1 F 67 12 164/71 H 96 07/01/24 08:00 07/01/24 08:00 07/01/24 08:00 07/01/24 08:00 07/01/24 08:00 Laboratory Data at Discharge: WBC 6.40 thou/uL (4.3-10.9) 06/27/24 05:34 Hgb 10.0 g/dL (12.0-15.0) L 06/27/24 05:34 Hct 29.1 % (36.0-45.0) L 06/27/24 05:34 Plt Count 506 thou/uL (152-406) H 06/27/24 05:34 PT 13.4 SECONDS (9.4-12.5) H 06/18/24 08:55 INR 1.28 06/18/24 08:55 APTT 29.7 SECONDS (24.3-36.9) 06/18/24 08:55 Sodium 136 mEq/L (136-145) 06/27/24 05:34 Potassium 3.6 mEq/L (3.5-5.1) 06/27/24 05:34 BUN 17 mg/dL (7-18) 06/27/24 05:34 Creatinine 0.98 mg/dL (0.55-1.02) 06/27/24 05:34 Glucose 112 mg/dL (74-106) H 06/27/24 05:34 Total Bilirubin 1.0 mg/dL (0.2-1.0) 06/18/24 08:55 AST 13 U/L (15-37) L 06/18/24 08:55 ALT 20 U/L (13-56) 06/18/24 08:55 Alkaline Phosphatase 86 U/L (45-117) 06/18/24 08:55 Home Medications: Doxepin HCl 50 mg PO DAILY 12/09/16 Levothyroxine Sodium 150 mcg PO DAILY 12/09/16 Venlafaxine HCl [Effexor XR] 150 mg PO BEDTIME 12/09/16 Dulaglutide [Trulicity] 1.5 mg IM SEECOM 06/19/22 Montelukast Sodium [Singulair] 1 tab PO DAILY 06/19/22 Venlafaxine HCl 75 mg PO DAILY 06/19/22 ARIPiprazole [Abilify*] 5 mg PO DAILY 06/04/24 Carbidopa/Levodopa [Carbidopa-Levodopa 25-100 Tab] 1 each PO TID 06/04/24 Colesevelam HCl 1 tab PO DAILY 06/04/24 Hyoscyamine Sulfate 0.125 mg PO DAILY 06/04/24 Pravastatin [Pravachol*] 40 mg PO DAILY 06/04/24 Propranolol HCl [Propranolol HCl ER] 80 mg PO DAILY 06/04/24 Tizanidine HCl [Zanaflex] 2 mg PO BEDTIME 06/04/24 Amlodipine [Norvasc*] 5 mg PO DAILY #30 tab 07/01/24 Losartan Potassium [Cozaar] 100 mg PO DAILY #30 tablet 07/01/24 cloNIDine HCL [Catapres*] 0.1 mg PO BID #60 tab 07/01/24 New Medications: cloNIDine HCL [Catapres*] 0.1 mg PO BID #60 tab Losartan Potassium [Cozaar] 100 mg PO DAILY #30 tablet Amlodipine [Norvasc*] 5 mg PO DAILY #30 tab Physician Discharge Instructions: Keep dressing clean and dry Record JORJE output every 12 hours, bring record to office Strip tubing as needed [facility] Home health if needed Followup: Yogesh Mcintosh MD [ACTIVE - CAN ADMIT] - 1-2 Weeks Glynn Alvarado MD [ACTIVE - CAN ADMIT] - 07/03/24
[2024-07-01] MEDS ORDERED: VANCOMYCIN 1 GM in NA CHLORIDE 0.9% 250 ML IV SCH (20:00)
== END 2024-07-01 12:16 | disposition home health service (06) | DRG 901 ==
LOC: ER 08:24 → ERHOLD 11:50 → 2ND 13:19
PROVIDERS: ADMIT Internal Medicine; ATTEND Internal Medicine
PROC: 0JB60ZZ Excision of Chest Subcutaneous Tissue and Fascia, Open Approach (ICD-10-PCS; principal; 2024-06-22 08:15)
DX: L76.34 Postprocedural seroma of skin and subcutaneous tissue following other procedure (principal); G93.41 Metabolic encephalopathy; J69.0 Pneumonitis due to inhalation of food and vomit; L03.313 Cellulitis of chest wall; E11.52 Type 2 diabetes mellitus with diabetic peripheral angiopathy with gangrene; E11.40 Type 2 diabetes mellitus with diabetic neuropathy, unspecified; N64.89 Other specified disorders of breast; I10 Essential (primary) hypertension; E66.9 Obesity, unspecified; E78.00 Pure hypercholesterolemia, unspecified; M19.90 Unspecified osteoarthritis, unspecified site; S20.01XA Contusion of right breast, initial encounter; C50.919 Malignant neoplasm of unspecified site of unspecified female breast; Z88.5 Allergy status to narcotic agent; Z88.1 Allergy status to other antibiotic agents; Z85.3 Personal history of malignant neoplasm of breast; Z11.52 Encounter for screening for COVID-19; Z68.36 Body mass index [BMI] 36.0-36.9, adult; Z90.13 Acquired absence of bilateral breasts and nipples; Z90.49 Acquired absence of other specified parts of digestive tract; Z79.890 Hormone replacement therapy; Z79.899 Other long term (current) drug therapy; Z90.710 Acquired absence of both cervix and uterus
CPT/HCPCS: 36415; 51702; 71045; 71275; 74176; 74230; 80048; 80053; 80202; 81001; 82947; 83605; 85025; 85610; 85730; 87040; 87070; 87075; 87077; 87186; 87205; 87428; 87804; 87811; 88304; 92526; 92610; 92611; 93005; 93970; 96365; 97112; 97116; 97161; 97530; 99285; J1171; J1650; J1815; J2003; J2185; J2371; J2405; J2543; J2704; J3010; J3370; J3590; J7030; J7040; J7050; Q9967

== ENCOUNTER 2024-07-03 14:58 | Observation (INO) | payer OTHER ==
[2024-07-03 17:27] LABS: Absolute Eosinophils 0.2 K/uL (0-0.5); Absolute Lymphocytes (CBC) 2.1 K/uL (0.7-4.9); Absolute Monocytes 0.7 K/uL (0.1-1.3); Absolute Neutrophil 7.2 K/uL (1.8-8.0); Basophils % 0.2 % (0-1.3); Eosinophils % 1.7 % (0-4.4); Hemoglobin 10.9 g/dL (12.0-15.0); Lymphocytes % 20.6 % (15.3-44.8); MCH 29.3 pg (27.0-35.0); MCHC 34.1 g/dL (32.0-36.0); MCV 85.8 fL (80-100); MPV 7.6 fL (7.6-11.3); Neutrophils % 70.5 % (41.7-73.7); Platelets 526 thou/uL (152-406); RBC Red Blood Cell Count 3.73 M/uL (3.86-4.86); Red Cell Distribution Width 14.5 % (12.1-15.2)
[2024-07-03 17:44] LABS: ALT/SGPT 15 U/L (13-56); AST/SGOT 18 U/L (15-37); Albumin 2.7 g/dL (3.4-5.0); Albumin/Globulin Ratio 0.8 (1.1-1.8); Alkaline Phosphatase 101 U/L (45-117); Anion Gap 9.5 mEq/L (5.0-15.0); BUN Blood Urea Nitrogen 15 mg/dL (7-18); Bicarbonate 32 mEq/L (21-32); Bilirubin Total 0.4 mg/dL (0.2-1.0); Globulin 3.6 g/dL (2.3-3.5); Glomerular Filtration Rate 56 ml/min (=/>90); Glucose Level 147 mg/dL (74-106); NT PRO-BNP 570 pg/mL (<125); Potassium 3.5 mEq/L (3.5-5.1); Protein, Total 6.3 g/dL (6.4-8.2); Sodium Level 139 mEq/L (136-145); Troponin High Sensitivity 17.6 pg/mL (<58.9)
[2024-07-03 17:51] LABS: Bilirubin Direct < 0.2 mg/dL (0-0.2); Bilirubin Indirect, Calculated 0.2 mg/dL (0.2-0.8)
--- NOTE | 2024-07-03 18:40 | RAD REPORT ---
EXAMINATION: CTA CHEST PE CLINICAL INDICATION: Female, 74 years old. DYSPNEA TECHNIQUE: This examination was performed according to an angiographic protocol with 3D post-processi ng. This involves 3D reconstructions, MIPs, volume rendered images and/or shaded surface rendering. One or more of the following dose reduction techniques were used: Automated exposure control, adjustm ent of the mA and/or kV according to patient size, and/or iterative reconstruction. Unless otherwise specified, incidental findings do not require dedicated imaging follow-up. [id number]. COMPARISON: 06/24/2024 FINDINGS: LOWER NECK: Unchanged left thyroid nodule measuring 16 mm. LUNGS AND AIRWAYS: Scattered nonspecific bilateral groundglass opacities which are similar to prior. Mild scarring in the right middle lobe and likely some dependent atelectasis.No suspicious and/or stable pulmonary nodules. PLEURA: No pleural effusion. No pneumothorax. Hemidiaphragms are normally positioned. MEDIASTINUM AND LYMPH NODES: No mediastinal mass or fluid collection. Normal size mediastinal, hilar, and axillary lymph nodes. Diffuse esophageal wall thickening. THORACIC AORTA: No thoracic aortic aneurysm. Atherosclerotic changes are present. PULMONARY ARTERIES: Caliber is within normal limits. No pulmonary emboli identified to the level of t he segmental pulmonary arteries. The subsegmental pulmonary arteries cannot be adequately assessed due to motion/suboptimal contrast opacification. HEART: Mild cardiomegaly. Coronary arterial calcifications are present.No significant pericardial eff usion. OSSEOUS STRUCTURES AND CHEST WALL: Fluid collection in the right chest wall has decreased in size but not completely resolved. The surgical drain is no longer present. There is a pocket of fluid laterally measuring approximately 4.5 x 2 cm. There is some fluid in the left chest wall as well whic h is unchanged. Likely posttreatment changes from mastectomy with skin thickening. UPPER ABDOMEN: No acute abnormalities. IMPRESSION: No evidence of pulmonary emboli to the segmental level. A few scattered ground glass opacities are ag ain noted and similar to 06/24/2024. This could reflect mild infection or inflammation. Right chest wall collection has decreased in size though there are still some residual. The drain has been remove d..
--- NOTE | 2024-07-03 19:12 | ER ---
Nurse's Notes [facility] Name: Lupe Anaya Age: 74 yrs Sex: Female : 1950 Arrival Date: 07/03/2024 Time: 14:58 Bed 20 Private MD: Diagnosis: Hypoxemia Presentation: 07/03 15:30 Chief complaint: EMS states: toned out for SOB. Coronavirus screen: At this time, the ld1 client does not indicate any symptoms associated with coronavirus-19. Ebola Screen: No symptoms or risks identified at this time. Initial Sepsis Screen: Does the patient meet any 2 criteria? No. Patient's initial sepsis screen is negative. Does the patient have a suspected source of infection? No. Patient's initial sepsis screen is negative. Risk Assessment: Do you want to hurt yourself or someone else? Patient reports no desire to harm self or others. Onset of symptoms was July 03, 2024. 15:30 Method Of Arrival: EMS: [facility] ld1 15:30 Acuity: NADER 3 ld1 Triage Assessment: 15:31 General: Appears in no apparent distress. comfortable, Behavior is calm, cooperative, ld1 appropriate for age. Pain: Denies pain. EENT: No signs and/or symptoms were reported regarding the EENT system. Neuro: Level of Consciousness is awake, alert, obeys commands, Oriented to person, place, time, situation. Cardiovascular: Capillary refill < 3 seconds Patient's skin is warm and dry. Respiratory: Airway is patent Respiratory effort is even, unlabored. Respiratory: Reports shortness of breath at rest on exertion. GI: Abdomen is round non-distended. : No signs and/or symptoms were reported regarding the genitourinary system. Derm: No signs and/or symptoms reported regarding the dermatologic system. Musculoskeletal: No signs and/or symptoms reported regarding the musculoskeletal system. Historical: - Allergies: 15:25 Dilantin; ld1 15:25 Erythromycin; ld1 15:31 SUCCINYLCHOLINE; ld1 15:31 Codeine; ld1 - PMHx: 15:25 breast cancer; diabetes mellitus; Hypercholesterolemia; Hypertensive disorder; ld1 - PSHx: 15:25 double mastectomy; ld1 - Immunization history:: Adult Immunizations up to date. - Infectious Disease History:: Denies. - Social history:: Smoking status: Patient denies any tobacco usage or history of. - Family history:: not pertinent. Screenin:44 [facility] ED Fall Risk Assessment (Adult) History of falling in the last 3 months, ld1 including since admission No falls in past 3 months (0 pts) Confusion or Disorientation No (0 pts) Intoxicated or Sedated No (0 pts) Impaired Gait No (0 pts) Mobility Assist Device Used No (0 pt) Altered Elimination No (0 pt) Score/Fall Risk Level 0 - 2 = Low Risk Oriented to surroundings, Hourly rounding (assess needs \T\ fall precautionary measures) done. Abuse screen: Denies threats or abuse. Denies injuries from another. Nutritional screening: No deficits noted. Tuberculosis screening: No symptoms or risk factors identified. Assessment: 16:44 General: Appears in no apparent distress. comfortable, Behavior is calm, cooperative, ld1 appropriate for age. Pain: Denies pain. Neuro: Level of Consciousness is awake, alert, obeys commands, Oriented to person, place, time, situation. Cardiovascular: Capillary refill < 3 seconds Patient's skin is warm and dry. Cardiovascular: Rhythm is sinus rhythm. Respiratory: Airway is patent Respiratory effort is even, unlabored. Respiratory: Reports shortness of breath at rest on exertion. GI: Abdomen is round non-distended. : No signs and/or symptoms were reported regarding the genitourinary system. EENT: No signs and/or symptoms were reported regarding the EENT system. Derm: No signs and/or symptoms reported regarding the dermatologic system. Musculoskeletal: No signs and/or symptoms reported regarding the musculoskeletal system. 17:29 Reassessment: Patient appears in no apparent distress at this time. No changes from ld1 previously documented assessment. Patient and/or family updated on plan of care and expected duration. Pain level reassessed. Patient is alert, oriented x 3, equal unlabored respirations, skin warm/dry/pink. Pt placed in clean brief, in gown, on monitor. Purewick applied to patient at this time. Family at bedside. Denies concerns at this time. Patient denies pain at this time. 19:00 General: Appears in no apparent distress. comfortable, Behavior is calm, cooperative. ay Pain: Denies pain. Neuro: Level of Consciousness is awake, alert, obeys commands, Oriented to person, place, time, situation, Speech is normal. Cardiovascular: Capillary refill < 3 seconds Patient's skin is warm and dry. Rhythm is sinus rhythm. Respiratory: Airway is patent Respiratory effort is even, unlabored. GI: No signs and/or symptoms were reported involving the gastrointestinal system. : No signs and/or symptoms were reported regarding the genitourinary system. Vital Signs: 15:28 Pulse Ox 85% on R/A; ld1 15:28 BP 154 / 61; Pulse 87; ld1 15:30 BP 154 / 61; Pulse 88; Resp 18; Temp 97.6(TE); Pulse Ox 92% on R/A; Weight 68.04 kg; ld1 Height 5 ft. 4 in. ; Pain 0/10; 16:00 BP 156 / 66; Pulse 84; Resp 18; Pulse Ox 85% on R/A; ld1 16:30 BP 153 / 75; Pulse 87; Resp 22; Pulse Ox 94% on 3 lpm NC; ld1 16:44 BP 153 / 75; Pulse 79; Resp 18; Pulse Ox 100% on 3 lpm NC; ld1 17:29 BP 153 / 75; Pulse 89; Resp 18; Pulse Ox 100% on 3 lpm NC; ld1 18:44 BP 180 / 73; Pulse 76; Resp 18; Pulse Ox 100% on R/A; ld1 19:45 BP 159 / 69; Pulse 80; Resp 16; Pulse Ox 100% on 3 lpm NC; ay 15:30 Body Mass Index 25.75 (68.04 kg, 162.56 cm) ld1 15:30 Pain Scale: Adult ld1 ED Course: 15:02 Patient arrived in ED. bd 15:02 Winston Dong MD is Attending Physician. rt 15:23 Madisyn Mccullough, KEE is Primary Nurse. ld1 15:31 Triage completed. ld1 15:31 Arm band placed on right wrist. ld1 16:44 Patient has correct armband on for positive identification. Placed in gown. Bed in low ld1 position. Call light in reach. Side rails up X2. pulmonary disease specialist on. Pulse ox on. NIBP on. Door closed. Noise minimized. Warm blanket given. 16:44 No provider procedures requiring assistance completed. Missed attempt(s): 22 gauge in ld1 right antecubital area. 17:18 Accessed peripheral vein via ultrasound, utilizing dynamic ultrasound technique Blood cm10 collected. Clean \T\ dry. Dressing intact. Good blood return. Flushes easily. 20g right ac. 18:23 CT Chest For PE Angio In Process Unspecified. EDMS 19:11 Yogesh Mcintosh MD is Hospitalizing Provider. rt 19:21 Primary Nurse role handed off by Madisyn Mccullough, RN rv1 20:00 Anjum Jerez, RN is Primary Nurse. ay 22:07 Patient admitted, IV remains in place. ay Administered Medications: No medications were administered Medication: 16:44 VIS not applicable for this client. ld1 Outcome: 19:11 Decision to Hospitalize by Provider. rt 22:07 Admitted to Med/surg accompanied by nurse, via stretcher, room 404, with oxygen, ay 22:07 Condition: stable 22:07 Instructed on the need for admit, 22:09 Patient left the ED. ay Signatures: Dispatcher [employer] EDMS Rain Cooney bd Madisyn Mccullough, RN RN ld1 Winston Dong MD MD rt Sushila Scherer rv1 Anushka Palmer RN RN cm10 Anjum Jerez RN RN ay Corrections: (The following items were deleted from the chart) 16:43 16:41 Pulse Ox 85% RA; ld1 ld1
--- NOTE | 2024-07-03 19:12 | EDPHYS ---
Physician Documentation [facility] Name: Lupe Anaya Age: 74 yrs Sex: Female : 1950 Arrival Date: 07/03/2024 Time: 14:58 Bed 20 Private MD: ED Physician Winston Dong HPI: 07/03 16:10 This 74 yrs old Female presents to ER via EMS with complaints of Shortness Of Breath. rt 16:10 Patient presents to the ED with an acute onset of dyspnea. EMS noted that the patient's rt oxygen saturation was in the low 80s, this corrected with supplemental O2, bronchodilators and they were able to take the patient off of oxygen. The patient had a recent mastectomy, evaluation in the emergency department for debility. She denies chest pain, acute complaints, symptoms are moderate in severity, no other aggravating or alleviating factors.. Historical: - Allergies: 15:25 Dilantin; ld1 15:25 Erythromycin; ld1 15:31 SUCCINYLCHOLINE; ld1 15:31 Codeine; ld1 - PMHx: 15:25 breast cancer; diabetes mellitus; Hypercholesterolemia; Hypertensive disorder; ld1 - PSHx: 15:25 double mastectomy; ld1 - Immunization history:: Adult Immunizations up to date. - Infectious Disease History:: Denies. - Social history:: Smoking status: Patient denies any tobacco usage or history of. - Family history:: not pertinent. ROS: 16:10 Constitutional: Negative for fever, chills, and weight loss, Cardiovascular: Negative rt for chest pain, palpitations, and edema, Abdomen/GI: Negative for abdominal pain, nausea, vomiting, diarrhea, and constipation, MS/Extremity: Negative for injury and deformity, Skin: Negative for injury, rash, and discoloration, Neuro: Negative for headache, weakness, numbness, tingling, and seizure, 16:10 Respiratory: Positive for shortness of breath, Negative for cough, Exam: 16:10 Constitutional: This is a well developed, well nourished patient who is awake, alert, rt and in no acute distress. Head/Face: Normocephalic, atraumatic. Chest/axilla: Normal chest wall appearance and motion. Nontender with no deformity. No lesions are appreciated. Cardiovascular: Regular rate and rhythm with a normal S1 and S2. No gallops, murmurs, or rubs. Normal PMI, no JVD. No pulse deficits. Abdomen/GI: Soft, non-tender, with normal bowel sounds. No distension or tympany. No guarding or rebound. No evidence of tenderness throughout. MS/ Extremity: Pulses equal, no cyanosis. Neurovascular intact. Full, normal range of motion. Neuro: Awake and alert, GCS 15, oriented to person, place, time, and situation. Cranial nerves II-XII grossly intact. Motor strength 5/5 in all extremities. Sensory grossly intact. Cerebellar exam normal. Normal gait. 16:10 ECG was reviewed by the Attending Physician. Vital Signs: 15:28 Pulse Ox 85% on R/A; ld1 15:28 BP 154 / 61; Pulse 87; ld1 15:30 BP 154 / 61; Pulse 88; Resp 18; Temp 97.6(TE); Pulse Ox 92% on R/A; Weight 68.04 kg; ld1 Height 5 ft. 4 in. ; Pain 0/10; 16:00 BP 156 / 66; Pulse 84; Resp 18; Pulse Ox 85% on R/A; ld1 16:30 BP 153 / 75; Pulse 87; Resp 22; Pulse Ox 94% on 3 lpm NC; ld1 16:44 BP 153 / 75; Pulse 79; Resp 18; Pulse Ox 100% on 3 lpm NC; ld1 17:29 BP 153 / 75; Pulse 89; Resp 18; Pulse Ox 100% on 3 lpm NC; ld1 18:44 BP 180 / 73; Pulse 76; Resp 18; Pulse Ox 100% on R/A; ld1 19:45 BP 159 / 69; Pulse 80; Resp 16; Pulse Ox 100% on 3 lpm NC; ay 15:30 Body Mass Index 25.75 (68.04 kg, 162.56 cm) ld1 15:30 Pain Scale: Adult ld1 MDM: 15:02 Medical Screening Exam initiated rt 20:35 Differential diagnosis: PE, pneumonia, dyspnea. Data reviewed: vital signs, nurses rt notes, lab test result(s), EKG, radiologic studies. Consideration of Admission/Observation Patient was admitted/placed on observation. Management of patient was discussed with the following: Primary Care Provider: Will admit patient to the hospital. I considered the following discharge prescriptions or medication management in the emergency department Medications were administered in the Emergency Department. See MAR. Independent interpretation of the following test(s) in the Emergency Department CT Scan: My interpretation is No pneumonia seen on my interpretation of CT scan images. Test considered but Not performed: X-ray: CT scan obtained, x-rays redundant. Care significantly affected by the following chronic conditions: Breast cancer. Counseling: I had a detailed discussion with the patient and/or guardian regarding the historical points, exam findings, and any diagnostic results supporting the discharge/admit diagnosis, lab results, radiology results, the need for further work-up and treatment in the hospital. Response to treatment: the patient's symptoms have markedly improved after treatment. 07/03 15:02 Order name: Basic Metabolic Panel; Complete Time: 17:55 rt 07/03 15:02 Order name: CBC with Diff; Complete Time: 17:55 rt 07/03 15:02 Order name: LFT's; Complete Time: 17:55 rt 07/03 15:02 Order name: NT PRO-BNP; Complete Time: 17:55 rt 07/03 15:02 Order name: Troponin HS; Complete Time: 17:55 rt 07/03 19:16 Order name: Urinalysis w/ reflexes EDMS 07/03 15:02 Order name: CT Chest For PE Angio; Complete Time: 18:40 rt 07/03 15:02 Order name: EKG; Complete Time: 15:03 rt 07/03 15:02 Order name: Cardiac monitoring; Complete Time: 16:03 rt 07/03 15:02 Order name: EKG - Nurse/Tech; Complete Time: 16:03 rt 07/03 15:02 Order name: IV Saline Lock; Complete Time: 17:29 rt 07/03 15:02 Order name: Labs collected and sent; Complete Time: 17:29 rt 07/03 15:02 Order name: O2 Per Protocol; Complete Time: 15:24 rt 07/03 15:02 Order name: O2 Sat Monitoring; Complete Time: 15:24 rt EC:10 Rate is 79 beats/min. Rhythm is regular, Normal Sinus Rhythm with No ectopy. Left axis rt deviation noted. PA interval is normal. QRS interval is normal. QT interval is normal. No Q waves. T waves are Normal. No ST changes noted. Interpreted by me. Administered Medications: No medications were administered Disposition Summary: 07/03/24 19:11 Hospitalization Ordered Notes: Hospitalization Status: Observation rt Provider: Yogesh Mcintosh rt Location: Telemetry/MedSurg (observation) rt Condition: Stable rt Problem: an ongoing problem rt Symptoms: are unchanged rt Bed/Room Type: Standard rt Room Assignment: 404(07/03/24 19:19) rv1 Diagnosis - Hypoxemia rt Forms: - Medication Reconciliation Form rt - SBAR form rt - Leadership Thank You Letter rt Signatures: Dispatcher [employer] Madisyn De Jesus RN RN ld1 Winston Dong MD MD rt Sushila Scherer rv1 Corrections: (The following items were deleted from the chart) 19:19 19:11 rt rv1
[2024-07-03 23:00] VITALS: BMI 37.8
[2024-07-04] MEDS: cloNIDine HCL 0.1 MG TAB PO ONE (00:13)
[2024-07-04] MEDS: TRAMADOL 37.5mg/APAP 325mg PER TAB PO ONE (00:13)
[2024-07-04] MEDS: AMLODIPINE 5 MG TAB PO ONE (00:14)
[2024-07-04 00:37] LABS: Specific Gravity 1.028 (1.005-1.030); Sqamous Epithelial <5 /HPF (None Seen); Urine Bacteria None Seen /HPF (<20); Urine Bilirubin NEGATIVE (Negative); Urine Blood Negative (Negative); Urine Clarity Clear (Clear); Urine Color Light-Yellow (Yellow); Urine Culture Reflex Order NOT NEEDED; Urine Glucose NEGATIVE (Negative); Urine Ketones 1+ (Negative); Urine Microscopic Reflex YN ORDER UMIC; Urine Nitrite NEGATIVE (Negative); Urine Protein 1+ (Negative); Urine RBC <5 /HPF (None Seen); Urine Urobilinogen Normal (Normal); Urine WBC <5 /HPF (<5); Urine Yeast (Budding) Trace /HPF (None Seen)
[2024-07-04 10:14] VITALS: BP 188/63; TEMP 97.8
[2024-07-04 11:29] VITALS: O2SAT 97
[2024-07-04] MEDS ORDERED: PNEUMOCOCCAL VACCINE 0.5 ML IMVAC ONE (12:00)
--- NOTE | 2024-07-05 13:06 | P.SSS ---
Patient History Date of Service: 07/05/24 Reason for admission: SHORT OF BREATH History of Present Illness: NOHEMI IS DECONDITIONED, OBESE LADY WITH DEPRESSION WHO WAS IN THE HOSPITAL RECENTLY. DISCHARGE PLANNERS WORKED HARD TO GET HER TO [place] AND DECIDED TO TAKE HER HOME INSTEAD. HE GOT SICK AND CAME TO HOSPITAL WITH PNEUMONIA. SHE NOW ALONE AT HOME WITH HELP OF FRIENDS STARTED TO COMPLAIN OF DYPSNEA. SHE WAS BROUGHT BACK TO ER. NOTHING NEW WAS FOUND ON EVALUATION. ON LAST ADMISSION SHE HAD INFECTED SEROMA POST OP, LATER ASPIRATION PNEUMONIA FOR WHICH I GAVE HER ENOUGH ANTIBIOTICS AND SHE DOES NOT NEED ANY MORE ABX. SHE WAS ASKED NOT TO EAT LAYING DOWN AND BE UPRIGHT. WHEN I ENTERED ROOM ON ADMISSION, SHE WAS LAYING DOWN AND EATING DORITO CHIPS. SHE WILL ASPIRATE AGAIN AND MAY END UP CHI AGAIN. Allergies codeine Allergy (Verified 06/04/24 13:25) Nausea/Vomiting erythromycin base Allergy (Verified 06/04/24 13:25) Nausea/Vomiting/diarrhea phenytoin [From Dilantin] Allergy (Verified 06/04/24 13:25) Hives/Rash, high fever succinylcholine Allergy (Verified 06/04/24 13:25) Stopped Breathing Home Medications: Doxepin HCl 50 mg PO DAILY 12/09/16 Levothyroxine Sodium 150 mcg PO DAILY 12/09/16 Venlafaxine HCl [Effexor XR] 150 mg PO BEDTIME 12/09/16 Dulaglutide [Trulicity] 1.5 mg IM SEECOM 06/19/22 Montelukast Sodium [Singulair] 1 tab PO DAILY 06/19/22 Venlafaxine HCl 75 mg PO DAILY 06/19/22 ARIPiprazole [Abilify*] 5 mg PO DAILY 06/04/24 Carbidopa/Levodopa [Carbidopa-Levodopa 25-100 Tab] 1 each PO TID 06/04/24 Colesevelam HCl 1 tab PO DAILY 06/04/24 Hyoscyamine Sulfate 0.125 mg PO DAILY 06/04/24 Pravastatin [Pravachol*] 40 mg PO DAILY 06/04/24 Propranolol HCl [Propranolol HCl ER] 80 mg PO DAILY 06/04/24 Tizanidine HCl [Zanaflex] 2 mg PO BEDTIME 06/04/24 Amlodipine [Norvasc*] 5 mg PO DAILY #30 tab 07/01/24 Losartan Potassium [Cozaar*] 100 mg PO DAILY #30 tablet 07/01/24 cloNIDine HCL [Catapres*] 0.1 mg PO BID #60 tab 07/01/24 - Past Medical/Surgical History Has patient received pneumonia vaccine in the past: No Diabetic: Yes -: HTN -: HLD -: DM II -: Cholecystectomy -: Hysterectomy -: Back surgery x2 -: Bilateral mastectomy 06/05/24 Psychosocial/ Personal History: Patient is retired, lives at home with her - Family History Father -: Heart disease Mother -: Heart disease - Social History Smoking Status: Never smoker Alcohol use: No CD- Drugs: No Caffeine use: Yes Place of Residence: Home Review of Systems 10-point ROS is otherwise unremarkable General: Weakness, Malaise, As per HPI Physical Examination - Vital Signs Temperature: 97.8 F Blood Pressure: 188/63 Pulse: 82 Respirations: 16 Pulse Ox (%): 97 - Physical Exam General: Alert, In no apparent distress, Obese HEENT: Atraumatic, PERRLA, Mucous membr. moist/pink, EOMI, Sclerae nonicteric Neck: Supple, 2+ carotid pulse no bruit, No LAD, Without JVD or thyroid abnormality Respiratory: Clear to auscultation bilaterally, Normal air movement Cardiovascular: Regular rate/rhythm, Normal S1 S2 Gastrointestinal: Normal bowel sounds, No tenderness Musculoskeletal: No tenderness Integumentary: No rashes Neurological: Normal gait, Normal speech, Normal strength at 5/5 x4 extr, Normal tone, Normal affect Lymphatics: No axilla or inguinal lymphadenopathy - Diagnosis (Problem(s)) (1) Anxiety disorder Status: Acute Plan: SHE HAD BEEN CHRONICALLY DEPRESSED WITH MEDS. THIS ER ADMISSION WAS MAINLY SHE WAS ALONE AND HER EMIOTIONAL SUPPORT IS IN THE HOSPITAL. NOW AGREES WITH [place] AND SHE HAS THE LAST DAY OF APPROVAL TODAY AND SO SHE WAS SENT TO [facility]. (2) Hypoxia Status: Chronic Plan: SHE MAY HAVE HYPOXIA FROM SLEEP APNEA AND OBESITY CONTINUE SMALL DOSE OF OXYGEN AND CPAP BUT SHE WILL NOT BE COMPLIANT. PROGNOSIS IS POOR. - Disposition Disposition: TRANSFER TO SNF - REHAB Condition: FAIR
== END 2024-07-04 13:00 ==
LOC: ER 14:58 → 4TH 19:12
PROVIDERS: ADMIT Internal Medicine; ATTEND Internal Medicine
DX: R09.02 Hypoxemia (principal); F41.9 Anxiety disorder, unspecified; E66.9 Obesity, unspecified; E78.00 Pure hypercholesterolemia, unspecified; I10 Essential (primary) hypertension; Z85.3 Personal history of malignant neoplasm of breast; Z88.5 Allergy status to narcotic agent; Z88.1 Allergy status to other antibiotic agents; Z88.8 Allergy status to other drugs, medicaments and biological substances; Z68.37 Body mass index [BMI] 37.0-37.9, adult; Z98.890 Other specified postprocedural states
CPT/HCPCS: 93005; 85025; 81001; 80048; 36415; 80076; 84484; 83880; 71275; 99285; Q9967; G0378 ×3

== ENCOUNTER 2025-01-23 19:20 | Emergency (ER) | payer OTHER ==
[2025-01-23] MEDS ORDERED: NA CHLORIDE 0.9% 1,000 ML ONE (20:11)
[2025-01-23 20:14] LABS: Absolute Lymphocytes (CBC) 2.2 K/uL (0.7-4.9); Hematocrit 42.0 % (36.0-45.0); Hemoglobin 14.2 g/dL (12.0-15.0); MCH 28.9 pg (27.0-35.0); MCHC 33.7 g/dL (32.0-36.0); MCV 85.8 fL (80-100); MPV 7.5 fL (7.6-11.3); Nucleated RBC Absolute Count 0.0 (0-0); Nucleated Red Blood Cells % 0.0 % (0-0); RBC Red Blood Cell Count 4.90 M/uL (3.86-4.86); White Blood Count 14.40 thou/uL (4.3-10.9)
[2025-01-23 20:23] LABS: PT Prothrombin Time 12.4 SECONDS (10-13.0); PTT, Activated Partial Thromb 26.2 SECONDS (27.2-37.4); Protime INR 1.1
--- NOTE | 2025-01-23 20:26 | RAD REPORT ---
EXAM: CT brain without contrast HISTORY: SYNCOPE COMPARISON: 01/14/2022 TECHNIQUE: Multiple contiguous axial images were obtained and a CT of the brain without contrast. Sag ittal and coronal reformats were performed. One or more of the following dose reduction techniques were used: Automated exposure control, adjust ment of the mA and/or kV according to patient size, and/or iterative reconstruction. FINDINGS: No evidence of hydrocephalus, intracranial hemorrhage, or extra-axial fluid collection. Moderate brain atrophy with moderate periventricular and deep white matter chronic microvascular isc hemic changes present. No evidence of midline shift or areas of brain edema. The calvarium is intact. The visualized paranasal sinuses and mastoid air cells are essentially clear . IMPRESSION: No evidence of acute intracranial abnormality.
--- NOTE | 2025-01-23 20:30 | RAD REPORT ---
EXAMINATION: ONE VIEW CHEST XR CLINICAL INDICATION: syncope TECHNIQUE: Frontal chest projection is submitted. Examination is limited by patient positioning and t echnique. COMPARISON: 06/18/2024 FINDINGS: The lungs are well inflated and clear. The heart is upper limit of normal in size. No displaced fract ures identified. IMPRESSION: No acute intrathoracic abnormalities.
[2025-01-23 20:33] LABS: ALT/SGPT 20.0 U/L (13-56); AST/SGOT 13.0 U/L (15-37); Albumin 3.5 g/dL (3.4-5.0); Albumin/Globulin Ratio 1.0 (1.1-1.8); Alkaline Phosphatase 70.0 U/L (45-117); Anion Gap 11.1 mEq/L (5.0-15.0); BUN Blood Urea Nitrogen 24.0 mg/dL (7-18); Bilirubin Indirect, Calculated 0.3 mg/dL (0.2-0.8); Globulin 3.6 g/dL (2.3-3.5); Glucose Level 275.0 mg/dL (74-106); Magnesium 1.6 mg/dL (1.6-2.4); Potassium 4.1 mEq/L (3.5-5.1); Troponin High Sensitivity 7.6 pg/mL (<58.9)
--- NOTE | 2025-01-23 22:18 | ER ---
Nurse's Notes [facility] Name: Lupe Anaya Age: 74 yrs Sex: Female : 1950 Arrival Date: 01/23/2025 Time: 19:20 Bed 25 Private MD: Diagnosis: Dehydration, prerenal azotemia, renal insufficiency, lactic acidosis resolved Presentation: 01/23 19:34 Chief complaint: EMS states: Pt reports syncopal episode, upon getting up pt was jb4 nauseated, diaphoretic, SOB. BGL was 277, 88% on RA. Pt given 250ns and 4mg Zofran via 20g RFA. Coronavirus screen: At this time, the client does not indicate any symptoms associated with coronavirus-19. Ebola Screen: No symptoms or risks identified at this time. Initial Sepsis Screen: Does the patient meet any 2 criteria? No. Patient's initial sepsis screen is negative. Does the patient have a suspected source of infection? No. Patient's initial sepsis screen is negative. Risk Assessment: Do you want to hurt yourself or someone else? Patient reports no desire to harm self or others. Onset of symptoms was January 23, 2025. Transition of care: patient was not received from another setting of care. 19:34 Method Of Arrival: EMS: [facility] jb4 19:34 Acuity: NADER 3 jb4 Historical: - Allergies: 19:36 Codeine; jb4 19:36 Dilantin; jb4 19:36 Erythromycin; jb4 19:36 SUCCINYLCHOLINE; jb4 - PMHx: 19:36 breast cancer; diabetes mellitus; Hypercholesterolemia; Hypertensive disorder; jb4 - PSHx: 19:36 double mastectomy; jb4 - Immunization history:: Adult Immunizations up to date. - Infectious Disease History:: Denies. - Social history:: Smoking status: Patient denies any tobacco usage or history of. Screenin:39 [facility] ED Fall Risk Assessment (Adult) History of falling in the last 3 months, jb4 including since admission Yes- single mechanical fall (1 pt) Confusion or Disorientation No (0 pts) Intoxicated or Sedated No (0 pts) Impaired Gait Yes (1 pt) Mobility Assist Device Used Yes (1 pt) Altered Elimination No (0 pt) Score/Fall Risk Level 3 or more points = High Risk Oriented to surroundings, Maintained a safe environment. Abuse screen: Denies threats or abuse. Nutritional screening: No deficits noted. Tuberculosis screening: No symptoms or risk factors identified. Assessment: 19:36 General: Appears in no apparent distress. comfortable, Behavior is calm, cooperative, jb4 appropriate for age. Pain: Denies pain. Neuro: Level of Consciousness is awake, alert, obeys commands, Oriented to person, place, time, situation. Cardiovascular: Patient's skin is warm and dry. Respiratory: Airway is patent Respiratory effort is even, unlabored, Respiratory pattern is regular, symmetrical. GI: Reports nausea. Derm: Skin is intact, Skin is pink, warm \T\ dry. Musculoskeletal: Circulation, motion, and sensation intact. Range of motion: intact in all extremities. 20:39 Reassessment: Patient appears in no apparent distress at this time. Patient and/or jb4 family updated on plan of care and expected duration. Pain level reassessed. Patient is alert, oriented x 3, equal unlabored respirations, skin warm/dry/pink. 21:59 Reassessment: Patient appears in no apparent distress at this time. Patient and/or jb4 family updated on plan of care and expected duration. Pain level reassessed. Patient is alert, oriented x 3, equal unlabored respirations, skin warm/dry/pink. Vital Signs: 20:20 BP 139 / 63; Pulse 68; Resp 16; Temp 98.6(O); Pulse Ox 97% on R/A; jb4 20:30 BP 143 / 58 RA Supine (auto/reg); Pulse 66; Resp 16; Pulse Ox 96% on R/A; jb4 20:31 BP 147 / 66 RA Sitting (auto/reg); Pulse 67; Resp 16; Pulse Ox 98% on R/A; jb4 20:33 BP 111 / 64 RA Standing (auto/reg); Pulse 69; Resp 16; Pulse Ox 96% on R/A; jb4 21:59 BP 140 / 67; Pulse 66; Resp 19; Pulse Ox 98% ; jb4 ED Course: 19:25 Patient arrived in ED. kmf 19:27 Katina Romero MD is Attending Physician. sp3 19:34 Ronak Hein, RN is Primary Nurse. jb4 19:36 Triage completed. jb4 19:36 Arm band placed on right wrist. jb4 20:13 CT Head Brain wo Cont In Process Unspecified. EDMS 20:26 Chest Single View XRAY In Process Unspecified. EDMS 20:39 Patient has correct armband on for positive identification. Bed in low position. Call jb4 light in reach. Side rails up X 1. Provided Education on: plan of care. Client placed on continuous cardiac and pulse oximetry monitoring. NIBP monitoring applied. grease maker head on. Pulse ox on. 20:40 EKG done, by polysomnography technologist. reviewed by Katina Romero MD. ts3 22:50 No provider procedures requiring assistance completed. IV discontinued, intact, jb4 bleeding controlled, No redness/swelling at site. Pressure dressing applied. Administered Medications: 20:30 Drug: NS 0.9% IV 1000 ml IV at 1 bolus Per protocol; to be given as a bolus over 60 jb4 minutes Route: IV; Rate: 1 bolus; Site: right forearm; Medication: 20:40 VIS not applicable for this client. jb4 Outcome: 22:17 Discharge ordered by . sp3 22:50 Discharged to home via wheelchair, with family, jb4 22:50 Condition: stable 22:50 Discharge instructions given to patient, family, Instructed on discharge instructions, follow up and referral plans. Demonstrated understanding of instructions, follow-up care, 22:50 Patient left the ED. jb4 Signatures: Dispatcher [employer] Ronak Oakley, KEE RN jb4 Katina Romero MD MD sp3 Jael [facility] ts3 Corrections: (The following items were deleted from the chart) 22:50 22:50 Discharge instructions given to patient, family, Instructed on discharge jb4 instructions, follow up and referral plans. Demonstrated understanding of instructions, follow-up care, medications, Prescriptions given X 2, jb4
--- NOTE | 2025-01-23 22:18 | EDPHYS ---
Physician Documentation [facility] Name: Lupe Anaya Age: 74 yrs Sex: Female : 1950 Arrival Date: 01/23/2025 Time: 19:20 Bed 25 Private MD: ED Physician Katina Romero HPI: 01/23 20:01 This 74 yrs old Female presents to ER via EMS with complaints of syncope, vomiting sp3 (resolved). 20:01 74-year-old female with history of breast cancer status post double mastectomy not sp3 currently on treatment, diabetes, hyperlipidemia, hypertension presents to the ED after 3 episodes of emesis while eating spaghetti dinner with subsequent syncopal episode lasting approximately 30 seconds after which she had full resolution. All vomiting symptoms are now fully resolved. She feels back to her baseline. She denies ongoing nausea, headache, neck pain, chest pain, shortness of breath, abdominal pain, back pain, diarrhea, rash, bleeding, or any other signs or symptoms on ROS at this time.. Historical: - Allergies: 19:36 Codeine; jb4 19:36 Dilantin; jb4 19:36 Erythromycin; jb4 19:36 SUCCINYLCHOLINE; jb4 - PMHx: 19:36 breast cancer; diabetes mellitus; Hypercholesterolemia; Hypertensive disorder; jb4 - PSHx: 19:36 double mastectomy; jb4 - Immunization history:: Adult Immunizations up to date. - Infectious Disease History:: Denies. - Social history:: Smoking status: Patient denies any tobacco usage or history of. ROS: 20:11 Constitutional: Negative for fever, chills, and weight loss, Eyes: Negative for injury, sp3 pain, redness, and discharge, ENT: Negative for injury, pain, and discharge, Neck: Negative for injury, pain, and swelling, Cardiovascular: Negative for chest pain, palpitations, and edema, Respiratory: Negative for shortness of breath, cough, wheezing, and pleuritic chest pain, Abdomen/GI: Negative for abdominal pain, nausea, vomiting, diarrhea, and constipation, Back: Negative for injury and pain, MS/Extremity: Negative for injury and deformity, Skin: Negative for injury, rash, and discoloration, Neuro: Negative for headache, weakness, numbness, tingling, and seizure, 20:11 All other systems are negative, Exam: 20:11 Constitutional: This is a well developed, well nourished patient who is awake, alert, sp3 and in no acute distress. Head/Face: Normocephalic, atraumatic. Eyes: Pupils equal round and reactive to light, extra-ocular motions intact. Lids and lashes normal. Conjunctiva and sclera are non-icteric and not injected. Cornea within normal limits. Periorbital areas with no swelling, redness, or edema. ENT: Nares patent. No nasal discharge, no septal abnormalities noted. External auditory canals are clear. Oropharynx with no redness, swelling, or masses, exudates, or evidence of obstruction, uvula midline. Mucous membranes moist. Neck: Trachea midline, no thyromegaly or masses palpated, and no cervical lymphadenopathy. Supple, full range of motion without nuchal rigidity, or vertebral point tenderness. No Meningismus. Chest/axilla: Normal chest wall appearance and motion. Nontender with no deformity. No lesions are appreciated. Cardiovascular: Regular rate and rhythm with a normal S1 and S2. No gallops, murmurs, or rubs. Normal PMI, no JVD. No pulse deficits. Respiratory: Lungs have equal breath sounds bilaterally, clear to auscultation and percussion. No rales, rhonchi or wheezes noted. No increased work of breathing, no retractions or nasal flaring. Abdomen/GI: Soft, non-tender, with normal bowel sounds. No distension or tympany. No guarding or rebound. No evidence of tenderness throughout. Back: No spinal tenderness. No costovertebral tenderness. Full range of motion. Skin: Warm, dry with normal turgor. Normal color with no rashes, no lesions, and no evidence of cellulitis. MS/ Extremity: Pulses equal, no cyanosis. Neurovascular intact. Full, normal range of motion. Neuro: Awake and alert, GCS 15, oriented to person, place, time, and situation. Cranial nerves II-XII grossly intact. Motor strength 5/5 in all extremities. Sensory grossly intact. Cerebellar exam normal. Normal gait. Psych: Awake, alert, with orientation to person, place and time. Behavior, mood, and affect are within normal limits. 20:34 ECG was reviewed by the Attending Physician. EKG demonstrates normal sinus rhythm at 67 sp3 bpm with first-degree AV block with AZ interval 206, Q-wave noted in lead III and aVF, leftward axis and nonspecific diffuse ST/T changes without evidence of acute ischemia. Vital Signs: 20:20 BP 139 / 63; Pulse 68; Resp 16; Temp 98.6(O); Pulse Ox 97% on R/A; jb4 20:30 BP 143 / 58 RA Supine (auto/reg); Pulse 66; Resp 16; Pulse Ox 96% on R/A; jb4 20:31 BP 147 / 66 RA Sitting (auto/reg); Pulse 67; Resp 16; Pulse Ox 98% on R/A; jb4 20:33 BP 111 / 64 RA Standing (auto/reg); Pulse 69; Resp 16; Pulse Ox 96% on R/A; jb4 21:59 BP 140 / 67; Pulse 66; Resp 19; Pulse Ox 98% ; jb4 MDM: 19:27 Medical Screening Exam initiated sp3 20:11 Data reviewed: vital signs, nurses notes, lab test result(s), EKG, radiologic studies. sp3 ED course: 74-year-old female with PMH above now with a resolved emesis and 1 syncopal episode. Differential diagnosis includes vasovagal syncope, foodborne illness, viral episode, dehydration, and to lesser degree ACS, infection, intracranial pathology, among others. Workup will include CT scan of the head, EKG, chest x-ray, general labs. Normal saline bolus to be given. If workup negative and patient continues to feel that she does not we will safely discharge her home.. 22:16 ED course: Patient's creatinine at 1 point1.2 and lactate of 2.1. Likely patient is sp3 dehydrated and now she has received over 1300 mL of normal saline. Patient feels significantly better. I have counseled her on proper hydration at home and we will safely discharge her home at this time. No admission criteria noted.. 01/23 19:35 Order name: Basic Metabolic Panel; Complete Time: 20:36 3 01/23 19:35 Order name: CBC with Diff; Complete Time: 20:36 3 01/23 19:35 Order name: Hepatic Function; Complete Time: 20:36 3 01/23 19:35 Order name: Magnesium; Complete Time: 20:36 3 01/23 19:35 Order name: Protime (+inr); Complete Time: 20:36 [facility] 01/23 19:35 Order name: Ptt, Activated; Complete Time: 20:36 [facility] 01/23 19:35 Order name: Troponin High Sensitivity; Complete Time: 20:36 [facility] 01/23 19:35 Order name: Lactate w/ 2H reflex if indic.; Complete Time: 22:13 [facility] 01/23 19:35 Order name: CK; Complete Time: 20:36 [facility] 01/23 20:46 Order name: Ghost Lactate-NO COLLECT Timer EDOH 01/23 19:35 Order name: CT Head Brain wo Cont; Complete Time: 20:36 [facility] 01/23 19:35 Order name: Chest Single View XRAY; Complete Time: 20:36 [facility] 01/23 19:35 Order name: Cardiac monitoring; Complete Time: 20:30 [facility] 01/23 19:35 Order name: EKG - Nurse/Tech; Complete Time: 20:30 [facility] 01/23 19:35 Order name: IV Saline Lock; Complete Time: 20:19 [facility] 01/23 19:35 Order name: Labs collected and sent; Complete Time: 20:19 [facility] 01/23 19:35 Order name: NPO; Complete Time: 19:46 [facility] 01/23 19:35 Order name: O2 Per Protocol; Complete Time: 20:19 [facility] 01/23 19:35 Order name: O2 Sat Monitoring; Complete Time: 20:19 [facility] 01/23 19:35 Order name: Orthostatics; Complete Time: 20:30 sp3 Administered Medications: 20:30 Drug: NS 0.9% IV 1000 ml IV at 1 bolus Per protocol; to be given as a bolus over 60 jb4 minutes Route: IV; Rate: 1 bolus; Site: right forearm; Disposition Summary: 01/23/25 22:17 Discharge Ordered Notes: Location: Home sp3 Condition: Stable sp3 Diagnosis - Dehydration, prerenal azotemia, renal insufficiency, lactic acidosis resolved sp3 Followup: sp3 - With: Private Physician - When: Upon discharge from the Emergency Department - Reason: Continuance of care Discharge Instructions: - Discharge Summary Sheet sp3 - Dehydration, Elderly sp3 - Near-Syncope sp3 Forms: - Medication Reconciliation Form sp3 - Antibiotic Education sp3 - Prescription Opioid Use sp3 - Patient Portal Instructions sp3 - Leadership Thank You Letter sp3 Signatures: Dispatcher [employer] Ronak Oakley RN RN jb4 Katina Romero MD MD sp3 Corrections: (The following items were deleted from the chart) 20:11 20:01 74-year-old female. sp3 sp3
[2025-01-23 23:26] VITALS: TEMP 98.6
[2025-01-23 23:32] VITALS: BP 140/67; O2SAT 98
== END 2025-01-23 22:50 | disposition home or self-care (01) ==
LOC: ER 19:20
DX: E86.0 Dehydration (principal); R79.89 Other specified abnormal findings of blood chemistry; N28.9 Disorder of kidney and ureter, unspecified; Z90.13 Acquired absence of bilateral breasts and nipples
CPT/HCPCS: 93005; 85025; 80048; 36415; 83735; 82550; 85610; 80076; 83605; 85730; 84484; 70450; 71045; 99285; J7030